=== PATIENT | male | born 1950 | race Caucasian/White ===

== ENCOUNTER 2018-04-08 09:45 | Emergency (ER) | payer OTHER ==
[2018-04-08] MEDS ORDERED: MORPHINE 4 MG/ML SYR ONE (11:25)
[2018-04-08] MEDS ORDERED: DEXAMETHASONE 10 MG/ML VIAL ONE (11:25)
[2018-04-08] MEDS ORDERED: KETOROLAC 30 MG/ML INJ ONE (11:26)
[2018-04-08] MEDS ORDERED: NA CHLORIDE 0.9% 500 ML ONE (11:26)
[2018-04-08] MEDS ORDERED: ONDANSETRON 4 MG/2 ML VIAL ONE (11:26)
[2018-04-08] MEDS ORDERED: DIAZEPAM 5 MG TABLET ONE (11:26)
--- NOTE | 2018-04-08 11:40 | RAD REPORT ---
EXAM DESCRIPTION: CT - Spine Lumbar Wo Con - 04/08/2018 11:20 am CLINICAL HISTORY: Radiculopathy. LOWER BACK PAIN COMPARISON: No comparisons TECHNIQUE: Axial noncontrast CT imaging of the lumbar spine was performed with coronal and sagittal re-formatted images. All CT scans are performed using dose optimization technique as appropriate and may include automated exposure control or mA/KV adjustment according to patient size. FINDINGS: No acute lumbar spine fracture seen. Degenerative scoliotic curvature is present of the up per thoracolumbar spine is seen. Multilevel degenerative changes are present of the lower thoracic sp ine. Paraspinal tissues are normal in thickness. No paraspinal abscess or hematoma seen. Cholecystectomy c lips. Aortic atherosclerosis. IMPRESSION: No acute lumbar spine abnormality is detected. Consider MRI follow-up for assessment of disc disease if clinically desired.
[2018-04-08 11:46] LABS: Urine Blood NEGATIVE (NEG); Urine Glucose NEGATIVE (NEG); Urine Protein NEGATIVE (NEG); Urine Specific Gravity 1.015 (1.005-1.030); Urine pH 6.5 (5.0-7.0)
[2018-04-08 11:47] LABS: Absolute Lymphocytes (CBC) 2.1 K/uL (0.7-4.9); Absolute Monocytes 0.4 K/uL (0.1-1.3); Absolute Neutrophil 3.6 K/uL (1.8-8.0); Basophils % 1.2 % (0-1.3); Eosinophils % 3.2 % (0-4.4); Hematocrit 44.5 % (39.6-49.0); Lymphocytes % 33.2 % (15.3-44.8); MPV 9.2 fL (7.6-11.3); Monocytes % 6.1 % (3.3-12.3); RBC Red Blood Cell Count 4.85 M/uL (4.33-5.43)
[2018-04-08 12:00] LABS: Albumin 3.7 g/dL (3.4-5.0); Bilirubin Total 0.6 mg/dL (0.2-1.0); Potassium 4.3 mmol/L (3.5-5.1); Protein, Total 7.8 g/dL (6.4-8.2)
--- NOTE | 2018-04-08 12:12 | EDPHYS ---
Physician Documentation [facility] Name: Lev Miller Jr Age: 67 yrs Sex: Male : 1950 Arrival Date: 04/08/2018 Time: 09:50 Bed 14 Private MD: Omar Pope E ED Physician Samy Mehta HPI: 04/08 11:07 This 67 yrs old Male presents to ER via Ambulatory with complaints of Back estefany Pain. 11:07 The patient presents with pain that is acute, and decreased range of motion, and an estefany injury. The symptoms are located in the low back. Onset: The symptoms/episode began/occurred 2 day(s) ago. The pain radiates to the lumbar area, left low back and right low back. Associated signs and symptoms: The patient has no apparent associated signs or symptoms. Modifying factors: The patient symptoms are alleviated by remaining still, the patient symptoms are aggravated by any movement. Severity of symptoms: At their worst the symptoms were moderate, in the emergency department the symptoms are unchanged. The patient has not experienced similar symptoms in the past. Historical: - Allergies: 09:53 Codeine; sv 09:53 PENICILLINS; sv - PMHx: 09:53 Atrial Fib; CVA; Gout; Hypertension; sv - PSHx: 09:53 Appendectomy; sv - Immunization history:: Flu vaccine is up to date. - Social history:: Smoking status: Patient uses tobacco products, smokes one pack cigarettes per day. - Ebola Screening: : No symptoms or risks identified at this time. - Family history:: not pertinent. ROS: 11:07 Constitutional: Negative for fever, chills, and weight loss, Eyes: Negative for injury, estefany pain, redness, and discharge, ENT: Negative for injury, pain, and discharge, Neck: Negative for injury, pain, and swelling, Cardiovascular: Negative for chest pain, palpitations, and edema, Respiratory: Negative for shortness of breath, cough, wheezing, and pleuritic chest pain, Abdomen/GI: Negative for abdominal pain, nausea, vomiting, diarrhea, and constipation, : Negative for injury, bleeding, discharge, and swelling, MS/Extremity: Negative for injury and deformity, Skin: Negative for injury, rash, and discoloration, Neuro: Negative for headache, weakness, numbness, tingling, and seizure, Psych: Negative for depression, anxiety, suicide ideation, homicidal ideation, and hallucinations, Allergy/Immunology: Negative for hives, rash, and allergies, Endocrine: Negative for neck swelling, polydipsia, polyuria, polyphagia, and marked weight changes, Hematologic/Lymphatic: Negative for swollen nodes, abnormal bleeding, and unusual bruising. 11:07 Back: Positive for decreased range of motion, pain at rest, pain with movement, radiated pain, of the lumbar area, left low back and right low back. Exam: 11:07 Constitutional: This is a well developed, well nourished patient who is awake, alert, estefany and in no acute distress. Head/Face: Normocephalic, atraumatic. Eyes: Pupils equal round and reactive to light, extra-ocular motions intact. Lids and lashes normal. Conjunctiva and sclera are non-icteric and not injected. Cornea within normal limits. Periorbital areas with no swelling, redness, or edema. ENT: Nares patent. No nasal discharge, no septal abnormalities noted. Tympanic membranes are normal and external auditory canals are clear. Oropharynx with no redness, swelling, or masses, exudates, or evidence of obstruction, uvula midline. Mucous membranes moist. Neck: Trachea midline, no thyromegaly or masses palpated, and no cervical lymphadenopathy. Supple, full range of motion without nuchal rigidity, or vertebral point tenderness. No Meningismus. Chest/axilla: Normal chest wall appearance and motion. Nontender with no deformity. No lesions are appreciated. Cardiovascular: Regular rate and rhythm with a normal S1 and S2. No gallops, murmurs, or rubs. Normal PMI, no JVD. No pulse deficits. Respiratory: Lungs have equal breath sounds bilaterally, clear to auscultation and percussion. No rales, rhonchi or wheezes noted. No increased work of breathing, no retractions or nasal flaring. Abdomen/GI: Soft, non-tender, with normal bowel sounds. No distension or tympany. No guarding or rebound. No evidence of tenderness throughout. Male : Normal genitalia with no discharge or lesions. Skin: Warm, dry with normal turgor. Normal color with no rashes, no lesions, and no evidence of cellulitis. MS/ Extremity: Pulses equal, no cyanosis. Neurovascular intact. Full, normal range of motion. Neuro: Awake and alert, GCS 15, oriented to person, place, time, and situation. Cranial nerves II-XII grossly intact. Motor strength 5/5 in all extremities. Sensory grossly intact. Cerebellar exam normal. Normal gait. Psych: Awake, alert, with orientation to person, place and time. Behavior, mood, and affect are within normal limits. 11:07 Back: ROM is painful, normal spinal alignment noted, CVA tenderness, is absent, vertebral tenderness, is not appreciated, muscle spasm, is appreciated in the left low back, left mid back, right mid back and right low back. Vital Signs: 09:54 BP 130 / 89; Pulse 91; Resp 18; Temp 97.6; Pulse Ox 99% ; Weight 120.2 kg; Height 5 ft. sv 8 in. (172.72 cm); Pain 10/10; 11:30 BP 121 / 78; Pulse 84; Resp 18; Temp 97.4; Pulse Ox 99% on R/A; Pain 5/10; ph 09:54 Body Mass Index 40.29 (120.20 kg, 172.72 cm) sv MDM: 09:55 Patient medically screened. [facility] 11:09 Data reviewed: vital signs, nurses notes, lab test result(s), radiologic studies, CT [facility] scan. 04/08 11:07 Order name: CBC with Diff [facility] 04/08 11:07 Order name: Comprehensive Metabolic Panel [facility] 04/08 11:07 Order name: Urine Culture [facility] 04/08 11:43 Order name: Urine Dipstick--Ancillary (enter results) 04/08 11:47 Order name: Urine Dipstick-Ancillary; Complete Time: 12:10 [facility] 04/08 11:49 Order name: CBC with Automated Diff; Complete Time: 12:10 [facility] 04/08 11:07 Order name: CT Lumbar Spine Wo Con [facility] 04/08 11:42 Order name: CT; Complete Time: 12:10 [facility] 04/08 12:01 Order name: Comprehensive Metabolic Panel; Complete Time: 12:10 [facility] 04/08 11:07 Order name: Urine Dipstick-Ancillary (obtain specimen); Complete Time: 12:20 [facility] Administered Medications: 11:50 Drug: NS 0.9% 500 ml Route: IV; Rate: bolus; Site: right antecubital; ph 13:00 Follow up: Response: No adverse reaction; IV Status: Completed infusion ph 11:50 Drug: Valium 5 mg Route: PO; ph 13:00 Follow up: Response: No adverse reaction ph 11:50 Drug: Zofran 4 mg Route: IVP; Site: right antecubital; ph 13:00 Follow up: Response: No adverse reaction ph 11:52 Drug: morphine 4 mg Route: IVP; Site: right antecubital; ph 13:00 Follow up: Response: No adverse reaction; Pain is decreased ph 11:53 Drug: TORadol 30 mg Route: IVP; Site: right antecubital; ph 13:00 Follow up: Response: No adverse reaction ph 11:54 Drug: Decadron - Dexamethasone 10 mg Route: IVP; Site: right antecubital; ph 13:00 Follow up: Response: No adverse reaction ph Disposition: 04/08/18 12:11 Discharged to Home. Impression: Low back pain, Sciatica, Obesity, unspecified. - Condition is Stable. - Discharge Instructions: Back Pain, Adult, Musculoskeletal Pain, Obesity, Adult, Back Injury Prevention, Jgpo-hm-Vqor, Back Pain, Adult, Rghn-mr-Kkmh, Obesity, Adult, Wukf-gu-Xgjy. - Prescriptions for Skelaxin 800 mg Oral Tablet - take 1 tablet by ORAL route every 6 hours As needed; 40 tablet. Tramadol 50 mg Oral Tablet - take 1 tablet by ORAL route every 8 hours as needed; 24 tablet. Medrol (Landry) 4 mg Oral Tablets, Dose Pack - take 1 tablet by ORAL route as directed - follow package instructions; 1 packet. Motrin IB 200 mg Oral Tablet - take 1 tablet by ORAL route every 6 hours As needed as needed with food; 20 tablet. - Medication Reconciliation Form, Thank You Letter, Antibiotic Education, Prescription Opioid Use form. - Follow up: Omar Pope; When: 2 - 3 days; Reason: Recheck today's complaints, Continuance of care, Re-evaluation by your physician. - Problem is new. - Symptoms have improved. Signatures: Dispatcher [employer] Dorothea Moore, RN RN Samy Valadez MD MD cha Hall, Patricia, RN RN ph Corrections: (The following items were deleted from the chart) 13:02 12:11 04/08/2018 12:11 Discharged to Home. Impression: Low back pain; Sciatica; ph Obesity, unspecified. Condition is Stable. Discharge Instructions: Back Pain, Adult, Musculoskeletal Pain, Obesity, Adult, Back Injury Prevention, Qvhq-ib-Rwuf, Back Pain, Adult, Cjoe-hh-Cirt, Obesity, Adult, Wwhb-kg-Rskg. Prescriptions for Skelaxin 800 mg Oral Tablet - take 1 tablet by ORAL route every 6 hours As needed; 40 tablet, Tramadol 50 mg Oral Tablet - take 1 tablet by ORAL route every 8 hours as needed; 24 tablet, Medrol (Landry) 4 mg Oral Tablets, Dose Pack - take 1 tablet by ORAL route as directed - follow package instructions; 1 packet. and Forms are Medication Reconciliation Form, Thank You Letter, Antibiotic Education, Prescription Opioid Use. Follow up: Omar Pope; When: 2 - 3 days; Reason: Recheck today's complaints, Continuance of care, Re-evaluation by your physician. Problem is new. Symptoms have improved. estefany
--- NOTE | 2018-04-08 12:12 | ER ---
Nurse's Notes [facility] Name: Lev Miller Jr Age: 67 yrs Sex: Male : 1950 Arrival Date: 04/08/2018 Time: 09:50 Bed 14 Private MD: Omar Pope E Diagnosis: Low back pain;Sciatica;Obesity, unspecified Presentation: 04/08 09:52 Presenting complaint: Patient states: low back pain after bending down to pick sv something off of his bathtub yesterday. Transition of care: patient was not received from another setting of care. Onset of symptoms was April 07, 2018. Care prior to arrival: None. 09:52 Method Of Arrival: Ambulatory sv 09:52 Acuity: CRISTINA 4 sv 12:30 Risk Assessment: Do you want to hurt yourself or someone else? Patient reports no ph desire to harm self or others. Initial Sepsis Screen: Does the patient meet any 2 criteria? No. Patient's initial sepsis screen is negative. Does the patient have a suspected source of infection? No. Patient's initial sepsis screen is negative. Triage Assessment: 09:54 General: Appears in no apparent distress. uncomfortable, Behavior is calm, cooperative, sv appropriate for age. Pain: Complains of pain in low back area Pain currently is 10 out of 10 on a pain scale. Neuro: Level of Consciousness is awake, alert, obeys commands, Oriented to person, place, time, situation, Moves all extremities. Full function Gait is steady, Denies numbness. Respiratory: Respiratory effort is even, unlabored, Respiratory pattern is regular, symmetrical. Musculoskeletal: Range of motion: intact in all extremities. Historical: - Allergies: 09:53 Codeine; sv 09:53 PENICILLINS; sv - PMHx: 09:53 Atrial Fib; CVA; Gout; Hypertension; sv - PSHx: 09:53 Appendectomy; sv - Immunization history:: Flu vaccine is up to date. - Social history:: Smoking status: Patient uses tobacco products, smokes one pack cigarettes per day. - Ebola Screening: : No symptoms or risks identified at this time. - Family history:: not pertinent. Screenin:30 Abuse screen: Denies threats or abuse. Denies injuries from another. Nutritional ph screening: No deficits noted. Tuberculosis screening: No symptoms or risk factors identified. Fall Risk None identified. Assessment: 10:30 General: Appears in no apparent distress. uncomfortable, well groomed, Behavior is ph calm, cooperative, appropriate for age. Pain: Complains of pain in low back area. Neuro: Level of Consciousness is awake, alert, obeys commands, Oriented to person, place, time, situation. Cardiovascular: Capillary refill < 3 seconds in bilateral fingers Patient's skin is warm and dry. Respiratory: Airway is patent Respiratory effort is even, unlabored. : Reports pain in lower back Denies burning with urination, urinary frequency. Derm: Skin is intact, is healthy with good turgor, Skin is pink, warm \T\ dry. Musculoskeletal: Circulation, motion, and sensation intact. Range of motion: intact in all extremities. 11:30 Reassessment: Patient appears in no apparent distress at this time. Patient and/or ph family updated on plan of care and expected duration. Pain level reassessed. Patient is alert, oriented x 3, equal unlabored respirations, skin warm/dry/pink. 12:55 Reassessment: Patient appears in no apparent distress at this time. Patient and/or ph family updated on plan of care and expected duration. Pain level reassessed. Patient is alert, oriented x 3, equal unlabored respirations, skin warm/dry/pink. Pt reports that paiun has improved, d/c home w/ SO. Vital Signs: 09:54 BP 130 / 89; Pulse 91; Resp 18; Temp 97.6; Pulse Ox 99% ; Weight 120.2 kg; Height 5 ft. sv 8 in. (172.72 cm); Pain 10/10; 11:30 BP 121 / 78; Pulse 84; Resp 18; Temp 97.4; Pulse Ox 99% on R/A; Pain 5/10; ph 09:54 Body Mass Index 40.29 (120.20 kg, 172.72 cm) sv ED Course: 09:50 Patient arrived in ED. dl4 09:50 Omar Pope MD is Private Physician. dl4 09:53 Triage completed. sv 09:54 Arm band placed on Patient placed in an exam room, on a stretcher. sv 09:55 Samy Mehta MD is Attending Physician. estefany 10:07 Ceci Stephen RN is Primary Nurse. ph 11:25 CT completed. Patient tolerated procedure well. Patient moved to CT via wheelchair. vr Patient moved back from CT. 12:07 Patient has correct armband on for positive identification. Bed in low position. Call [facility] light in reach. Side rails up X 1. Adult w/ patient. Pillow given. Pulse ox on. NIBP on. 12:07 Initial lab(s) drawn, by tx, sent to lab. Inserted saline lock: 20 gauge in right [facility] antecubital area, using aseptic technique. Blood collected. 12:08 Urine Dipstick--Ancillary (enter results) Sent. [facility] 12:08 CT Lumbar Spine Wo Con Sent. [facility] 12:08 Comprehensive Metabolic Panel Sent. [facility] 12:08 CBC with Diff Sent. [facility] 12:11 Omar Pope MD is Referral Physician. [facility] 13:00 No provider procedures requiring assistance completed. IV discontinued, intact, ph bleeding controlled, No redness/swelling at site. Pressure dressing applied. Administered Medications: 11:50 Drug: NS 0.9% 500 ml Route: IV; Rate: bolus; Site: right antecubital; ph 13:00 Follow up: Response: No adverse reaction; IV Status: Completed infusion ph 11:50 Drug: Valium 5 mg Route: PO; ph 13:00 Follow up: Response: No adverse reaction ph 11:50 Drug: Zofran 4 mg Route: IVP; Site: right antecubital; ph 13:00 Follow up: Response: No adverse reaction ph 11:52 Drug: morphine 4 mg Route: IVP; Site: right antecubital; ph 13:00 Follow up: Response: No adverse reaction; Pain is decreased ph 11:53 Drug: TORadol 30 mg Route: IVP; Site: right antecubital; ph 13:00 Follow up: Response: No adverse reaction ph 11:54 Drug: Decadron - Dexamethasone 10 mg Route: IVP; Site: right antecubital; ph 13:00 Follow up: Response: No adverse reaction ph Outcome: 12:11 Discharge ordered by . estefany 13:02 Patient left the ED. ph 13:02 Discharged to home ambulatory, with significant other. ph 13:02 Condition: improved 13:02 Discharge instructions given to patient, Instructed on discharge instructions, follow up and referral plans. medication usage, Demonstrated understanding of instructions, follow-up care, medications, Prescriptions given X 4. Signatures: Dominik, Dorothea, Samy Gomez RN, MD MD cha Davis, Victoria vr Hall, Patricia, RN RN Josephine Bay [facility] Aniceto Chapman 4 Corrections: (The following items were deleted from the chart) 12:19 11:53 NS 0.9% 500 ml IV at bolus in right antecubital ph ph
[2018-04-08 13:13] VITALS: BP 130/89; TEMP 97.6; O2SAT 99
== END 2018-04-08 13:02 | disposition home or self-care (01) ==
LOC: ER 09:45
DX: M54.30 Sciatica, unspecified side (principal); E66.9 Obesity, unspecified; F17.210 Nicotine dependence, cigarettes, uncomplicated; Z88.0 Allergy status to penicillin; Z88.6 Allergy status to analgesic agent; Z72.0 Tobacco use
CPT/HCPCS: 36415; 72131; 80053; 81003; 85025; 87086; 87088; J1100; J2405

== ENCOUNTER 2019-10-21 06:20 | Day surgery (SDC) | payer OTHER ==
[2019-10-21] MEDS ORDERED: GENTAMICIN 80 MG/100 ML BAG 80 MG/100 ML BAG IV ONE (06:35)
[2019-10-21] MEDS ORDERED: Ringers Lactate 1,000 ML IV ONE (06:35)
[2019-10-21] MEDS ORDERED: propofoL 200 MG/20 ML VIAL IV ONE (07:14)
[2019-10-21] MEDS ORDERED: MIDAZOLAM HCL 2 MG/2 ML INJ ONE (07:14)
[2019-10-21] MEDS ORDERED: LIDOCAINE 2% MPF 5 ML VIAL ONE (07:14)
[2019-10-21] MEDS ORDERED: dexAMETHasone 10 MG/ML VIAL ONE (07:14)
[2019-10-21] MEDS ORDERED: FENTANYL CITR 100 MCG/2 ML ONE (07:14)
[2019-10-21] MEDS ORDERED: LIDOCAINE 1% MPF 5 ML VIAL ONE (07:21)
[2019-10-21] MEDS ORDERED: BUPIVACAINE 0.5% PF 10 ML VIAL ONE (07:22)
[2019-10-21] MEDS ORDERED: LIDOCAINE 1% MPF 30 ML VIAL ONE (07:26)
[2019-10-21] MEDS ORDERED: EPHEDRINE SULF 50 MG/ML VIAL ONE (08:22)
[2019-10-21] MEDS ORDERED: KETOROLAC 30 MG/ML INJ ONE (08:39)
[2019-10-21 09:46] VITALS: BP 126/78; O2SAT 98
[2019-10-21] MEDS ORDERED: TRAMADOL HCL 50 MG TAB ONE (10:10)
[2019-10-21 10:44] VITALS: TEMP 7.3
== END 2019-10-21 10:40 | disposition home or self-care (01) ==
LOC: OR 06:20
PROVIDERS: ATTEND Urology
PROC: 0VB Male Reproductive System, Excision (ICD-10-PCS; principal; 2019-10-21 07:30)
DX: L94.2 Calcinosis cutis (principal); Z11.59 Encounter for screening for other viral diseases; I10 Essential (primary) hypertension; I48.91 Unspecified atrial fibrillation; M10.9 Gout, unspecified; Z79.899 Other long term (current) drug therapy; Z87.891 Personal history of nicotine dependence
CPT/HCPCS: 11423; 12042; 88304; 88311; U0002 ×2; J2704; J2250; J3010; J1100; J7120; J1580

== ENCOUNTER 2019-11-14 07:30 | Observation (INO) | payer OTHER ==
[2019-11-14 08:10] LABS: Protime INR 1.2
[2019-11-14 08:11] LABS: Absolute Lymphocytes (CBC) 2.1 K/uL (0.7-4.9); Basophils % 0.9 % (0-1.3); Hematocrit 42.7 % (39.6-49.0); Lymphocytes % 32.7 % (15.3-44.8); MPV 9.1 fL (7.6-11.3); RBC Red Blood Cell Count 4.54 M/uL (4.33-5.43)
[2019-11-14 08:31] LABS: ALT/SGPT 14 U/L (12-78); AST/SGOT 17 U/L (15-37); Albumin 3.4 g/dL (3.4-5.0); Alkaline Phosphatase 66 U/L (45-117); BUN Blood Urea Nitrogen 10 mg/dL (7-18); Bicarbonate 25 mmol/L (21-32); Bilirubin Direct 0.2 mg/dL (0-0.2); Bilirubin Total 0.6 mg/dL (0.2-1.0); Glucose Level 98 mg/dL (74-106); Magnesium 2.4 mg/dL (1.8-2.4); NT PRO-BNP 718 pg/mL (<125); Potassium 4.2 mmol/L (3.5-5.1); Protein, Total 7.1 g/dL (6.4-8.2); Sodium Level 137 mmol/L (136-145); Troponin (Emerg Dept Use Only) < 0.02 ng/mL (0.0-0.045)
--- NOTE | 2019-11-14 08:36 | RAD REPORT ---
EXAM DESCRIPTION: RAD - Chest Single View - 11/14/2019 8:13 am CLINICAL HISTORY: CHEST PAIN COMPARISON: September 24, 2019 chest exam TECHNIQUE: AP portable chest image was obtained 11/14/2019 8:13 am . FINDINGS: Lungs are clear. Interstitial pattern matches comparison. No failure or volume overload. H eart and vasculature are normal. No measurable pleural effusion and no pneumothorax. No acute bony ab normality seen. No acute aortic findings suspected. IMPRESSION: No acute cardiopulmonary process. No significant change from the September 23 study.
--- NOTE | 2019-11-14 08:40 | ER ---
Nurse's Notes [facility] Name: Lev Miller Jr Age: 69 yrs Sex: Male : 1950 Arrival Date: 11/14/2019 Time: 07:33 Bed 25 Private MD: Diagnosis: Chest pain, unspecified Presentation: 11/13 07:35 Chief complaint: Patient states: Intermittent, non-radiating, mid-sternal chest pain jl7 since 0430. Coronavirus screen: Client denies travel out of the [place] in the last 14 days. At this time, the client does not indicate any symptoms associated with coronavirus-19. Ebola Screen: No symptoms or risks identified at this time. Initial Sepsis Screen: Does the patient meet any 2 criteria? No. Patient's initial sepsis screen is negative. Does the patient have a suspected source of infection? No. Patient's initial sepsis screen is negative. Risk Assessment: Do you want to hurt yourself or someone else? Patient reports no desire to harm self or others. Onset of symptoms was November 14, 2019 at 04:30. Care prior to arrival: None. Transition of care: patient was not received from another setting of care. 07:35 Method Of Arrival: Ambulatory jl7 07:35 Acuity: CRISTINA 2 jl7 Triage Assessment: 07:49 General: Appears in no apparent distress. uncomfortable, Behavior is calm, cooperative, jl7 appropriate for age. Pain: Complains of pain in mid-sternal area Pain does not radiate. Pain currently is 2 out of 10 on a pain scale. at worst was 8 out of 10 on a pain scale. Quality of pain is described as pressure, Pain began 3 hours ago. Is intermittent. Neuro: Level of Consciousness is awake, alert, obeys commands, Oriented to person, place, time, situation, Gait is steady, Speech is normal. Cardiovascular: Patient's skin is warm and dry. Rhythm is atrial fibrillation. Respiratory: Airway is patent Respiratory effort is even, unlabored, Respiratory pattern is regular, symmetrical. Derm: Skin is pink, warm \T\ dry. Historical: - Allergies: 07:49 Codeine; jl7 07:49 PENICILLINS; jl7 - Home Meds: 07:49 amlodipine 10 mg tab 1 tab once daily for Hypertension [Active]; Eliquis 5 mg Oral tab jl7 1 tab 2 times per day [Active]; lisinopril 20 mg Oral tab 1 tab once daily [Active]; sotalol 80 mg Oral tab 1 tab 2 times per day [Active]; - PMHx: 07:49 Atrial Fib; CVA; Gout; Hypertension; jl7 - Immunization history:: Adult Immunizations unknown. - Social history:: Smoking status: Patient reports the use of cigarette tobacco products, smokes one-half pack cigarettes per day. Screenin:59 Abuse screen: Denies threats or abuse. Denies injuries from another. Nutritional jl7 screening: No deficits noted. Tuberculosis screening: No symptoms or risk factors identified. Fall Risk IV access (20 points). Total Han Fall Scale indicates No Risk (0-24 pts). Assessment: 07:59 General: See triage assessment. jl7 09:00 Reassessment: Patient appears in no apparent distress at this time. No changes from jl7 previously documented assessment. Patient and/or family updated on plan of care and expected duration. Pain level reassessed. Patient is alert, oriented x 3, equal unlabored respirations, skin warm/dry/pink. 10:00 Reassessment: Patient appears in no apparent distress at this time. No changes from jl7 previously documented assessment. Patient and/or family updated on plan of care and expected duration. Pain level reassessed. Patient is alert, oriented x 3, equal unlabored respirations, skin warm/dry/pink. 11:29 Reassessment: Dhara (daughter) [phone]. 12:00 Reassessment: Patient appears in no apparent distress at this time. No changes from jl7 previously documented assessment. Patient and/or family updated on plan of care and expected duration. Pain level reassessed. Patient is alert, oriented x 3, equal unlabored respirations, skin warm/dry/pink. 13:00 Reassessment: Patient appears in no apparent distress at this time. No changes from jl7 previously documented assessment. Patient and/or family updated on plan of care and expected duration. Pain level reassessed. Patient is alert, oriented x 3, equal unlabored respirations, skin warm/dry/pink. 14:00 Reassessment: Patient appears in no apparent distress at this time. No changes from jl7 previously documented assessment. Patient and/or family updated on plan of care and expected duration. Pain level reassessed. Patient is alert, oriented x 3, equal unlabored respirations, skin warm/dry/pink. Vital Signs: 07:35 BP 127 / 74; Pulse 88; Resp 15 S; Temp 98.3(O); Pulse Ox 99% on R/A; Weight 90.72 kg jl7 (R); Pain 2/10; 08:00 BP 124 / 80; Pulse 79; Resp 15; Pulse Ox 97% ; jl7 09:00 BP 104 / 61; Pulse 76; Resp 15; Pulse Ox 96% ; jl7 10:00 BP 116 / 81; Pulse 87; Resp 16; Pulse Ox 96% ; jl7 11:00 BP 110 / 81; Pulse 75; Resp 14; Pulse Ox 97% ; jl7 12:19 BP 118 / 80; Pulse 69; Resp 17; Pulse Ox 98% on R/A; ll2 15:40 BP 123 / 78; Pulse 73; Resp 17; Temp 97.7; Pulse Ox 98% on R/A; Pain 0/10; ls4 ED Course: 07:33 Patient arrived in ED. ds1 07:35 Enzo Hancock, SALIMA is Primary Nurse. jl7 07:35 Arm band placed on right wrist. EKG completed in triage. Results shown to MD. jl7 07:37 Rivera Madrid PA is PHCP. jmm 07:37 Hussein Gomez MD is Attending Physician. jmm 07:47 Triage completed. jl7 07:59 Patient has correct armband on for positive identification. Placed in gown. Bed in low jl7 position. Call light in reach. Side rails up X2. filament shaper on. Pulse ox on. NIBP on. 07:59 Initial lab(s) drawn, by nm, sent to lab. Inserted saline lock: 20 gauge in right jl7 forearm, using aseptic technique. Blood collected. Patient maintains SpO2 saturation greater than 95% on room air. 08:13 XRAY Chest (1 view) In Process Unspecified. EDMS 08:40 Ankit Strong MD is Hospitalizing Provider. jmm 12:11 No provider procedures requiring assistance completed. Patient admitted, IV remains in jl7 place. intact, No redness/swelling at site. Administered Medications: 08:45 Drug: Aspirin Chewable Tablet 324 mg Route: PO; jl7 09:41 Follow up: Response: No adverse reaction jl7 Outcome: 08:40 Decision to Hospitalize by Provider. [place]ton 15:15 Admitted to ER Hold. Please see [facility] for further documentation. [facility] 15:15 Condition: stable 15:15 Discharge instructions given to patient, Instructed on the need for admit, Demonstrated understanding of instructions. 21:05 Patient left the ED. bb Signatures: Dispatcher [employer] Dorothea Moore, RN RN Rivera Payne PA PA jmm Sanford, Demi ds1 Tracie Chaney RN RN bb Enzo Hancock RN RN jl7 Alice Hui RN RN ls4 Elle Vincent RN RN ll2
--- NOTE | 2019-11-14 08:40 | EDPHYS ---
Physician Documentation [facility] Name: Lev Miller Jr Age: 69 yrs Sex: Male : 1950 Arrival Date: 11/14/2019 Time: 07:33 Bed 25 Private MD: ED Physician Hussein Gomez HPI: 11/13 07:53 This 69 yrs old Male presents to ER via Ambulatory with complaints of Chest jm Pain. 07:53 The patient or guardian reports chest pain that is located primarily in the substernal [facility] area. The pain does not radiate. Associated signs and symptoms: Pertinent negatives: None. The chest pain is described as a pressure. Duration: The patient or guardian reports a single episode, that is still ongoing. Modifying factors: The symptoms are alleviated by nothing. the symptoms are aggravated by nothing. Historical: - Allergies: 07:49 Codeine; jl7 07:49 PENICILLINS; jl7 - Home Meds: 07:49 amlodipine 10 mg tab 1 tab once daily for Hypertension [Active]; Eliquis 5 mg Oral tab jl7 1 tab 2 times per day [Active]; lisinopril 20 mg Oral tab 1 tab once daily [Active]; sotalol 80 mg Oral tab 1 tab 2 times per day [Active]; - PMHx: 07:49 Atrial Fib; CVA; Gout; Hypertension; jl7 - Immunization history:: Adult Immunizations unknown. - Social history:: Smoking status: Patient reports the use of cigarette tobacco products, smokes one-half pack cigarettes per day. ROS: 07:53 Constitutional: Negative for fever, chills, and weight loss. jmm 07:53 Respiratory: Negative for shortness of breath, cough, wheezing, and pleuritic chest pain, Neuro: Negative for headache, weakness, numbness, tingling, and seizure. 07:53 Cardiovascular: Positive for chest pain. 07:53 All other systems are negative. Exam: 07:53 Constitutional: This is a well developed, well nourished patient who is awake, alert, jmm and in no acute distress. Head/Face: atraumatic. Eyes: EOMI, no conjunctival erythema appreciated ENT: Moist Mucus Membranes Neck: Trachea midline, Supple Chest/axilla: Normal chest wall appearance and motion. Cardiovascular: irregularly irregular Respiratory: Normal respirations, no respiratory distress appreciated Abdomen/GI: Non distended, soft Back: Normal ROM Skin: General appearance color normal MS/ Extremity: Moves all extremities, no obvious deformities appreciated, no edema noted to the lower extremities Neuro: Awake and alert, normal gait Psych: Behavior is normal, Mood is normal, Patient is cooperative and pleasant 07:53 ECG was reviewed by the Attending Physician. Vital Signs: 07:35 BP 127 / 74; Pulse 88; Resp 15 S; Temp 98.3(O); Pulse Ox 99% on R/A; Weight 90.72 kg jl7 (R); Pain 2/10; 08:00 BP 124 / 80; Pulse 79; Resp 15; Pulse Ox 97% ; jl7 09:00 BP 104 / 61; Pulse 76; Resp 15; Pulse Ox 96% ; jl7 10:00 BP 116 / 81; Pulse 87; Resp 16; Pulse Ox 96% ; jl7 11:00 BP 110 / 81; Pulse 75; Resp 14; Pulse Ox 97% ; jl7 12:19 BP 118 / 80; Pulse 69; Resp 17; Pulse Ox 98% on R/A; ll2 15:40 BP 123 / 78; Pulse 73; Resp 17; Temp 97.7; Pulse Ox 98% on R/A; Pain 0/10; ls4 MDM: 07:38 Patient medically screened. [facility] 08:39 Data reviewed: vital signs, nurses notes, lab test result(s), EKG, radiologic studies. [facility] ED course: I discussed the patient with Dr. Strong whom accepted admission. . 11/13 07:43 Order name: Basic Metabolic Panel; Complete Time: 08:32 [facility] 11/13 07:43 Order name: CBC with Diff; Complete Time: 08:23 [facility] 11/13 07:43 Order name: LFT's; Complete Time: 08:32 [facility] 11/13 07:43 Order name: Magnesium; Complete Time: 08:32 [facility] 11/13 07:43 Order name: NT PRO-BNP; Complete Time: 08:32 [facility] 11/13 07:43 Order name: PT-INR; Complete Time: 08:23 [facility] 11/13 07:43 Order name: Troponin (emerg Dept Use Only); Complete Time: 08:32 [facility] 11/13 10:16 Order name: Basic Metabolic Panel [facility] 11/13 10:16 Order name: Basic Metabolic Panel [facility] 11/13 10:16 Order name: PTT, Activated Partial Thromb [facility] 11/13 10:16 Order name: PTT, Activated Partial Thromb [facility] 11/13 10:16 Order name: Troponin I [facility] 11/13 10:16 Order name: Troponin I [facility] 11/13 10:16 Order name: Troponin I [facility] 11/13 07:43 Order name: XRAY Chest (1 view); Complete Time: 08:52 [facility] 11/13 07:43 Order name: EKG; Complete Time: 07:44 [facility] 11/13 07:43 Order name: Cardiac monitoring; Complete Time: 08:02 [facility] 11/13 07:43 Order name: EKG - Nurse/Tech; Complete Time: 08:02 [facility] 11/13 07:43 Order name: IV Saline Lock; Complete Time: 08:02 [facility] 11/13 07:43 Order name: Labs collected and sent; Complete Time: 08:02 [facility] 11/13 07:43 Order name: O2 Per Protocol; Complete Time: 08:02 [facility] 11/13 07:43 Order name: O2 Sat Monitoring; Complete Time: 08:02 [facility] 11/13 10:16 Order name: CONS Physician Consult [facility] 11/13 10:17 Order name: Heart Healthy [facility] 11/13 10:17 Order name: Echo with Doppler [facility] 11/13 10:17 Order name: EKG Electrocardiogram [facility] 11/13 10:17 Order name: EKG Electrocardiogram [facility] 11/13 10:17 Order name: CBC with Automated Diff [facility] 11/13 10:17 Order name: CBC with Automated Diff [facility] EC:53 Rate is 91 beats/min. Rhythm is irregularly irregular, A fib. QRS [place] is Normal. [place] jmm interval is normal. QRS interval is normal. QT interval is normal. No Q waves. T waves are Normal. No ST changes noted. Reviewed by me. Administered Medications: 08:45 Drug: Aspirin Chewable Tablet 324 mg Route: PO; jl7 09:41 Follow up: Response: No adverse reaction jl7 Disposition: 11/14/19 08:40 Hospitalization ordered by Ankit Strong for Observation. Preliminary diagnosis is Chest pain, unspecified. - Bed requested for Telemetry/MedSurg (observation). - Status is Observation. bb - Condition is Stable. - Problem is new. - Symptoms are unchanged. Addendum: 11/16/2019 08:50 Co-signature as Attending Physician, Hussein Gomez MD I agree with the assessment and k dr plan of care. Signatures: Dispatcher [employer] EDMS Amanda Boswell RN RN dw Rittger, Kevin, MD MD [facility] Rivera [place] PA PA [facility] Tracie Chaney RN RN bb Smirch, Shelby, RN RN Enzo Hancock RN RN jl7 Corrections: (The following items were deleted from the chart) 11/13 07:55 07:53 Constitutional: This is a well developed, well nourished patient who is awake, jmm alert, and in no acute distress. Head/Face: atraumatic. Eyes: EOMI, no conjunctival erythema appreciated ENT: Moist Mucus Membranes Neck: Trachea midline, Supple Chest/axilla: Normal chest wall appearance and motion. Cardiovascular: Regular rate and rhythm. No edema appreciated Respiratory: Normal respirations, no respiratory distress appreciated Abdomen/GI: Non distended, soft Back: Normal ROM Skin: General appearance color normal MS/ Extremity: Moves all extremities, no obvious deformities appreciated, no edema noted to the lower extremities Neuro: Awake and alert, normal gait Psych: Behavior is normal, Mood is normal, Patient is cooperative and pleasant [facility] 12:45 08:40 Hospitalization Ordered by Ankit Strong MD for Observation. Preliminary ss diagnosis is Chest pain, unspecified. Bed requested for Telemetry/MedSurg (observation). Status is Observation. Condition is Stable. Problem is new. Symptoms are unchanged. [facility] 18:37 12:45 11/14/2019 08:40 Hospitalization Ordered by Ankit Strong MD for Observation. dw Preliminary diagnosis is Chest pain, unspecified. Bed requested for [facility] ER HOLD. Status is Observation. Condition is Stable. Problem is new. Symptoms are unchanged. ss 21:05 18:37 11/14/2019 08:40 Hospitalization Ordered by Ankit Strong MD for Observation. bb Preliminary diagnosis is Chest pain, unspecified. Bed requested for Telemetry/MedSurg (observation). Status is Observation. Condition is Stable. Problem is new. Symptoms are unchanged. dw
[2019-11-14] MEDS ORDERED: ASPIRIN 81 MG CHEWABLE TABLET ONE (09:03)
[2019-11-14] MEDS ORDERED: MORPHINE 4 MG/ML SYR IV PRN (10:14)
[2019-11-14] MEDS ORDERED: ACETAMINOPHEN 500 MG TAB PO PRN (10:14)
[2019-11-14] MEDS ORDERED: METOPROLOL TAR 25 MG TAB PO SCH (21:00)
[2019-11-14] MEDS ORDERED: ENOXAPARIN 100 MG/ML SYR SQ SCH (21:00)
[2019-11-14 23:43] VITALS: BMI 33.8
--- NOTE | 2019-11-15 00:35 | P.HP ---
Certification for Inpatient Patient admitted to: Observation With expected LOS: <2 Midnights Patient will require the following post-hospital care: None Practitioner: I am a practitioner with admitting privileges, knowledge of patient current condition, hospital course, and medical plan of care. Services: Services provided to patient in accordance with Admission requirements found in Title 42 Section 412.3 of the Code of Federal Regulations Patient History Date of Service: 11/14/19 Reason for admission: chest pain rule out acute coronary syndrome History of Present Illness: Patient is a 69-year-old gentleman who comes into the hospital with chest discomfort. Pain was mainly in the sternal region after patient had drank some coffee. He went to take a shower and after he came back he noticed the chest pain. He came into the ER as his pain was not improving. In the emergency room he was worked up with EKG and troponin with no acute abnormality. Patient has a history of CVA with multiple TIAs along with atrial fibrillation with rapid ventricular response. Patient will be admitted to the hospital for further evaluation. Allergies Penicillins Allergy (Severe, Verified 10/10/19 08:19) Rash codeine [Codeine] Adverse Reaction (Severe, Verified 10/10/19 08:19) NAUSEA VOMITTING Home Medications: Sotalol HCl [Betapace*] 80 mg PO BID #60 tab 08/12/15 Amlodipine [Norvasc*] 10 mg PO BEDTIME 03/08/16 lisinopriL [Prinivil*] 20 mg PO DAILY 03/08/16 Allopurinol 100 mg PO DAILY 10/10/19 Apixaban [Eliquis] 5 mg PO BID 11/14/19 - Past Medical/Surgical History Has patient received pneumonia vaccine in the past: Yes Diabetic: No -: CVA -: HTN -: TIA -: Afib -: gout -: appendectomy -: bx of arm -: scrotal cyst removal - Family History Father Medical History: Heart disease Mother Medical History: Heart disease, Hypertension, Other (see notes) Notes: alzheimers Brother Medical History: Cancer - Social History Smoking Status: Current every day smoker Alcohol use: Yes CD- Drugs: No Caffeine use: Yes Place of Residence: Home Review of Systems 10-point ROS is otherwise unremarkable Physical Examination - Vital Signs Temperature: 97.0 F Blood Pressure: 139/85 Pulse: 84 Respirations: 18 Pulse Ox (%): 98 - Physical Exam General: Alert, In no apparent distress, Oriented x3 HEENT: Atraumatic, PERRLA, Mucous membr. moist/pink, EOMI, Sclerae nonicteric Neck: Supple, 2+ carotid pulse no bruit, No LAD, Without JVD or thyroid abnormality Respiratory: Clear to auscultation bilaterally, Normal air movement Cardiovascular: Regular rate/rhythm, Normal S1 S2, No murmurs Gastrointestinal: Normal bowel sounds, Soft and benign, Non-distended, No tenderness Musculoskeletal: No clubbing, No swelling, No tenderness Integumentary: No rashes Neurological: Normal gait, Normal speech, Normal strength at 5/5 x4 extr, Normal tone, Sensation intact, Cranial nerves 3-12 intact, Normal affect Lymphatics: No axilla or inguinal lymphadenopathy - Studies Laboratory Data (last 24 hrs) 11/14/19 07:55: PT 14.1 H, INR 1.20 11/14/19 07:55: WBC 6.4, Hgb 14.6, Hct 42.7, Plt Count 201 11/14/19 07:55: Sodium 137, Potassium 4.2, BUN 10, Creatinine 0.75, Glucose 98, Magnesium 2.4, Total Bilirubin 0.6, AST 17, ALT 14, Alkaline Phosphatase 66 Assessment & Plan - Problems (Diagnosis) (1) Chest pain, rule out acute myocardial infarction Current Visit: Yes Status: Acute (2) History of CVA (cerebrovascular accident) Current Visit: Yes Status: Acute (3) Atrial fibrillation Onset Date: 04/17/16 Current Visit: No Status: Acute (4) Weakness Onset Date: 04/17/16 Current Visit: No Status: Acute - Plan 1. Serial troponins and EKG 2. Cardiology consultation 3. Inpatient cardiac workup but will probably need further testing as an outpatient as we are approaching the weekend. 4. Anti-platelet therapy, continue with anti coagulation, beta-javad, statin, and O2 as needed 5. IV morphine for pain 6. Nitro p.r.n. 7. GI and DVT prophylaxis Discharge Plan: Home Plan to discharge in: Greater than 2 days - Advance Directives Does patient have a Living Will: No Does patient have a Durable POA for Healthcare: No - Code Status/Comfort Care Code Status Assessed: Yes Code Status: Full Code Critical Care: No Time Spent Managing PTS Care (In Minutes): 42
[2019-11-15 04:48] LABS: Absolute Lymphocytes (CBC) 2.1 K/uL (0.7-4.9); Basophils % 0.8 % (0-1.3); Hematocrit 41.8 % (39.6-49.0); Lymphocytes % 33.2 % (15.3-44.8); MPV 9.1 fL (7.6-11.3); RBC Red Blood Cell Count 4.37 M/uL (4.33-5.43)
[2019-11-15 04:59] LABS: BUN Blood Urea Nitrogen 9 mg/dL (7-18); Bicarbonate 29 mmol/L (21-32); Glucose Level 95 mg/dL (74-106); Potassium 4.5 mmol/L (3.5-5.1); Sodium Level 141 mmol/L (136-145)
--- NOTE | 2019-11-15 05:32 | CON ---
Date of Consultation: 11/14/2019 Reason For Consultation: Chest pain. History Of Present Illness: Mr. Miller is a 69-year-old male with history of atrial fibrillation, hype rtension, gout, CVA, had a recent surgery on a sebaceous cyst. He came in with atypical chest pain, sharp, left-sided. No nausea, vomiting, diaphoresis. No PND, orthopnea, or pedal edema, palpitation , or syncope. The pain was not exertional. The pain did not radiate. Negative workup so far includ ing CPKs, MBs, and troponin. His BNP is slightly elevated at 718. Past Medical History: As stated above. Allergies: HE IS ALLERGIC TO PENICILLIN AND CODEINE. Review of Systems: Negative. Social History: Negative. Family History: Negative. Medications: At home include Eliquis, Norvasc, allopurinol, lisinopril, and sotalol. Physical Examination: Vital Signs: Stable. Afebrile. Sinus rhythm. HEENT: Negative. Neck: Supple. No bruit. Chest: Clear. Cardiac: Regular rhythm and rate. No murmurs, gallops, or rubs. Abdomen: Benign. Extremities: No clubbing, cyanosis, or edema. Diagnostic Data: As stated earlier. Impression And Plan: Atypical chest pain in a patient with history of hypertension, cerebrovascular accident, and atrial fibrillation. He has had a history of gout as well. Recent surgery was tolerat ed well for sebaceous cyst. He is already ruled out for a myocardial infarction. X-ray, enzymes, an d EKGs are unremarkable. His elevated BNP is nonspecific with atrial fibrillation. I do not think jeanie stephens has congestive heart failure. I am comfortable with him going home and have an outpatient workup. I will see him in the office in the near future. DEISI/ALESIA Voice ID: [id number] Report ID: [id number]
--- NOTE | 2019-11-15 05:49 | EKG ---
Test Date: 2019-11-14 Test Time: 07:43:36 Urgent Care Physician: RADHA MEASUREMENT RESULTS: Intervals: Rate: 91 MS: QRSD: 82 QT: 354 QTc: 435 [place]: P: MS: QRS: 18 T: 7 INTERPRETIVE STATEMENTS: Atrial fibrillation Abnormal ECG Compared to ECG 09/24/2019 11:39:20 No significant changes Electronically Signed On 11-15-19 05:45:29 CDT by Alvin Hickman
[2019-11-15 08:47] VITALS: BP 140/76; TEMP 98.8
[2019-11-15] MEDS ORDERED: allopurinoL 100 MG TAB PO SCH (09:00)
[2019-11-15] MEDS ORDERED: SOTALOL HCL 80 MG TAB PO SCH (09:00)
[2019-11-15] MEDS ORDERED: ENOXAPARIN 40 MG/0.4 ML SQ SCH (09:00)
[2019-11-15] MEDS ORDERED: APIXABAN 5 MG TABLET PO SCH (09:00)
[2019-11-15] MEDS ORDERED: lisinopriL 10 MG TAB PO SCH (09:00)
[2019-11-15] MEDS ORDERED: ASPIRIN EC 81 MG TAB PO SCH (09:00)
--- NOTE | 2019-11-15 09:16 | P.DS ---
Admission Date: 11/14/19 Discharge Date: 11/15/19 Primary Care Provider: Dr. Pope; Cardiology-Dr. Hickman Disposition: ROUTINE DISCHARGE Discharge Condition: GOOD Reason for Admission: chest pain rule out acute coronary syndrome Consultations: Cardiology-Dr. Hickman Procedures: Medical problem list: Brief History of Present Illness: 69-year-old male presented to the emergency room with chest pain. Patient with history of atrial fibrillation on chronic anti coagulation therapy, hypertension, gout and prior CVA. Patient was admitted for further evaluation of his chest pain. Hospital Course: Patient with Atrial fibrillation on chronic anticoagulation and HTN. Patient presented with Chest pain. Cardiac enzymes were negative. No significant EGG changes noted. Patient was seen by Cardiology. No cardiac intevention recommended at this time. Patient may continue with Eliquis 5 mg twice daily, Sotalol 80 mg twice daily, Lisinopril 20 mg daily and Norvasc 10 mg daily. Hold BP medications(Norvasc or Lisinopril) if BP sys less than 120. Cardiology recommends follow up in 1-2 weeks to follow up this hospitalization. Patient may require outpatient cardiac workup if chest pain persists. Vital Signs/Physical Exam: Temp Pulse Resp BP Pulse Ox 98.8 F 87 17 140/76 98 11/15/19 08:00 11/15/19 08:00 11/15/19 08:00 11/15/19 08:00 11/15/19 08:00 General: Alert, In no apparent distress, Oriented x3, Cooperative HEENT: Atraumatic Neck: Supple Respiratory: Clear to auscultation bilaterally, Normal air movement Cardiovascular: Irregular heart rate/rhythm (AFib rate controlled) Gastrointestinal: Normal bowel sounds, No tenderness, No masses, No rebound, No guarding Musculoskeletal: No erythema, No tenderness, No warmth Integumentary: No tenderness/swelling, No erythema, No warmth, No cyanosis Neurological: Normal speech, Normal strength at 5/5 x4 extr, Normal tone, Normal affect Laboratory Data at Discharge: WBC 6.3 K/uL (4.3-10.9) 11/15/19 04:14 Hgb 14.1 g/dL (13.6-17.9) 11/15/19 04:14 Hct 41.8 % (39.6-49.0) 11/15/19 04:14 Plt Count 193 K/uL (152-406) 11/15/19 04:14 PT 14.1 SECONDS (9.5-12.5) H 11/14/19 07:55 INR 1.20 11/14/19 07:55 APTT 36.4 SECONDS (24.3-36.9) 11/15/19 04:14 Sodium 141 mmol/L (136-145) 11/15/19 04:14 Potassium 4.5 mmol/L (3.5-5.1) 11/15/19 04:14 BUN 9 mg/dL (7-18) 11/15/19 04:14 Creatinine 0.77 mg/dL (0.55-1.3) 11/15/19 04:14 Glucose 95 mg/dL (74-106) 11/15/19 04:14 Magnesium 2.4 mg/dL (1.8-2.4) 11/14/19 07:55 Total Bilirubin 0.6 mg/dL (0.2-1.0) 11/14/19 07:55 AST 17 U/L (15-37) 11/14/19 07:55 ALT 14 U/L (12-78) 11/14/19 07:55 Alkaline Phosphatase 66 U/L (45-117) 11/14/19 07:55 Troponin I < 0.02 ng/mL (0.0-0.045) 11/14/19 22:03 Home Medications: Sotalol HCl [Betapace*] 80 mg PO BID #60 tab 08/12/15 Amlodipine [Norvasc*] 10 mg PO BEDTIME 03/08/16 lisinopriL [Prinivil*] 20 mg PO DAILY 03/08/16 Allopurinol 100 mg PO DAILY 10/10/19 Apixaban [Eliquis] 5 mg PO BID 11/14/19 Patient Discharge Instructions: 1. Follow up with PCP in 1 week to follow up hospitalization. 2. Patient with Atrial fibrillation on chronic anticoagulation, HTN. Presented with Chest pain. Cardiac enzymes negative. No significant EGG changes. Patient seen by Cardiology. No cardiac intevention recommended at this time. Patient may continue with Eliquis 5 mg twice daily, Sotalol 80 mg twice daily, Lisinopril 20 mg daily and Norvasc 10 mg daily. Hold BP medications(Norvasc or Lisinopril) if BP sys less than 120. Follow up with Cardiology in 1-2 weeks to follow up hospitalization. Education on Chest pain, HTN, Atrial fibrillation will be provided. 3. Patient may also continue with Allopurinol. Diet: AHA Activity: Ad bob Followup: Alvin Hickman MD [ACTIVE - CAN ADMIT] - Time spent managing pt's care (in minutes): 55
[2019-11-15 10:58] VITALS: O2SAT 98
[2019-11-15] MEDS ORDERED: AMLODIPINE 5 MG TAB PO SCH (21:00)
--- NOTE | 2019-11-17 08:27 | ECHO ---
HEIGHT: 5 ft 8 in WEIGHT: 222 lb 8 oz DATE OF STUDY: 11/14/[address]: Ankit Strong MD 2-DIMENSIONAL: YES M.MODE: YES DOPPLER: YES COLOR FLOW: YES TDS: YES PORTABLE: NO DEFINITY: NO BUBBLE STUDY: NO DIAGNOSIS: CHEST PAIN, RULE OUT ACS CARDIAC HISTORY: CATHERIZATION: NO SURGERY: NO PROSTHETIC VALVE: NO PACEMAKER: NO MEASUREMENTS (cm) DIASTOLIC (NORMALS) SYSTOLIC (NORMALS) IVSd 1.2 (0.6-1.2) LA Diam 4.2 (1.9-4.0) LVEF 51% LVIDd 3.9 (3.5-5.7) LVIDs 2.9 (2.0-3.5) %FS 25% LVPWd 1.3 (0.6-1.2) Ao Diam 3.2 (2.0-3.7) 2 DIMENSIONAL ASSESSMENT: RIGHT ATRIUM: NORMAL LEFT ATRIUM: DILATED RIGHT VENTRICLE: NORMAL LEFT VENTRICLE: NORMAL TRICUSPID VALVE: NORMAL MITRAL VALVE: NORMAL PULMONIC VALVE: NORMAL AORTIC VALVE: NORMAL PERICARDIAL EFFUSION: NONE AORTIC ROOT: NORMAL LEFT VENTRICULAR WALL MOTION: NORMAL DOPPLER/COLOR FLOW: MILD TRICUSPID REGURGITATION. COMMENTS: TECHNICALLY DIFFICULT STUDY. MILD TRICUSPID REGURGITATION. NORMAL RIGHT VENTRICULAR SYSTOLIC PRESSURE. NORMAL LEFT VENTRICULAR SIZE AND FUNCTION. TECHNOLOGIST: Adrianna OKEEFE
== END 2019-11-15 09:29 | disposition home or self-care (01) ==
LOC: ER 07:30 → ERHOLD 10:34 → 2ND 20:49
PROVIDERS: ADMIT Hospitalist; ATTEND Family Medicine
DX: R07.89 Other chest pain (principal); I48.20 Chronic atrial fibrillation, unspecified; I10 Essential (primary) hypertension; Z86.73 Personal history of transient ischemic attack (TIA), and cerebral infarction without residual deficits; M10.9 Gout, unspecified; I07.1 Rheumatic tricuspid insufficiency; F17.210 Nicotine dependence, cigarettes, uncomplicated; Z79.01 Long term (current) use of anticoagulants; Z79.899 Other long term (current) drug therapy
CPT/HCPCS: 93005; 93306; 85025 ×2; 80048 ×2; 36415; 83735; 85610; 80076; 85730; 84484 ×3; 83880; 71045; 99285; G0378 ×3; U0002

== ENCOUNTER 2022-08-29 10:17 | Day surgery (SDC) | payer OTHER ==
--- NOTE | 2022-08-16 11:34 | RAD REPORT ---
EXAM DESCRIPTION: Anup Gomez And Gina (2 Views)08/16/2022 11:27 am CLINICAL HISTORY: Preop prostate surgery. Hypertension COMPARISON: 2021 FINDINGS: The lungs appear clear of acute infiltrate. The heart is normal size IMPRESSION: No acute abnormalities displayed
[2022-08-16 11:39] LABS: Absolute Lymphocytes (CBC) 1.6 K/uL (0.7-4.9); Lymphocytes % 24.4 % (15.3-44.8); MCV 94.6 fL (80-100); MPV 8.3 fL (7.6-11.3); Protime INR 1.52; RBC Red Blood Cell Count 3.81 M/uL (4.33-5.43)
[2022-08-16 11:57] LABS: Potassium 4.1 mEq/L (3.5-5.1)
--- NOTE | 2022-08-16 14:36 | EKG ---
Test Date: 2022-08-16 Test Time: 11:02:17 Labor Conciliator: FRANKLYN MEASUREMENT RESULTS: Intervals: Rate: 88 MD: QRSD: 86 QT: 350 QTc: 423 [place]: P: MD: QRS: 19 T: 37 INTERPRETIVE STATEMENTS: Atrial fibrillation Septal infarct, age undetermined Abnormal ECG Compared to ECG 12/18/2021 21:29:38 Myocardial infarct finding now present Ventricular premature complex(es) no longer present Electronically Signed On 08-16-22 14:35:41 CDT by Sonido Ibrahim
[2022-08-29] MEDS ORDERED: Ringers Lactate 1,000 ML IV ONE ×2 (10:44→15:15)
[2022-08-29] MEDS: Gentamicin Inj 200 MG in NA CHLORIDE 0.9% 100 ML IV SCH ×2 (13:18→13:56)
[2022-08-29] MEDS: CLINDAMYCIN 600MG/D5W 50 ML IV ONE ×2 (13:19→14:10)
[2022-08-29] MEDS ORDERED: propofoL 200 MG/20 ML VIAL IV ONE ×2 (13:27→15:25)
[2022-08-29] MEDS ORDERED: ROCURONIUM 50 MG/5 ML VIAL IV ONE ×2 (13:27→15:28)
[2022-08-29] MEDS ORDERED: FENTANYL CITR 100 MCG/2 ML ONE (13:27)
[2022-08-29] MEDS ORDERED: LIDOCAINE 1% MPF 5 ML VIAL ONE (13:28)
[2022-08-29] MEDS ORDERED: Phenylephrine HCl 10 MG/ML 1 ML VIAL ONE (14:22)
[2022-08-29] MEDS ORDERED: dexAMETHasone 10 MG/ML VIAL ONE (14:36)
[2022-08-29] MEDS ORDERED: ONDANSETRON 4 MG/2 ML VIAL ONE (14:36)
[2022-08-29] MEDS ORDERED: NS 0.9% VIAL 10 ML ONE (15:12)
[2022-08-29] MEDS ORDERED: GLYCOPYRROLATE 0.2 MG/ML SYR ONE (16:02)
[2022-08-29] MEDS ORDERED: NEOSTIGMINE 1 MG/ML -10 ML VIAL ONE (16:11)
[2022-08-29] MEDS ORDERED: PHENAZOPYRIDINE 100MG TAB PO ONE ×2 (16:22→17:14)
[2022-08-29] MEDS ORDERED: TRAMADOL 37.5mg/APAP 325mg PER TAB PO ONE (16:23)
[2022-08-29 16:56] VITALS: O2SAT 100
[2022-08-29 17:01] VITALS: BP 133/73; TEMP 97.3
[2022-08-29] MEDS ORDERED: oxyBUTYnin chloride 5 MG TAB ONE (17:14)
[2022-08-29] MEDS ORDERED: TRAMADOL 37.5mg/APAP 325mg PER TAB ONE (17:14)
--- NOTE | 2022-08-29 21:37 | OP ---
Surgeon: NORMA TREVIZO Preoperative Diagnoses: 1.Benign prostatic hypertrophy with lower urinary tract obstruction. 2.Acute on chronic urinary retention. 3.Atrial fibrillation, on Eliquis. 4.Coronary artery disease, on Plavix. Postoperative Diagnoses: 1.Benign prostatic hypertrophy with lower urinary tract obstruction. 2.Acute on chronic urinary retention. 3.Atrial fibrillation, on Eliquis. 4.Coronary artery disease, on Plavix. Principal Procedure: Bipolar transurethral resection of the prostate. Indication For Procedure: Mr. Miller presented to the [facility] with obstructive urinary symptoms that progressed and were eventually found to be secondary to large volume urinary retention. He had a urethral Odonnell catheter placed and failed attempts at voiding despite medical therapy. As a resul t, he was counseled on options for surgical management and elected to proceed with bipolar TURP given the enlarged nature of his prostate and the intravesical projection abutting the ureteral orifices, which may not have been as a minimal or adequately treated with a less invasive procedure like the Ur oLift. Because of his underlying cardiac disease and need for anticoagulants and anti-platelet agent s, he underwent cardiology evaluation and clearance, and while he held the Eliquis at least 3 days in advance, the Plavix was only held also 3 days in advance on recommendation of his sash sticker, makayla ware I counseled him was slightly insufficient. I explained we typically recommend at least 5 to 7 days off the Plavix to minimize the risk of bleeding. I did explain the potential increased risk of blee ding that could require transfusions or be more complicating. Procedure In Detail: The patient was consented in the preoperative holding area before being transfe rred to the operative suite where general anesthesia was induced. The patient was not given Augmenti n, but instead was given Levaquin for antimicrobial therapy for the organisms found in his urine da use of a penicillin allergy. After he was subsequently taken to the operative suite, general anesthe tova was induced and he was given clindamycin as well as gentamicin for IV antimicrobial prophylaxis. Pneumo boots were provided for DVT prophylaxis. He was placed in the lithotomy position, padded and secured to the table appropriately, and his genitalia were prepped with Hibiclens and draped in a st andard fashion after the urethral Odonnell catheter had been removed. The case was begun using a 26-[employer] resectoscope sheath and visual obturator to traverse the urethra and into the bladder with ease. The previously observed significant interdigitating lateral lobar hypertrophy with intravesical proj ection was again observed. Additionally, there were 2 small diverticula noted within the right poste rior wall of the bladder. The remainder of the bladder, while somewhat erythematous in appearance as sociated with catheter trauma, was free of mucosal lesion, foreign body, or stone. As a result, I sw itched the visual obturator for the resectoscope loop and began the resection. With the right ureter al orifice in direct vision, I began resecting the intravesical component of the median lobe directly in front of the orifice, reducing it down to the level of the bladder neck. A similar approach was taken with visualization of the left ureteral orifice in direct vision. The intervening median lobar tissue was then resected until it was smooth with the bladder neck, and then I continued resecting t he elevated median bar all the way down to the level of the verumontanum to create a smooth trough. Because there was significant interdigitating lateral lobar hypertrophy, which did get in the way of creation of that trough at the level of the verumontanum, I then extended the resection into the left lateral lobe initially at the bladder neck. This was taken all the way to the anterior zone of the prostate on the left side. I then continued the resection into the mid zone of the prostate from pos terior to anterior, and then resected a bit of the apical overhanging tissue at the level of the veru montanum without going beyond the verumontanum from posterior to anterior. A similar approach was th en taken on his right side starting at the bladder neck and extending apically within the prostatic u rethra and resecting all of the intervening tissue from posterior to anterior. Once the majority of the lateral lobar tissue had been resected, I then assessed the degree of prostatic tissue intrusion, specifically at the level of the apex and the verumontanum, and I resected any tissue that was inter digitating and overlapping at that location until the channel was widely patent from the verumontanum all the way through the bladder neck. At multiple steps along the process, fulguration of any bleed ing vessels was performed, and Ellik evacuation of prostate chips was performed at multiple steps delaney ng the process. With the bladder decompressed, additional resection was performed to ensure removal of adequate adenoma such that there was not any residual lateral lobar obstruction with the bladder d ecompressed and the prostate capsule also relaxed. As a result, once I was happy with the resection and all prostate chips and blood products had been removed from the bladder, I ensured absolute hemos tasis with the bladder decompressed and with minimal fluid inflow and in fact only fluid allowed to e xit. Once completely hemostatic without even a trickle of blood noted, I then backed the scope into the bulbar urethra where many prostate chips had settled and ensured to evacuate them from that locat ion and subsequently within the bladder. I then left the bladder full while removing the scope under direct vision ensuring no chips were remnant along the urethra before removing the scope in its enti rety. I then placed a 22-[place] 3-way urethral Odonnell catheter via his urethra into his bladder with ease, and I placed 30 cc of sterile water in the balloon. The returning efflux of fluid and urine wa s clear. I then placed the catheter to slow drip CBI and moderate traction taped to his left thigh, and the efflux of fluid and urine at 1 drip per second CBI was minimally pink. He was then transferr ed to a stretcher after being taken out of the lithotomy position, and then transferred to [place] [facility] [place] after he was awakened from general anesthesia. Complications: None. Discharge Disposition: He may plan on catheter removal likely on Sunday morning and voiding trial. As long as he is continuing with the Levaquin prescribed preoperatively and has at least 1 dose for t hat day, that should be sufficient. If he is out of the Levaquin, a dose may be provided at the time of the voiding trial. Subsequent followup should be established in about 3 months unless the patien t has difficulty voiding and the catheter needs to be reinserted. The patient was also instructed to resume his Eliquis on Sunday afternoon as long as the urine is minimally pink or clear once the cath eter has been removed. He was then instructed to resume his clopidogrel/Plavix on Sunday assuming th e urine does not become significantly bloody once he resumes the Eliquis on Sunday. If he is unable to resume the Eliquis or the Plavix because the urine is still significantly bloody by Sunday, I would like to see him in the office for evaluation. WR/MODL Voice ID: [id number] Report ID: [id number]
[2022-08-30] MEDS ORDERED: OXYBUTYNIN ER 5 MG TAB PO ONE (16:22)
== END 2022-08-29 17:47 | disposition home or self-care (01) ==
LOC: OR 10:17
PROVIDERS: ATTEND Urology
PROC: 0VT08ZZ Resection of Prostate, Via Natural or Artificial Opening Endoscopic (ICD-10-PCS; principal; 2022-08-29 12:30)
DX: N40.1 Benign prostatic hyperplasia with lower urinary tract symptoms (principal); N13.8 Other obstructive and reflux uropathy; R33.9 Retention of urine, unspecified; I25.10 Atherosclerotic heart disease of native coronary artery without angina pectoris; I48.11 Longstanding persistent atrial fibrillation; Z79.01 Long term (current) use of anticoagulants
CPT/HCPCS: 93005; 87088; 85025; 87086; 80048; 36415; 85610; 88305; 87077 ×3; 87186 ×3; 71046; 52601; A4216; J2704 ×2; J2710; J2001; J2370; J1580; J3010; J1100; J2405; J7120 ×2

== ENCOUNTER 2022-09-05 22:52 | Inpatient (IN) | payer OTHER ==
--- OUTSIDE RECORDS SUMMARY | 2022-09-05 22:57 | XMS REPORT | Continuity of Care Document ---
:1950 Author Organization [facility] t Address [address] [place] [address] [place] [id number] Care Team Providers Name Role Phone Niko Martinez MD, William Primary Care Physician [phone] Omar Pope Attending Clinician Unavailable Chan Dailey Attending Clinician Unavailable Kira Lopes Attending Clinician Chan Dailey MD Attending Clinician Alice Dias Attending Clinician Sera STONECDella Attending Clinician Doctor Unassigned, [place] Attending Clinician Unavailable Deshazo_T Attending Clinician Unavailable Ferdinand Vaughn MD.H. Attending Clinician Nelly Layne Attending Clinician OWENS_T Attending Clinician Unavailable Baum_L Attending Clinician Unavailable DEMETRIA GORDON Attending Clinician Unavailable DEMETRIA GORDON Attending Clinician Unavailable KENDALL ALEXANDRE Attending Clinician Unavailable Kendall Medina Attending Clinician FERDINAND VAUGHN K.H. Attending Clinician Unavailable Demetria Gordon DO Attending Clinician Cassie-Mbayo_A_AH Attending Clinician Unavailable Chan Dailey Admitting Clinician Unavailable Physician, No Primary or Family Admitting Clinician Unavaila ble Deshazo_T Admitting Clinician Unavailable OWENS_T Admitting Clinician Unavailable Baum_L Admitting Clinician Unavailable KENDALL ALEXANDRE Admitting Clinician Unavailable FERDINAND VAUGHN K.HDavonte Admitting Clinician Unavailable Cassie-Mbayo_A_AH Admitting Clinician Unavailable Payers Payer Name Policy Type Policy Number Effective Date Expiration Date [facility] HEALTH [id number] 2021 (MEDICARE 00:00:00 REPLACEMENT HMO) [place]ICA[place] [id number] (MEDICAID) [facility] - [id number] [facility] (MEDICARE REPLACEMENT/ADVANTA GE - HMO) Problems Condition Condition Condition Status Onset Resolution Last Treating Co mments Source Name Details Category Date Date Treatment Clinician Date Persistent Persistent Disease Active U nivers atrial atrial 6-20 ity [place] [facility] [place] Obesity Obesity Disease Active Univers 6-20 ity of 00:: [address] Essential Essential Disease Active Uni vers hypertensi hypertensi 6-20 it y of on on 00:: [address] Stroke Stroke Disease Active Univers 6-20 ity of 00:: [address] Allergies, Adverse Reactions, Alerts Allergy Allergy Status Severity Reaction(s) Onset Inactive Treating Comm ents Source Name Type Date Date Clinician Penicill DA Active [facility] ins 07-04 Arp 00:00: [facility] 4-18 Arp 00:00: [facility] are [facility] Penicill DA Active [facility] ins 4-12 Arp 00:[facility]: [facility] codeine DA Active [facility] 4-12 Arp 00:00: [facility] Codeine Propensi Active GI 2021-03 Methodi ty to Intolerance 1-15 st adverse 00:00: Hospita reaction 00 l s to drug Penicill Propensi Active Rash 2021-03 Method i ins ty to 1-15 st adverse 00:00: Hospita reaction 00 l s to drug PENICILL Drug Active Med Rash Univers INS Class 6-20 ity of 00:00: [place] 00 Medical Branch CODEINE DRUG Active Low N/V Univers INGREDI 6-20 ity of 00:00: [place] 00 Medical Branch Penicill Propensi Active Rash Univer s ins ty to 6-20 ity of adverse 00:00: [place] reaction 00 Medical s Branch Penicill Propensi Active Rash Univer s ins ty to 6-20 ity of adverse 00:00: [place] reaction 00 Medical s Branch Codeine Propensi Active Nausea Univers ty to and/or 6-20 ity of adverse Vomiting 00:00: [place] reaction 00 Medical s Branch Penicill Propensi Active Rash Univer s ins ty to 6-20 ity of adverse 00:00: [place] reaction 00 Medical s Branch Social History Social Habit Start Date Stop Date Quantity Comments Source History of tobacco Chews Tobacco Uni versity of use [facility] Exposure to Not sure [facility] SARS-CoV-2 (event) [facility] Gender identity [facility] Sexual orientation [facility] Alcohol intake 2021-06-01 2021-06-01 .43 /d University of 00:00:00 00:00:00 [facility] Cigarettes smoked 2015-09-06 2015-09-06 Univers ity of current (pack per 00:00:00 00:00:00 [facility] ) - Reported Branch Cigarette 2015-09-06 2015-09-06 University of pack-years 00:00:00 00:00:00 [facility] Tobacco use and 2015-09-06 2015-09-06 Former smokeless Uni versity of exposure 00:00:00 00:00:00 tobacco user [facility] Sex Assigned At [birth year] [facility] 00:[facility] Smoking Status Start Date Stop Date Source Tobacco smoking consumption [facility] odist [facility] unknown Occasional tobacco smoker 2015-09[facility]06 [facility] Ordered Filled Start Stop Current Ordering Indication Dosage Frequency Signature Comments Components Source Medication Medication Date Date Medication? Clinician (SIG) Name Name traZODone 2023-0 Yes 50mg QD Take 1 Method i (DESYREL) 3-15 tablet (50 st 50 MG 00:00: mg total) Hospita tablet 00 by mouth l nightly. traZODone 2023-0 Yes 50mg QD Take 1 Method i (DESYREL) 3-15 tablet (50 st 50 MG 00:00: mg total) Hospita tablet 00 by mouth l nightly. traZODone 2023-0 Yes 50mg QD Take 1 Method i (DESYREL) 3-15 tablet (50 st 50 MG 00:00: mg total) Hospita tablet 00 by mouth l nightly. metoprolol 2023-0 Yes 100mg QD Take 1 Meth gagandeep succinate 3-[address] XL 00:00: (100 mg Hospita (TOPROL-XL) 00 total) by l 100 mg 24 mouth hr tablet daily. metoprolol 2023-0 Yes 100mg QD Take 1 Meth gagandeep succinate 3-[address] XL 00:00: (100 mg Hospita (TOPROL-XL) 00 total) by l 100 mg 24 mouth hr tablet daily. metoprolol 2023-0 Yes 100mg QD Take 1 Meth gagandeep succinate 3-[address] XL 00:00: (100 mg Hospita (TOPROL-XL) 00 total) by l 100 mg 24 mouth hr tablet daily. clopidogreL 2023-0 Yes 75mg QD Take 1 Meth gagandeep (PLAVIX) 75 1-30 tablet (75 st mg tablet 00:00: mg total) Hos antonio 00 by mouth l daily. allopurinoL 2023-0 Yes 100mg QD Take 1 Met hodi (ZYLOPRIM) 1-[address] 100 MG 00:00: (100 mg Hospita tablet 00 total) by l mouth daily. clopidogreL 2023-0 Yes 75mg QD Take 1 Meth gagandeep (PLAVIX) 75 1-30 tablet (75 st mg tablet 00:00: mg total) Hos antonio 00 by mouth l daily. allopurinoL 2023-0 Yes 100mg QD Take 1 Met hodi (ZYLOPRIM) 1-[address] 100 MG 00:00: (100 mg Hospita tablet 00 total) by l mouth daily. clopidogreL 2023-0 Yes 75mg QD Take 1 Meth gagandeep (PLAVIX) 75 1-30 tablet (75 st mg tablet 00:00: mg total) Hos antonio 00 by mouth l daily. allopurinoL 2023-0 Yes 100mg QD Take 1 Met hodi (ZYLOPRIM) 1-[address] 100 MG 00:00: (100 mg Hospita tablet 00 total) by l mouth daily. Eliquis 5 2023-0 Yes 5mg Q.5D Take 1 Method i mg tablet 1-23 tablet (5 st 00:00: mg total) Hospita 00 by mouth 2 l (two) times a day. atorvastati 2023-0 Yes 40mg QD Take 1 Meth gagandeep n (LIPITOR) 1-23 tablet (40 st 40 mg 00:00: mg total) Hospita tablet 00 by mouth l daily. Eliquis 5 2023-0 Yes 5mg Q.5D Take 1 Method i mg tablet 1-23 tablet (5 st 00:00: mg total) Hospita 00 by mouth 2 l (two) times a day. atorvastati 2023-0 Yes 40mg QD Take 1 Meth gagandeep n (LIPITOR) 1-23 tablet (40 st 40 mg 00:00: mg total) Hospita tablet 00 by mouth l daily. Eliquis 5 2023-0 Yes 5mg Q.5D Take 1 Method i mg tablet 1-23 tablet (5 st 00:00: mg total) Hospita 00 by mouth 2 l (two) times a day. atorvastati 2023-0 Yes 40mg QD Take 1 Meth gagandeep n (LIPITOR) 1-23 tablet (40 st 40 mg 00:00: mg total) Hospita tablet 00 by mouth l daily. amLODIPine 2021- Yes DAILY Method i (NORVASC) 0-07 st 10 mg 00:00: Hospita tablet 00 l amLODIPine 2021- Yes DAILY Method i (NORVASC) 0-07 st 10 mg 00:00: Hospita tablet 00 l amLODIPine 2021-03 Yes DAILY Method i (NORVASC) 0-07 st 10 mg 00:00: Hospita tablet 00 l tamsulosin 2021-03 Yes 1{tbl} 1 tablet. Methodi (FLOMAX) 0-03 st 0.4 mg 00:00: Hospita capsule 00 l tamsulosin 2021-03 Yes 1{tbl} 1 tablet. Methodi (FLOMAX) 0-03 st 0.4 mg 00:00: Hospita capsule 00 l tamsulosin 2021-03 Yes 1{tbl} 1 tablet. Methodi (FLOMAX) 0-03 st 0.4 mg 00:00: Hospita capsule 00 l methylpredn 2021- No 125mg 125 mg, U nivers isolone sod 06-01 Intravenou i ty of succ 18:30: 17:33 s, ONCE, 1 [place] (SOLU-MEDRO 00 :00 dose, On Medi waqar L) Wed Branch injection 06/01/21 at 125 mg 1330, STAT ipratropium No 3mL 3 mL, Univ ers -albuteroL 06-01 Inhalation it y of (DUONEB) 16:45: 15:41 , ONCE, 1 Akbar as 0.5 mg-3 00 :00 dose, On Medical mg(2.5 mg Wed Branch base)/3 mL 06/01/21 at nebulizer 1145, solution 3 Routine mL predniSONE 2021- No [id number] 60mg Take 3 Univers 20 mg 06-01 tablets by ity of tablet 00:00: 04:59 mouth [place] 00 :00 every Medical morning Branch for 5 days. tc 2021- No [id number] 41.5mCi 41.5 Unive rs 99m-tetrofo 05-19 millicurie i ty of smin 16:30: 16:27 , [place] (MYOVIEW) 00 :00 Intravenou Medi waqar injection s, ONCE, 1 Bran ch 41.5 dose, On millicurie [place] 05/19/21 at 1030, Routine regadenoson 2021- No [id number] .4mg 0.4 mg, IV Univers (LEXISCAN) 05-19 Push, ity of injection 16:00: 16:27 ONCE, 1 [place] 0.4 mg 00 :00 dose, On Medical [facility] 05/19/21 Branch at 1000, Routine
hotel staff member approving Restricted medication : FERDINAND VAUGHN tc 2021- No [id number] 15.1mCi 15.1 Unive rs 99m-tetrofo 05-19 millicurie i ty of smin 15:00: 14:51 , [place] (MYOVIEW) 00 :00 Intravenou Medi waqar injection s, ONCE, 1 Bran ch 15.1 dose, On millicurie [facility] 05/19/21 at 0900, Routine allopurinoL Yes 100mg Take 100 U nivers 100 mg 2-10 mg by ity of tablet 10:10: mouth [place] 39 daily. Medical Branch albuterol Yes 2{puff} Inhale 2 U nivers 90 2-10 Puffs ity of mcg/actuati 10:10: every 6 Akbar as on inhaler 39 (six) Medical hours as Branch needed for Wheezing or Shortness of Breath. allopurinoL Yes 100mg Take 100 U nivers 100 mg 2-10 mg by ity of tablet 10:10: mouth [place] 39 daily. Medical Branch albuterol Yes 2{puff} Inhale 2 U nivers 90 2-10 Puffs ity of mcg/actuati 10:10: every 6 Akbar as on inhaler 39 (six) Medical hours as Branch needed for Wheezing or Shortness of Breath. allopurinoL Yes 100mg Take 100 U nivers 100 mg 2-10 mg by ity of tablet 10:10: mouth [place] 39 daily. Medical Branch albuterol Yes 2{puff} Inhale 2 U nivers 90 2-10 Puffs ity of mcg/actuati 10:10: every 6 Akbar as on inhaler 39 (six) Medical hours as Branch needed for Wheezing or Shortness of Breath. allopurinoL Yes 100mg Take 100 U nivers 100 mg 2-10 mg by ity of tablet 10:10: mouth [place] 39 daily. Medical Branch albuterol 2022-0 Yes 2{puff} Inhale 2 U nivers 90 2-10 Puffs ity of mcg/actuati 10:10: every 6 Akbar as on inhaler 39 (six) Medical hours as Branch needed for Wheezing or Shortness of Breath. allopurinoL 0 Yes 100mg Take 100 U nivers 100 mg 2-10 mg by ity of tablet 10:10: mouth [place] 39 daily. Medical Branch albuterol 0 Yes 2{puff} Inhale 2 U nivers 90 2-10 Puffs ity of mcg/actuati 10:10: every 6 Akbar as on inhaler 39 (six) Medical hours as Branch needed for Wheezing or Shortness of Breath. allopurinoL 0 Yes 100mg Take 100 U nivers 100 mg 2-10 mg by ity of tablet 10:10: mouth [place] 39 daily. Medical Branch albuterol 0 Yes 2{puff} Inhale 2 U nivers 90 2-10 Puffs ity of mcg/actuati 10:10: every 6 Akbar as on inhaler 39 (six) Medical hours as Branch needed for Wheezing or Shortness of Breath. allopurinoL 0 Yes 100mg Take 100 U nivers 100 mg 2-10 mg by ity of tablet 10:10: mouth [place] 39 daily. Medical Branch albuterol 0 Yes 2{puff} Inhale 2 U nivers 90 2-10 Puffs ity of mcg/actuati 10:10: every 6 Akbar as on inhaler 39 (six) Medical hours as Branch needed for Wheezing or Shortness of Breath. allopurinoL 2021-0 Yes 100mg Take 100 U nivers 100 mg 2-10 mg by ity of tablet 10:10: mouth [place] 39 daily. Medical Branch albuterol 0 Yes 2{puff} Inhale 2 U nivers 90 2-10 Puffs ity of mcg/actuati 10:10: every 6 Akbar as on inhaler 39 (six) Medical hours as Branch needed for Wheezing or Shortness of Breath. allopurinoL 0 Yes 100mg Take 100 U nivers 100 mg 2-10 mg by ity of tablet 10:10: mouth [place] 39 daily. Medical Branch albuterol 0 Yes 2{puff} Inhale 2 U nivers 90 2-10 Puffs ity of mcg/actuati 10:10: every 6 Akbar as on inhaler 39 (six) Medical hours as Branch needed for Wheezing or Shortness of Breath. allopurinoL 0 Yes 100mg Take 100 U nivers 100 mg 2-10 mg by ity of tablet 10:10: mouth [place] 39 daily. Medical Branch albuterol Yes 2{puff} Inhale 2 U nivers 90 2-10 Puffs ity of mcg/actuati 10:10: every 6 Akbar as on inhaler 39 (six) Medical hours as Branch needed for Wheezing or Shortness of Breath. allopurinoL 0 Yes 100mg Take 100 U nivers 100 mg 2-10 mg by ity of tablet 10:10: mouth [place] 39 daily. Medical Branch albuterol Yes 2{puff} Inhale 2 U nivers 90 2-10 Puffs ity of mcg/actuati 10:10: every 6 Akbar as on inhaler 39 (six) Medical hours as Branch needed for Wheezing or Shortness of Breath. allopurinoL 0 Yes 100mg Take 100 U nivers 100 mg 2-10 mg by ity of tablet 10:10: mouth [place] 39 daily. Medical Branch albuterol 0 Yes 2{puff} Inhale 2 U nivers 90 2-10 Puffs ity of mcg/actuati 10:10: every 6 Akbar as on inhaler 39 (six) Medical hours as Branch needed for Wheezing or Shortness of Breath. lisinopriL 2020-03 Yes 20mg Take 20 mg U nivers 20 mg 2-13 by mouth ity of tablet 11:48: daily. [place] [address] Medical Branch sotalol 2020-03 Yes 80mg Take 80 mg Univ ers (BETAPACE) 2-13 by mouth 2 ity of 80 mg 11:48: (two) [place] tablet 25 times Medical daily. Branch lisinopriL 2020-03 Yes 20mg Take 20 mg U nivers 20 mg 2-13 by mouth ity of tablet 11:48: daily. [place] [address] Medical Branch sotalol 2020-03 Yes 80mg Take 80 mg Univ ers (BETAPACE) 2-13 by mouth 2 ity of 80 mg 11:48: (two) [place] tablet 25 times Medical daily. Branch lisinopriL 2020-03 Yes 20mg Take 20 mg U nivers 20 mg 2-13 by mouth ity of tablet 11:48: daily. [address] sotalol 2020-03 Yes 80mg Take 80 mg Univ ers (BETAPACE) 2-13 by mouth 2 ity of 80 mg 11:48: (two) [place] tablet 25 times Medical daily. Branch lisinopriL 2020-03 Yes 20mg Take 20 mg U nivers 20 mg 2-13 by mouth ity of tablet 11:48: daily. [address] sotalol 2020-03 Yes 80mg Take 80 mg Univ ers (BETAPACE) 2-13 by mouth 2 ity of 80 mg 11:48: (two) [place] tablet 25 times Medical daily. Branch lisinopriL 2020-03 Yes 20mg Take 20 mg U nivers 20 mg 2-13 by mouth ity of tablet 11:48: daily. [address] sotalol 2020-03 Yes 80mg Take 80 mg Univ ers (BETAPACE) 2-13 by mouth 2 ity of 80 mg 11:48: (two) [place] tablet 25 times Medical daily. Branch lisinopriL 2020-03 Yes 20mg Take 20 mg U nivers 20 mg 2-13 by mouth ity of tablet 11:48: daily. [address] sotalol 2020-03 Yes 80mg Take 80 mg Univ ers (BETAPACE) 2-13 by mouth 2 ity of 80 mg 11:48: (two) [place] tablet 25 times Medical daily. Branch lisinopriL 2020-03 Yes 20mg Take 20 mg U nivers 20 mg 2-13 by mouth ity of tablet 11:48: daily. [address] sotalol 2020-03 Yes 80mg Take 80 mg Univ ers (BETAPACE) 2-13 by mouth 2 ity of 80 mg 11:48: (two) [place] tablet 25 times Medical daily. Branch lisinopriL 2020-03 Yes 20mg Take 20 mg U nivers 20 mg 2-13 by mouth ity of tablet 11:48: daily. [address] sotalol 2020-03 Yes 80mg Take 80 mg Univ ers (BETAPACE) 2-13 by mouth 2 ity of 80 mg 11:48: (two) [place] tablet 25 times Medical daily. Branch lisinopriL 2020-03 Yes 20mg Take 20 mg U nivers 20 mg 2-13 by mouth ity of tablet 11:48: daily. [address] Branch sotalol 2020-03 Yes 80mg Take 80 mg Univ ers (BETAPACE) 2-13 by mouth 2 ity of 80 mg 11:48: (two) [place] tablet 25 times Medical daily. Branch lisinopriL 2020-03 Yes 20mg Take 20 mg U nivers 20 mg 2-13 by mouth ity of tablet 11:48: daily. [address] Branch sotalol 2020-03 Yes 80mg Take 80 mg Univ ers (BETAPACE) 2-13 by mouth 2 ity of 80 mg 11:48: (two) [place] tablet 25 times Medical daily. Branch lisinopriL 2020-03 Yes 20mg Take 20 mg U nivers 20 mg 2-13 by mouth ity of tablet 11:48: daily. [address] sotalol 2020-03 Yes 80mg Take 80 mg Univ ers (BETAPACE) 2-13 by mouth 2 ity of 80 mg 11:48: (two) [place] tablet 25 times Medical daily. Branch lisinopriL 2020-03 Yes 20mg Take 20 mg U nivers 20 mg 2-13 by mouth ity of tablet 11:48: daily. [address] sotalol 2020-03 Yes 80mg Take 80 mg Univ ers (BETAPACE) 2-13 by mouth 2 ity of 80 mg 11:48: (two) [place] tablet 25 times Medical daily. Branch apixaban 2020-03 Yes 5mg Take 5 mg Univ ers (ELIQUIS) 5 2-13 by mouth 2 it y of mg tablet 11:47: (two) [place] 35 times Medical daily. Branch apixaban 2020-03 Yes 5mg Take 5 mg Univ ers (ELIQUIS) 5 2-13 by mouth 2 it y of mg tablet 11:47: (two) [place] 35 times Medical daily. Branch apixaban 2020-03 Yes 5mg Take 5 mg Univ ers (ELIQUIS) 5 2-13 by mouth 2 it y of mg tablet 11:47: (two) [place] 35 times Medical daily. Branch apixaban 2020-03 Yes 5mg Take 5 mg Univ ers (ELIQUIS) 5 2-13 by mouth 2 it y of mg tablet 11:47: (two) [place] 35 times Medical daily. Branch apixaban 2020-03 Yes 5mg Take 5 mg Univ ers (ELIQUIS) 5 2-13 by mouth 2 it y of mg tablet 11:47: (two) [place] 35 times Medical daily. Branch apixaban 2020-03 Yes 5mg Take 5 mg Univ ers (ELIQUIS) 5 2-13 by mouth 2 it y of mg tablet 11:47: (two) [place] 35 times Medical daily. Branch apixaban 2020-03 Yes 5mg Take 5 mg Univ ers (ELIQUIS) 5 2-13 by mouth 2 it y of mg tablet 11:47: (two) [place] 35 times Medical daily. Branch apixaban 2020-03 Yes 5mg Take 5 mg Univ ers (ELIQUIS) 5 2-13 by mouth 2 it y of mg tablet 11:47: (two) [place] 35 times Medical daily. Branch apixaban 2020-03 Yes 5mg Take 5 mg Univ ers (ELIQUIS) 5 2-13 by mouth 2 it y of mg tablet 11:47: (two) [place] 35 times Medical daily. Branch apixaban 2020-03 Yes 5mg Take 5 mg Univ ers (ELIQUIS) 5 2-13 by mouth 2 it y of mg tablet 11:47: (two) [place] 35 times Medical daily. Branch apixaban 2020-03 Yes 5mg Take 5 mg Univ ers (ELIQUIS) 5 2-13 by mouth 2 it y of mg tablet 11:47: (two) [place] 35 times Medical daily. Branch apixaban 2020-03 Yes 5mg Take 5 mg Univ ers (ELIQUIS) 5 2-13 by mouth 2 it y of mg tablet 11:47: (two) [place] 35 times Medical daily. Branch lisinopriL 2015-03 Yes DAILY Method i (PRINIVIL) 2- st 10 mg 00:00: Hospita tablet 00 l lisinopriL 2015-03 Yes DAILY Method i (PRINIVIL) 2- st 10 mg 00:00: Hospita tablet 00 l lisinopriL 2015-03 Yes DAILY Method i (PRINIVIL) 2- st 10 mg 00:00: Hospita tablet 00 l Vital Signs Vital Name Observation Time Observation Value Comments Source Systolic blood 2021-06-01 17:00:00 142 mm[Hg] Univer sity of pressure [place] [facility] Diastolic blood 2021-06-01 17:00:00 92 mm[Hg] Unive rsity of pressure [facility] Heart rate 2021-06-01 17:00:00 88 /min Universi ty of [place] [facility] Respiratory rate 2021-06-01 17:00:00 17 /min Univ ersity of [facility] Oxygen saturation in 2021-06-01 17:00:00 97 /min University of Arterial blood by [place] [facility] waqar Pulse oximetry Branch Body temperature 2021-06-01 15:16:00 36.28 Millie Univ ersity of [place] [facility] Body weight 2021-06-01 15:16:00 99.882 kg Universi ty of [place] [facility] BMI 2021-06-01 15:16:00 33.48 kg/m2 Universi ty of [facility] Systolic blood 2021-04-28 16:14:00 152 mm[Hg] Univer sity of [facility] Diastolic blood 2021-04-28 16:14:00 83 mm[Hg] Unive rsity of pressure [facility] Heart rate 2021-04-28 16:09:00 92 /min [facility]i ty [facility] [place] [facility] Body height 2021-04-28 16:09:00 172.7 cm Universi ty of [place] [facility] Body weight 2021-04-28 16:09:00 103.108 kg [facility]i ty [facility] [place] [facility] BMI 2021-04-28 16:09:00 34.56 kg/m2 [facility]i ty [facility] [place] [facility] Oxygen saturation in 2021-04-28 16:09:00 97 /min University of Arterial blood by [facility] Pulse oximetry Branch Systolic blood 2022-06-26 13:57:00 139 mm[Hg] Method [facility] pressure Diastolic blood 2022-06-26 13:57:00 78 mm[Hg] [facility] pressure Heart rate 2022-06-26 13:57:00 75 /min [facility] Respiratory rate 2022-06-26 13:57:00 16 /min [facility] Oxygen saturation in 2022-06-26 13:57:00 100 /min [facility] Arterial blood by Pulse oximetry Body height 2022-06-26 12:57:00 172.7 cm [facility] Body weight 2022-06-26 12:57:00 97.07 kg [facility] BMI 2022-06-26 12:57:00 32.54 kg/m2 [facility] Procedures Procedure Date / Time Performing Clinician Source Performed [id number] 2022-07-04 00:00:00 [facility] [id number] 2022-07-04 00:00:00 [facility] [id number] 2022-07-04 00:00:00 [facility] [id number] 2022-07-04 00:00:00 [facility] [id number] 2022-07-04 00:00:00 [facility] MRI PELVIS W WO CONTRAST 2022-06-26 14:50:00 [facility] CT CHEST W CONTRAST 2022-06-26 13:46:26 [facility] [place] [facility] ABDOMEN W CONTRAST [facility] PELVIS W CONTRAST POC CREATININE 2022-06-26 [facility]:07[facility] ESTIMATED GFR 2022-06-26 13:07:00 [facility] Chan [facility] AUTHORIZATION FOR 2022-02-03 06:01:00 Doctor [facility]igned[facility] No [facility] RELEASE OF PHI Name Medical Branch MRI PELVIS W WO CONTRAST 2022-01-31 22:00:00 [facility] CT CHEST W CONTRAST 2022-01-31 20:26:00 [facility] [place] [facility] POC CREATININE 2022-01-31 20:08:00 [facility] ESTIMATED GFR 2022-01-31 20:08:00 DaileyChan quigley [facility] 2021-11-07 05:01:00 Doctor Unassigned, No [facility] RELEASE/CLEARANCE FORMS Name Medical Branch XR CHEST 1 VW 2021-06-01 15:57:37 Kendall Alexandre [facility] TROPONIN I 2021-06-01 15:34:00 Kendall Alexandre [facility] COMP. METABOLIC PANEL 2021-06-01 15:34:00 Kendall Alexandre [facility] ([id number]) Medical Branch CBC WITH DIFF 2021-06-01 15:34:00 Kendall Alexandre [place] [facility] N-TERMINAL PRO-BNP 2021-06-01 15:34:00 Kendall Alexandre [facility] Medical Branch COVID-19 (ID NOW RAPID 2021-06-01 15:34:00 Kendall Alexandre [facility] TESTING) Medical Branch CONSENT/REFUSAL FOR 2021-06-01 15:12:41 Doctor Unassigned, No [facility] DIAGNOSIS AND TREATMENT Name Medical Branch NOTICE OF PRIVACY 2021-06-01 15:10:06 Doctor Unassigned[facility] No [facility] PRACTICES Name Medical Branch NUCLEAR STRESS TEST 2021-05-19 17:33:00 Vaughn, Sendil [facility] CARDIOLOGY (DO NOT Medical Branc h SCHED) NM MYOCARDIUM PERFUSION 2021-05-19 17:33:00 Vaughn, Sendil [facility] STRESS AND REST Medical Branch NM MYOCARDIUM PERFUSION 2021-05-19 17:33:00 Vaughn, Sendil [facility] STRESS AND REST Medical Branch NUCLEAR STRESS TEST 2021-05-19 17:33:00 Vaughn, [facility] CARDIOLOGY (DO NOT Medical Branc h SCHED) NM MYOCARDIUM PERFUSION 2021-05-19 17:33:00 Vaughn, Sendil [facility] STRESS AND REST Medical Branch NUCLEAR STRESS TEST 2021-05-19 17:33:00 Vaughn, Sendil [facility] CARDIOLOGY (DO NOT Medical Branc h SCHED) NM MYOCARDIUM PERFUSION 2021-05-19 17:33:00 Vaughn, Sendil [facility] STRESS AND REST Medical Branch NUCLEAR STRESS TEST 2021-05-19 17:33:00 Vaughn, [facility]il [facility] CARDIOLOGY (DO NOT Medical Branc h SCHED) EXTERNAL PROVIDER - ADC 2021-04-29 06:01:00 Doctor Unassigned, N o [facility] REFERRAL Name Medical Branch Plan of Care Planned Activity Planned Date Details Comments Source Future Scheduled 2022-09-05 Hepatitis C screening Me [facility] Test 22:55:06 (procedure) [code = 427212546] Future Scheduled 2022-09-05 SHINGLES VACCINES (1 Met [facility] Test 22:55:06 of 2) [code = SHINGLES VACCINES (1 of 2)] Future Scheduled 2022-09-05 65+ PNEUMOCOCCAL [facility] Test 22:55:06 VACCINE (1 - PCV) [code = 65+ PNEUMOCOCCAL VACCINE (1 - PCV)] Future Scheduled 2022-09-05 COVID-19 VACCINE (3 - Me [facility] Test 22:55:06 Pfizer series) [code = COVID-19 VACCINE (3 - Pfizer series)] Future Scheduled 2022-09-05 INFLUENZA VACCINE [facility] Test 22:55:06 [code = INFLUENZA VACCINE] Future Scheduled 2022-07-04 Hepatitis C screening [facility] Test 00:13:01 (procedure) [code = 779902187] Future Scheduled 2022-07-04 COLONOSCOPY SCREENING [facility] Test 00:13:01 [code = COLONOSCOPY SCREENING] Future Scheduled 2022-07-04 SHINGLES VACCINES (1 Met [facility] Test 00:13:01 of 2) [code = SHINGLES VACCINES (1 of 2)] Future Scheduled 2022-07-04 65+ P[facility]UMOCOCCAL [facility] Test 00:13:01 VACCINE (1 - PCV) [code = 65+ PNEUMOCOCCAL VACCINE (1 - PCV)] Future Scheduled 2022-07-04 COVID-19 VACCINE (3 - Me [facility] Test 00:13:01 Booster for Pfizer series) [code = COVID-19 VACCINE (3 - Booster for Pfizer series)] Future Scheduled 2022-07-04 INFLUENZA VACCINE [facility] Test 00:13:01 [code = INFLUENZA VACCINE] Future Scheduled 2022-07-04 Hepatitis C screening [facility] Test 00:13:01 (procedure) [code = 657208430] Future Scheduled 2022-07-04 COLONOSCOPY SCREENING [facility] Test 00:13:01 [code = COLONOSCOPY SCREENING] Future Scheduled 2022-07-04 SHINGLES VACCINES (1 Met [facility] Test 00:13:01 of 2) [code = SHINGLES VACCINES (1 of 2)] Future Scheduled 2022-07-04 65[facility] Test 00:13:01 VACCINE (1 - PCV) [code = 65+ PNEUMOCOCCAL VACCINE (1 - PCV)] Future Scheduled 2022-07-04 COVID-19 VACCINE (3 - [facility] Test 00:13:01 Booster for Pfizer series) [code = COVID-19 VACCINE (3 - Booster for Pfizer series)] Future Scheduled 2022-07-04 INFLUENZA VACCINE [facility] Test 00:13:01 [code = INFLUENZA VACCINE] Encounters Start End Encounter Admission Attending Care Care Encounter Source Date/Time Date/Time Type Type Clinicians Facility Department ID 2022-08-09 Outpatient Pope, [facility] [id number] Common 09:46:[address] [place] [id number] [facility] 2022-07-19 Outpatient Pope, [facility] [id number] Common 15:09:[address] [place] [address] 2022-03-07 Inpatient Chan Meyer [facility] DAYS [id number] [facility] 07:30:00 62 [facility] 2022-07-19 2022-07-19 ANDRÉS Visit Kira Moses 2.16.840. 2.16.840.1 . [id number] Devoted 18:00:00 19:00:00 1.124642. 747351.4.6. 364 [facility] 4.6.77419 [id number] 2022-07-04 2022-07-09 Inpatient Chan Meyer [facility] MEDI.01 HZ002 [id number] [facility] 00:12:00 13:30:00 19 [facility] 2022-07-04 2022-07-04 Outpatient [facility] BN02 [id number] [facility] 15:04:00 15:04:00 82 [facility] 2022-06-28 2022-06-28 Outpatient Chan Meyer [facility] 3DAY BP00 [id number] [facility] 08:00:00 09:00:00 91 [facility] 2022-06-26 2022-06-26 Hospital Chan Dailey 1.2.840.1 [id number] 21 [id number] Methodi 08:35:27 23:59:00 Encounter Russell 61832.1.1 200 s t 3.430.2.7 Hospit a .3.053038 l .8 2022-06-26 2022-06-26 [facility] 1.2.840.1 [id number] 21 [id number] Methodi 08:35:27 23:59:00 Encounter Russell 33064.1.1 200 s t 3.430.2.7 Hospit a .3.618324 l .8 2022-06-26 2022-06-26 [facility] 1.2.840.1 [id number] 21 [id number] Methodi 07:35:42 08:34:00 Encounter Russell 11435.1.1 201 s t 3.430.2.7 Hospit a .3.613085 l .8 2022-06-26 2022-06-26 [facility] 1.2.840.1 [id number] 21 [id number] Methodi 07:35:42 08:34:00 Encounter Russell 46231.1.1 201 s t 3.430.2.7 Hospit a .3.259477 l .8 2022-06-26 2022-06-26 Travel 1.2.840.1 1.2.691.048 5788 [id number] Methodi 00:00:00 00:00:[address] 3.430.2.7 0.2.7.3.698 Ho spita .3.753589 084.8 l .8 2022-06-26 2022-06-26 Travel 1.2.840.1 1.2.333.345 6176 533204 Methodi 00:00:00 00:00:[address] 3.430.2.7 0.2.7.3.698 Ho spita .3.302809 084.8 l .8 2022-05-25 2022-05-25 CAV Alice 2.16.840. 2.16.840.1. CLAC [id number] [facility]oted 14:30:00 15:30:00 [place] 1.283453. 854793.4.6. R8S [place] [address].2.71232 [id number] 2022-05-19 2022-05-19 Orders [place] 1.2.840.1 [id number] Methodi 00:00:00 00:00:00 Only my, [address]777.1.[address] [place] 3.430.2.7 Hospi ta Chaves .3.139523 l .8 2022-05-19 2022-05-19 Orders [place] 1.2.840.1 [id number] Methodi 00:00:00 00:00:00 Only my, 37615.1.[address] [place] 3.430.2.7 Hospi ta Chaves .3.878469 l .8 2022-02-21 2022-02-21 Orders [place] 1.2.840.1 [id number] 21 [id number] Methodi 00:00:00 00:00:00 Only my, 82410.1.1 357 [facility] 3.430.2.7 Hospi ta Chaves .3.420487 l .8 2022-02-21 2022-02-21 Orders [place] 1.2.840.1 [id number] Methodi 00:00:00 00:00:00 Only my, 64773.1.1 357 [facility] 3.430.2.7 Hospi ta Chaves .3.963487 l .8 2022-02-03 2022-02-03 Orders Doctor CISNEROS 1.2.840.114 [id number] Univers 00:00:00 00:00:00 Only Unassigned, JOAN 350.1.13.10 ity of [place] [facility] 4.2.7.2.686 Akbar as [phone] [place] [address] Branch 2022-01-31 2022-01-31 [facility] Chan Dailey 1.2.840.1 [id number] 21 [id number] Methodi 14:24:40 23:59:00 Encounter Russell 26785.1.1 128 s t 3.430.2.7 Hospit a .3.396719 l .8 2022-01-31 2022-01-31 [facility] 1.2.840.1 [id number] Methodi 14:24:40 23:59:00 Encounter Russell 78025.1.1 128 s t 3.430.2.7 Hospit a .3.727323 l .8 2022-01-31 2022-01-31 [facility] 1.2.840.1 [id number] Methodi 13:53:59 14:23:00 Encounter Russell 26198.1.1 129 s t 3.430.2.7 Hospit a .3.012107 l .8 2022-01-31 2022-01-31 [facility] 1.2.840.1 [id number] Methodi 13:53:59 14:23:00 Encounter [place] 11692.1.1 129 s t 3.430.2.7 Hospit a .3.058396 l .8 2022-01-31 2022-01-31 Outpatient Deshazo_T [facility] 06857 0-202 Devoted 00:00:00 00:00:00 86779 Medica l Group 2022-01-31 2022-01-31 Outpatient Deshazo_T [facility] 22471 0-202 Devoted 00:00:00 00:00:00 36712 Medica l Group 2022-01-31 2022-01-31 Outpatient Deshazo_T [facility] 62567 0-202 Devoted 00:00:00 00:00:00 68564 Medica l Group 2022-01-31 2022-01-31 Travel 1.2.840.1 1.2.669.608 3220 [id number] Methodi 00:00:00 00:00:[address] 3.430.2.7 0.2.7.3.698 Ho spita .3.934520 084.8 l .8 2022-01-31 2022-01-31 Travel 1.2.840.1 1.2.648.821 0020 907148 Methodi 00:00:00 00:00:[address] 3.430.2.7 0.2.7.3.698 Ho spita .3.609775 084.8 l .8 2022-01-13 2022-01-13 Orders [place] 1.2.840.1 [id number] 21 [id number] Methodi 00:00:00 00:00:00 Only my, 28467.1.[address] [place] 3.430.2.7 Hospi ta Chaves .3.146212 l .8 2022-01-13 2022-01-13 Orders [place] 1.2.840.1 [id number] 21 [id number] Methodi 00:00:00 00:00:00 Only my, [address]34.1.[address] [place] 3.430.2.7 Hospi ta Chaves .3.237503 l .8 2021-11-07 2021-11-07 Telephone Johana [facility] 1.2.628.963 7652 0578 [facility] 00:00:00 00:00:00 Ferdinand GOOD 350.1.13.10 ity of [place] [phone] [facility] 059 [facility] 2021-11-07 2021-11-07 Orders Doctor BLAYNE 1.2.840.114 [id number] Univers 00:00:00 00:00:00 Only Unassigned, JOAN 350.1.13.10 [facility] 4.2.7.2.686 Akbar as [phone] [place] [address] Branch 2021-09-30 2021-09-30 Outpatient Deshazo_T [facility] 96798 0 Devoted 07:30:00 07:30:00 41243 Medica l Group 2021-09-27 2021-09-27 CAV Nelly 2.16.840. 2.16.840.1. CLAC UV382A [facility] 19:00:00 20:00:00 Xi 1.227308. 612376.4.6. 29G Medical 4.6.18378 [id number] 44161 2021-09-23 2021-09-23 Outpatient Deshazo_T DMG [facility] [id number] Devoted 11:39:00 11:39:00 Medica l Group 2021-09-15 2021-09-15 Outpatient OWENS_T [facility] [id number]- 202 Devoted 04:05:00 04:05:00 06988 Medica l Group 2021-09-07 2021-09-07 Outpatient OWENS_T DMG DMG [id number]- 202 Devoted 03:53:00 03:53:00 05182 Medica l Group 2021-09-06 2021-09-06 Outpatient Baum_L [facility] 049522- [place]p 10:19:00 10:19:00 60079 [facility] 2021-09-02 2021-09-02 Outpatient DMG [facility] [id number]- Devoted 10:00:00 10:00:00 06653 Medica l Group 2021-09-01 2021-09-01 Outpatient R GORDON TIMMAGillian [facility] 10 [id number] Univers 10:00:00 10:00:00 GORDON DEMETRIA i ty [facility] 2021-09-01 2021-09-01 Outpatient R EVAN [facility] 10 [id number] Univers 10:00:00 10:00:00 GORDON DEMETRIA i ty [facility] 2021-06-15 2021-06-15 Outpatient DMG [facility] [id number]- Devoted 04:01:00 04:01:00 26394 Medica l Group 2021-06-08 2021-06-08 [facility] 1.2.875.839 [id number] Univers 00:00:00 00:00:00 Ferdinand GOOD 350.1.13.10 [facility] 4.2.7.2.686 Parish GRANADOS [phone] [place] 606359 [facility] 2021-06-01 2021-06-01 Emergency [facility] [id number] Univers 10:17:00 12:42:00 KENDALL ity [facility] 2021-06-012021-06-[address] [facility] 1.2.748.904 [id number] 9813 Univers 10:17:00 12:42:00 Kendall S LATISHA 350.1.13.10 i ty of [place] 4.2.7.2.686 [facility] [phone] [facility] 084 Branch 2021-06-01 2021-06-01 Orders Doctor BLAYNE 1.2.840.114 [id number] Univers 00:00:00 00:00:00 Only Unassigned, JOAN 350.1.13.10 ity of [place] [facility] 4.2.7.2.686 Akbar [phone] [facility] 009 Branch 2021-05-19 2021-05-19 [facility] 1.2.840.114 [id number] Univers 08:13:08 23:59:00 Encounter Sendil Rosalind GOOD 350.1.13.10 ity of [place] 4.2.7.2.686 [facility] [phone] [facility] 805 Branch 2021-05-19 2021-05-19 [facility] 1.2.840.114 [id number] Univers 08:12:41 08:12:41 Encounter Sendkeri GOOD 350.1.13.10 ity of [place] 4.2.7.2.686 [facility] s CHESHIRE [phone] [facility] [address] [place] 2021-05-19 2021-05-19 [facility] 1.2.840.114 [id number] 896 Univers 08:12:12 08:12:12 Encounter Sendkeri GOOD 350.1.13.10 ity of [place] 4.2.7.2.686 [facility] [phone] [facility] [address] [place] 2021-05-19 2021-05-19 [facility] [id number] Univers 08:11:48 08:11:48 SENDIL ity of [facility] 2021-05-19 2021-05-19 [facility] 1.2.840.114 [id number] 893 Univers 08:11:48 08:11:48 Encounter Sendil [facility] 350.1.13.10 ity [facility] [place] [phone] [facility] 805 Branch 2021-05-19 2021-05-19 Outpatient R JOHANA [facility] [id number] Univers 00:00:00 00:00:00 SENDIL ity of [facility] 2021-04-29 2021-04-29 Orders Doctor BLAYNE 1.2.840.114 [id number] Univers 00:00:00 00:00:00 Only Unassigned, JOAN 350.1.13.10 ity of [place] [facility] 4.2.7.2.686 Akbar as [phone] [facility] 009 Branch 2021-04-28 2021-04-28 Outpatient R DEMETRIA GORDON [facility] 10 [id number] Univers 10:00:00 10:44:28 DEMETRIA GORDON i ty of [facility] 2021-04-28 2021-04-28 Office Evan [facility] 1.2.840.114 [id number] Univers 10:00:00 10:44:28 Visit Demetria GOOD 350.1.13.10 i ty [facility] 4.2.7.2.686 [phone] Pa dical [facility] 085 [facility] 2021-04-28 2021-04-28 Outpatient R DEMETRIA GORDON [facility] 10 [id number] Univers 10:00:00 10:44:28 DEMETRIA GORDON i ty of [facility] 2021-04-11 2021-04-11 [facility] [id number] Univers 13:30:00 13:30:00 SENDIL ity [facility] 2021-04-11 2021-04-11 Outpatient [facility] [id number] Univers 13:30:00 13:30:00 SENDIL ity [facility] 2021-03-23 2021-03-23 Telephone [facility] 1.2.827.995 [id number] Univers 00:00:00 00:00:00 Sendkeri GOOD 350.1.13.10 ity of [place] [phone] Pa dical NAL 059 [facility] 2021-03-07 2021-03-07 Outpatient [facility] [id number] Univers 08:30:00 23:59:00 SENDIL ity [facility] 2021-03-07 2021-03-07 Outpatient [facility] [id number] Univers 08:30:00 23:59:00 SENDIL ity [facility] 2021-03-07 2021-03-07 [facility] 1.2.840.114 [id number] Univers 08:30:00 23:59:00 Encounter Sendil Rosalind GOOD 350.1.13.10 ity [facility] [place].2.[place] [phone] [facility] 846 [facility] 2021-03-07 2021-03-07 Outpatient [facility] [id number] Univers 08:30:00 08:30:00 SENDIL ity [facility] 2021-02-28 2021-02-28 Outpatient [facility] [id number] Univers 11:00:00 12:17:50 SENDIL ity [facility] 2021-02-28 2021-02-28 Outpatient [facility] [id number] Univers 11:00:00 12:17:50 SENDIL ity [facility] 2021-02-28 2021-02-28 Office [facility] 1.2.840.114 [id number] Univers 11:00:00 12:17:50 Visit Sendil Rosalind GOOD 350.1.13.10 ity of [place] [phone] Pa dical NAL 059 [facility] 2021-02-28 2021-02-28 Outpatient [facility] [id number] 706 Univers 11:00:00 12:17:50 SENDIL ity of [facility] 2021-02-28 2021-02-28 Outpatient R VAUGHN, [facility] [id number] Univers 11:00:00 12:17:50 SENDIL ity of [facility] 2021-02-28 2021-02-28 Orders Doctor BLAYNE 1.2.840.114 [id number] Univers 00:00:00 00:00:00 Only Unassigned, JOAN 350.1.13.10 ity of [place] [facility] 4.2.7.2.686 Akbar as [phone] [address] 2019-05-07 2019-05-07 Outpatient Cassie-Kamini [facility] 796 969-202 [facility] 07:23:00 07:23:00 _A_ 83537 Family Practic e Results Test Description Test Time Test Comments Results Result Comments Source CBC W/AUTO DIFF 2022-07-09 12:22:00 Test Item Value Reference Range Interpretation Comme nts WHITE BLOOD CELL (test code = WBC) 5.2 x10 3/uL 4.8-10.8 N RED BLOOD CELL (test code = RBC) 3.30 x10 6/uL 4.70-6.10 L HEMOGLOBIN (test code = HGB) 10.7 g/dL 14.0-18.0 L HEMATOCRIT (test code = HCT) 32.3 % 42.0-52.0 L MEAN CELL VOLUME (test code = MCV) 97.9 fL 80.0-94.0 H MEAN CELL HGB (test code = MCH) 32.4 pg 27-31 H MEAN CELL HGB CONCENTRATION (test code = MCHC) 33.1 G/DL 33-36.5 N RED CELL DISTRIBUTION WIDTH (test code = RDW) 12.9 % 12.9-16. 9 N PLATELET COUNT (test code = PLT) 178 x10 3/uL 150-440 N MEAN PLATELET VOLUME (test code = MPV) 10.2 fL 8.9-12.4 N NEUTROPHIL % (test code = NT%) 61.0 % 42.2-75.2 N LYMPHOCYTE % (test code = LY%) 19.3 % 20.5-51.1 L MONOCYTE % (test code = MO%) 10.5 % 1.7-9.3 H EOSINOPHIL % (test code = EO%) 8.2 % 0.0-7.0 H BASOPHIL % (test code = BA%) 0.8 % 0-2.5 N NEUTROPHIL # (test code = NT#) 3.19 x10 3/uL 1.80-7.70 N LYMPHOCYTE # (test code = LY#) 1.01 x10 3/uL 1.00-4.80 N MONOCYTE # (test code = MO#) 0.55 x10 3/uL 0.00-0.80 N EOSINOPHIL # (test code = EO#) 0.43 x10 3/uL 0.00-0.45 N BASOPHIL # (test code = BA#) 0.04 x10 3/uL 0.0-0.20 N - US RETRO [id number] 10:20:00 [facility] : 1950 Sex: MPatient Name: MIKEY MORILLO Unit No: [id number] EXAMS: CPT CODE: [id number] RETRO [id number] RENAL ULTRASOUND LOCATION: H 30 History: Urinary retention. Technique: Transabdominal sonography of the kidneys and bladder were performed. Unless otherwise specified, incidental findings do not require dedicated imaging follow-up. No prior exams are available for comparison. Findings: Both kidneys are normal in size, shape and echotexture. Renal cortical thickness is normal on each side a 2 cm. The right kidney measures 11.0 x 5.4 x 5.2 cm, and the left kidney measures 11.2 x 6.1 x 6.8 cm. Nofocal mass, calculus, hydronephrosis or perirenal inflammatory process is seen on either side. No obvious bladder abnormality is seen. The urinary bladder is decompressed with a Alexandre catheter. The prostate is enlarged with a volume of 70 mL. IMPRESSION: 1. No obvious abnormality with either kidney or with the urinary bladder. 2. Enlarged prostate with a volume of 70 mL. at 1020 Reported and signed by: Earl Veronica Jr, MD CC: Chan Dailey MD; Ethan Lang MD Technologist: QUAN BOOKER RDMS (AB) Probe: Trscr Dt/Tm: 07/09/2022 (1020) by:Jose Printed Date/Time: 07/09/2022 (1024) Name: MIKEY MORILLO MARIEL HARDY [facility] Phys: Ethan Garcia MD [address] : 1950 Age: 72 Sex: M [place], [place] [address]Pwsq No: [id number] Loc: P.0906 1 Exam Date: 07/09/2022 Status: ADM IN PH: FAX: PAGE 1 Signed Report PROSTATE SPECIFIC [id number] 04:04:00 Test Item Value Reference Range Interpretation Comments PROSTATE SPECIFIC ANTIGEN (test 4.15 ng/mL 0.0-4.0 H code = PSA SCREEN) HGB [id number] 05:12:00 Test Item Value Reference Range Interpretation Comments HEMOGLOBIN (test code = HGB) 11.0 g/dL 14.0-18.0 L HEMATOCRIT (test code = HCT) 32.9 % 42.0-52.0 L CBC W/MANUAL [id number] 08:09:00 Test Item Value Reference Range Interpretation Comments WHITE BLOOD CELL (test 5.6 x10 3/uL 4.8-10.8 N code = WBC) RED BLOOD CELL (test code 3.11 x10 6/uL 4.70-6.10 L = RBC) HEMOGLOBIN (test code = 10.2 g/dL 14.0-18.0 L HGB) HEMATOCRIT (test code = 29.7 % 42.0-52.0 L HCT) MEAN CELL VOLUME (test 95.5 fL 80.0-94.0 H code = MCV) MEAN CELL HGB (test code = 32.8 pg 27-31 H MCH) MEAN CELL HGB 34.3 G/DL 33-36.5 N CONCENTRATION (test code = MCHC) RED CELL DISTRIBUTION 13.1 % 12.9-16.9 N WIDTH (test code = RDW) PLATELET COUNT (test code 119 x10 3/uL 150-440 L = PLT) MEAN PLATELET VOLUME (test 11.1 fL 8.9-12.4 N code = MPV) NEUTROPHIL % (test code = 67.7 % 42.2-75.2 N NT%) LYMPHOCYTE % (test code = 19.3 % 20.5-51.1 L LY%) MONOCYTE % (test code = 7.4 % 1.7-9.3 N MO%) EOSINOPHIL % (test code = 5.0 % 0.0-7.0 N EO%) BASOPHIL % (test code = 0.4 % 0-2.5 N BA%) NEUTROPHIL # (test code = 3.82 x10 3/uL 1.80-7.70 N NT#) LYMPHOCYTE # (test code = 1.09 x10 3/uL 1.00-4.80 N LY#) MONOCYTE # (test code = 0.42 x10 3/uL 0.00-0.80 N MO#) EOSINOPHIL # (test code = 0.28 x10 3/uL 0.00-0.45 N EO#) BASOPHIL # (test code = 0.02 x10 3/uL 0.0-0.20 N BA#) TOTAL CELLS COUNTED (test 100 #CELLS code = TCC) SEGMENTED NEUTROPHILS 58 % 49-71 N (test code = SEG) LYMPHOCYTE (test code = 23 % 20-40 N LYMPH) BAND NEUTROPHIL (test code 6 % 0-5 H = BAND) MONOCYTE (test code = MON) 8 % 3-8 N EOSINOPHIL (test code = 4 % 1-5 N EOS) BASOPHIL (test code = 1 % 0.2-1.0 N BASO) PLATELET ESTIMATE (test SLIGHTLY DECREASED ADEQUATE A code = PLTEST) PLATELET MORPHOLOGY (test NORMAL NORMAL code = PLTMORPH) [id number] 06:11:00 Test Item Value Reference Range Interpretation Comments MAGNESIUM (test code = MAG) 1.9 mg/dL 1.6-2.6 N BASIC METABOLIC [id number] 06:07:00 Test Item Value Reference Range Interpretation Comments SODIUM (test code 137 mmol/L 136-145 N = NA) POTASSIUM (test 3.9 mmol/L 3.5-5.1 N code = K) CHLORIDE (test 103 mmol/l 98-107 N code = CL) CARBON DIOXIDE 24 mmol/L 20-31 N (test code = CO2) GLUCOSE (test code 97 ng/dL 74-106 N = GLU) BLOOD UREA 6 mg/dL 9-23 L NITROGEN (test code = BUN) GLOMERULAR >=60 max >60 The Glomerular FILTRATION RATE estimate mL/min Filtratio n Rate is a (test code = GFR) calculated parameterbased on serum Creatinin e, patient age and sex. GFR valuesless than 60 mL/min/1.73 square meters are marianela cative ofChronic Kidne y Disease. Values less than 15 mL/min/1.73squa re meters indicate Kidney failure. The calculation for GFR is based on the CK D-EPI (2020) calculat ion. This formulais race indifferent and is the recommended formula for GFR by the National Kidney Foundation for Adults.The GFR will not calculate i f the sex is unknown or if thepatient's ag e is <18 years. CREATININE (test 0.70 mg/dL 0.70-1.30 N code = CREAT) CALCIUM (test code 8.0 mg/dL 8.7-10.4 L = CA) [id number] 17:13:00 Test Item Value Reference Range Interpretation Comments SURGICAL (test code = SR) RUN DATE: 07/11/22 [facility] - LAB PAGE 1 RUN TIME: 855 Specimen Inquiry RUN USER: INTERFACE ELIZA ENT: MIKEY MORILLO JR LOC: [id number] POD Rika U #: [id number] AGE/SX: 72/M ROOM: Formerly Named [facility] RE07/04/22REG DR: Chan Dailey MD : 54 BED: 1 DIS: 07/09/22 STATUS: DIS IN TLOC: SPEC #: [id number] RECD: 07/04/22-1429 STATUS: NARDA REQ #: [id number] CHAPARRO: 07/04/22-[address] [facility] [address]: Chan Dailey MD ENTERED: 07/04/22 SP TYPE: SURGICAL OTHR DR: No Primary or Family PhysicianORDERED: 65633, 30180/3, [id number], ANATOMIC SPEC, [id number] HISTOLOGY: TISSUE ID BLK PCS SHIV LEV / PROCEDURE DISPOSITION ____ ___ ___ ___ ___ RECSIG A 17 1 TISSUES: A. RECTUM AND SIGMOID COLON - Rectum, Sigmoid With Mesentery ADDENDUM FINDINGS Addendum #1 Entered: 07/11/22 This addendum is issued to add the result of mismatch repair (MMR) protein expressionanalysis by immunohistochemistry. The diagnosis is unchanged. MLH1: Intact nuclear expressionMSH2: Intact nuclear expressionMSH6: Intact nuclear expressionPMS2: Intact nuclear expression IHC Interpretation: No loss of nuclear expression of MMR proteins: low probability of MSI-H Addendum Signed SIGNATURE ON FILE Rivas Garrido 07/11/22 0856 [facility] CANCER SUMMARY CASE SUMMARY: (COLON AND RECTUM: Resection, Including Transanal Disk Excision of RectalNeoplasms) PATHOLOGIC STAGE CLASSIFICATION (pTNM, AJCC 8th Edition) Pathologic Stage: [id number] Lymph Nodes: [id number] Metastasis: Not applicable SPECIMEN Procedure: Low anterior resection CONTINUED ON NEXT PAGE RUN DATE: 07/11/22 [facility] - LAB PAGE 2 RUN TIME: 0856 Specimen Inquiry RUN USER: INTERFACE SPEC #: [id number] PATIENT: MIKEY MORILLO MARIEL HARDY #[id number] (Continued) ------- CAP CANCER SUMMARY (Continued) Macroscopic Evaluation of Mesorectum: Near complete TUMOR Tumor Site: Rectum Rectal Tumor Location: Entirely above anterior peritoneal reflection Histologic Type: Adenocarcinoma Histologic Grade: G1 (well differentiated) Tumor Size: Greatest Dimension: 1.2 cm Additional Dimensions: 1.2 x 0.3 cmMultiple Primary Sites: Not applicable Tumor Extent: Invades submucosa Macroscopic Tumor Perforation: Not identified Lymphovascular Invasion: Large vessel (venous), intramuralPerineural Invasion: Not identified Treatment Effect: No known presurgical therapy MARGINS Margin Status for Invasive Carcinoma: All margins negative for invasive carcinoma Closest Margin to Invasive Carcinoma: Distal Distance from Invasive Carcinoma to Closest Margin: 0.4 cm (post-fixation) Distance from Invasive Carcinoma to Radial Margin: 0.5 cm Margin Status for Non-Invasive Tumor: All margins negative for high-grade dysplasia/intramucosal carcinoma and low-grade dysplasia REGIONAL LYMPH NODES Regional Lymph Node Status: All regional lymph nodes negative for tumor Number of Lymph Nodes Examined: 24 Tumor Deposits: Not identified DISTANT METASTASIS Not applicable FINAL DIAGNOSIS LARGE INTESTINE, RECTOSIGMOID, LOW ANTERIOR RESECTION: - Invasive well differentiated adenocarcinoma. - Involves proximal rectum, above anterior peritoneal reflection. - 1.2 cm in greatest dimension. - Lymphovascular invasion: Present (venous, intramural). - Perineural invasion: Not identified. - Margins: Negative. CONTINUED ON NEXT PAGE RUN DATE: 07/11/22 [place] [facility] - LAB PAGE 3 RUN TIME: 855 Specimen Inquiry RUN USER: INTERFACE SPEC #: [id number] PATIENT: MIKEY MORILLO #[id number] (Continued) ------- FINAL DIAGNOSIS (Continued) - Twenty-four lymph nodes, negative for metastasis (0/24). - See Pathologic Tumor Staging Synopsis and comment below. COMMENT: Mismatch repair (MMR) protein expression analyssis by immunohistochemistry, andthe results will be reported as an addendum. GROSS DESCRIPTION The specimen is received in formalin labeled with the patient's name, medical recordnumber, and "rectum sigmoid". The specimen consists of a bowel fragment that measures 8.9cm in length and 3.5-1.5 cm in diameter with both patent ends. Mesentery is attached. No orientation is provided. The specimen is opened longitudinally to reveal a reyes-pinkmucosal surface with an ill-defined, reyes-pink lesion that measures 1.2 x 1.2 x 0.3 cm,located 0.4 cm away from the distal margin and 8.7 cm away from the proximal margin; onsectioning, the lesion appears confined to the mucosal surface. Identified in the fattytissue are 12 lymph nodes ranging in size from 0.4 x 0.4 x 0.3 cm up to 0.6 x 0.5 x 0.3 cmin greatest dimension.[employer] sections are submitted in cassettes labeled as follows: A1 - proximalmargin; A2 - distal margin; A3-A6 - lesion, serially sectioned perpendicular to the margin(margin inked green); A7 - uninvolved mucosa; A8-A9 - 12 lymph nodes (2 bisected and inkeddifferently); A10-A17 - lymph nodes candidates. XZ/ph Technical component performed at [facility] [facility], [place], [address] Immunohistochemistry: This test was developed and its performancecharacteristics determined by this laboratory. It has not been approved nordoes it need approval by the [place] FDA. Appropriate positive and negative controlsare reviewed and judged to be acceptable. This laboratory is certified underthe Clinical Laboratory Improvement Amendments (CLIA-88) as qualified toperform high complexity clinical laboratory testing. MICROSCOPIC DESCRIPTION Unless gross only, the diagnosis is based upon microscopic examination. CLINICAL INFORMATION Rectal mass. - Signed SIGNATURE ON FILE Rivas Garrido Henry 07/06/22 1713 END OF REPORT [id number] 05:20:00 Test Item Value Reference Range Interpretation Comments MAGNESIUM (test code = MAG) 2.0 mg/dL 1.6-2.6 N BASIC METABOLIC [id number] 05:20:00 Test Item Value Reference Range Interpretation Comments SODIUM (test code 136 mmol/L 136-145 N = NA) POTASSIUM (test 3.8 mmol/L 3.5-5.1 N code = K) CHLORIDE (test 105 mmol/l 98-107 N code = CL) CARBON DIOXIDE 25 mmol/L 20-31 N (test code = CO2) GLUCOSE (test code 96 ng/dL 74-106 N = GLU) BLOOD UREA 5 mg/dL 9-23 L NITROGEN (test code = BUN) GLOMERULAR >=60 max >60 The Glomerular FILTRATION RATE estimate mL/min Filtratio n Rate is a (test code = GFR) calculated parameterbased on serum Creatinin e, patient age and sex. GFR valuesless than 60 mL/min/1.73 square meters are marianela cative ofChronic Kidne y Disease. Values less than 15 mL/min/1.73squa re meters indicate Kidney failure. The calculation for GFR is based on the CK D-EPI (2020) calculat ion. This formulais race indifferent and is the recommended formula for GFR by the National Kidney Foundation for Adults.The GFR will not calculate i f the sex is unknown or if thepatient's ag e is <18 years. CREATININE (test 0.70 mg/dL 0.70-1.30 N code = CREAT) CALCIUM (test code 8.0 mg/dL 8.7-10.4 L = CA) CBC W/AUTO [id number] 05:01:00 Test Item Value Reference Range Interpretation Comments WHITE BLOOD CELL (test code = 5.4 x10 3/uL 4.8-10.8 N WBC) RED BLOOD CELL (test code = 3.24 x10 6/uL 4.70-6.10 L RBC) HEMOGLOBIN (test code = HGB) 10.6 g/dL 14.0-18.0 L HEMATOCRIT (test code = HCT) 31.0 % 42.0-52.0 L MEAN CELL VOLUME (test code = 95.7 fL 80.0-94.0 H MCV) MEAN CELL HGB (test code = MCH) 32.7 pg 27-31 H MEAN CELL HGB CONCENTRATION 34.2 G/DL 33-36.5 N (test code = MCHC) RED CELL DISTRIBUTION WIDTH 13.1 % 12.9-16.9 N (test code = RDW) PLATELET COUNT (test code = 133 x10 3/uL 150-440 L PLT) MEAN PLATELET VOLUME (test code 10.1 fL 8.9-12.4 N = MPV) NEUTROPHIL % (test code = NT%) 71.6 % 42.2-75.2 N LYMPHOCYTE % (test code = LY%) 16.6 % 20.5-51.1 L MONOCYTE % (test code = MO%) 6.0 % 1.7-9.3 N EOSINOPHIL % (test code = EO%) 5.0 % 0.0-7.0 N BASOPHIL % (test code = BA%) 0.4 % 0-2.5 N NEUTROPHIL # (test code = NT#) 3.85 x10 3/uL 1.80-7.70 N LYMPHOCYTE # (test code = LY#) 0.89 x10 3/uL 1.00-4.80 L MONOCYTE # (test code = MO#) 0.32 x10 3/uL 0.00-0.80 N EOSINOPHIL # (test code = EO#) 0.27 x10 3/uL 0.00-0.45 N BASOPHIL # (test code = BA#) 0.02 x10 3/uL 0.0-0.20 N BASIC METABOLIC [id number] 05:19:00 Test Item Value Reference Range Interpretation Comments SODIUM (test code 136 mmol/L 136-145 N = NA) POTASSIUM (test 3.8 mmol/L 3.5-5.1 N code = K) CHLORIDE (test 105 mmol/l 98-107 N code = CL) CARBON DIOXIDE 23 mmol/L 20-31 N (test code = CO2) GLUCOSE (test code 94 ng/dL 74-106 N = GLU) BLOOD UREA 8 mg/dL 9-23 L NITROGEN (test code = BUN) GLOMERULAR >=60 max >60 The Glomerular FILTRATION RATE estimate mL/min Filtratio n Rate is a (test code = GFR) calculated parameterbased on serum Creatinin e, patient age and sex. GFR valuesless than 60 mL/min/1.73 square meters are marianela cative ofChronic Kidne y Disease. Values less than 15 mL/min/1.73squa re meters indicate Kidney failure. The calculation for GFR is based on the CK D-EPI (2020) calculat ion. This formulais race indifferent and is the recommended formula for GFR by the National Kidney Foundation for Adults.The GFR will not calculate i f the sex is unknown or if thepatient's ag e is <18 years. CREATININE (test 0.70 mg/dL 0.70-1.30 N code = CREAT) CALCIUM (test code 8.1 mg/dL 8.7-10.4 L = CA) [id number] 05:13:00 Test Item Value Reference Range Interpretation Comments MAGNESIUM (test code = MAG) 1.8 mg/dL 1.6-2.6 N CBC W/AUTO [id number] 04:53:00 Test Item Value Reference Range Interpretation Comments WHITE BLOOD CELL (test code = 6.9 x10 3/uL 4.8-10.8 N WBC) RED BLOOD CELL (test code = 3.55 x10 6/uL 4.70-6.10 L RBC) HEMOGLOBIN (test code = HGB) 11.6 g/dL 14.0-18.0 L HEMATOCRIT (test code = HCT) 35.3 % 42.0-52.0 L MEAN CELL VOLUME (test code = 99.4 fL 80.0-94.0 H MCV) MEAN CELL HGB (test code = MCH) 32.7 pg 27-31 H MEAN CELL HGB CONCENTRATION 32.9 G/DL 33-36.5 L (test code = MCHC) RED CELL DISTRIBUTION WIDTH 13.4 % 12.9-16.9 N (test code = RDW) PLATELET COUNT (test code = 171 x10 3/uL 150-440 N PLT) MEAN PLATELET VOLUME (test code 9.9 fL 8.9-12.4 N = MPV) NEUTROPHIL % (test code = NT%) 74.6 % 42.2-75.2 N LYMPHOCYTE % (test code = LY%) 16.5 % 20.5-51.1 L MONOCYTE % (test code = MO%) 7.9 % 1.7-9.3 N EOSINOPHIL % (test code = EO%) 0.3 % 0.0-7.0 N BASOPHIL % (test code = BA%) 0.4 % 0-2.5 N NEUTROPHIL # (test code = NT#) 5.17 x10 3/uL 1.80-7.70 N LYMPHOCYTE # (test code = LY#) 1.14 x10 3/uL 1.00-4.80 N MONOCYTE # (test code = MO#) 0.55 x10 3/uL 0.00-0.80 N EOSINOPHIL # (test code = EO#) 0.02 x10 3/uL 0.00-0.45 N BASOPHIL # (test code = BA#) 0.03 x10 3/uL 0.0-0.20 N COMPREHENSIVE METABOLIC [id number] 12:03:00 Test Item Value Reference Range Interpretation Comments SODIUM (test code 138 mmol/L 136-145 N = NA) POTASSIUM (test 4.2 mmol/L 3.5-5.1 N code = K) CHLORIDE (test 105 code = CL) CARBON DIOXIDE 25 mmol/L 20-31 N (test code = CO2) GLUCOSE (test code 88 ng/dL 74-106 N = GLU) BLOOD UREA 11 mg/dL 9-23 N NITROGEN (test code = BUN) GLOMERULAR >=60 max >60 The Glomerular FILTRATION RATE estimate mL/min Filtratio n Rate is a (test code = GFR) calculated parameterbased on serum Creatinin e, patient age and sex. GFR valuesless than 60 mL/min/1.73 square meters are marianela cative ofChronic Kidne y Disease. Values less than 15 mL/min/1.73squa re meters indicate Kidney failure. The calculation for GFR is based on the CK D-EPI (2020) calculat ion. This formulais race indifferent and is the recommended formula for GFR by the National Kidney Foundation for Adults.The GFR will not calculate i f the sex is unknown or if thepatient's ag e is <18 years. CREATININE (test 0.80 mg/dL 0.70-1.30 N code = CREAT) TOTAL PROTEIN 6.0 mg/dL 5.7-8.2 N (test code = PROT) ALBUMIN (test code 4.1 mg/dL 3.2-4.8 N = ALB) CALCIUM (test code 8.6 mg/dL 8.7-10.4 L = CA) BILIRUBIN TOTAL 1.2 mg/mL 0.3-1.2 N (test code = BILT) SGOT/AST (test 23 I/U <34 N code = AST) SGPT/ALT (test 17 U/L 10-49 N code = ALT) ALKALINE 53.0 U/L 46-116 N PHOSPHATASE (test code = ALKP) THROMBOPLASTIN TIME [id number] 12:00:00 Test Item Value Reference Range Interpretation Comments THROMBOPLASTIN TIME 40.7 SECONDS 23.8-34.8 H INTERPRE TATIVE PARTIAL (test code = DATA: erapeutic PTT) range: Unfractionated heparin:55 - 80 seconds Argatroban:1.5 to 3 times the basel ine PTT PROTHROMBIN [id number] 12:00:00 Test Item Value Reference Range Interpretation Comments PROTHROMBIN TIME 17.2 SECONDS 10.3-12.9 H PATIENT (test code = PTP) INTERNATIONAL 1.46 INR UNIT 0.9-1.11 H The INR is us eful only NORMAL RATIO (test for monit oring code = INR) anticoagulant therapy.It may be unreliable in t he initial phase o f antigoagulation and in unstable patien ts. Indication for Anticoagulation Recommended INR 1. Prevention of v enous thomboembolism 2.0-3.0in high- risk patients; treat ment of venousthrombosi s and pulmonary embol ism aftera course o f heparin; preven tion of systemicembolis m in a variety of cond itions, including atria l fibrillation an d prothetic tissu e heart valves, 2. Pros thetic mechanical hear t valves; 2.5-3.5recurren t systemic emboli sm. URINALYSIS [id number] 11:49:00 Test Item Value Reference Range Interpretation Comments UA COLOR (test code = COLU) YELLOW DISCRIPT YELLOW UA APPEARANCE (test code = CLEAR DISCRIPT CLEAR APPU) UA GLUCOSE DIPSTICK (test NEGATIVE mg/dL NEGATIVE code = DGLUU) UA BILIRUBIN DIPSTICK (test NEGATIVE NEGATIVE code = BILU) UA KETONE DIPSTICK (test code NEGATIVE mg/dL NEGATIVE = KETU) UA SPECIFIC GRAVITY (test <=1.005 1.005-1.030 A code = SGU) UA BLOOD DIPSTICK (test code NEGATIVE NEGATIVE = BORA) UA PH DIPSTICK (test code = 7.0 5.0-9.0 STAR) UA PROTEIN DIPSTICK (test NEGATIVE mg/dL NEGATIVE code = PROU) UA UROBILINOGEN DIPSTICK 0.2 mg/dL 0.2-1.0 (test code = URO) UA NITRITE DIPSTICK (test NEGATIVE NEGATIVE code = LONA) UA LEUKOCYTE ESTERASE NEGATIVE NEGATIVE DIPSTICK (test code = LEUU) CBC W/AUTO [id number] 11:47:00 Test Item Value Reference Range Interpretation Comments WHITE BLOOD CELL (test code = 5.1 x10 3/uL 4.8-10.8 N WBC) RED BLOOD CELL (test code = 3.99 x10 6/uL 4.70-6.10 L RBC) HEMOGLOBIN (test code = HGB) 13.1 g/dL 14.0-18.0 L HEMATOCRIT (test code = HCT) 38.6 % 42.0-52.0 L MEAN CELL VOLUME (test code = 96.7 fL 80.0-94.0 H MCV) MEAN CELL HGB (test code = MCH) 32.8 pg 27-31 H MEAN CELL HGB CONCENTRATION 33.9 G/DL 33-36.5 N (test code = MCHC) RED CELL DISTRIBUTION WIDTH 13.5 % 12.9-16.9 N (test code = RDW) PLATELET COUNT (test code = 175 x10 3/uL 150-440 N PLT) MEAN PLATELET VOLUME (test code 10.5 fL 8.9-12.4 N = MPV) NEUTROPHIL % (test code = NT%) 62.5 % 42.2-75.2 N LYMPHOCYTE % (test code = LY%) 26.8 % 20.5-51.1 N MONOCYTE % (test code = MO%) 6.7 % 1.7-9.3 N EOSINOPHIL % (test code = EO%) 3.0 % 0.0-7.0 N BASOPHIL % (test code = BA%) 0.6 % 0-2.5 N NEUTROPHIL # (test code = NT#) 3.18 x10 3/uL 1.80-7.70 N LYMPHOCYTE # (test code = LY#) 1.36 x10 3/uL 1.00-4.80 N MONOCYTE # (test code = MO#) 0.34 x10 3/uL 0.00-0.80 N EOSINOPHIL # (test code = EO#) 0.15 x10 3/uL 0.00-0.45 N BASOPHIL # (test code = BA#) 0.03 x10 3/uL 0.0-0.20 N POC [id number] 13:12:00 Test Item Value Reference Range Interpretation Comments POC creatinine (test 0.9 mg/dl 0.7-1.2 Operato r Name: code = 31574-5) Nicho Zacarias ID : [id number] [facility] [id number] 13:12:00 Test Item Value Reference Range Interpretation Comments Estimated GFR (test 86 mL/min/1.73 m2 Caterg ory Units code = 07702-2) Interpretati onG1 >=90 Normal or highG 2 60-89 Mildly decrease dG3a 45-59 Mildly to moder ately jahxczlcuH3r 30 -44 Moderately to s everely decreasedG4 15- 29 Severely decreasedG5 <15 Kidney failureThe eGFR was calculated usin g the Chronic Kidney Disease Epidemiology Co llaboration (CKD-EPI) equat ion. Interpretation is based on recommendations of the National Kidney Foundation-Kidn ey Disease Outcomes Qualit y Initiative (NKF-KDOQI) pub lished in 2013. [facility] [id number] 13:12:00 Test Item Value Reference Range Interpretation Comments POC creatinine (test 0.9 mg/dl 0.7-1.2 Operato r Name: code = 51788-0) Gatosophia LindacarlottaAngelomargrete ID : [id number] [facility] [id number] 13:12:00 Test Item Value Reference Range Interpretation Comments Estimated GFR (test 86 mL/min/1.73 m2 Caterg ory Units code = 06809-5) Interpretati onG1 >=90 Normal or highG 2 60-89 Mildly decrease dG3a 45-59 Mildly to moder ately gygxpaocyZ1i 30 -44 Moderately to s everely decreasedG4 15- 29 Severely decreasedG5 <15 Kidney failureThe eGFR was calculated usin g the Chronic Kidney Disease Epidemiology Co llaboration (CKD-EPI) equat ion. Interpretation is based on recommendations of the National Kidney Foundation-Kidn ey Disease Outcomes Qualit y Initiative (NKF-KDOQI) pub lished in 2014. [facility] [id number] 13:12:00 Test Item Value Reference Range Interpretation Comments POC creatinine (test 0.9 mg/dl 0.7-1.2 Operato r Name: code = 50425-2) Gatosophia LindacarlottaAngeloVenture Catalystse ID : [id number] [facility] [id number] 13:12:00 Test Item Value Reference Range Interpretation Comments Estimated GFR (test 86 mL/min/1.73 m2 Caterg ory Units code = 29468-6) Interpretati onG1 >=90 Normal or highG 2 60-89 Mildly decrease dG3a 45-59 Mildly to moder ately crxeezcwqK5n 30 -44 Moderately to s everely decreasedG4 15- 29 Severely decreasedG5 <15 Kidney failureThe eGFR was calculated usin g the Chronic Kidney Disease Epidemiology Co llaboration (CKD-EPI) equat ion. Interpretation is based on recommendations of the National Kidney Foundation-Kidn ey Disease Outcomes Qualit y Initiative (NKF-KDOQI) pub lished in 2013. Trisha Henson [id number] 16:03:24 Test Item Value Reference Interpretation Comments Range TROPONIN I (test 0.005 ng/mL See_Comment [Automated code = 6293598423) message] The system which generated this result transmitted reference range : <=0.034. The reference range was not used to interpret this result as normal/abnormal . TRISTA (test code = Reference (Normal) TRISTA) Range (defined by the 99th percentile reference limit): <= 0.034 ng/mL Note: Cardiac troponin begins to rise 3-4 hours after the onset of ischemia. Repeat in 4-6 hours if the sample was drawn within 3-4 hours of the onset of the symptom and found normal. Diagnosis of myocardial injury is made with acute changes in cTn concentrations with at least one serial sample above the 99th percentile upper reference limit (URL), taken together with the patient's clinical presentation. Biotin has been reported to cause a negative bias, interpret results relative to patient's use of biotin. Lab Interpretation Normal (test code = 84631-7) [id number] 16:00:22 Test Item Value Reference Range Interpretation Comments NT-proBNP (test code 411 pg/mL See_Comment H [Autom ated = 8747490348) message] The system which generated this result transmitted reference range : <=125. The reference range was not used to interpret this result as normal/abnormal . TRISTA (test code = TRISTA) Biotin has been reported to cause a negative bias, interpret results relative to patient's use of biotin. Lab Interpretation Abnormal (test code = 11727-0) [facility] ([id number] 15:51:22 Test Item Value Reference Range Interpretation Comments NA (test code = 132 mmol/L 135-145 L 8976171484) K (test code = 4.9 mmol/L 3.5-5.0 3139881500) CL (test code = 97 mmol/L 98-108 L 5937086299) CO2 TOTAL (test code = 26 mmol/L 23-31 3724920303) AGAP (test code = 2-16 2552564160) BUN (test code = 11 mg/dL 7-23 5430094718) GLUCOSE (test code = 91 mg/dL 70-110 8157539370) CREATININE (test code = 0.65 mg/dL 0.60-1.25 5915623438) TOTAL BILI (test code = 1.0 mg/dL 0.1-1.1 4257678697) CALCIUM (test code = 8.5 mg/dL 8.6-10.6 L 6444696635) T PROTEIN (test code = 7.0 g/dL 6.3-8.2 2650619515) ALBUMIN (test code = 4.4 g/dL 3.5-5.0 5769037419) ALK PHOS (test code = 46 U/L 34-122 6822482839) ALTv (test code = 21 U/L 5-50 2-6) AST(SGOT) (test code = 36 U/L 13-40 3557539779) eGFR (test code = mL/min/1.73m2 9900094521) TRISTA (test code = TRISTA) Association of Glomerular Filtration Rate (GFR) and Staging of Kidney Disease* + --+ --+ ------+| GFR (mL/min/1.73 m2) ?| With Kidney Damage ?| ?Without Kidney Damage+ --------+ --------+ +| ?>90 ?| ?Stage one ?| ? Normal ?+ ---+ ---+ -------+| ?60-89 ?| ?Stage two ?| ? Decreased GFR ? + --+ --+ ------+| ?30-59 ?| ?Stage three ?| ? Stage three ? + --+ --+ ------+| ?15-29 ?| ?Stage four ? | ? Stage four ?+ ---+ ---+ -------+| ?<15 (or dialysis) ? ?| ?Stage five ? | ? Stage five ?+ ---+ ---+ -------+ *Each stage assumes the associated GFR level has been in effect for at least three months. ?Stages 1 to 5, with or without kidney disease, indicate chronic kidney disease. Notes: Determination of stages one and two (with eGFR >59mL/min/1.73 m2) requires estimation of kidney damage for at least three months as defined by structural or functional abnormalities of the kidney, manifested by either:Pathological abnormalities or Markers of kidney damage (including abnormalities in the composition of the blood or urine or abnormalities in imaging tests). Lab Interpretation Abnormal (test code = 75312-0) [facility] WITH [id number] 15:41:19 Test Item Value Reference Range Interpretation Comments WBC (test code = See_Comment [Automated message] 7290-2) The system [employer] generated this result transmitted ref erence range: 4.20 - 1 0.70 10*3/?L. The re ference range was not u sed to interpret this result as normal/abnor mal. RBC (test code = See_Comment [Automated message] 649-8) The system [employer] generated this result transmitted ref erence range: 4.26 - 5 .52 10*6/?L. The re ference range was not u sed to interpret this result as normal/abnor mal. HGB (test code = 14.3 g/dL 12.2-16.4 718-7) HCT (test code = 41.9 % 38.4-49.3 4544-3) MCV (test code = 91.9 fL 81.7-95.6 787-2) MCH (test code = 31.4 pg 26.1-32.7 785-6) MCHC (test code = 34.1 g/dL 31.2-35.0 786-4) RDW-SD (test code 41.6 fL 38.5-51.6 = 02369-2) RDW-CV (test code 12.4 % 12.1-15.4 = 788-0) PLT (test code = See_Comment [Automated message] 097-3) The system [employer] generated this result transmitted ref erence range: 150 - 32 8 10*3/?L. The re ference range was not u sed to interpret this result as normal/abnor mal. MPV (test code = 10.4 fL 9.8-13.0 54497-5) NRBC/100 WBC (test See_Comment [Automat ed message] code = 2590411563) The [employer] which generated this result transmitted ref erence range: 0.0 - 10 .0 /100 WBCs. The refer ence range was not u sed to interpret this result as normal/abnor mal. NRBC x10^3 (test <0.01 See_Comment [Automated message] code = 5579110902) The syste m which generated this result transmitted ref erence range: 10*3/?L. The reference range was not used to interpr et this result as normal/abnormal . GRAN MAT (NEUT) % 44.8 % (test code = 770-8) IMM GRAN % (test 0.40 % code = 3732942032) LYMPH % (test code 42.3 % = 736-9) MONO % (test code 8.0 % = 5905-5) EOS % (test code = 3.9 % 713-8) BASO % (test code 0.6 % = 706-2) GRAN MAT 2.42 10*3/uL 1.99-6.95 x10^3(ANC) (test code = 0485509762) IMM GRAN x10^3 <0.03 0.00-0.06 (test code = 9246760263) LYMPH x10^3 (test 2.28 10*3/uL 1.09-3.23 code = 731-0) MONO x10^3 (test 0.43 10*3/uL 0.36-1.02 code = 742-7) EOS x10^3 (test 0.21 10*3/uL 0.06-0.53 code = 711-2) BASO x10^3 (test 0.03 10*3/uL 0.01-0.09 code = 704-7) [facility] Notes Date/Time Note Provider Source 2022-07-11 20:34:00-00:00 [id number] [facility] [address] [place] [address] PATIENT NAME: MIKEY MORILLO JR ADMIT DATE: 07/04/22 ACCOUNT NO: [id number] ROOM NO: P.[id number] AGE: 72 REPORT TYPE: OPERATIVE REPORT SEX: M ADMITTING PHYSICIAN:Chan Dailey MD ATTENDING PHYSICIAN:Chan Dailey MD OPERATION DATE: 07/04/2022 PREOPERATIVE DIAGNOSIS: Adenocarcinoma of the re ctum. POSTOPERATIVE DIAGNOSIS: Adenocarcinoma of the r ectum. PROCEDURES PERFORMED: 1. Laparoscopic-assisted robotic low anterior re section with rectal stump and end colostomy. 2. Extensive periaortic lymph node dissection. 3. Laparoscopic splenic flexure takedown. COLORECTAL SURGEON: Chan Dailey MD WRIST HEMMER: Dr. Simin Hilton. ADDITIONAL CHIEF CONCIERGE: Dr. Kirstin Owens. ANESTHESIA: General endotracheal anesthesia. SPECIMEN: Rectum and lymph nodes. COMPLICATIONS: None. CONDITION: Stable. INDICATIONS AND FINDINGS: The patient presents w ith locally advanced adenocarcinoma of the rectum. He underwe nt neoadjuvant chemoradiation therapy. He was a high morbidity risk and decision was ma de for resection without anastomosis to mitigate risk of leak and sepsis. Resection was difficult. The lesion was at 9 cm from the anal verge; however, he had an exceedingly narrow pelvis, making the procedure more difficult. We were able to perform a resection with a low Patel stump to p erform an end colostomy. Additionally, to allow to reach for colostomy, a splenic flexu re takedown was required. The patient underwent an extensi ve periaortic lymph node dissection for an oncologic fashion. The surgical phlebotomy lab assistant was present a nd required to complete the procedure in a safe and minimally invasi ve fashion as surgical garment fitter is not available in our service. DESCRIPTION OF PROCEDURE: Th e patient was taken to the operating room and after induction of anesthesia, melissa nik in modified lithotomy position, was prepped and draped in a sterile fashion. Laparoscopic access was gained with a 5 mm Optiview trocar in the right upper quadrant. Two 8 mm robotic ports were placed PATIENT NAME: MIKEY MORILLOLIS in the left, 12 mm port on the right, 8 mm port in the umbilicus. Exploration revealed no evidence of metastatic disease. Firs t in order to allow a tension-free anastomosis, we took down the splen ic flexure. We entered the white line of Toldt on the left of the pericolic gutter, took down the splenocolic ligament and gastrocolic ligament. W e turned our attention to the pelvis. We then performed an extensive periaorti c lymph node dissection, beginning at the level of the inferior mesenteri c artery up in the aorta, sweeping the lymph nodes up gently into the retr operitoneum, preserving the gonadal and ureter, we swept the lymph nodes and dissected them all the way down beyond the bifurcation of the aorta and sac ral promontory along the bilateral median raphe of the rectum all the way down to the anorectal junction along the pelvic sidewall. Once the lym ph node dissection was completed, we chose our area for transection dis tally. We assured it was negative by performing flexible sigmoidoscopy. W e then transected across the lower rectum with the robotic stapler with a gre en load. Next, we chose our proximal margin and transected between the left colon and sigmoid. We placed the specimen in an Endobag and then we were read y to extract the specimen. At this juncture, pneumoperitoneum was released. Ports removed at the predetermined area of the colostomy, it was deep ened to the fascia and peritoneum and Jordi wound retractor was introduced at that area. Specimen was extracted. Next, the colostomy was broug ht out in this region. Port sites were closed with 4-0 Monocryl and Dermabond. The colo stomy was matured with 3-0 Vicryl sutures. The patient tolerated the proced ure well and was taken to recovery room in good condition. Dictated By: Chan Dailey MD Date Dictated: 07/11/2022 20:34:05 Date Transcribed: 07/12/2022 02:26:36 [facility] Receipt ID: [id number] Authenticated and Edited by Chan Dailey MD On 9:12:33 AM Electronically Signed by Chan Dailey MD on 06/18 09/08 at 0915 PATIENT NAME: MIKEY MORILLO MARIEL HARDY 2022-07-09 09:59:00-00:00 [facility] ([facility]) Med Order Sheet REPORT #: [id number] REPORT STATUS: Signed DATE: 07/09/22 TIME: 958 PATIENT: MIKEY MORILLO MARIEL HARDY UNIT #: [id number] ROOM #: [id number] BED: 1 : 52 AGE: 72 SEX: M ATTEND: Chan Dailey MD ADM AUTHOR: Elvin Hairston APRN ATTENTION *EDITS and/or ADDENDA must be made in Patient Ke eper for this note. * * Edits and ammendments created in [facility] are not visible * * in Patient Keeper or the legal medical record ([facility]). * Discharge Medication Reconciliation DISCHARGE MEDICATION LIST Allopurinol Tab (Zyloprim Tab) Dose: 100 MG PO DAILY amLODIPine Tab (Norvasc Tab) Dose: 5 MG PO DAILY Apixaban Tab (Eliquis Tab) Dose: 5 MG PO BID Atorvastatin Tab (Lipitor Tab) Dose: 10 MG PO DAILY Clopidogrel Tab (Plavix Tab) Dose: 75 MG PO DAILY Lisinopril Tab (Prinivil Tab) Dose: 20 MG PO DAILY Tamsulosin Cap (Flomax Cap) Dose: 0.4MG PO BID, Disp: 60 capsule, Refills: 0 Toprol XL Tb24 (metoprolol succinate) Dose: 100 MG PO DAILY STOPPED HOSPITAL MEDICATIONS Dc'd: Celecoxib Cap (CeleBREX Cap) 200MG PO Q12H PRN pain scale 4-6Dc'd: Lactated Ringers 1000mL (LR 1000mL) 1000ML 50 MLS/HR IV Dc'd: Ondansetron Inj (Zofran Inj) 4MG IV Q8H PRN nausea and vomitingDc'd: Pantoprazole DR Tab (Protonix Tab) 40MG PO DAILYDc'd: traMADol Tab (Ultram Tab) 50MG PO Q6H PRN pain scale 4-6E lectronically Signed in PatientKeeper by Elvin Hairston on 07/09/22 09:58 Electronically Signed by Elvin Hairston on 0 07/09/22 at 0959 ATTENTION *EDITS and/or ADDENDA must be made in Patient [facility] for this note. * * Edits and ammendments created in [facility] are not visible * * in Patient Keeper or the legal medical record ([facility]). * RPT #: [id number] END OF REPORT 2022-07-09 09:32:00-00:00 [facility] ([facility]) Internal Med. D/C Summary REPORT #: [id number] REPORT STATUS: Signed DATE: 07/09/22 TIME: 931 PATIENT: MIKEY MORILLO UNIT #: [id number] ROOM #: [id number] BED: 1 : 52 AGE: 72 SEX: M ATTEND: Chan Dailey MD [facility] AUTHOR: Elvin Hairston APRN ATTENTION *EDITS and/or ADDENDA must be made in Patient [facility] for this note. * * Edits and ammendments created in [facility] are not visible * * in Patient Keeper or the legal medical record ([facility]). * -- CO-SIGNATURE -- COMMENTS: Patient seen and examined Plan of care discussed with Dr. Moulton Patient's questions answered to his satisfaction Agree with the findings as detailed by Elvin velez APRN Discharge plans are enumerated below Total time spent coordinating discharge care > 3 5 mins Signed in PatientKeeper by JUAN STOCK MD 07/09/22 at 12:19 -- PROBLEMS/PROCEDURES -- ADMISSION DATE: 07/04/22 ADMITTING DIAGNOSES: - Anemia - Atrial fibrillation - Benign prostate hyperplasia - Chronic obstructive pulmonary disease - Coronary artery disease - Deep breathing exercise to prevent atelectasi s. - Hypercholesteremia - Hypertension - Hypokalemia - Hypomagnesemia - Rectal cancer - Urinary retention DISCHARGE DATE: 07/08/22 DISCHARGE DIAGNOSES: - Anemia - Atrial fibrillation - Benign prostate hyperplasia - Chronic obstructive pulmonary disease - Coronary artery disease - Deep breathing exercise to prevent atelectasi s. - Hypercholesteremia - Hypertension - Hypokalemia - Hypomagnesemia - Rectal cancer - Urinary retention -- HOSPITAL COURSE -- HOSPITAL COURSE: Patient is a 72-year-old man with history of maria victoria ign prostatic hypertrophy, chronic obstructive pulmonary disease, coronary artery disease, hypertension, hyperlipidemia, and rectal cancer who underwent robotic-assisted laparoscopic low anterior resection and diverting colostomy c reation by Dr. Dailey. Postoperative coarse was complicated by urinary retention requiring alexandre placement. Patient otherwise had an uncomplicate d postoperative course. Doing well POD#4. Patient is ambulating independently, and pain is controlled with oral analgesics. Bowel function has retu rned, and patient is tolerating a soft diet. Patient had an unsuccessful voiding trial, and alexandre catheter was reinserted. Dr. Lang was consulted fo r evaluation, but the patient wants to go home with alexandre catheter and follow up with Urology as outpatient. Discussed with Dr. Owens. Ok for discharge. -- DISCHARGE MEDICATIONS -- ALLERGIES: codeine (Severe - Allergy) Penicillins (Severe - Allergy) DISCHARGE MEDICATIONS: Allopurinol Tab (Zyloprim Tab) 100 MG PO DAILY amLODIPine Tab (Norvasc Tab) 5 MG PO DAILY Apixaban Tab (Eliquis Tab) 5 MG PO BID Atorvastatin Tab (Lipitor Tab) 10 MG PO DAILY Clopidogrel Tab (Plavix Tab) 75 MG PO DAILY Lisinopril Tab (Prinivil Tab) 20 MG PO DAILY Tamsulosin Cap (Flomax Cap) 0.4MG PO BID, Disp: 60 capsule, Refills: 0 Toprol XL Tb24 (metoprolol succinate) 100 MG PO DAILY -- DISCHARGE INSTRUCTIONS -- ADMISSION ORDERS: Discharge Follow Up Details: Consulting provider 1:: CHAN DAILEY MD Consulting provider 1:: . Consult phone:: [phone] Consult follow up timeframe:: In 1-2 weeks Consult special instructions:: Patient to call f or follow up appointment PK DISCHARGE ORDERS: DC Order w/Instructions (No Mahamed) Details: Yes Discharge to:: Home/Self Care Diet:: Soft Activity:: No Lifting, No Strenuous Activity, Sh ower Only, Alexandre care Additional Discharge Routines:: PCP Follow-Up, C onsultant Follow-Up PCP follow up timeframe:: In 1-2 weeks PCP special instructions:: Patient to call for f ollow up appointment with PCP and Urology Notify PCP of Signs/Symptoms:: Increased tendern ess/pain, Pus-like discharge, Red line from wound, Temp. 101 or greater Wound/dressing care:: Keep wound clean and dry Additional instructions:: Discharge with alexandre c atheter in place. Details: DC Order - No eCQM ADDTIONAL DISCHARGE INSTRUCTIONS: Emergency Instructions: The patient was instruct ed to present to the nearest Emergency Department or call 911 should their sy mptoms return or worsen.; -- OBJECTIVE -- VITALS (07/07 10:16 - 07/08 10:16): Temperature C: 36.7 (36.6 - 37.3) Temperature source: Oral Pulse Rate 90 (81 - 113) Respiratory rate: 20 (16 - 20) BP: 117/75 (109/67 - 130/80) I/Os (07/07 07:00 - 07/08 07:00): Net -2,390.00 Intake 1,440.00 Output 3,830 -EXAM- GENERAL: alert and cooperative, appears comforta ble. In no distress. OOB to chair HEAD: Normocephalic, atraumatic. EYES: PERRL, EOM intact, conjunctiva and sclera clear, without nystagmus, lids normal. EARS: normal canals, grossly normal hearing. NOSE: No deformity, no discharge, no inflammatio n, no lesions. MOUTH: Oropharynx without deformities or lesions , normal mucosa. NECK: No masses, no thyromegaly, no abnormal cer vical nodes, trachea midline. CHEST: Grossly normal appearance. BREAST: deferred LUNGS: Clear bilaterally with normal respiratory effort. HEART: irregularly irregular, controlled rate, n ormal S1, S2, no murmurs, no rubs, no gallops, no clicks. ABDOMEN: Soft, minimally tender, incisions clean and dry. colostomy with stool appliance. MUSCULOSKELETAL: No deformity, no scoliosis note d of thoracic or lumbar spine, joint ROM grossly normal EXTREMITIES: No clubbing, no cyanosis, no edema. NEUROLOGICAL: No focal deficits, cranial nerves II-XII grossly intact, normal sensation, normal coordination, normal m uscle strength, normal tone. PULSES: Pulses normal in all extremities. RECTAL: deferred GENITOURINARY: Alexandre with clear yellow SKIN: Intact without significant lesions, or tino hes. LYMPH NODES: No significant node adenopathy. PSYCHIATRIC: Alert and oriented to time, person, place. Normal mood and affect, intact judgment and insight. -- DATA -- LABS HGB amp; HCT (07/08/22 04:04) HEMOGLOBIN 11.0 L HEMATOCRIT 32.9 L Signed in PatientKeeper by Elvin Hairston APRN 07/09/22 at 09:59 Cosigned by JUAN STOCK MD on 07/09/22 at 1 2:19 Electronically Signed by Elvin Hairston on 0 07/09/22 at 1219 at 1219 ATTENTION *EDITS and/or ADDENDA must be made in Patient Ke eper for this note. * * Edits and ammendments created in [facility] are not [facility] * * in Patient Keeper or the legal medical record ([facility]). * [facility] #: [id number] END OF REPORT 2022-07-09 09:18:00-00:00 [facility] ([facility]) General Surg. Clinical Note REPORT #: [id number] REPORT STATUS: Signed DATE: 07/09/22 TIME: 917 PATIENT: MIKEY MORILLO UNIT #: [id number] ROOM #: [facility]06 BED: 1 : 52 AGE: 72 SEX: M ATTEND: Chan Dailey MD ADM AUTHOR: Kirstin Owens MD ATTENTION *EDITS and/or ADDENDA must be made in Patient Ke eper for this note. * * Edits and ammendments created in [employer] are not visible * * in Patient Keeper or the legal medical record ([facility]). * -- NOTATION -- NOTATION: POD6 from robotic LAR and end colostomy for low rectal cancer. Pt has history of recent cardiac stent on Eliquis/plavix feeling well. pain controlled. ambulating. passi ng flatus. alexandre reinserted yesterday for retention abd soft, nondistended, appropriately tender, no rebound/guarding, drain with SS output, stoma pink with gas and stool in appliance, incisions clean and dry - continue soft diet - continue Alexandre, will go home with this due to multiple failed trials of void - OOB, ambulate - continue plavix/Eliquis - dc home today Signed in PatientKeeper by Kirstin Owens MD on 07/09/22 at 15:27 Electronically Signed by Kirstin Owens MD o n 07/09/22 at 1527 ATTENTION *EDITS and/or ADDENDA must be made in Patient Ke ep for this note. * * Edits and ammendments created in [employer] are not visible * * in Patient Keeper or the legal medical record ([facility]). * RPT #: [id number] END OF REPORT 2022-07-09 09:17:00-00:00 [facility] ([facility]) Internal Med. Progress Note REPORT #: [id number] REPORT STATUS: Signed DATE: 07/09/22 TIME: 916 PATIENT: MIKEY MORILLOLIS UNIT #: [id number] ROOM #: [id number] BED: 1 : 52 AGE: 72 SEX: M ATTEND: Chan Dailey MD ADM AUTHOR: Elvin Hairston APRN ATTENTION *EDITS and/or ADDENDA must be made in Patient ep for this note. * * Edits and ammendments created in [employer] are not visible * * in Patient Keeper or the legal medical record ([facility]). * -- CO-SIGNATURE -- COMMENTS: Patient seen and examined at bedside Plan of care discussed with patient, all questions answered to his satisfaction Agree with the findings as detailed by Elvin velez APRN Plans for the acute medical problems are enumera cecil below Total time spent coordinating care > 35 mins Signed in PatientKeeper by JUAN STOCK MD 07/09/22 at 12:27 -- ASSESSMENT AND PLAN -- PROBLEMS: 1: Rectal cancer A/P: s/p robotic-assisted laparoscopic low anter ior resection and colostomy creation. Continue postoperative care per Dr. Dailey Pain control per Colorectal Surgery. Soft diet 2: Atrial fibrillation A/P: Monitor telemetry Continue apixaban 3: Coronary artery disease A/P: Continue Plavix Continue metoprolol. 4: Hypertension A/P: Continue amlodipine, lisinopril 5: Hypercholesteremia A/P: Continue atorvastatin 6: Benign prostate hyperplasia A/P: Continue tamsulosin 7: Urinary retention A/P: Continue tamsulosin Unsuccessful voiding trial Alexandre reinserted. Dr. Lang consulted Await Pelvic ultrasound to assess prostate size May need to go home with alexandre and outpatient ur ology follow up 8: Anemia A/P: Monitor Hgb trend 9: Chronic obstructive pulmonary disease A/P: DuoNeb q6h prn 10: Deep breathing exercise to prevent atelectas is. -- SUBJECTIVE -- PATIENT NARRATIVE: Alexandre reinserted. Dr. Lang consulted No obvious bleeding Frustrated. Wants to go home -- OBJECTIVE -- VITALS (07/08 09:17 - 07/09 09:17): Temperature C: 37.1 (36.8 - 37.1) Pulse Rate 94 (91 - 94) Respiratory rate: 18 BP: 120/79 (120/68 - 131/79) I/Os (07/08 07:00 - 07/09 07:00): Net -4,940 Intake 360 Output 5,300 -EXAM- GENERAL: alert and cooperative, appears comforta ble. In no distress. HEAD: Normocephalic, atraumatic. EYES: PERRL, EOM intact, conjunctiva and sclera clear, without nystagmus, lids normal. EARS: normal canals, grossly normal hearing. NOSE: No deformity, no discharge, no inflammatio n, no lesions. MOUTH: Oropharynx without deformities or lesions , normal mucosa. NECK: No masses, no thyromegaly, no abnormal cer vical nodes, trachea midline. CHEST: Grossly normal appearance. BREAST: deferred LUNGS: Clear bilaterally with normal respiratory effort. HEART: irregularly irregular, controlled rate, n ormal S1, S2, no murmurs, no rubs, no gallops, no clicks. ABDOMEN: Soft, minimally tender, incisions clean and dry. colostomy with stool appliance. MUSCULOSKELETAL: No deformity, no scoliosis note d of thoracic or lumbar spine, joint ROM grossly normal EXTREMITIES: No clubbing, no cyanosis, no edema. NEUROLOGICAL: No focal deficits, cranial nerves II-XII grossly intact, normal sensation, normal coordination, normal m uscle strength, normal tone. PULSES: Pulses normal in all extremities. RECTAL: deferred GENITOURINARY: Alexandre with clear yellow urine SKIN: Intact without significant lesions, or tino hes. LYMPH NODES: No significant node adenopathy. PSYCHIATRIC: Alert and oriented to time, person, place. Normal mood and affect, intact judgment and insight. -- DATA -- MEDICATIONS METOPROLOL SUCCINATE 100 MG PO DAILY allopurinoL 100 MG PO DAILY traMADol HCL 50 MG PO Q6H PRN APIXABAN 5 MG PO BID clopidogreL 75 MG PO DAILY ATORVASTATIN CALCIUM 10 MG PO BEDTIME lisinopriL 20 MG PO DAILY PANTOPRAZOLE 40 MG PO DAILY amLODIPine BESYLATE 5 MG PO DAILY RINGERS, LACTATED 1000 ML IV .Q20H CELECOXIB 200 MG PO Q12H PRN ONDANSETRON HCL/PF 4 MG IV Q8H PRN TAMSULOSIN 0.4 MG PO BID LABS PSA (07/09/22 03:07) PROSTATE SPECIFIC ANTIGEN 4.15 H Signed in PatientKeeper by Elvin Hairston APRN 07/09/22 at 09:22 Cosigned by JUAN STOCK MD on 07/09/22 at 1 2:27 Electronically Signed by Elvin Hairston on 0 07/09/22 at 1227 at 1227 ATTENTION *EDITS and/or ADDENDA must be made in Patient [facility] for this note. * * Edits and ammendments created in [employer] are not visible * * in Patient Keeper or the legal medical record ([facility]). * [facility] #: [id number] END OF REPORT 2022-07-08 18:17:00-00:00 [facility] ([facility]) Urology Clinical Note REPORT #: [id number] REPORT STATUS: Signed DATE: 07/08/22 TIME: 1816 PATIENT: MIKEY MORILLO UNIT #: [id number] ROOM #: [id number] BED: 1 : 52 AGE: 72 SEX: M ATTEND: Chan Dailey MD ADM AUTHOR: Ethan Lang MD ATTENTION *EDITS and/or ADDENDA must be made in Patient [facility] for this note. * * Edits and ammendments created in [employer] are not visible * * in Patient Keeper or the legal medical record ([facility]). * -- NOTATION -- NOTATION: PATIENT IS A 72YO MALE WITH A HISTORY OF ATRIAL FIBRILLATION, CORONARY ARTERY DISEASE POST STENT WHO UNDERWENT COLECTOMY/ COLO STOMY ON 07/04/22 FOR ADENOCARCINOMA OF THE RECTUM. UROLOGIC C ONSULTATION HAS BEEN REQUESTED BECAUSE OF A SECOND UNSUCCESSFUL VOIDING TRIAL. THE ALEXANDRE CATHETER WAS REINSERTED THIS AFTERNOON WITH A RESDIUAL OF >1000 CC'S. PRIOR TO ADMISSION, MR MORILLO WAS HAVING NOCTURIA 3-4 TIMES ASD WAS VOIDING FAIRLY WELL O N TAMSULOSIN TWICE DAILY. HE HAD SEEN A UROLOGIST APPROXIMATELY ONE Y EAR AGO AND WAS TOLD THAT HIS PROSTATE WOULD REQUIRE TOO MANY SUTURE FOR A UROLIFT PROC EDURE. WILL OBTAIN PSA AND RENAL PELVIC US TO ASSESS MI OSTATE SIZE AND PLAN ANOTHER VOIDING TRIAL ON 07/10. -- DATA -- MEDICATIONS Tamsulosin Cap (Flomax Cap) 0.4MG PO BID LABS BLOOD UREA NITROGEN 07/08/22 04:04 07/07/22 03:53 6 07/06/22 03:46 5 07/05/22 03:43 8 06/28/22 10:48 11 CREATININE 07/08/22 04:04 07/07/22 03:53 0.70 07/06/22 03:46 0.70 07/05/22 03:43 0.70 06/28/22 10:48 0.80 WHITE BLOOD CELL 07/08/22 04:04 07/07/22 03:53 5.6 07/06/22 03:46 5.4 07/05/22 03:43 6.9 06/28/22 10:48 5.1 HEMOGLOBIN 07/08/22 04:04 11.0 07/07/22 03:53 10.2 07/06/22 03:46 10.6 07/05/22 03:43 11.6 06/28/22 10:48 13.1 HEMATOCRIT 07/08/22 04:04 32.9 07/07/22 03:53 29.7 07/06/22 03:46 31.0 07/05/22 03:43 35.3 06/28/22 10:48 38.6 URINALYSIS DIPSTICK (06/28/22 10:48) UA COLOR YELLOW UA APPEARANCE CLEAR UA GLUCOSE DIPSTICK NEGATIVE UA BILIRUBIN DIPSTICK NEGATIVE UA KETONE DIPSTICK NEGATIVE UA SPECIFIC GRAVITY <=1.005 L UA BLOOD DIPSTICK NEGATIVE UA PH DIPSTICK 7.0 UA PROTEIN DIPSTICK NEGATIVE UA UROBILINOGEN DIPSTICK 0.2 UA NITRITE DIPSTICK NEGATIVE UA LEUKOCYTE ESTERASE DIPSTICK NEGATIVE TEST RESULTS URINE CULTURE W/ CC (07/04/22 08:05) URINE CULTURE W/ CC PATIENT: MIKEY MORILLO JR CCT #: [id number] LOC: P9 POD A U #: [id number] :52 AGE/SX: 72/M ROOM: Formerly Named [facility] RE07/04/22MARGE DR: Chan Dailey STATUS: ADM IN DIS: SPEC #: [id number] CHAPARRO: 06/17 STATUS: COMP REQ #: [id number] RECD: 07/04/22-[address] [facility] [address]: Chan Dailey MD SOURCE: URINE ENTR: 07/04/22-[address] [facility] [address]: Myra Primary or Family PhysicianSPDESC: F OLEY CATH ORDERED: URINE CULTURE COMMENTS: Indication for Culture: Sx,w/abn UA [id number] WBC>5 Spec Comments: URINE F OR CULTURE Procedure Result Verified Site URINE CULTURE W/ CC Final 07/06/22-934 [facility] NO GROWTH (<1,000 cfu/ml) URINE CULTURE W/ CC Preliminary (changed ) 07/05/22 [facility] NO GROWTH (<1,000 cfu/ml) END OF REPORT SURGICAL (07/04/22 14:30) Specimen: [id number] Status: SOUT Collection: 07/04/22 [id number] Spec Type: SURGICAL Subm Dr: Chan Dailey MD Received: 07/04/22-1659 Req# [id number] DIAGNOSIS LARGE INTESTINE, RECTOSI GMOID, LOW ANTERIOR RESECTION: - Invasive well differentiat ed adenocarcinoma. - Involves proximal rectum, above anterior perit cortez reflection. - 1.2 cm in greatest dimension. - Lymphovascular i nvasion: Present (venous, intramural). - Perineural invasion: Not identified. - Margins: Negative. - Twenty-four lymph nodes, ne gative for metastasis (0/24). - See Pathologic Tumor Staging Synopsis and comment below.COMMENT: Mismatc Signed in PatientKeeper by Ethan Lang MD on 08/08/22 at 13:21 Electronically Signed by Ethan Lang MD on 0 08/08/22 at 1321 ATTENTION *EDITS and/or ADDENDA must be made in Patient Ke eper for this note. * * Edits and ammendments created in [employer] are not visible * * in Patient Keeper or the legal medical record ([facility]). * RPT #: [id number] END OF REPORT 2022-07-08 09:03:00-00:00 [facility] ([facility]) Internal Med. Progress Note REPORT #: [id number] REPORT STATUS: Signed DATE: 07/08/22 TIME: 902 PATIENT: MIKEY MORILLO UNIT #: [id number] ROOM #: P.[id number] BED: 1 : 52 AGE: 72 SEX: M ATTEND: Chan Dailey MD ADM AUTHOR: Elvin Hairston APRN ATTENTION *EDITS and/or ADDENDA must be made in Patient Ke eper for this note. * * Edits and ammendments created in [employer] are not visible * * in Patient Keeper or the legal medical record ([facility]). * -- CO-SIGNATURE -- COMMENTS: Patient seen and examined at bedside Plan of care discussed with patient, all questions answered to his satisfaction Agree with the findings as detailed by Elvin velez APRN Plans for the acute medical problems are enumera cecil below Total time spent coordinating care > 35 mins Signed in PatientKeeper by JUAN STOCK MD 07/09/22 at 12:23 -- ASSESSMENT AND PLAN -- PROBLEMS: 1: Rectal cancer A/P: s/p robotic-assisted laparoscopic low anter ior resection and colostomy creation. Continue postoperative care per Dr. Dailey Pain control per Colorectal Surgery. Soft diet 2: Atrial fibrillation A/P: Monitor telemetry Resume apixaban 3: Coronary artery disease A/P: Continue Plavix Continue metoprolol. 4: Hypertension A/P: Continue amlodipine, lisinopril 5: Hypercholesteremia A/P: Continue atorvastatin 6: Benign prostate hyperplasia A/P: Continue tamsulosin 7: Urinary retention A/P: Continue tamsulosin Voiding trial today If unsuccessful, home with alexandre and outpatient urology follow up 8: Anemia A/P: Monitor Hgb trend 9: Chronic obstructive pulmonary disease A/P: DuoNeb q6h prn 10: Deep breathing exercise to prevent atelectas is. -- SUBJECTIVE -- PATIENT NARRATIVE: Doing well. No new complaints. Voiding trial today Home if voiding, and no bleeding after apixaban resumed. -- OBJECTIVE -- VITALS (07/08 07:51 - 07/09 07:51): Temperature C: 37.1 (36.8 - 37.1) Pulse Rate 94 (91 - 94) Respiratory rate: 18 BP: 120/79 (120/68 - 131/79) I/Os (07/08 07:00 - 07/09 07:00): Net -4,940 Intake 360 Output 5,300 -EXAM- GENERAL: alert and cooperative, appears comforta ble. In no distress. HEAD: Normocephalic, atraumatic. EYES: PERRL, EOM intact, conjunctiva and sclera clear, without nystagmus, lids normal. EARS: normal canals, grossly normal hearing. NOSE: No deformity, no discharge, no inflammatio n, no lesions. MOUTH: Oropharynx without deformities or lesions , normal mucosa. NECK: No masses, no thyromegaly, no abnormal cer vical nodes, trachea midline. CHEST: Grossly normal appearance. BREAST: deferred LUNGS: Clear bilaterally with normal respiratory effort. HEART: irregularly irregular, controlled rate, n ormal S1, S2, no murmurs, no rubs, no gallops, no clicks. ABDOMEN: Soft, minimally tender, incisions clean and dry. colostomy with stool appliance. MUSCULOSKELETAL: No deformity, no scoliosis note d of thoracic or lumbar spine, joint ROM grossly normal EXTREMITIES: No clubbing, no cyanosis, no edema. NEUROLOGICAL: No focal deficits, cranial nerves II-XII grossly intact, normal sensation, normal coordination, normal m uscle strength, normal tone. PULSES: Pulses normal in all extremities. RECTAL: deferred GENITOURINARY: deferred SKIN: Intact without significant lesions, or tino hes. LYMPH NODES: No significant node adenopathy. PSYCHIATRIC: Alert and oriented to time, person, place. Normal mood and affect, intact judgment and insight. -- DATA -- MEDICATIONS METOPROLOL SUCCINATE 100 MG PO DAILY allopurinoL 100 MG PO DAILY traMADol HCL 50 MG PO Q6H PRN APIXABAN 5 MG PO BID clopidogreL 75 MG PO DAILY ATORVASTATIN CALCIUM 10 MG PO BEDTIME lisinopriL 20 MG PO DAILY PANTOPRAZOLE 40 MG PO DAILY amLODIPine BESYLATE 5 MG PO DAILY RINGERS, LACTATED 1000 ML IV .Q20H CELECOXIB 200 MG PO Q12H PRN ONDANSETRON HCL/PF 4 MG IV Q8H PRN TAMSULOSIN 0.4 MG PO BID LABS PSA (07/09/22 03:07) PROSTATE SPECIFIC ANTIGEN 4.15 H Signed in PatientKeeper by Elvin Hairston APRN 07/09/22 at 07:56 Cosigned by JUAN STOCK MD on 07/09/22 at 1 2:23 Electronically Signed by Elvin Hairston on 0 07/09/22 at 1223 at 1223 ATTENTION *EDITS and/or ADDENDA must be made in Patient Ke eper for this note. * * Edits and ammendments created in [facility] are not visible * * in Patient Keeper or the legal medical record ([facility]). * RPT #: [id number] END OF REPORT 2022-07-08 08:05:00-00:00 [facility] ([facility]) General Surg. Clinical Note REPORT #: [id number] REPORT STATUS: Signed DATE: 07/08/22 TIME: 804 PATIENT: MIKEY MORILLO UNIT #: [id number] ROOM #: P.[id number] BED: 1 : 52 AGE: 72 SEX: M ATTEND: Chan Dailey MD ADM AUTHOR: Kirstin Owens MD ATTENTION *EDITS and/or ADDENDA must be made in Patient Ke [facility] for this note. * * Edits and ammendments created in [employer] are not visible * * in Patient Keeper or the legal medical record ([facility]). * -- NOTATION -- NOTATION: POD5 from robotic LAR and end colostomy for low rectal cancer. Pt has history of recent cardiac stent on Eliquis/plavix feeling well. pain controlled. ambulating. passi ng flatus. alexandre reinserted yesterday for retention abd soft, nondistended, appropriately tender, no rebound/guarding, drain with SS output, stoma pink with gas and stool in appliance, incisions clean and dry - continue soft diet - dc Alexandre today, trial of void - OOB, ambulate - continue plavix, restart Eliquis - anticipate dc home later today if he voids and no bleeding after restarting eliquis. dc drain prior to discharge Signed in PatientKeeper by Kirstin Owens MD on 07/08/22 at 08:07 Electronically Signed by Kirstin Owens MD o n 07/08/22 at 0807 ATTENTION *EDITS and/or ADDENDA must be made in Patient [facility] for this note. * * Edits and ammendments created in [employer] are not visible * * in Patient Keeper or the legal medical record ([facility]). * RPT #: [id number] END OF REPORT 2022-07-07 18:04:00-00:00 [facility] ([facility]) Colorectal Surgery Prog Note REPORT#:[id number] REPORT STATUS: Signed DATE:07/07/22 TIME: 180 PATIENT: MIKEY MORILLO UNIT #: [id number] ROOM: Formerly Named [facility] BED: 1 : 52 AGE: 72 SEX: M ATTEND: Chan Dailey MD ADM AUTHOR: Phoebe Basilio MD * ALL edits or amendments must be made on the [email or web address] document * General Date of surgery: 07/04/22 Status post: robotic LAR, diverting colostomy Subjective Chief complaint: Samantha-incisional pain adequately controlled. Ruddy es any nausea or emesis. Has noticed flatus and output from his colostomy . Ambulating. Objective General VS/I O: Last Documented: Result Date Time Pulse Ox 99 07/07 1700 B/P 130/75 07/07 1700 B/P Mean 93.4 07/07 170 O2 Delivery Room air 07/07 1700 Temp 37.2 07/07 170 Pulse 89 07/07 1701 Resp 18 07/07 170 O2 Flow Rate 3 07/04 1424 24 hour I O ending at 0700: 07/06 1900 07/07 0700 Intake Total 1108.00 1140.00 Output Total 1500 2685 Balance -392.00 -1545.00 Intake, IV 250.00 900.00 Intake, Oral 858 240 Output, 65 Drainage Output, Stool 250 20 Output, Urine 1250 2600 PATIENT WEIGHT: Weight (lb): 214 Weight (oz): 7.565258 Weight (kg): 97.273 Physical Exam General appearance: alert, awake, oriented Wound/incision: Location: Incisions are clean dry and intact without surro unding erythema, fluctuance, or drainage. Colostomy is passing fl atus and having nonbloody output. PEDRO serosang. Abdomen: tenderness (samantha-incisional; appropriat e), soft, no distention, no guarding Genitourinary - Male: urinary catheter Neuro/RAILROAD AUDITOR: alert, oriented x 3, CNII-XII intact Current Medications Medications: Active Meds + DC'd Last 24 Hrs Tamsulosin HCl (FLOMAX) 0.4 MG BID PO Clopidogrel Bisulfate (PLAVIX) 75 MG DAILY PO Pantoprazole (PROTONIX) 40 MG DAILY PO Tamsulosin HCl (FLOMAX) 0.4 MG DAILY PO (DC) Enoxaparin Sodium (LOVENOX) 40 MG DAILY SUBQ Celecoxib (CeleBREX) 200 MG Q12H PRN PRN PO Acetaminophen (TYLENOL REGULAR) 650 MG Q6HR PO ( DC) Allopurinol (ZYLOPRIM) 100 MG DAILY PO Amlodipine Besylate (amLODIPine) 5 MG DAILY PO Lisinopril (LISINOPRIL (GENERIC PRINIVIL,ZESTRIL )) 20 MG DAILY PO Metoprolol Succinate (TOPROL XL) 100 MG DAILY PO Atorvastatin Calcium (LIPITOR) 10 MG BEDTIME PO Ondansetron HCl (ZOFRAN 4 MG/2 ML INJ) 4 MG Q8H PRN PRN IV Tramadol HCl (ULTRAM) 50 MG Q6H PRN PRN PO Lactated Ringer's (LACTATED RINGERS) 1,000 ML .Q 20H IV Results Findings/Data: Laboratory Tests 07/07/22352: [Embedded Image Not Available] Laboratory Tests 07/07 0353 Chemistry Sodium (136 - 145 mmol/L) 137 Potassium (3.5 - 5.1 mmol/L) 3.9 Chloride (98 - 107 mmol/l) 103 Carbon Dioxide (20 - 31 mmol/L) 24 BUN (9 - 23 mg/dL) 6 L Creatinine (0.70 - 1.30 mg/dL) 0.70 Glomerular Filtr Rate (>60 mL/min) >=60 max est imate Glucose (74 - 106 ng/dL) 97 Calcium (8.7 - 10.4 mg/dL) 8.0 L Magnesium (1.6 - 2.6 mg/dL) 1.9 Laboratory Tests 07/07 352 Hematology WBC (4.8 - 10.8 x10 3/uL) 5.6 RBC (4.70 - 6.10 x10 6/uL) 3.11 L Hgb (14.0 - 18.0 g/dL) 10.2 L Hct (42.0 - 52.0 %) 29.7 L MCV (80.0 - 94.0 fL) 95.5 H MCH (27 - 31 pg) 32.8 H MCHC (33 - 36.5 G/DL) 34.3 RDW (12.9 - 16.9 %) 13.1 Plt Count (150 - 440 x10 3/uL) 119 L MPV (8.9 - 12.4 fL) 11.1 Neut % (Auto) (42.2 - 75.2 %) 67.7 Lymph % (Auto) (20.5 - 51.1 %) 19.3 L [place] % (Auto) (1.7 - 9.3 %) 7.4 Eos % (Auto) (0.0 - 7.0 %) 5.0 Baso % (Auto) (0 - 2.5 %) 0.4 Neut # (Auto) (1.80 - 7.70 x10 3/uL) 3.82 Lymph # (Auto) (1.00 - 4.80 x10 3/uL) 1.09 [place] # (Auto) (0.00 - 0.80 x10 3/uL) 0.42 Eos # (Auto) (0.00 - 0.45 x10 3/uL) 0.28 Baso # (Auto) (0.0 - 0.20 x10 3/uL) 0.02 Total Counted (#CELLS) 100 Seg Neutrophils % (49 - 71 %) 58 Band Neutrophils % (0 - 5 %) 6 H Lymphocytes % (Manual) (20 - 40 %) 23 Monocytes % (Manual) (3 - 8 %) 8 Eosinophils % (Manual) (1 - 5 %) 4 Basophils % (Manual) (0.2 - 1.0 %) 1 Platelet Estimate (ADEQUATE) SLIGHTLY DECREASED L Plt Morphology Comment (NORMAL) NORMAL Diagnosis, Assessment Plan Free Text A P: 72 yo male POD3 s/p robotic LAR, diverting colos deng -ostomy nursing for teaching; case management co nsulted for ostomy supplies -PEDRO to bulb suction; will re move patient's PEDRO drain just prior to discharge home tomorrow -d/c alexandre catheter tomorrow -home Plavix restarted; will restart patient's E liquis tomorrow as long as no bleeding -ambulate -soft food Electronically Signed by Phoebe Basilio MD on at 1809 RPT #:[id number] END OF REPORT 2022-07-07 13:11:00-00:00 [facility] ([facility]) Internal Med. Progress Note REPORT #: [id number] REPORT STATUS: Signed DATE: 07/07/22 TIME: 1311 PATIENT: MIKEY MORILLO UNIT #: [id number] ROOM #: P.[id number] BED: 1 : 52 AGE: 72 SEX: M ATTEND: Chan Dailey MD ADM AUTHOR: Elvin Hairston APRN ATTENTION *EDITS and/or ADDENDA must be made in Patient Ke eper for this note. * * Edits and ammendments created in [employer] are not visible * * in Patient Keeper or the legal medical record ([facility]). * -- CO-SIGNATURE -- COMMENTS: Patient seen and examined at bedside Plan of care discussed with patient, all questions answered to his satisfaction Agree with the findings as detailed by Elvin velez APRN Plans for the acute medical problems are enumera cecil below Total time spent coordinating care > 35 mins Signed in PatientKeeper by JUAN STOCK MD 07/07/22 at 23:31 -- ASSESSMENT AND PLAN -- PROBLEMS: 1: Rectal cancer A/P: s/p robotic-assisted laparoscopic low anter ior resection and colostomy creation. Continue postoperative care per Dr. Dailey Pain control per Colorectal Surgery. Soft diet 2: Atrial fibrillation A/P: Monitor telemetry Hold apixaban for the time being 3: Coronary artery disease A/P: Resume Plavix Continue metoprolol. 4: Hypertension A/P: Continue amlodipine, lisinopril 5: Hypercholesteremia A/P: Continue atorvastatin 6: Benign prostate hyperplasia A/P: Continue tamsulosin 7: Urinary retention A/P: Continue tamsulosin Probably home with alexandre and outpatient urology follow up 8: Anemia A/P: Hgb slowly decreasing. PEDRO output -65cc Monitor Hgb trend in AM 9: Chronic obstructive pulmonary disease A/P: DuoNeb q6h prn 10: Deep breathing exercise to prevent atelectas is. 11: DVT prophylaxis A/P: Lovenox -- SUBJECTIVE -- PATIENT NARRATIVE: Feels tired, otherwise no complaints. Denies pain or dyspnea. Tolerating a soft diet. Hgb is slowly decreasing. -- OBJECTIVE -- VITALS (07/06 13:13 - 07/07 13:13): Temperature C: 37.3 (37.0 - 37.3) Temperature source: Oral Pulse Rate 81 (81 - 92) Respiratory rate: 18 (17 - 18) BP: 109/67 (109/67 - 132/76) I/Os (07/06 07:00 - 07/07 07:00): Net -1,937.00 Intake 2,248.00 Output 4,185 -EXAM- GENERAL: alert and cooperative, appears comforta ble. In no distress. HEAD: Normocephalic, atraumatic. EYES: PERRL, EOM intact, conjunctiva and sclera clear, without nystagmus, lids normal. EARS: normal canals, grossly normal hearing. NOSE: No deformity, no discharge, no inflammatio n, no lesions. MOUTH: Oropharynx without deformities or lesions , normal mucosa.. NECK: No masses, no thyromegaly, no abnormal cer vical nodes, trachea midline. CHEST: Grossly normal appearance. BREAST: deferred LUNGS: Clear bilaterally with normal respiratory effort. HEART: irregularly irregular, controlled rate, n ormal S1, S2, no murmurs, no rubs, no gallops, no clicks. ABDOMEN: Soft, minimally tender, incisions clean and dry. colostomy with stool appliance. PEDRO sanguinous MUSCULOSKELETAL: No deformity, no scoliosis note d of thoracic or lumbar spine, joint ROM grossly normal EXTREMITIES: No clubbing, no cyanosis, no edema. NEUROLOGICAL: No focal deficits, cranial nerves II-XII grossly intact, normal sensation, normal coordination, normal m uscle strength, normal tone. PULSES: Pulses normal in all extremities. RECTAL: deferred GENITOURINARY: Alexandre clear yellow urine. SKIN: Intact without significant lesions, or tino hes. LYMPH NODES: No significant node adenopathy. PSYCHIATRIC: Alert and oriented to time, person, place. Normal mood and affect, intact judgment and insight. -- DATA -- MEDICATIONS METOPROLOL SUCCINATE 100 MG PO DAILY allopurinoL 100 MG PO DAILY traMADol HCL 50 MG PO Q6H PRN clopidogreL 75 MG PO DAILY ATORVASTATIN CALCIUM 10 MG PO BEDTIME lisinopriL 20 MG PO DAILY PANTOPRAZOLE 40 MG PO DAILY amLODIPine BESYLATE 5 MG PO DAILY ENOXAPARIN SODIUM 40 MG SUBQ DAILY TAMSULOSIN 0.4 MG PO DAILY RINGERS, LACTATED 1000 ML IV .Q20H CELECOXIB 200 MG PO Q12H PRN ONDANSETRON HCL/PF 4 MG IV Q8H PRN LABS CBC W/MANUAL DIFF (07/07/22 03:53) WHITE BLOOD CELL 5.6 RED BLOOD CELL 3.11 L HEMOGLOBIN 10.2L L HEMATOCRIT 29.7L L MEAN CELL VOLUME 95.5 H MEAN CELL HGB 32.8 H MEAN CELL HGB CONCENTRATION 34.3 RED CELL DISTRIBUTION WIDTH 13.1 PLATELET COUNT 119L L MEAN PLATELET VOLUME 11.1 NEUTROPHIL % 67.7 LYMPHOCYTE % 19.3 L MONOCYTE % 7.4 EOSINOPHIL % 5.0 BASOPHIL % 0.4 NEUTROPHIL # 3.82 LYMPHOCYTE # 1.09 MONOCYTE # 0.42 EOSINOPHIL # 0.28 BASOPHIL # 0.02 TOTAL CELLS COUNTED 100 SEGMENTED NEUTROPHILS 58 BAND NEUTROPHIL 6 H LYMPHOCYTE 23 MONOCYTE 8 EOSINOPHIL 4 BASOPHIL 1 PLATELET ESTIMATE SLIGHTLY DECREASED L PLATELET MORPHOLOGY NORMAL MAG (07/07/22 03:53) MAGNESIUM 1.9 BASIC METABOLIC PANEL (07/07/22 03:53) SODIUM 137 POTASSIUM 3.9 CHLORIDE 103 CARBON DIOXIDE 24 GLUCOSE 97 BLOOD UREA NITROGEN 6L L GLOMERULAR FILTRATION RATE >=60 max estimate CREATININE 0.70 CALCIUM 8.0 L Signed in PatientKeeper by Elvin Hairston APRN 07/07/22 at 13:26 Cosigned by JUAN STOCK MD on 07/07/22 at 2 3:31 Electronically Signed by Elvin Hairston on 0 07/07/22 at 2331 at 2331 ATTENTION *EDITS and/or ADDENDA must be made in Patient Ke eper for this note. * * Edits and ammendments created in [employer] are not visible * * in Patient Keeper or the legal medical record ([facility]). * RPT #: [id number] END OF REPORT 2022-07-06 13:04:00-00:00 [facility] ([facility]) Colorectal Surgery Prog Note REPORT#:[id number] REPORT STATUS: Signed DATE:07/06/22 TIME: 1304 PATIENT: MIKEY MORILLO UNIT #: [id number] ROOM: Formerly Named [facility] BED: 1 : 52 AGE: 72 SEX: M ATTEND: Chan Dailey MD ADM AUTHOR: Phoebe Basilio MD * ALL edits or amendments must be made on the el ectronic/computer document * General Date of surgery: 07/04/22 Status post: robotic LAR, diverting colostomy Subjective Chief complaint: Samantha-incisional pain adequately controlled. Ruddy es any nausea or emesis. Has noticed flatus and output from his colostomy. Objective General VS/I O: Last Documented: Result Date Time Pulse Ox 93 07/06 1203 B/P 118/78 07/06 1203 B/P Mean 91.7 07/06 1203 O2 Delivery Room air 07/06 1203 Temp 37.5 07/06 1203 Pulse 91 07/06 1203 Resp 18 07/06 1203 O2 Flow Rate 3 07/04 1424 24 hour I O ending at 0700: 07/05 1900 07/06 0700 Intake Total 360 900.00 Output Total 500 2835 Balance -140 -1935.00 Intake, IV 900.00 Intake, Oral 360 Output, 50 10 Drainage Output, Stool 75 Output, Urine 450 2750 PATIENT WEIGHT: Weight (lb): 214 Weight (oz): 7.545419 Weight (kg): 97.273 Physical Exam General appearance: alert, awake, oriented Wound/incision: Location: Incisions are clean dry and intact without surro unding erythema, fluctuance, or drainage. Colostomy is passing fl atus and having nonbloody output. PEDRO darkly sanguineous. Abdomen: tenderness (samantha-incisional; appropriat e), soft, no distention, no guarding Genitourinary - Male: urinary catheter Neuro/RAILROAD AUDITOR: alert, oriented x 3, CNII-XII intact Current Medications Medications: Active Meds + DC'd Last 24 Hrs Celecoxib (CeleBREX) 200 MG Q12H PRN PRN PO Potassium Chloride (K-DUR) 20 MEQ ONCE ONE PO (D C) Pantoprazole (PROTONIX IV) 40 MG DAILY IV Sodium Chloride (NACL 0.9%) 10 ML Acetaminophen (TYLENOL REGULAR) 650 MG Q6HR PO Magnesium Sulfate (MAGNESIUM SULFATE 2GM/50 ML) 50 ML ONCE ONE IV (DC) Allopurinol (ZYLOPRIM) 100 MG DAILY PO Amlodipine Besylate (amLODIPine) 5 MG DAILY PO Lisinopril (LISINOPRIL (GENERIC PRINIVIL,ZESTRIL )) 20 MG DAILY PO Metoprolol Succinate (TOPROL XL) 100 MG DAILY PO Tamsulosin HCl (FLOMAX) 0.4 MG DAILY PO Atorvastatin Calcium (LIPITOR) 10 MG BEDTIME PO Ketorolac Tromethamine (Ketorolac Tromethamine) 15 MG Q6HR IV (DC) Ondansetron HCl (ZOFRAN 4 MG/2 ML INJ) 4 MG Q8H PRN PRN IV Tramadol HCl (ULTRAM) 50 MG Q6H PRN PRN PO Lactated Ringer's (LACTATED RINGERS) 1,000 ML .Q 13H20M IV Results Findings/Data: Laboratory Tests 07/06/22 0346: [Embedded Image Not Available] Laboratory Tests 07/06 034 Chemistry Sodium (136 - 145 mmol/L) 136 Potassium (3.5 - 5.1 mmol/L) 3.8 Chloride (98 - 107 mmol/l) 105 Carbon Dioxide (20 - 31 mmol/L) 25 BUN (9 - 23 mg/dL) 5 L Creatinine (0.70 - 1.30 mg/dL) 0.70 Glomerular Filtr Rate (>60 mL/min) >=60 max est imate Glucose (74 - 106 ng/dL) 96 Calcium (8.7 - 10.4 mg/dL) 8.0 L Magnesium (1.6 - 2.6 mg/dL) 2.0 Laboratory Tests 07/06 345 Hematology WBC (4.8 - 10.8 x10 3/uL) 5.4 RBC (4.70 - 6.10 x10 6/uL) 3.24 L Hgb (14.0 - 18.0 g/dL) 10.6 L Hct (42.0 - 52.0 %) 31.0 L MCV (80.0 - 94.0 fL) 95.7 H MCH (27 - 31 pg) 32.7 H MCHC (33 - 36.5 G/DL) 34.2 RDW (12.9 - 16.9 %) 13.1 Plt Count (150 - 440 x10 3/uL) 133 L MPV (8.9 - 12.4 fL) 10.1 Neut % (Auto) (42.2 - 75.2 %) 71.6 Lymph % (Auto) (20.5 - 51.1 %) 16.6 L [place] % (Auto) (1.7 - 9.3 %) 6.0 Eos % (Auto) (0.0 - 7.0 %) 5.0 Baso % (Auto) (0 - 2.5 %) 0.4 Neut # (Auto) (1.80 - 7.70 x10 3/uL) 3.85 Lymph # (Auto) (1.00 - 4.80 x10 3/uL) 0.89 L [place] # (Auto) (0.00 - 0.80 x10 3/uL) 0.32 Eos # (Auto) (0.00 - 0.45 x10 3/uL) 0.27 Baso # (Auto) (0.0 - 0.20 x10 3/uL) 0.02 Diagnosis, Assessment Plan Free Text A P: 72 yo male POD2 s/p robotic LAR, diverting colos deng -ostomy nursing for teaching; case management co nsulted for ostomy supplies -PEDRO to bulb suction -d/c alexandre catheter today -resume DVT ppx (Lovenox); will plan to restart patient's Plavix tomorrow -ambulate -soft food Electronically Signed by Phoebe Basilio MD on at 1306 RPT #:[id number] END OF REPORT 2022-07-06 11:25:00-00:00 [facility] ([facility]) Internal Med. Progress Note REPORT #: [id number] REPORT STATUS: Signed DATE: 07/06/22 TIME: 1125 PATIENT: MIKEY MORILLO UNIT #: [id number] ROOM #: [facility] BED: 1 : 52 AGE: 72 SEX: M ATTEND: Chan Dailey MD ADM AUTHOR: Elvin Hairston APRN ATTENTION *EDITS and/or ADDENDA must be made in Patient Ke eper for this note. * * Edits and ammendments created in [facility] are not visible * * in Patient Keeper or the legal medical record ([facility]). * -- CO-SIGNATURE -- COMMENTS: Patient seen and examined at bedside Urinary retention - will add flomax, prob home with alexandre and OP urology follow up Plan of care discussed with patient, all questions answered to his satisfaction Agree with the findings as detailed by Elvin velez APRN Plans for the acute medical problems are enumera cecil below Total time spent coordinating care > 35 mins Signed in PatientKeeper by JUAN STOCK MD n 07/06/22 at 22:46 -- ADDITIONAL COMMENTS -- COMMENTS: 12. Urinary retention A/P: alexandre replaced UOP - 1 liter Start tamsulosin 0.4 mg daily Signed in PatientKeeper by Elvin Hairston APRN o n 07/06/22 at 16:59 -- ASSESSMENT AND PLAN -- PROBLEMS: 1: Rectal cancer A/P: s/p robotic-assisted laparoscopic low anter ior resection and colostomy creation. Continue postoperative care per Dr. Dailey Pain control per Colorectal Surgery. Soft diet Continue IV hydration until tolerating oral inta ke well. 2: Atrial fibrillation A/P: Monitor telemetry Hold apixaban for the time being 3: Coronary artery disease A/P: Hold Plavix for the time being postoperativ funmilayo. Continue metoprolol. 4: Hypertension A/P: Continue amlodipine, lisinopril 5: Hypercholesteremia A/P: Continue atorvastatin 6: Benign prostate hyperplasia A/P: Continue tamsulosin 7: Chronic obstructive pulmonary disease A/P: DuoNeb q6h prn 8: Deep breathing exercise to prevent atelectasi s. 9: DVT prophylaxis A/P: SCDs 10: Hypokalemia A/P: Replete KCl 20 meq po x 1 11: Anemia A/P: Hgb decreased. PEDRO output -60cc Monitor Hgb trend in AM -- SUBJECTIVE -- PATIENT NARRATIVE: No new complaints Colostomy functioning Advanced to soft diet Hgb decreased. PEDRO output -60cc -- OBJECTIVE -- VITALS (07/05 11:25 - 07/06 11:25): Temperature C: 37.0 (36.7 - 37.0) Temperature source: Oral Pulse Rate 78 (77 - 84) Respiratory rate: 18 (17 - 18) BP: 116/66 (111/66 - 130/83) I/Os (07/05 07:00 - 07/06 07:00): Net -2,075.00 Intake 1,260.00 Output 3,335 -EXAM- GENERAL: alert and cooperative, appears comforta ble. In no distress. HEAD: Normocephalic, atraumatic. EYES: PERRL, EOM intact, conjunctiva and sclera clear, without nystagmus, lids normal. EARS: normal canals, grossly normal hearing. NOSE: No deformity, no discharge, no inflammatio n, no lesions. MOUTH: Oropharynx without deformities or lesions , normal mucosa.. NECK: No masses, no thyromegaly, no abnormal cer vical nodes, trachea midline. CHEST: Grossly normal appearance. BREAST: deferred LUNGS: Clear bilaterally with normal respiratory effort. HEART: irregularly irregular, controlled rate, normal S1, S2, no murmurs, no rubs, no gallops, no clicks. ABDOMEN: Soft, minimally tender, incisions clean and dry. colostomy with stool appliance. PEDRO sanguinous MUSCULOSKELETAL: No deformity, no scoliosis note d of thoracic or lumbar spine, joint ROM grossly normal EXTREMITIES: No clubbing, no cyanosis, no edema. NEUROLOGICAL: No focal deficits, cranial nerves II-XII grossly intact, normal sensation, normal coordination, normal m uscle strength, normal tone. PULSES: Pulses normal in all extremities. RECTAL: deferred GENITOURINARY: deferred SKIN: Intact without significant lesions, or tino hes. LYMPH NODES: No significant node adenopathy. PSYCHIATRIC: Alert and oriented to time, person, place. Normal mood and affect, intact judgment and insight. -- DATA -- MEDICATIONS METOPROLOL SUCCINATE 100 MG PO DAILY allopurinoL 100 MG PO DAILY traMADol HCL 50 MG PO Q6H PRN ATORVASTATIN CALCIUM 10 MG PO BEDTIME lisinopriL 20 MG PO DAILY TAMSULOSIN 0.4 MG PO DAILY amLODIPine BESYLATE 5 MG PO DAILY RINGERS, LACTATED 1000 ML IV .[id number] KETOROLAC TROMETHAMINE 15 MG IV Q6HR PANTOPRAZOLE with/in SODIUM CHLORIDE 0.9% 40 MG IV DAILY CELECOXIB 200 MG PO Q12H PRN ONDANSETRON HCL/PF 4 MG IV Q8H PRN ACETAMINOPHEN 650 MG PO Q6HR LABS CBC W/AUTO DIFF (07/06/22 03:46) WHITE BLOOD CELL 5.4 RED BLOOD CELL 3.24 L HEMOGLOBIN 10.6L L HEMATOCRIT 31.0L L MEAN CELL VOLUME 95.7 H MEAN CELL HGB 32.7 H MEAN CELL HGB CONCENTRATION 34.2 RED CELL DISTRIBUTION WIDTH 13.1 PLATELET COUNT 133L L MEAN PLATELET VOLUME 10.1 NEUTROPHIL % 71.6 LYMPHOCYTE % 16.6 L MONOCYTE % 6.0 EOSINOPHIL % 5.0 BASOPHIL % 0.4 NEUTROPHIL # 3.85 LYMPHOCYTE # 0.89 L MONOCYTE # 0.32 EOSINOPHIL # 0.27 BASOPHIL # 0.02 BASIC METABOLIC PANEL (07/06/22 03:46) SODIUM 136 POTASSIUM 3.8 CHLORIDE 105 CARBON DIOXIDE 25 GLUCOSE 96 BLOOD UREA NITROGEN 5L L GLOMERULAR FILTRATION RATE >=60 max estimate CREATININE 0.70 CALCIUM 8.0 L MAG (07/06/22 03:46) MAGNESIUM 2.0 Signed in PatientKeeper by Elvin Hairston APRN 07/06/22 at 11:29 Cosigned by JUAN STOCK MD on 07/06/22 at 2 2:46 Electronically Signed by Elvin Hairston on 0 07/06/22 at 2246 at 2246 ATTENTION *EDITS and/or ADDENDA must be made in Patient Ke eper for this note. * * Edits and ammendments created in [facility] are not visible * * in Patient Keeper or the legal medical record ([facility]). * RPT #: [id number] END OF REPORT 2022-07-05 10:34:00-00:00 [facility] ([facility]) Internal Med. Progress Note REPORT #: [id number] REPORT STATUS: Signed DATE: 07/05/22 TIME: 1034 PATIENT: MIKEY MORILLO UNIT #: [id number] ROOM #: [facility]06 BED: 1 : 52 AGE: 72 SEX: M ATTEND: Chan Dailey MD ADM AUTHOR: Elvin Hairston APRN ATTENTION *EDITS and/or ADDENDA must be made in Patient Ke eper for this note. * * Edits and ammendments created in [employer] are not visible * * in Patient Keeper or the legal medical record ([facility]). * -- CO-SIGNATURE -- COMMENTS: Patient seen and examined at bedside Plan of care discussed with patient, all questions answered to his satisfaction Agree with the findings as detailed by Elvin velez APRN Plans for the acute medical problems are enumera cecil below Total time spent coordinating care > 35 mins Signed in PatientKeeper by JUAN STOCK MD n 07/05/22 at 21:55 -- ASSESSMENT AND PLAN -- PROBLEMS: 1: Rectal cancer A/P: s/p robotic-assisted laparoscopic low anter ior resection and colostomy creation. Continue postoperative care per Dr. Dailey Pain control per Colorectal Surgery. Clear liquid diet Continue IV hydration until tolerating oral inta ke well. 2: Atrial fibrillation A/P: Monitor telemetry Hold apixaban for the time being 3: Coronary artery disease A/P: Hold Plavix for the time being postoperativ funmilayo. Continue metoprolol. 4: Hypertension A/P: Continue amlodipine, lisinopril 5: Hypercholesteremia A/P: Continue atorvastatin 6: Benign prostate hyperplasia A/P: Continue tamsulosin 7: Chronic obstructive pulmonary disease A/P: DuoNeb q6h prn 8: Deep breathing exercise to prevent atelectasi s. 9: DVT prophylaxis A/P: SCDs 10: Hypokalemia A/P: Replete KCl 20 meq po x 1 11: Hypomagnesemia A/P: Replete Mag Sulfate 2 gm IV x 1 12: Anemia A/P: Dilution likely contributing No obvious bleeding Monitor Hgb trend -- SUBJECTIVE -- PATIENT NARRATIVE: Doing well POD#1 Pain is controlled Tolerating clear liquids No gas from colostomy yet -- OBJECTIVE -- VITALS (07/04 10:34 - 07/05 10:34): Temperature C: 36.5 (36.4 - 36.8) Temperature source: Oral Pulse Rate 79 (57 - 84) Respiratory rate: 20 (16 - 20) BP: 107/67 (97/63 - 126/85) I/Os (07/04 07:00 - 07/05 07:00): Net 1,265.00 Intake 2,200.00 Output 935 -EXAM- GENERAL: alert and cooperative, appears comforta ble. In no distress. HEAD: Normocephalic, atraumatic. EYES: PERRL, EOM intact, conjunctiva and sclera clear, without nystagmus, lids normal. EARS: normal canals, grossly normal hearing. NOSE: No deformity, no discharge, no inflammatio n, no lesions. MOUTH: Oropharynx without deformities or lesions , normal mucosa.. NECK: No masses, no thyromegaly, no abnormal cer vical nodes, trachea midline. CHEST: Grossly normal appearance. BREAST: deferred LUNGS: Clear bilaterally with normal respiratory effort. HEART: irregularly irregular, controlled rate, n ormal S1, S2, no murmurs, no rubs, no gallops, no clicks. ABDOMEN: Soft, minimally tender, incisions clean and dry. colostomy with appliance - no gas MUSCULOSKELETAL: No deformity, no scoliosis note d of thoracic or lumbar spine, joint ROM grossly normal EXTREMITIES: No clubbing, no cyanosis, no edema. NEUROLOGICAL: No focal deficits, cranial nerves II-XII grossly intact, normal sensation, normal coordination, normal m uscle strength, normal tone. PULSES: Pulses normal in all extremities. RECTAL: deferred GENITOURINARY: deferred SKIN: Intact without significant lesions, or ra shes. LYMPH NODES: No significant node adenopathy. PSYCHIATRIC: Alert and oriented to time, person, place. Normal mood and affect, intact judgment and insight. -- DATA -- MEDICATIONS TAMSULOSIN 0.4 MG PO DAILY RINGERS, LACTATED 1000 ML IV .[id number] CELECOXIB 200 MG PO Q12H PRN METOPROLOL SUCCINATE 100 MG PO DAILY allopurinoL 100 MG PO DAILY traMADol HCL 50 MG PO Q6H PRN ATORVASTATIN CALCIUM 10 MG PO BEDTIME lisinopriL 20 MG PO DAILY amLODIPine BESYLATE 5 MG PO DAILY KETOROLAC TROMETHAMINE 15 MG IV Q6HR ONDANSETRON HCL/PF 4 MG IV Q8H PRN ACETAMINOPHEN 650 MG PO Q6HR LABS MAG (07/05/22 03:43) MAGNESIUM 1.8 BASIC METABOLIC PANEL (07/05/22 03:43) SODIUM 136 POTASSIUM 3.8 CHLORIDE 105 CARBON DIOXIDE 23 GLUCOSE 94 BLOOD UREA NITROGEN 8L L GLOMERULAR FILTRATION RATE >=60 max estimate CREATININE 0.70 CALCIUM 8.1 L CBC W/AUTO DIFF (07/05/22 03:43) WHITE BLOOD CELL 6.9 RED BLOOD CELL 3.55 L HEMOGLOBIN 11.6L L HEMATOCRIT 35.3L L MEAN CELL VOLUME 99.4 H MEAN CELL HGB 32.7 H MEAN CELL HGB CONCENTRATION 32.9 L RED CELL DISTRIBUTION WIDTH 13.4 PLATELET COUNT 171 MEAN PLATELET VOLUME 9.9 NEUTROPHIL % 74.6 LYMPHOCYTE % 16.5 L MONOCYTE % 7.9 EOSINOPHIL % 0.3 BASOPHIL % 0.4 NEUTROPHIL # 5.17 LYMPHOCYTE # 1.14 MONOCYTE # 0.55 EOSINOPHIL # 0.02 BASOPHIL # 0.03 Signed in PatientKeeper by Elvin Hairston APRN o n 07/05/22 at 10:48 Cosigned by JUAN STOCK MD on 07/05/22 at 2 1:55 Electronically Signed by Elvin Hairston on 0 07/05/22 at 2155 at 2155 ATTENTION *EDITS and/or ADDENDA must be made in Patient Ke eper for this note. * * Edits and ammendments created in [employer] are not visible * * in Patient Keeper or the legal medical record (HPF). * RPT #: [id number] END OF REPORT 2022-07-05 10:31:00-00:00 [facility] ([facility]) Colorectal Surgery Prog Note REPORT#:[id number] REPORT STATUS: Signed DATE:07/05/22 TIME: 1031 PATIENT: MIKEY MORILLO UNIT #: [id number] ROOM: Formerly Named [facility] BED: 1 : 52 AGE: 72 SEX: M ATTEND: Chan Dailey MD ADM AUTHOR: Phoebe Basilio MD * ALL edits or amendments must be made on the Idea.me/computer document * General Date of surgery: 07/04/22 Status post: robotic LAR, diverting colostomy Subjective Chief complaint: Samantha-incisional pain adequately controlled. Ruddy es any nausea or emesis. Objective General VS/I O: Last Documented: Result Date Time Pulse Ox 97 07/05 817 B/P 107/67 07/05 817 B/P Mean 80.6 07/05 817 O2 Delivery Room air 07/05 817 Temp 36.5 07/05 817 Pulse 79 07/05 817 Resp 20 07/05 817 O2 Flow Rate 3 07/04 1424 24 hour I O ending at 0700: 07/04 1900 07/05 0700 Intake Total 900.00 1300.00 Output Total 435 500 Balance 465.00 800.00 Intake, IV 900.00 950.00 Intake, Oral 350 Output, 125 50 Drainage Output, Urine 310 450 PATIENT WEIGHT: Weight (lb): 214 Weight (oz): 7.661039 Weight (kg): 97.273 Physical Exam General appearance: alert, awake, oriented Wound/incision: Location: Incisions are clean dry and intact without surrounding erythema, fluctuance, or drainage. Colostomy is passing flatus but has no t had any real output; only sanguineous output noted in appliance. PEDRO darkly sanguineous. Abdomen: tenderness (samantha-incisional; appropriat e), soft, no distention, no guarding Genitourinary - Male: urinary catheter Neuro/RAILROAD AUDITOR: alert, oriented x 3, CNII-XII intact Current Medications Medications: Active Meds + DC'd Last 24 Hrs Celecoxib (CeleBREX) 200 MG Q12H PRN PRN PO Acetaminophen (TYLENOL REGULAR) 650 MG Q6HR PO Allopurinol (ZYLOPRIM) 100 MG DAILY PO Amlodipine Besylate (amLODIPine) 5 MG DAILY PO Atorvastatin Calcium (LIPITOR) 10 MG DAILY PO (D C) Lisinopril (LISINOPRIL (GENERIC PRINIVIL,ZESTRIL )) 20 MG DAILY PO Metoprolol Succinate (TOPROL XL) 100 MG DAILY PO Tamsulosin HCl (FLOMAX) 0.4 MG DAILY PO Enoxaparin Sodium (LOVENOX) 40 MG DAILY@0600 SUB Q (DC) Atorvastatin Calcium (LIPITOR) 10 MG BEDTIME PO Acetaminophen (Ofirmev) 100 ML Q6HR IV (DC) Ketorolac Tromethamine (Ketorolac Tromethamine) 15 MG Q6HR IV Ondansetron HCl (ZOFRAN 4 MG/2 ML INJ) 4 MG Q8H PRN PRN IV Tramadol HCl (ULTRAM) 50 MG Q6H PRN PRN PO Lactated Ringer's (LACTATED RINGERS) 1,000 ML .Q 13H20M IV Glycopyrrolate (ROBINUL) 0 .STK-MED ONE .ROUTE ( DC) Neostigmine Methylsulfate (NEOSTIGMINE METHYLSUL FATE) 0 .STK-MED ONE .ROUTE (DC) Rocuronium [place] (ROCURONIUM BROMIDE) 0 .STK-M ED ONE .ROUTE (DC) Phenylephrine HCl (NEOSYNEPHRINE 1%) 0 .STK-MED ONE .ROUTE (DC) Acetaminophen (Ofirmev) 100 ML PACU IV (DC) Atropine Sulfate (ATROPINE 1MG/10ML) 0.5 MG PACU Q5MIN PRN PRN IV (DC) Celecoxib (CeleBREX) 200 MG PACU PO (DC) Celecoxib (CeleBREX) 200 MG PREOP PO (DC) Diphenhydramine HCl (BENADRYL INJ) 12.5 MG PACU ONCE PRN PRN IV (DC) Epinephrine (RACEPINEPHrine U/D) 0.5 ML PACU ASD IR PRN PRN NEB (DC) Flumazenil (ROMAZICON,MAZICON) 0.2 MG PACU ASDIR PRN PRN IV (DC) Hydralazine HCl (APRESOLINE) 10 MG PACU Q10MIN P RN PRN IV (DC) Hydromorphone HCl (Dilaudid) 0.5 MG PACU Q10MIN PRN PRN IV (DC) Labetalol HCl (TRANDATE, NORMODYNE) 10 MG PACU Q 5MIN PRN PRN IV (DC) Meperidine HCl (DEMEROL) 12.5 MG PACU ONCE PRN P RN IV (DC) Naloxone HCl (NARCAN) 0.04 MG PACU Q2MIN PRN PRN IV (DC) Pregabalin (LYRICA) 75 MG PREOP PO (DC) Pregabalin (LYRICA) 75 MG PACU PO (DC) Promethazine HCl (PHENERGAN) 6.25 MG PACU ONCE P RN PRN IV (DC) Sodium Chloride (SODIUM CHLORIDE 0.9%) 50 ML Sodium Chloride (SODIUM CHLORIDE 0.9%) 1,000 ML PACU IV FLUID IV (DC) Ertapenem (INVanz) 1 GM PREOP IV (DC) Sodium Chloride (SODIUM CHLORIDE 0.9%) 50 ML Results Findings/Data: Laboratory Tests 07/05/22 0343: [Embedded Image Not Available] Laboratory Tests 07/05 0343 Chemistry Sodium (136 - 145 mmol/L) 136 Potassium (3.5 - 5.1 mmol/L) 3.8 Chloride (98 - 107 mmol/l) 105 Carbon Dioxide (20 - 31 mmol/L) 23 BUN (9 - 23 mg/dL) 8 L Creatinine (0.70 - 1.30 mg/dL) 0.70 Glomerular Filtr Rate (>60 mL/min) >=60 max est imate Glucose (74 - 106 ng/dL) 94 Calcium (8.7 - 10.4 mg/dL) 8.1 L Magnesium (1.6 - 2.6 mg/dL) 1.8 Laboratory Tests 07/05 0343 Hematology WBC (4.8 - 10.8 x10 3/uL) 6.9 RBC (4.70 - 6.10 x10 6/uL) 3.55 L Hgb (14.0 - 18.0 g/dL) 11.6 L Hct (42.0 - 52.0 %) 35.3 L MCV (80.0 - 94.0 fL) 99.4 H MCH (27 - 31 pg) 32.7 H MCHC (33 - 36.5 G/DL) 32.9 L RDW (12.9 - 16.9 %) 13.4 Plt Count (150 - 440 x10 3/uL) 171 MPV (8.9 - 12.4 fL) 9.9 Neut % (Auto) (42.2 - 75.2 %) 74.6 Lymph % (Auto) (20.5 - 51.1 %) 16.5 L [place] % (Auto) (1.7 - 9.3 %) 7.9 Eos % (Auto) (0.0 - 7.0 %) 0.3 Baso % (Auto) (0 - 2.5 %) 0.4 Neut # (Auto) (1.80 - 7.70 x10 3/uL) 5.17 Lymph # (Auto) (1.00 - 4.80 x10 3/uL) 1.14 [place] # (Auto) (0.00 - 0.80 x10 3/uL) 0.55 Eos # (Auto) (0.00 - 0.45 x10 3/uL) 0.02 Baso # (Auto) (0.0 - 0.20 x10 3/uL) 0.03 Diagnosis, Assessment Plan Free Text A P: 72 yo male POD1 s/p robotic LAR, diverting colos deng -ostomy nursing for teaching; case management co nsulted for ostomy supplies -PEDRO to bulb suction -maintain Alexandre catheter for now given l ow dissection; will d/c Alexandre catheter tomorrow -d/c Lovenox for now given s anguineous output; will resume likely tomorrow; need to restart patient's anticoagulant medication in the future -ambulate -clear liquids for now Electronically Signed by Phoebe Basilio MD on at 1037 RPT #:[id number] END OF REPORT 2022-07-04 18:20:00-00:00 [facility] ([facility]) Med Order Sheet REPORT #: [id number] REPORT STATUS: Signed DATE: 07/04/22 TIME: 1819 PATIENT: MIKEY MORILLO UNIT #: [id number] ROOM #: Formerly Named [facility] BED: 1 : 52 AGE: 72 SEX: M ATTEND: Chan Dailey MD ADM AUTHOR: Juan Stock MD ATTENTION *EDITS and/or ADDENDA must be made in Patient Ke eper for this note. * * Edits and ammendments created in [facility] are not visible * * in Patient Keeper or the legal medical record (HPF). * Admission Medication Reconciliation -- CONTINUED / CHANGED HOME MEDICATIONS -- Home: Allopurinol Tab (Zyloprim Tab) 100 MG PO D AILY Hosp: Allopurinol Tab (Zyloprim Tab) 100 MG PO D AILY Home: amLODIPine Tab (Norvasc Tab) 5 MG PO DAILY Hosp: amLODIPine Tab (Norvasc Tab) 5 MG PO DAILY Home: Atorvastatin Tab (Lipitor Tab) 10 MG PO DA JOHN Hosp: Atorvastatin Tab (Lipitor Tab) 10 MG PO DA JOHN Home: Lisinopril Tab (Prinivil Tab) 20 MG PO STEFAN LY Hosp: Lisinopril Tab (Prinivil Tab) 20 MG PO STEFAN LY Home: Tamsulosin Cap (Flomax Cap) 0.4 MG PO SAWYER Y Hosp: Tamsulosin Cap (Flomax Cap) 0.4 MG PO SAWYER Y Home: Toprol XL Tb24 (metoprolol succinate) 100 MG PO DAILY Hosp: Metoprolol Succinate XL Tab (Toprol XL Tab ) 100 MG PO DAILY -- STOPPED HOME MEDICATIONS -- Home: Apixaban Tab (Eliquis Tab) 5 MG PO BID Home: Clopidogrel Tab (Plavix Tab) 75 MG PO SAWYER Y at 1820 ATTENTION *EDITS and/or ADDENDA must be made in Patient Ke eper for this note. * * Edits and ammendments created in [facility] are not visible * * in Patient Keeper or the legal medical record (HPF). * [facility] #: [id number] END OF REPORT 2022-07-04 14:31:00-00:00 [id number] [facility] [address] [place] [address] PATIENT NAME: MIKEY MORILLO JR ADMIT DATE: 07/04/22 ACCOUNT NO: [id number] ROOM NO: [id number] AGE: 72 REPORT TYPE: CONSULTATION SEX: M ADMITTING PHYSICIAN:Chan Dailey MD ATTENDING PHYSICIAN:Chan Dailey MD CONSULTATION DATE: CONSULTATION REPORT REASON FOR CONSULTATION: Postoperative medical m anagement. Thank you for this consult. The patient was seen, examined and chart reviewed. HISTORY OF PRESENT ILLNESS: Briefly, the patient is a pleasant 72-year-old gentleman seen postoperatively. The patient unde rwent robotic-assisted laparoscopic low anterior resection, creation of ostomy under Dr. Dailey for rectal cancer. The patient tolerated the procedu re well. I was asked postoperatively to help participate in h is medical care, hence my involvement. PAST MEDICAL HISTORY: 1. Atrial fibrillation. 2. Coronary artery disease, status post stenting . 3. Hypertension. 4. Hyperlipidemia. 5. COPD. 6. GERD. 7. BPH. PAST SURGICAL HISTORY: Status post colonoscopy, status post stenting. ALLERGIES: PENICILLIN. MEDICATIONS: See MAR. FAMILY HISTORY: Positive for hypertension, hyper lipidemia. REVIEW OF SYSTEMS: Denies fever, cough, colds, c hest pain, palpitations, PND, orthopnea, polyuria, polydip tova, polyphagia, heat or cold intolerance, bleeding tendencies, hearing impairment, vision i mpairment, loss of consciousness, skin rash, depression, prior to admission. PHYSICAL EXAMINATION: GENERAL: The patient is awake, alert, oriented x 3, not in acute distress. VITAL SIGNS: Blood pressure 164/70, pulse 83, RR 16, O2 sat 97%. HEENT: Normocephalic. Hoven conjunctivae. Anicter ic sclerae. Septum midline. Moist buccal mucosa. NECK: Supple. No thyromegaly. CHEST: Symmetric expansion. Clear breath sounds. PATIENT NAME: MIKEY MORILLO CARDIOVASCULAR: S1, S2, no gallop noted. ABDOMEN: Obese, soft. Positive ostomy site, inci sions are intact. No signs of any bleeding. PEDRO drain is noted in place. EXTREMITIES: No clubbing or cyanosis. IMPRESSION: 1. Rectal cancer, status post robotic-assisted l aparoscopic low anterior resection, colostomy creation. Continue postoper ative care as per Dr. Dailey. Pain control as per Colorectal Surgery. 2. Atrial fibrillation. Monitor under telemetry. Hold Eliquis for the time being. 3. Coronary artery disease. Hold Plavix for the time being postoperatively. Continue metoprolol. 4. Hypertension. Continue with Norvasc. 5. Hypercholesterolemia. Lipitor. 6. Benign prostatic hyperplasia. Flomax. 7. Deep breathing exercise to prevent atelectasi s. 8. Sequential compression device boots for deep venous thrombosis. 9. Chronic obstructive pulmonary disease. DuoNeb nebulizations every 6 hours as needed for shortness of breath. Plan of care discussed with the patient and nurs ing at bedside. Dictated By: Juan Stock MD Date Dictated: 07/04/2022 14:31:04 Date Transcribed: 07/04/2022 15:19:58 MITZY/SARAH Receipt ID: [id number] Authenticated by Juan Stock MD On 07/04/2022 06:09:23 PM at 0609 PATIENT NAME: MORILLOMIKEY Elliott JR
--- NOTE | 2022-09-06 00:14 | ER ---
Nurse's Notes [facility] Name: Lev Miller Jr Age: 72 yrs Sex: Male : 1950 Arrival Date: 09/05/2022 Time: 22:52 Bed 6 Private MD: Diagnosis: Gross hematuria, postoperative Presentation: 09/05 22:54 Chief complaint: EMS states: post prostate surgery, had blood in urine today, went to doctor and IFC was placed, persistent blood in the urine, unable to urinate since the visit to the clinic. Coronavirus screen: Vaccine status: Patient reports receiving the 2nd dose of the covid vaccine. Ebola Screen: Patient negative for fever greater than or equal to 101.5 degrees Fahrenheit, and additional compatible Ebola Virus Disease symptoms Patient denies exposure to infectious person. Patient denies travel to an Ebola-affected area in the 21 days before illness onset. Initial Sepsis Screen: Does the patient meet any 2 criteria? No. Patient's initial sepsis screen is negative. Does the patient have a suspected source of infection? No. Patient's initial sepsis screen is negative. Risk Assessment: Do you want to hurt yourself or someone else? Patient reports no desire to harm self or others. Onset of symptoms was September 05, 2022. 22:54 Method Of Arrival: EMS: [facility] rv 22:54 Acuity: CRISTINA 3 rv Triage Assessment: 22:57 General: Appears uncomfortable, Behavior is calm, cooperative. Pain: Complains of pain rv in bladder, urine. Neuro: Level of Consciousness is awake, alert, obeys commands, Oriented to person, place, time, situation. Respiratory: Airway is patent Respiratory effort is even, unlabored. GI: Abdomen is flat. : Odonnell in place bloody urine Reports inability to void. Historical: - Allergies: 22:57 Codeine; rv 22:57 PENICILLINS; rv - PMHx: 22:57 Atrial Fib; CVA; Gout; Hypertension; rv - PSHx: 22:57 Appendectomy; Cholecystectomy; heart cath; rv - Immunization history:: Adult Immunizations up to date. - Social history:: Smoking status: Patient denies any tobacco usage or history of. Screenin:58 [facility] ED Fall Risk Assessment (Adult) History of falling in the last 3 months, rv including since admission No falls in past 3 months (0 pts). Abuse screen: Denies threats or abuse. Denies injuries from another. Nutritional screening: No deficits noted. Tuberculosis screening: No symptoms or risk factors identified. Assessment: 23:10 General: Appears in no apparent distress. comfortable, Behavior is calm, cooperative. lg3 Pain: Denies pain. Neuro: No deficits noted. Theodore Agitation-Sedation Scale (RASS): 0 - Alert and Calm Level of Consciousness is awake, alert, obeys commands, Oriented to person, place, time, situation. Cardiovascular: No deficits noted. Denies chest pain, shortness of breath, Capillary refill < 3 seconds Clubbing of nail beds is absent JVD is absent Patient's skin is warm and dry. Respiratory: No deficits noted. Airway is patent Respiratory effort is even, unlabored, Respiratory pattern is regular, symmetrical. GI: No deficits noted. No signs and/or symptoms were reported involving the gastrointestinal system. Abdomen is round non-distended. : Odonnell in place to gravity drainage Urine is gisele blood, Reports inability to void. EENT: No deficits noted. No signs and/or symptoms were reported regarding the EENT system. Derm: No deficits noted. No signs and/or symptoms reported regarding the dermatologic system. Skin is intact, is healthy with good turgor, Skin is dry, Skin is normal, Skin temperature is warm. Musculoskeletal: No deficits noted. No signs and/or symptoms reported regarding the musculoskeletal system. Circulation, motion, and sensation intact. Range of motion: intact in all extremities. 09/06 08:15 General: Appears in no apparent distress. comfortable, Behavior is calm, cooperative, ld1 appropriate for age. Pain: Denies pain. Neuro: Level of Consciousness is awake, alert, obeys commands, Oriented to person, place, time, situation. Cardiovascular: Denies chest pain. Respiratory: Airway is patent Respiratory effort is even, unlabored. : Odonnell in place to gravity drainage Blood in catheter tube. Dr. Disla at bedside assessing patient and assisting with continuous irrigation. Pt report called to Med surg. Pt denies pain/concerns at this time. Transportation to upstairs completed at this time. Vital Signs: 09/05 22:54 BP 130 / 78; Pulse 96; Resp 17; Temp 98.3; Pulse Ox 100% ; Weight 90.72 kg (R); Height rv 5 ft. 8 in. (R); 09/06 00:09 BP 108 / 70; Pulse 92; Resp 19; Pulse Ox 100% on R/A; rv 01:37 BP 102 / 79; Pulse 79; Resp 16 S; Pulse Ox 100% on R/A; as7 09/05 22:54 Body Mass Index 30.41 (90.72 kg, 172.72 cm) rv ED Course: 09/05 22:54 Patient arrived in ED. rv 22:56 Beulah Bucio MD is Attending Physician. sp3 22:57 Triage completed. rv 22:58 Arm band placed on right wrist. rv 23:10 Door closed. Noise minimized. Warm blanket given. lg3 09/06 00:07 Prasanth Fisher RN is Primary Nurse. rv 00:08 Bladder irrigated via Odonnell with 8 liters normal saline returned gisele blood and blood rv clots Patient tolerated well. 00:09 Patient has correct armband on for positive identification. Bed in low position. Call rv light in reach. Side rails up X 1. Client placed on continuous cardiac and pulse oximetry monitoring. NIBP monitoring applied. 00:13 Donn Disla MD is Hospitalizing Provider. sp3 00:36 CMP Sent. rv 00:36 CBC with Diff Sent. rv 00:36 Ptt, Activated Sent. rv 00:36 PT-INR Sent. rv 00:36 Inserted saline lock: 20 gauge in left forearm, using aseptic technique. Blood rv collected. 01:08 3-way catheter inserted, using sterile technique, 24 Fr. rv 01:13 No provider procedures requiring assistance completed. Patient admitted, IV remains in rv place. Administered Medications: No medications were administered Medication: 00:08 VIS not applicable for this client. rv Outcome: 00:14 Decision to Hospitalize by Provider. sp3 01:13 Admitted to ER Hold. Please see [facility] for further documentation. rv 01:13 Condition: stable 01:13 Instructed on the need for admit. 08:27 Patient left the ED. ld1 Signatures: Prasanth Fisher, RN RN rv Elle Harris RN RN lg3 Fara Joy RN RN ld1 Beulah Bucio MD MD sp3 Faby Pak as7
--- NOTE | 2022-09-06 00:14 | EDPHYS ---
Physician Documentation [facility] Name: Lev Miller Jr Age: 72 yrs Sex: Male : 1950 Arrival Date: 09/05/2022 Time: 22:52 Bed 6 Private MD: ED Physician Beulah Bucio HPI: 09/05 23:05 This 72 yrs old Male presents to ER via EMS with complaints of Urinary retention and sp3 gross hematuria. 23:05 72-year-old male with recent urethral surgery with Dr. Disla presents with chief sp3 complaint urinary retention and gross hematuria. He had his Pina removed by urology and he subsequently had hematuria and was seen in the office today after which it was replaced. He continued to have gross hematuria and now has clotted up and his Pina is no longer functioning and he has urinary retention. Patient is on Eliquis for atrial fibrillation and he was recently dropped to 2.5 mg twice daily from 5 mg twice daily and he is still having the symptoms. He denies any fever, abdominal pain other than a distended bladder, flank pain, chest pain, shortness of breath, rash, bleeding anywhere else or any other signs or symptoms on ROS at this time.. Historical: - Allergies: 22:57 Codeine; rv 22:57 PENICILLINS; rv - PMHx: 22:57 Atrial Fib; CVA; Gout; Hypertension; rv - PSHx: 22:57 Appendectomy; Cholecystectomy; heart cath; rv - Immunization history:: Adult Immunizations up to date. - Social history:: Smoking status: Patient denies any tobacco usage or history of. ROS: 23:07 Constitutional: Negative for fever, chills, and weight loss, Eyes: Negative for injury, sp3 pain, redness, and discharge, Neck: Negative for injury, pain, and swelling, Cardiovascular: Negative for chest pain, palpitations, and edema, Respiratory: Negative for shortness of breath, cough, wheezing, and pleuritic chest pain, Abdomen/GI: Negative for abdominal pain, nausea, vomiting, diarrhea, and constipation, Back: Negative for injury and pain, MS/Extremity: Negative for injury and deformity, Skin: Negative for injury, rash, and discoloration, Neuro: Negative for headache, weakness, numbness, tingling, and seizure, Psych: Negative for depression, anxiety, suicide ideation, homicidal ideation, and hallucinations, Allergy/Immunology: Negative for hives, rash, and allergies, Endocrine: Negative for neck swelling, polydipsia, polyuria, polyphagia, and marked weight changes. 23:07 All other systems are negative. Exam: 23:07 Constitutional: This is a well developed, well nourished patient who is awake, alert, sp3 and in no acute distress. Head/Face: Normocephalic, atraumatic. Chest/axilla: Normal chest wall appearance and motion. Nontender with no deformity. No lesions are appreciated. Cardiovascular: Regular rate and rhythm with a normal S1 and S2. No gallops, murmurs, or rubs. Normal PMI, no JVD. No pulse deficits. Respiratory: Lungs have equal breath sounds bilaterally, clear to auscultation and percussion. No rales, rhonchi or wheezes noted. No increased work of breathing, no retractions or nasal flaring. Abdomen/GI: Soft, non-tender, with normal bowel sounds. No distension or tympany. No guarding or rebound. No evidence of tenderness throughout. Back: No spinal tenderness. No costovertebral tenderness. Full range of motion. 23:07 : Genitalia exam is normal. Penis is normal. Pina is in place and nursing staff was able to flush out Pina catheter and extract bloody urine. . Vital Signs: 22:54 BP 130 / 78; Pulse 96; Resp 17; Temp 98.3; Pulse Ox 100% ; Weight 90.72 kg (R); Height rv 5 ft. 8 in. (R); 09/06 00:09 BP 108 / 70; Pulse 92; Resp 19; Pulse Ox 100% on R/A; rv 01:37 BP 102 / 79; Pulse 79; Resp 16 S; Pulse Ox 100% on R/A; as7 09/05 22:54 Body Mass Index 30.41 (90.72 kg, 172.72 cm) rv MDM: 09/05 22:56 Patient medically screened. sp3 23:08 Data reviewed: vital signs, nurses notes, EMS record. ED course: We will continue sp3 irrigation until urine is clear. I will not tell patient to hold Eliquis dose as I am not managing that aspect however patient will need to follow-up with Dr. Disla in the morning. No other intervention indicated in the ER. We will safely discharge patient home once urine is clear.. 09/06 00:13 ED course: After copious irrigation, patient is still bleeding. I discussed this with sp3 Dr. Disla and he will be admitting patient under 23 observation we will change out Pina to 24 English triple-lumen and continue irrigation. Further per Dr. Disla in the morning. We will hold all Eliquis and any antiplatelet agents.. 09/06 00:12 Order name: CBC with Diff; Complete Time: sp3 09/06 00:12 Order name: CMP; Complete Time: sp3 09/06 00:13 Order name: PT-INR; Complete Time: sp3 09/06 00:13 Order name: Ptt, Activated; Complete Time: sp3 09/06 07:06 Order name: Diet Heart Healthy; Complete Time: 07:06 ld1 09/05 22:57 Order name: Misc. Order: Please flush existing Pina until clots are clear and patient sp3 can urinate; Complete Time: 00:07 09/06 00:12 Order name: IV Saline Lock; Complete Time: 00:14 sp3 09/06 00:12 Order name: Labs collected and sent; Complete Time: 00: sp3 09/06 00:13 Order name: Misc. Order: Change to 24F pina three way and continue irrigation.; sp3 Complete Time: 01:08 Administered Medications: No medications were administered Disposition Summary: 09/06/22 00:14 Hospitalization Ordered Hospitalization Status: Observation sp3 Provider: Donn Disla sp3 Condition: Stable sp3 Problem: an acute exacerbation sp3 Symptoms: have worsened sp3 Bed/Room Type: Standard sp3 Location: Telemetry/MedSurg (observation)(09/06/22 06:05) mw Room Assignment: 407(09/06/22 06:05) mw Diagnosis - Gross hematuria, postoperative sp3 Forms: - Medication Reconciliation Form sp3 - SBAR form sp3 Signatures: Dispatcher [employer] EDMS Martha Victor RN RN mw Attema, Lee, POULTRY CLEANER-C POULTRY CLEANER-Cla1 Prasanth Fisher RN RN rv Patel, Setul, MD MD sp3 Corrections: (The following items were deleted from the chart) 00:43 00:14 Telemetry/MedSurg (observation) sp3 la1 00:43 00:14 sp3 la1 06:05 00:43 [facility] ER HOLD la1 mw 06:05 00:43 ERHOLD- la1 mw
[2022-09-06] MEDS ORDERED: NACL 0.9% IRR SOLN 2,000 ML IRR ONE ×2 (00:30→04:27)
[2022-09-06 00:47] LABS: Absolute Lymphocytes (CBC) 1.8 K/uL (0.7-4.9); Hematocrit 32.1 % (39.6-49.0); Lymphocytes % 24.2 % (15.3-44.8); MCV 92.7 fL (80-100); RBC Red Blood Cell Count 3.47 M/uL (4.33-5.43)
[2022-09-06 01:06] LABS: Albumin 3.2 g/dL (3.4-5.0); Bilirubin Total 0.9 mg/dL (0.2-1.0); Potassium 3.7 mEq/L (3.5-5.1); Protein, Total 6.4 g/dL (6.4-8.2)
[2022-09-06 01:24] LABS: Protime INR 1.19
[2022-09-06] MEDS ORDERED: ACETAMINOPHEN 500 MG TAB PO PRN (01:26)
[2022-09-06] MEDS ORDERED: ONDANSETRON 4 MG/2 ML VIAL IV PRN (01:26)
[2022-09-06 01:48] VITALS: BMI 30.4
--- NOTE | 2022-09-06 07:27 | P.HP ---
Date of Service: 09/06/22 72-year-old gentleman with hypertension, atrial fibrillation on Eliquis, family history of prostate cancer with right mid gland small prostate nodule but normal PSA in the setting of possible hypogonadism, BPH with severe obstructive and irritative urinary symptoms refractory to Flomax with moderate volume incomplete emptying p cystoscopy 10/13/2021 revealing significant interdigitating lateral lobar hypertrophy, elevated bladder neck with mild intravesical projection, and 3 moderately sized right posterior lateral wall bladder diverticula, transrectal ultrasound volume 91.84 g s/p bipolar TURP 08/29/2022 complicated by significant gross hematuria starting yesterday/Sunday after he resumed his Plavix on Sunday. He underwent a voiding trial 09/04/2022 successfully, and he was urinating throughout the course of the day that day without issue, until he took his second dose of Plavix on Sunday morning, at which point he started with the gross hematuria. He had resumed his Eliquis as directed on Sunday, while the catheter was still in place, with no gross hematuria. He was seen in the office yesterday evening with retention of urine and gross hematuria with clots. A 20 Maltese coud catheter was placed into his bladder, and his bladder was drained of about 600 cc of bloody urine. It was irrigated with 500 cc normal saline, and the urine was translucent but pink to red. His blood pressures were stable, though he suggested he might have been a little bit dizzy, and he was counseled to go to the emergency department if he continues to feel lightheaded or dizzy. After discharge from the clinic home, with a plan to continue to hold the Plavix and decrease the Eliquis from 5 mg twice daily to 2.5 mg twice daily, he developed worsening of the gross hematuria with potential poor drainage of the catheter and urine squirting around the catheter from the urethra. He eventually became concerned about this and took EMS transport to the emergency department at around 11 PM. He was seen subsequently, and they placed a 24 Maltese three-way Odonnell catheter and relieved the obstruction, recommending admission for observation. Past medical history: Hypertension, atrial fibrillation, gout Past surgical history appendectomy, cholecystectomy Family history: Father with prostate cancer Social history: [id number] smoking history, quit 2 years ago Allergies: Penicillin, codeine Medications: Sotalol 80 mg every 12 hours, Eliquis 5 mg twice daily, lisinopril 20 mg daily, allopurinol 300 mg daily, Flomax 0.8 mg daily Examination: Patient reasonably well-appearing and in no acute distress at this time He is alert, awake, oriented x3 No dyspnea or sign of respiratory distress 24 Maltese ureth[address] catheter in place with bloody urine draining. Bladder irrigation and CBI re-set up procedure note: I irrigated his bladder with 1000 cc normal saline removing a small volume of clot after deflating the balloon and advancing the catheter until it was hubbed. I continued irrigating until the return was light pink, and then I reinitiated CBI. I was eventually able to titrate the CBI down to slow drip, and the urine remained light pink to clear. Assessment and recommendation: 72-year-old gentleman with hypertension, atrial fibrillation on Eliquis, family history of prostate cancer with right mid gland small prostate nodule but normal PSA in the setting of possible hypogonadism, BPH with severe obstructive and irritative urinary symptoms refractory to Flomax with moderate volume incomplete emptying p cystoscopy 10/13/2021 revealing significant interdigitating lateral lobar hypertrophy, elevated bladder neck with mild intravesical projection, and 3 moderately sized right posterior lateral wall bladder diverticula, transrectal ultrasound volume 91.84 g s/p bipolar TURP 08/29/2022 complicated by significant gross hematuria with clot urinary retention associated with resumption of antiplatelet therapy in combination with the Eliquis. -Hold Eliquis and Plavix for now -Continue to hold Plavix for at least the next 7 to 10 days -After 24 to 48 hours, if his urine remains clear, recommend Lovenox for the next 2 weeks -CBI with normal saline, and titrate to keep urine light pink to clear. -Bactrim DS twice daily -May have breakfast but n.p.o. after 11 AM until reevaluation this evening. If urine remains appropriately light pink to clear on slow drip CBI, may have dinner.
[2022-09-06] MEDS ORDERED: TRAMADOL 37.5mg/APAP 325mg PER TAB PO PRN (07:32)
[2022-09-06] MEDS ORDERED: PNEUMOCOCCAL VACCINE 0.5 ML IMVAC ONE (08:00)
[2022-09-06] MEDS: Ringers Lactate 1,000 ML IV SCH ×2 (08:00→21:20)
[2022-09-06] MEDS: lisinopriL 20 MG TAB PO SCH (09:00)
[2022-09-06] MEDS: SMZ./TMP. 800/160 MG TABLET PO SCH ×2 (09:57→21:20)
[2022-09-06] MEDS: SODIUM CHL 0.9% IRR SOLN 2000 ML IRR SCH ×13 (12:05→23:00)
[2022-09-06] MEDS: SOTALOL HCL 80 MG TAB PO SCH (17:06)
[2022-09-07] MEDS: SODIUM CHL 0.9% IRR SOLN 2000 ML IRR SCH ×2 (00:30→02:30)
[2022-09-07] MEDS: Ringers Lactate 1,000 ML IV SCH ×3 (04:00→18:15)
[2022-09-07] MEDS ORDERED: NA CHLORIDE 0.9% 1,000 ML ONE ×2 (04:12→08:29)
[2022-09-07] MEDS ORDERED: LIDOCAINE JELLY 2% 5 ML SYRINGE TOP ONE (04:45)
[2022-09-07 05:38] LABS: Hematocrit 25.3 % (39.6-49.0); Lymphocytes % 12.9 % (15.3-44.8); MPV 8.6 fL (7.6-11.3); RBC Red Blood Cell Count 2.69 M/uL (4.33-5.43)
[2022-09-07] MEDS: SOTALOL HCL 80 MG TAB PO SCH (06:00)
[2022-09-07 06:03] LABS: Potassium 3.8 mEq/L (3.5-5.1)
[2022-09-07] MEDS ORDERED: NA CHLORIDE 0.9% 0 ML ONE (07:10)
[2022-09-07] MEDS ORDERED: FENTANYL CITR 100 MCG/2 ML ONE (07:13)
[2022-09-07] MEDS ORDERED: dexAMETHasone 10 MG/ML VIAL ONE (07:13)
[2022-09-07] MEDS ORDERED: MIDAZOLAM HCL 2 MG/2 ML INJ ONE (07:13)
[2022-09-07] MEDS ORDERED: KETOROLAC 30 MG/ML INJ ONE (07:13)
[2022-09-07] MEDS ORDERED: ONDANSETRON 4 MG/2 ML VIAL ONE (07:14)
[2022-09-07] MEDS ORDERED: ETOMIDATE 20 MG/10 ML VIAL IV ONE (07:14)
[2022-09-07] MEDS ORDERED: Phenylephrine HCl 10 MG/ML 1 ML VIAL ONE (07:29)
[2022-09-07] MEDS ORDERED: CEFTRIAXONE 1,000 MG in NA CHLORIDE 0.9% 50 ML IVPB ONE (07:34)
[2022-09-07] MEDS ORDERED: ALBUMIN HUM 5% 250 ML IV ONE (07:38)
--- NOTE | 2022-09-07 07:44 | P.PN ---
Date of Service: 09/07/22 72-year-old gentleman with hypertension, atrial fibrillation on Eliquis, family history of prostate cancer with right mid gland small prostate nodule but normal PSA in the setting of possible hypogonadism, BPH with severe obstructive and irritative urinary symptoms refractory to Flomax with moderate volume incomplete emptying p cystoscopy 10/13/2021 revealing significant interdigitating lateral lobar hypertrophy, elevated bladder neck with mild intravesical projection, and 3 moderately sized right posterior lateral wall bladder diverticula, transrectal ultrasound volume 91.84 g s/p bipolar TURP 08/29/2022 complicated by significant gross hematuria with clot urinary retention associated with resumption of antiplatelet therapy in combination with the Eliquis. On CBI yesterday and overnight at slow to moderate drip. Throughout the course of the day yesterday, patient seen again at noon, urine was fluctuating from pink to clear/light pink associated with a Valsalva. CBI was at a slow to moderate rate requiring the exchange of only 1 bag every 1-1/2 hours per nursing. During the night, the patient was irrigated on 2 occasions because of sensation of pressure with only small clots obtained. Somewhere early in the morning between midnight and 3 AM, the catheter stopped draining and the patient's bladder became distended with spasmodic contractions dispelling urine around the catheter. Nursing attempted to flush the catheter without success; so after they contacted me, I recommended they exchange the catheter. At the time of their attempted exchange, when they deflated the balloon, they found the catheter did rapidly drain, and they were able to advance the catheter further into his bladder without discomfort and to decompress his bladder with only light pink urine. As a result, the catheter balloon had been displaced into the prostatic fossa causing the obstruction. During that time however, he had a vagal reaction with blood pressure that dropped into the 60s systolic associated with diaphoresis. He was placed in the Trendelenburg position, and once I was contacted, I recommended EKG, give a bolus of 1 L normal saline, and expedite labs being drawn that morning. Labs subsequently revealed a decline in his hemoglobin from 11 down to 8, and despite the 1 L bolus, his systolic blood pressure remained in the 80s. As a result, I recommended operative evaluation and management this morning. Examination: Patient somewhat shaken but well-appearing and in no acute distress He was alert, awake and oriented x3 His abdomen was soft, nontender and nondistended His pulse was irregular and in the 90s Urethral Odonnell catheter was in place draining pink urine on slow drip CBI. He was lying on the stretcher comfortable appearing. Assessment and recommendation: 72-year-old gentleman with hypertension, atrial fibrillation on Eliquis, family history of prostate cancer with right mid gland small prostate nodule but normal PSA in the setting of possible hypogonadism, BPH with severe obstructive and irritative urinary symptoms refractory to Flomax with moderate volume incomplete emptying p cystoscopy 10/13/2021 revealing significant interdigitating lateral lobar hypertrophy, elevated bladder neck with mild intravesical projection, and 3 moderately sized right posterior lateral wall bladder diverticula, transrectal ultrasound volume 91.84 g s/p bipolar TURP 08/29/2022 complicated by significant gross hematuria with clot urinary retention associated with resumption of antiplatelet therapy in combination with the Eliquis admitted 09/06/2022 and on CBI with persistent bleeding resulting in drop in hemoglobin, hypotension, now requiring surgical intervention. -Continue to hold Eliquis and Plavix for now. Last dose of Eliquis and Plavix 09/05/2022. -Continue to hold Plavix for at least the next 7 to 10 days -Operative evaluation and management via cystoscopy with clot evacuation and fu lguration. I counseled the patient on the detailed nature of the procedure and explained the associated risks. -Transfuse 1 unit packed red blood cells and I counseled the patient on the risks of transfusion associated reaction, infectious complication etc. Consent signed. -CBI with normal saline, and titrate to keep urine light pink to clear. -Ceftriaxone 1 g given leukocytosis
[2022-09-07] MEDS ORDERED: Ringers Lactate 1,000 ML IV ONE (08:59)
[2022-09-07] MEDS: lisinopriL 20 MG TAB PO SCH (09:00)
[2022-09-07] MEDS: METOPROLOL TARTRATE 5 MG/5 ML INJ IV SCH ×3 (09:00→20:21)
[2022-09-07] MEDS: SMZ./TMP. 800/160 MG TABLET PO SCH (09:00)
--- NOTE | 2022-09-07 09:03 | P.OP ---
Preoperative diagnosis: Refractory gross hematuria and anemia Postoperative diagnosis: Chronic anticoagulation requirement Primary procedure: Cystoscopy with clot evacuation Secondary procedure: Bipolar fulguration of bleeding Anesthesia: LMA general Estimated blood loss: 600 cc clot removed Findings: Significant clot intravesical Operative Technique: The patient was placed in the lithotomy position, padded and secured to the table appropriately, after being placed under general anesthesia with an LMA. Ceftriaxone 1 g IV antimicrobial prophylaxis was provided, and he was given 1 unit packed red blood cells. His genitalia was prepped with Hibiclens and draped in standard fashion. The case was begun using the 26 Mauritian resectoscope and visual obturator to traverse the urethra into the bladder. Significant clot was observed, and immediate Ellick evacuation of the clot was required. Multiple rounds of Ellick evacuation was required in order to remove the bulk of the clot, and the remaining smaller clots were removed under direct vision. I was then able to survey the bladder in its entirety, and there was no bladder injury or rupture noted. There was no bleeding from within the mucosal surfaces of the bladder. The clot was removed from the diverticuli present within the right posterior lateral wall. I then turned my attention to the prostate fossa, and used the loop to remove any clot situated within the prostate fossa before using the loop to extensively fulgurate the entirety of the prostatic fossa and any pink sites of potential bleeding. The bladder was decompressed after all clot had been removed, and to with the bladder completely decompressed, I again fulgurated the prostatic fossa to ensure absolute hemostasis. In the end, no bleeding was observed, not even a trickle of blood. As a result, I ensured the ureteral orifice ease were intact and uninjured, and once I confirm that, I then refilled his bladder with saline before removing the resectoscope surveying for any oozing on the way out and fulgurating any oozing on the way out. The resectoscope was then removed, and I placed a 22 Mauritian three-way Odonnell catheter via his urethra into his bladder with ease and placed 50 cc of sterile water in the balloon. The patient was taken out of the lithotomy position, and the catheter was placed to moderate traction. CBI was held at this point, and the urine E flux was completely clear yellow. As a result, we will resume the CBI at ultra slow drip, and he was transferred to the hospital bed before being transferred to the recovery room in good condition. Complications: None Drain(s): Urinary catheter Fluids & blood products: 1 unit packed red blood cells Transferred to: Recovery Room Condition: Good
[2022-09-07 10:20] VITALS: O2SAT 99
[2022-09-07 11:04] LABS: Hematocrit 24.8 % (39.6-49.0)
--- NOTE | 2022-09-07 17:40 | EKG ---
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
--- NOTE | 2022-09-07 20:02 | P.PN ---
Subjective Date of Service: 09/07/22 Chief Complaint: gross hematuria Subjective: Tolerating diet, Improving, Doing well POD 9/NOS p takeback for cysto, clot evac and fulguration for this 72yo gentleman with chronic Afib on Eliquis and Plavix with refractory gross hematuria starting POD 7 s/p biopolar TURP after resuming Eliquis 4 days earlier and Plavix 1 day earlier. He had symptomatic anemia and required 1U PRBC given at time of operative takeback today, 09/07/22. He is now doing much better and no longer light headed or dizzy. He is eating and drinking normally and tolerating his diet. He expressed interest in getting out of bed and ambulating. Physical Examination - Vital Signs Temperature: 99.4 F Blood Pressure: 101/62 Pulse: 102 Respirations: 16 Pulse Ox (%): 100 - Physical Exam General: Alert, In no apparent distress, Oriented x3, Cooperative HEENT: Atraumatic, Normocephalic, PERRLA, Mucous membr. moist/pink Neck: 2+ carotid pulse no bruit (irregular) Respiratory: Normal air movement Neurological: Normal speech Urinary: Odonnell catheter (urine crystal clear. CBI clamped around noon and discontinued since by nursing.) External genitalia: Normal Assessment And Plan - Current Problems (Diagnosis) (1) Symptomatic anemia Current Visit: Yes Status: Acute (2) Gross hematuria Current Visit: Yes Status: Acute (3) Anticoagulant long-term use Current Visit: No Status: Chronic (4) Atrial fibrillation Current Visit: No Status: Chronic Qualifiers: Atrial fibrillation type: paroxysmal Qualified Code(s): I48.0 - Paroxysmal atrial fibrillation - Plan -ambulate with assist -KVO IVFs -continue Ceftriaxone 1g q24h for now -AMLs -Metoprolol 5mg IV q6h with hold parameters of SBP<100 or HR<60 to begin to try to control Afib -observe UOP overnight, and if urine remains clear in the AM, initiate Lovenox 40mg q12h -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 Borges, starting ASA 81mg instead of the Plavix, which I recommend holding for 7-10 more days, and can adjust the Lovenox dosing at his discretion if no recurrent gross hematuria -if urine remains clear on Lovenox, discharge tomorrow evening with 2 weeks course -f/u in urology clinic for voiding trial next Sun/ and will provide a dose of antimicrobial at the time of the trial (Bactrim ok) -continue Flomax if he feels it helps with irritative symptoms p TURP once voiding, otherwise may discontinue -continue Proscar x 6 more months Discharge Plan: Home Plan to discharge in: 24 Hours Critical Care: No Time Spent Managing PTS Care (In Minutes): 30
[2022-09-07] MEDS ORDERED: Ringers Lactate 1,000 ML IV SCH (21:00)
[2022-09-07] MEDS: ASPIRIN EC 81 MG TAB PO SCH (22:01)
[2022-09-08] MEDS: METOPROLOL TARTRATE 5 MG/5 ML INJ IV SCH ×5 (03:06→19:49)
[2022-09-08 04:21] LABS: Absolute Lymphocytes (CBC) 1.2 K/uL (0.7-4.9); Lymphocytes % 14.5 % (15.3-44.8); MCV 92.9 fL (80-100); MPV 8.2 fL (7.6-11.3); RBC Red Blood Cell Count 2.47 M/uL (4.33-5.43)
[2022-09-08 04:34] LABS: Potassium 4.2 mEq/L (3.5-5.1)
[2022-09-08] MEDS: ENOXAPARIN 60 MG/0.6 ML SQ SCH ×2 (06:05→17:28)
[2022-09-08] MEDS: ASPIRIN EC 81 MG TAB PO SCH (08:47)
[2022-09-08] MEDS: CEFTRIAXONE 1,000 MG in NA CHLORIDE 0.9% 50 ML IVPB SCH (08:47)
[2022-09-08] MEDS: lisinopriL 20 MG TAB PO SCH (08:47)
[2022-09-08] MEDS: Ringers Lactate 1,000 ML IV SCH (10:00)
--- NOTE | 2022-09-08 14:08 | P.DS ---
Admission Date: 09/06/22 Discharge Date: 09/08/22 Disposition: ROUTINE DISCHARGE Discharge Condition: GOOD Reason for Admission: gross hematuria Procedures: Operative cystoscopy with clot evacuation and bipolar fulguration 09/07/2022 - Problems (1) Symptomatic anemia Onset Date: ~09/07/22 Current Visit: Yes Status: Acute (2) Gross hematuria Onset Date: ~09/05/22 Current Visit: Yes Status: Acute (3) Anticoagulant long-term use Current Visit: No Status: Chronic (4) Atrial fibrillation Current Visit: No Status: Chronic Qualifiers: Atrial fibrillation type: paroxysmal Qualified Code(s): I48.0 - Paroxysmal atrial fibrillation Brief History of Present Illness: 72-year-old gentleman with hypertension, atrial fibrillation on Eliquis, family history of prostate cancer with right mid gland small prostate nodule but normal PSA in the setting of possible hypogonadism, BPH with severe obstructive and irritative urinary symptoms refractory to Flomax with moderate volume incomplete emptying p cystoscopy 10/13/2021 revealing significant interdigitating lateral lobar hypertrophy, elevated bladder neck with mild intravesical projection, and 3 moderately sized right posterior lateral wall bladder diverticula, transrectal ultrasound volume 91.84 g s/p bipolar TURP 08/29/2022 complicated by significant gross hematuria with clot urinary retention associated with resumption of antiplatelet therapy in combination with the Eliquis. Hospital Course: He was admitted the morning of 09/06/2022 having been seen in the emergency department at around midnight with significant gross hematuria and clot urinary retention of the 20 Hungarian Odonnell catheter placed earlier that evening in my office. The emergency department switch the catheter to a 24 Hungarian three-way Odonnell, and they attempted to irrigate the catheter and initiate CBI. The nurses had significant difficulty managing the drainage of the catheter and CBI, and I evaluated the patient at around 5:30 AM. I was able to irrigate the catheter with ease, and I did not obtain any significant clots. CBI was initiated, and at a slow to moderate drip, the urine was light pink. As a result, he was admitted for observation, continued CBI with normal saline to titrate to keep the urine light pink to clear, given Bactrim double strength tablets as antimicrobial therapy/prophylaxis, and is Plavix and Eliquis was held. During the night/early a.m. 09/07/2022, I received a call from nursing indicating he had had a vagal response with diaphoresis, and his hemoglobin had dropped from 11 down to 8.5. He was placed in the Trendelenburg position, and I recommended they give him a bolus of 1 L normal saline. He had been given 100 cc an hour of maintenance LR. Despite this, he continued to be hypotensive with a systolic blood pressure in the 80s; so I recommended operative evaluation and management, which was completed 09/05/2022 -cystoscopy with clot evacuation and bipolar fulguration. He was given ceftriaxone intraoperatively and continued on that in the postoperative admission. Since that time, he was admitted back to the floor, and his urine was crystal clear off CBI, which had been clamped and then discontinued over the course of the day. Subsequent evaluation later in the evening revealed persistent clear urine, so the patient was encouraged to get out of bed and ambulate. His urine remained clear; so after speaking with his afternoon nanny, Dr. Alegria, we agreed to the following plan: -Because he has an ostial LAD stent, we will try to get him back on aspirin 81 mg as soon as possible. So I agreed to start it 09/07/2022 at 10 PM. -If his urine remains clear overnight, we would provide 60 mg Lovenox subcutaneously at 6 AM the following morning, which was given today, 09/07/2022. -I would observe him over the course of the day, and if his urine remained clear following his second dose of Lovenox today at 6 PM, he would be discharged home with a 2-week prescription of Lovenox 60 mg subcutaneously twice daily/every 12 hours, and he should continue taking the aspirin 81 mg. As of my examination of him today, he was alert, awake, oriented x3 and in no acute distress. He was comfortable and well-appearing. He had been given his lisinopril by nursing for systolic blood pressure around 110, but the metoprolol had been held. He was ambulatory with ease and desired a leg bag His urine remained crystal clear and free of blood. A.m. labs today, 09/08/2022, suggested a decline in his hemoglobin/hematocrit. Since I suspected this was delusional due to absorption of fluid since he received over 4 L of fluid between midnight and 9 AM yesterday, and since his blood pressure has continued to improve, I made the following recommendation: -Hep-Lock IV fluid -Repeat hemoglobin/hematocrit. If persistently less than 8, must consider transfusion. If hemoglobin > 8, will instead discharge him with a prescription for iron, multivitamin, and folic acid in addition to the Lovenox 60 mg every 12. -Follow-up in urology Sunday morning around 10 AM for voiding trial, and a dose of Bactrim may be given for antimicrobial prophylaxis. -Continue finasteride for the next 6 months -May discontinue tamsulosin if voiding with a strong flow and stream -Follow-up in 2 weeks to consider resuming Eliquis followed 1 week later by resuming Plavix if no bleeding. Vital Signs/Physical Exam: Temp Pulse Resp BP Pulse Ox 98.2 F 100 H 18 106/55 L 96 09/08/22 08:00 09/08/22 08:49 09/08/22 08:00 09/08/22 08:49 09/08/22 08:00 General: Alert, In no apparent distress, Oriented x3, Cooperative HEENT: Atraumatic, Normocephalic, PERRLA, Mucous membr. moist/pink Respiratory: Normal air movement Neurological: Normal speech Urinary: Odonnell catheter Laboratory Data at Discharge: WBC 8.50 thou/uL (4.3-10.9) 09/08/22 04:07 Hgb 7.8 g/dL (13.6-17.9) L D 09/08/22 04:07 Hct 23.0 % (39.6-49.0) L 09/08/22 04:07 Plt Count 178 thou/uL (152-406) 09/08/22 04:07 PT 13.1 SECONDS (9.5-12.5) H 09/06/22 00:30 INR 1.19 09/06/22 00:30 APTT 37.6 SECONDS (24.3-36.9) H 09/06/22 00:30 Sodium 134 mEq/L (136-145) L 09/08/22 04:07 Potassium 4.2 mEq/L (3.5-5.1) 09/08/22 04:07 BUN 14 mg/dL (7-18) 09/08/22 04:07 Creatinine 0.88 mg/dL (0.70-1.30) 09/08/22 04:07 Glucose 131 mg/dL (74-106) H 09/08/22 04:07 Total Bilirubin 0.9 mg/dL (0.2-1.0) 09/06/22 00:30 AST 19 U/L (15-37) 09/06/22 00:30 ALT 26 U/L (16-61) 09/06/22 00:30 Alkaline Phosphatase 65 U/L (45-117) 09/06/22 00:30 Home Medications: lisinopriL [Prinivil*] 20 mg PO DAILY 03/08/16 Allopurinol 100 mg PO DAILY 10/10/19 Tamsulosin HCl [Flomax] 1 tab PO BID 12/19/21 Atorvastatin Calcium [Lipitor] 40 mg PO BEDTIME #30 tab 12/23/21 Metoprolol Succinate [Toprol Xl*] 100 mg PO DAILY 08/16/22 Physician Discharge Instructions: I have sent a prescription for Lovenox 60 mg subcutaneous injection to be performed every 12 hours over the course of the next 2 weeks. Purchase and take aspirin 81 mg tablets daily until further instructed. Notify me if the development of any gross hematuria beyond the most minimal of pink urine. Contact my office for voiding trial Sunday morning around 10 AM. Follow-up with me in about 2 weeks to discuss management of your anticoagulation and the pathology of the prostate tissue removed. Do not resume your Eliquis until otherwise instructed in 2 weeks. Do not resume the Plavix until further instructed. Continue finasteride. May discontinue tamsulosin/Flomax if voiding without issue. Catheter to floor bag for nighttime use, or if sitting/resting for an extended period of time. Catheter to leg bag for daytime use. Cleanse around the catheter insertion into the penis using hydrogen peroxide twice daily, and apply Neosporin/triple antibiotic ointment around the pee hole/meatus to keep the catheter lubricated with movement. Notify me if you develop any fever, temperature greater than 100.4 Fahrenheit, intractable nausea or vomiting, increasing pain not controlled by pain medications, or other unusual signs or symptoms. All the best! WBR Diet: AHA Activity: Ad bob Followup: Unknown,U [Primary Care Provider] - Time spent managing pt's care (in minutes): 60
[2022-09-08 14:37] LABS: Hematocrit 22.1 % (39.6-49.0)
[2022-09-08] MEDS ORDERED: FUROSEMIDE 20 MG/ 2ML VIAL IV SCH (16:00)
[2022-09-08] MEDS ORDERED: NA CHLORIDE 0.9% 250 ML ONE (17:00)
[2022-09-08] MEDS ORDERED: FUROSEMIDE 20 MG/ 2ML VIAL IV ONE (20:00)
[2022-09-08 20:50] LABS: Hematocrit 23.7 % (39.6-49.0)
[2022-09-09] MEDS: METOPROLOL TARTRATE 5 MG/5 ML INJ IV SCH ×2 (03:25→08:40)
[2022-09-09] MEDS: ENOXAPARIN 60 MG/0.6 ML SQ SCH (05:39)
[2022-09-09 08:28] VITALS: BP 117/73; TEMP 97.7
[2022-09-09] MEDS: ASPIRIN EC 81 MG TAB PO SCH (08:40)
[2022-09-09] MEDS: CEFTRIAXONE 1,000 MG in NA CHLORIDE 0.9% 50 ML IVPB SCH (08:40)
[2022-09-09] MEDS: lisinopriL 20 MG TAB PO SCH (08:49)
--- NOTE | 2022-09-09 18:29 | P.PN ---
Date of Service: 09/09/22 72-year-old gentleman with hypertension, atrial fibrillation on Eliquis, family history of prostate cancer with right mid gland small prostate nodule but normal PSA in the setting of possible hypogonadism, BPH with severe obstructive and irritative urinary symptoms refractory to Flomax with moderate volume incomplete emptying p cystoscopy 10/13/2021 revealing significant interdigitating lateral lobar hypertrophy, elevated bladder neck with mild intravesical projection, and 3 moderately sized right posterior lateral wall bladder diverticula, transrectal ultrasound volume 91.84 g s/p bipolar TURP 08/29/2022 complicated by significant gross hematuria with clot urinary retention associated with resumption of antiplatelet therapy in combination with the Eliquis admitted 09/06/2022 and on CBI with persistent bleeding resulting in drop in hemoglobin, hypotension, s/p cystoscopy with clot evacuation and fulguration of the prostatic fossa 09/07/22 with resolution of his hematuria and continued stability despite ASA 81mg and Lovenox 60mg q12h. Examination: Well appearing and in no acute distress Alert, awake and oriented x3 Abdomen was soft, nontender and nondistended Urethral Odonnell catheter was in place draining clear urine. Ambulatory with ease without assistance required. As patient continued to improve and mobilize fluids intravascularly given to him while hypotensive, while his BP improved, his Hgb remained <8. Given his cardiac risk, I recommended an additional 1U PRBC be given, followed by 10mg lasix. Because of the lateness of the transfusion, in order to observe him for post- transfusion reaction, he was kept overnight and discharged this morning following his AM dose of Lovenox. Plan as described in discharge summary.
== END 2022-09-09 10:40 | disposition home or self-care (01) | DRG 909 ==
LOC: ER 22:52 → ERHOLD 09-06 00:52 → 4TH 09-06 06:10 → OBSVTOIN 09-06 17:09
PROVIDERS: ADMIT Urology; ATTEND Urology
PROC: 0TCD8ZZ Extirpation of Matter from Urethra, Via Natural or Artificial Opening Endoscopic (ICD-10-PCS; 2022-09-07)
PROC: 30233N1 Transfusion of Nonautologous Red Blood Cells into Peripheral Vein, Percutaneous Approach (ICD-10-PCS; 2022-09-07)
PROC: 0W3R8ZZ Control Bleeding in Genitourinary Tract, Via Natural or Artificial Opening Endoscopic (ICD-10-PCS; principal; 2022-09-07 07:30)
DX: N99.820 Postprocedural hemorrhage of a genitourinary system organ or structure following a genitourinary system procedure (principal); R31.0 Gross hematuria; M10.9 Gout, unspecified; I48.0 Paroxysmal atrial fibrillation; I10 Essential (primary) hypertension; R33.9 Retention of urine, unspecified; Z88.5 Allergy status to narcotic agent; Z88.0 Allergy status to penicillin; Z79.01 Long term (current) use of anticoagulants; Z90.49 Acquired absence of other specified parts of digestive tract; Z86.73 Personal history of transient ischemic attack (TIA), and cerebral infarction without residual deficits; Z79.899 Other long term (current) drug therapy
CPT/HCPCS: 36415; 51700; 80048; 80053; 85014; 85018; 85025; 85610; 85730; 86850; 86900; 86901; 86920; 93005; 99285; G0378; J0696; J1100; J1650; J1940; J2250; J2370; J2405; J3010; J7030; J7050; J7120; P9016; P9045

== ENCOUNTER 2022-09-17 21:19 | Emergency (ER) | payer OTHER ==
[2022-09-17 22:28] LABS: Absolute Lymphocytes (CBC) 1.8 K/uL (0.7-4.9); Hematocrit 27.5 % (39.6-49.0); Lymphocytes % 35.1 % (15.3-44.8); MCV 96.3 fL (80-100); MPV 7.6 fL (7.6-11.3); RBC Red Blood Cell Count 2.86 M/uL (4.33-5.43)
--- NOTE | 2022-09-17 22:37 | RAD REPORT ---
EXAM DESCRIPTION: Anup Single View09/17/2022 10:18 pm CLINICAL HISTORY: Cough COMPARISON: July 2022 FINDINGS: Lungs are mildly hyperaerated. The lungs appear clear of acute infiltrate. The heart is no rmal size IMPRESSION: No acute abnormalities displayed
[2022-09-17 22:40] LABS: Protime INR 0.86
[2022-09-17] MEDS ORDERED: NA CHLORIDE 0.9% 500 ML ONE (22:45)
[2022-09-17] MEDS ORDERED: NA CHLORIDE 0.9% 1,000 ML ONE (22:45)
[2022-09-17] MEDS ORDERED: ACETAMINOPHEN 500 MG TAB ONE (22:46)
[2022-09-17 22:51] LABS: Albumin 3.3 g/dL (3.4-5.0); Bilirubin Direct 0.3 mg/dL (0-0.2); Bilirubin Indirect, Calculated 0.5 mg/dL (0.2-0.8); Bilirubin Total 0.8 mg/dL (0.2-1.0); Magnesium 2.2 mg/dL (1.6-2.4); Potassium 3.7 mEq/L (3.5-5.1); Protein, Total 6.3 g/dL (6.4-8.2); Troponin High Sensitivity 7.1 pg/mL (<58.9)
[2022-09-17 22:57] LABS: Specific Gravity < 1.005 (1.005-1.030); Urine Bacteria <20 /HPF (<20); Urine Bilirubin NEGATIVE (Negative); Urine Blood 3+ (OVER) (Negative); Urine Clarity Turbid (Clear); Urine Color Colorless (Yellow); Urine Glucose NEGATIVE (Negative); Urine Protein 1+ (Negative); Urine RBC <5 /HPF (None Seen); Urine Urobilinogen Normal (Normal); Urine pH 6.5 (5.0-7.0)
--- NOTE | 2022-09-18 01:01 | ER ---
Nurse's Notes [facility] Name: Lev Miller Jr Age: 72 yrs Sex: Male : 1950 Arrival Date: 09/17/2022 Time: 21:19 Bed 8 Private MD: Diagnosis: Hematuria, unspecified;Anemia, unspecified;Weakness Presentation: 09/17 21:29 Chief complaint: Patient states: I had surgery on my prostate and the doctor let me go kd3 home and started my blood thinners but then i started to bleed a lot. They did an emergency surgery to stop the bleeding and they did. They started me on blood thinner shots and now i have started to bleed again. My urine is pink and i feel dizzy and light headed. Coronavirus screen: Vaccine status: Patient reports receiving the 2nd dose of the covid vaccine. Ebola Screen: No symptoms or risks identified at this time. Initial Sepsis Screen: Does the patient meet any 2 criteria? No. Patient's initial sepsis screen is negative. Does the patient have a suspected source of infection? No. Patient's initial sepsis screen is negative. Risk Assessment: Do you want to hurt yourself or someone else? Patient reports no desire to harm self or others. Onset of symptoms was September 17, 2022. 21:29 Method Of Arrival: Wheelchair kd3 21:29 Acuity: CRISTINA 3 kd3 Triage Assessment: 21:32 General: Appears in no apparent distress. Behavior is calm, cooperative. General: kd3 Behavior is pale. Pain: Denies pain. Neuro: Reports headache. Historical: - Allergies: 21:32 Codeine; kd3 21:32 PENICILLINS; kd3 - PMHx: 21:32 Atrial Fib; CVA; Gout; Hypertension; kd3 - PSHx: 21:32 Cholecystectomy; heart cath; Appendectomy; kd3 - Immunization history:: Adult Immunizations up to date. - Social history:: Smoking status: Patient/guardian denies using tobacco, the patient reports quitting approximately 3 years ago. - Family history:: not pertinent. Screenin/03 01:56 [facility] ED Fall Risk Assessment (Adult) History of falling in the last 3 months, rv including since admission No falls in past 3 months (0 pts) Confusion or Disorientation No (0 pts) Intoxicated or Sedated No (0 pts) Impaired Gait No (0 pts) Mobility Assist Device Used No (0 pt) Altered Elimination No (0 pt) Score/Fall Risk Level 0 - 2 = Low Risk Oriented to surroundings, Maintained a safe environment, Educated pt \T\ family on fall prevention, incl call for assistance when getting out of bed, Assessed \T\ reinforced patient's understanding of fall precautions, Provided non-skid footwear, Hourly rounding (assess needs \T\ fall precautionary measures) done, Used ambulatory aids as needed (educated on \T\ assisted with), Used gait belt as appropriate. Abuse screen: Denies threats or abuse. Denies injuries from another. Nutritional screening: No deficits noted. Tuberculosis screening: No symptoms or risk factors identified. Assessment: 09/17 22:00 General: Appears uncomfortable, Behavior is calm, cooperative. Pain: Complains of pain ll3 in H/A. Neuro: Reports headache. Neuro: Reports dizziness. Respiratory: Respiratory effort is even, unlabored, Respiratory pattern is regular, symmetrical. : Urine is blood tinged, Reports Blood in urine since sunday Denies burning with urination, inability to void, incontinence. Derm: Skin is pink, warm \T\ dry. Vital Signs: 21:29 BP 119 / 77; Pulse 92; Resp 18; Temp 98.2; Pulse Ox 94% on R/A; Weight 89.36 kg; Height kd3 5 ft. 8 in. ; 22:59 BP 136 / 95; Pulse 88; Resp 18; Pulse Ox 100% on R/A; ll3 09/18 00:11 BP 103 / 64; Pulse 76; Resp 18; Pulse Ox 100% on R/A; ll3 01:56 BP 120 / 73; Pulse 85; Resp 16; Pulse Ox 100% on R/A; rv 03:15 BP 122 / 73; Pulse 75; Resp 18; Pulse Ox 99% on R/A; ll3 09/17 21:29 Body Mass Index 29.95 (89.36 kg, 172.72 cm) kd3 Christina Coma Score: 01:57 Eye Response: spontaneous(4). Motor Response: obeys commands(6). Verbal Response: rv oriented(5). Total: 15. ED Course: 09/17 21:24 Patient arrived in ED. kj1 21:32 Triage completed. kd3 21:32 Arm band placed on left wrist. kd3 21:44 Prasanth Fisher, SALIMA is Primary Nurse. rv 21:50 Samy Mehta MD is Attending Physician. [facility] 21:59 Initial lab(s) drawn, by me, sent to lab. Inserted saline lock: 20 gauge in right ll3 antecubital area, using aseptic technique. Blood collected. 22:00 Patient has correct armband on for positive identification. Bed in low position. Call rv light in reach. Side rails up X 1. 22:00 Client placed on continuous cardiac and pulse oximetry monitoring. NIBP monitoring rv applied. school bus monitor on. 22:20 XRAY Chest (1 view) In Process Unspecified. EDMS 22:55 Odonnell cath inserted, using sterile technique, 18 Fr., by ms, balloon inflated, to rv gravity drainage, returned bloody urine. Patient tolerated well. 09/18 01:09 Initial contact for transfer to [facility]. spoke with SALIMA Sarah. [facility] 01:57 Anuja Called back for doc to doc with Tyson. [facility] 02:46 Physician and hospital approval at [facility] ED by Harriet Bal and SALIMA Joiner. 02:58 Contacted [facility]. [facility] 03:00 Faced over face sheet to [phone]. [facility] 03:14 No provider procedures requiring assistance completed. Patient transferred, IV remains ll3 in place. Administered Medications: 09/17 23:02 Drug: NS 0.9% IV 1000 ml Route: IV; Rate: 125 ml/hr; Site: right antecubital; rv 09/18 03:14 Follow up: Response: No adverse reaction; IV Status: Infusion continued upon transfer; ll3 IV Intake: 500ml 09/17 23:02 Drug: NS 0.9% IV 500 ml Route: IV; Rate: bolus; Site: right antecubital; rv 09/18 00:15 Follow up: Response: No adverse reaction; IV Status: Completed infusion; IV Intake: ll3 500ml 09/17 23:02 Drug: Acetaminophen PO 1000 mg Route: PO; rv 09/18 00:15 Follow up: Response: No adverse reaction; Pain is decreased 3 01:24 Drug: Rocephin IV 1 grams Route: IV; Rate: per protocol; Site: right antecubital; rv 01:57 Follow up: Response: No adverse reaction; IV Status: Completed infusion rv Medication: 01:56 VIS not applicable for this client. rv Intake: 00:15 IV: 500ml; Total: 500ml. ll3 03:14 IV: 500ml; Total: 1000ml. ll3 Outcome: 01:00 ER care complete, transfer ordered by . estefany 03:14 Transferred by ground EMS to [facility], Transfer form completed. ll3 X-rays sent w/ patient. 03:14 Condition: stable 03:14 Discharge instructions given to patient, EMS, Instructed on the need for transfer, Demonstrated understanding of instructions. 03:16 Patient left the ED. ll3 Signatures: Dispatcher [employer] EDMS Samy Mehta MD MD cha Vicente, Ronaldo, RN RN Shira Escobar kj1 Chris Hussein RN RN ll3 Marissa Marcano RN RN 3 Zelalem Doan [facility]
--- NOTE | 2022-09-18 01:01 | EDPHYS ---
Physician Documentation [facility] Name: Lev Miller Jr Age: 72 yrs Sex: Male : 1950 Arrival Date: 09/17/2022 Time: 21:19 Bed 8 Private MD: STEPHON Physician Samy Mehta HPI: 09/18 00:37 This 72 yrs old Male presents to ER via Wheelchair with complaints of estefany DIZZINESS /BLEEDING FROM SURGERY WOUND. 00:37 The patient presents with urinary symptoms, hematuria. Onset: The symptoms/episode estefany began/occurred 1 week(s) ago. Modifying factors: The symptoms are alleviated by nothing, the symptoms are aggravated by nothing. Associated signs and symptoms: The patient has no apparent associated signs or symptoms. Severity of symptoms: At their worst the symptoms were mild, in the emergency department the symptoms are unchanged. The patient has experienced similar episodes in the past, multiple times. Historical: - Allergies: 09/17 21:32 Codeine; kd3 21:32 PENICILLINS; kd3 - PMHx: 21:32 Atrial Fib; CVA; Gout; Hypertension; kd3 - PSHx: 21:32 Cholecystectomy; heart cath; Appendectomy; kd3 - Immunization history:: Adult Immunizations up to date. - Social history:: Smoking status: Patient/guardian denies using tobacco, the patient reports quitting approximately 3 years ago. - Family history:: not pertinent. ROS: 09/18 00:37 Constitutional: Negative for fever, chills, and weight loss, Eyes: Negative for injury, estefany pain, redness, and discharge, ENT: Negative for injury, pain, and discharge, Neck: Negative for injury, pain, and swelling, Cardiovascular: Negative for chest pain, palpitations, and edema, Respiratory: Negative for shortness of breath, cough, wheezing, and pleuritic chest pain, Abdomen/GI: Negative for abdominal pain, nausea, vomiting, diarrhea, and constipation, Back: Negative for injury and pain, MS/Extremity: Negative for injury and deformity, Skin: Negative for injury, rash, and discoloration, Neuro: Negative for headache, weakness, numbness, tingling, and seizure, Psych: Negative for depression, anxiety, suicide ideation, homicidal ideation, and hallucinations, Allergy/Immunology: Negative for hives, rash, and allergies, Endocrine: Negative for neck swelling, polydipsia, polyuria, polyphagia, and marked weight changes, Hematologic/Lymphatic: Negative for swollen nodes, abnormal bleeding, and unusual bruising. : Positive for hematuria. Exam: 00:37 Constitutional: This is a well developed, well nourished patient who is awake, alert, estefany and in no acute distress. Head/Face: Normocephalic, atraumatic. Eyes: Pupils equal round and reactive to light, extra-ocular motions intact. Lids and lashes normal. Conjunctiva and sclera are non-icteric and not injected. Cornea within normal limits. Periorbital areas with no swelling, redness, or edema. ENT: Nares patent. No nasal discharge, no septal abnormalities noted. Tympanic membranes are normal and external auditory canals are clear. Oropharynx with no redness, swelling, or masses, exudates, or evidence of obstruction, uvula midline. Mucous membranes moist. Neck: Trachea midline, no thyromegaly or masses palpated, and no cervical lymphadenopathy. Supple, full range of motion without nuchal rigidity, or vertebral point tenderness. No Meningismus. Chest/axilla: Normal chest wall appearance and motion. Nontender with no deformity. No lesions are appreciated. Cardiovascular: Regular rate and rhythm with a normal S1 and S2. No gallops, murmurs, or rubs. Normal PMI, no JVD. No pulse deficits. Respiratory: Lungs have equal breath sounds bilaterally, clear to auscultation and percussion. No rales, rhonchi or wheezes noted. No increased work of breathing, no retractions or nasal flaring. Abdomen/GI: Soft, non-tender, with normal bowel sounds. No distension or tympany. No guarding or rebound. No evidence of tenderness throughout. Back: No spinal tenderness. No costovertebral tenderness. Full range of motion. Skin: Warm, dry with normal turgor. Normal color with no rashes, no lesions, and no evidence of cellulitis. MS/ Extremity: Pulses equal, no cyanosis. Neurovascular intact. Full, normal range of motion. Neuro: Awake and alert, GCS 15, oriented to person, place, time, and situation. Cranial nerves II-XII grossly intact. Motor strength 5/5 in all extremities. Sensory grossly intact. Cerebellar exam normal. Normal gait. Psych: Awake, alert, with orientation to person, place and time. Behavior, mood, and affect are within normal limits. 00:37 : CVA tenderness, is absent, Male external genitalia: normal, Bladder: is normal, Sexual behavior: the patient is not sexually active. Vital Signs: 09/17 21:29 BP 119 / 77; Pulse 92; Resp 18; Temp 98.2; Pulse Ox 94% on R/A; Weight 89.36 kg; Height kd3 5 ft. 8 in. ; 22:59 BP 136 / 95; Pulse 88; Resp 18; Pulse Ox 100% on R/A; ll3 09/18 00:11 BP 103 / 64; Pulse 76; Resp 18; Pulse Ox 100% on R/A; ll3 01:56 BP 120 / 73; Pulse 85; Resp 16; Pulse Ox 100% on R/A; rv 03:15 BP 122 / 73; Pulse 75; Resp 18; Pulse Ox 99% on R/A; ll3 09/17 21:29 Body Mass Index 29.95 (89.36 kg, 172.72 cm) kd3 Christina Coma Score: 01:57 Eye Response: spontaneous(4). Motor Response: obeys commands(6). Verbal Response: rv oriented(5). Total: 15. MDM: 09/17 21:50 Patient medically screened. [facility] 09/18 00:40 Differential diagnosis: UTI, urinary retention, Odonnell catheter problem, prostatitis, estefany urethritis. Data reviewed: vital signs, nurses notes, lab test result(s), EKG, radiologic studies, plain films. Consideration of Admission/Observation Escalation of care including admission/observation considered. I considered the following discharge prescriptions or medication management in the emergency department Medications were administered in the Emergency Department. See MAR. Test considered but Not performed: CT: no ct abd pelvis. Care significantly affected by the following chronic conditions: Hypertension, Obesity, cva, a fib, cad, stents. 09/17 21:58 Order name: Basic Metabolic Panel; Complete Time: 00:36 [facility] 09/17 21:58 Order name: CBC with Diff; Complete Time: 22:38 [facility] 09/17 21:58 Order name: LFT's; Complete Time: 00:36 [facility] 09/17 21:58 Order name: Magnesium; Complete Time: 00:36 [facility] 09/17 21:58 Order name: NT PRO-BNP; Complete Time: 00:36 [facility] 09/17 21:58 Order name: PT-INR; Complete Time: 00:36 [facility] 09/17 21:58 Order name: Troponin HS; Complete Time: 00:36 [facility] 09/17 21:58 Order name: Urinalysis w/ reflexes; Complete Time: 00:36 [facility] 09/17 21:58 Order name: Type And Screen; Complete Time: 00:36 [facility] 09/17 21:58 Order name: XRAY Chest (1 view); Complete Time: 22:38 [facility] 09/17 21:58 Order name: EKG; Complete Time: 21:59 [facility] 09/17 21:58 Order name: Cardiac monitoring; Complete Time: 22:00 [facility] 09/17 21:58 Order name: EKG - Nurse/Tech; Complete Time: 22:00 [facility] 09/17 21:58 Order name: IV Saline Lock; Complete Time: 21:59 [facility] 09/17 21:58 Order name: Labs collected and sent; Complete Time: 21:59 [facility] 09/17 21:58 Order name: O2 Per Protocol; Complete Time: 21:59 [facility] 09/17 21:58 Order name: O2 Sat Monitoring; Complete Time: 21:59 [facility] 09/17 22:23 Order name: Odonnell; Complete Time: 23:02 ll3 Administered Medications: 09/17 23:02 Drug: NS 0.9% IV 1000 ml Route: IV; Rate: 125 ml/hr; Site: right antecubital; rv 09/18 03:14 Follow up: Response: No adverse reaction; IV Status: Infusion continued upon transfer; ll3 IV Intake: 500ml 09/17 23:02 Drug: NS 0.9% IV 500 ml Route: IV; Rate: bolus; Site: right antecubital; rv 09/18 00:15 Follow up: Response: No adverse reaction; IV Status: Completed infusion; IV Intake: ll3 500ml 09/17 23:02 Drug: Acetaminophen PO 1000 mg Route: PO; rv 09/18 00:15 Follow up: Response: No adverse reaction; Pain is decreased ll3 01:24 Drug: Rocephin IV 1 grams Route: IV; Rate: per protocol; Site: right antecubital; rv 01:57 Follow up: Response: No adverse reaction; IV Status: Completed infusion rv Disposition Summary: 09/18/22 01:00 Transfer Ordered Transfer Location: [facility] estefany Reason: Higher level of care estefany Condition: Stable estefany Problem: new estefany Symptoms: have improved estefany Accepting Physician: to [facility](09/18/22 03:16) ll3 Diagnosis - Hematuria, unspecified estefany - Anemia, unspecified estefany - Weakness estefany Forms: - Medication Reconciliation Form estefany - SBAR form estefany Signatures: Dispatcher [employer] EDSamy Espino MD MD cha Vicente, Ronaldo, RN RN rv Loubet, Lynsea, RN RN ll3 Marissa Marcano RN RN kd3 Corrections: (The following items were deleted from the chart) 03:16 01:00 to [facility] estefany ll3
[2022-09-18] MEDS ORDERED: CEFTRIAXONE 1000 MG/VIAL ONE (01:13)
[2022-09-18] MEDS ORDERED: WATER FOR INJ,STERILE 10 ML ONE (01:13)
[2022-09-18 03:57] VITALS: TEMP 98.2
[2022-09-18 04:01] VITALS: BP 122/73; O2SAT 99
--- NOTE | 2022-09-18 19:30 | EKG ---
Test Date: 2022-09-17 Test Time: 21:49:49 Towel Sorter: RV MEASUREMENT RESULTS: Intervals: Rate: 84 NE: QRSD: 90 QT: 370 QTc: 437 Starks: P: NE: QRS: 16 T: 33 INTERPRETIVE STATEMENTS: Atrial fibrillation Abnormal ECG Compared to ECG 09/17/2022 21:49:02 Ventricular premature complex(es) no longer present Electronically Signed On 09-18-22 19:28:40 CDT by Alvin Hickman
--- NOTE | 2022-09-18 19:30 | EKG ---
Test Date: 2022-09-17 Test Time: 21:49:02 Defensive Driving Instructor: RV MEASUREMENT RESULTS: Intervals: Rate: 88 GA: QRSD: 90 QT: 358 QTc: 433 Pet[place]key: P: GA: QRS: 12 T: 30 INTERPRETIVE STATEMENTS: Atrial fibrillation with premature ventricular or aberrantly conducted complexes Abnormal ECG Compared to ECG 09/07/2022 05:24:37 Myocardial infarct finding no longer present Electronically Signed On 09-18-22 19:28:42 CDT by Alvin Hickman
== END 2022-09-18 03:16 | disposition short-term general hospital (02) ==
LOC: ER 21:19
DX: R31.9 Hematuria, unspecified (principal); D64.9 Anemia, unspecified; R53.1 Weakness; I10 Essential (primary) hypertension; I48.91 Unspecified atrial fibrillation; Z86.73 Personal history of transient ischemic attack (TIA), and cerebral infarction without residual deficits; Z88.0 Allergy status to penicillin; Z88.5 Allergy status to narcotic agent
CPT/HCPCS: 96365; 96361; 93005 ×2; 85025; 81001; 80048; 36415; 86900; 83735; 86850; 85610; 86901; 80076; 84484; 83880; 71045; 51702; 99285; J7040; J7030; J0696

== ENCOUNTER 2023-01-23 09:33 | Emergency (ER) | payer OTHER ==
--- OUTSIDE RECORDS SUMMARY | 2023-01-23 09:40 | XMS REPORT | Continuity of Care Document ---
:1950 Author Organization [facility] t Address [address] [place] [address] [place] [address] Care Team Providers Name Role Phone OMAR POPE Primary Care Physician Unavailable Omar Pope Attending Clinician Unavailable Cuauhtemoc Dailey Attending Clinician Unavailable Eric Attending Clinician Unavailable BLAINE ROSALES Attending Clinician Unavailable JOHN FRIAS Attending Clinician Unavailable HOLA MORA Attending Clinician Unavailable Kira Lopes Attending Clinician Cuauhtemoc Dailey MD Attending Clinician Alice Dias Attending Clinician Della Carrillo Attending Clinician [phone] Doctor Unassigned, [place] Attending Clinician Unavailable Ferdinand Vaughn MD Attending Clinician Nelly Layne Attending Clinician OWENS_T Attending Clinician Unavailable Baum_L Attending Clinician Unavailable DEMETRIA GORDON Attending Clinician Unavailable DEMETRIA GORDON Attending Clinician Unavailable KENDALL ALEXANDRE Attending Clinician Unavailable Alexandre Kendall LAI Attending Clinician FERDINAND VAUGHN.HDavonte Attending Clinician Unavailable Demetria Gordon DO Attending Clinician Cassie-Mbayo_A_AH Attending Clinician Unavailable Cuauhtemoc Dailey Admitting Clinician Unavailable Deshazo_Nikos Admitting Clinician Unavailable BLAINE ROSALES Admitting Clinician Unavailable GUSTAVO AREVALO Admitting Clinician Unavailable Physician, No Primary or Family Admitting Clinician Unavaila ble OWENS_T Admitting Clinician Unavailable Baum_L Admitting Clinician Unavailable KENDALL ALEXANDRE Admitting Clinician Unavailable FERDINAND VAUGHN.HDavonte Admitting Clinician Unavailable Cassie-Mbayo_A_AH Admitting Clinician Unavailable Payers Payer Name Policy Type Policy Number Effective Date Expiration Date S [facility] [id number] 2021 (MEDICARE 00:00:00 REPLACEMENT HMO) [facility] MEDICARE [id number] 2022 00:00:00 [place]ID [place] [id number] 2022 00:00:00 [place] [id number] [place] [facility] [id number] [facility] (MEDICARE REPLACEMENT/ADVANTA GE - HMO) Problems Condition Condition Condition Status Onset Resolution Last Treating Co mments Source Name Details Category Date Date Treatment Clinician Date Persistent Persistent Disease Active U nivers atrial atrial 6-20 ity [place] Obesity Obesity Disease Active Univers 6-20 ity of 00:: [address] Essential Essential Disease Active Uni vers hypertensi hypertensi 6-20 it y of on on 00:00: [address] Stroke Stroke Disease Active Univers 6-20 ity of 00:00: [place] 00 Medical Branch Allergies, Adverse Reactions, Alerts Allergy Allergy Status Severity Reaction(s) Onset Inactive Treating Comm ents Source Name Type Date Date Clinician Penicill DA Active SV RASH [facility] ins 07-04 [place] 00:00: Health 00 are [facility] codeine DA Active SV RASH [facility] 18 [place] 00:00: Health 00 are [facility] Penicill DA Active [facility] ins 06-28 [place] 00:00: Health are [facility] codeine DA Active SV [facility]ASH [facility] 06-28 [place] 00:00: Health 00 are [facility] Codeine Propensi Active GI 2021-03 Methodi ty to Intolerance -15 st adverse 00:00: Hospita reaction 00 l s to drug Penicill Propensi Active Rash 2021-03 Method i ins ty to 1-15 st adverse 00:00: Hospita reaction 00 l s to drug PENICILL Drug Active Med Rash Univers INS Class 6-20 ity of 00:00: [place] 00 [facility] [place] CODEINE DRUG Active Low N/V 2015-0 Univers INGREDI 6-20 ity of 00:00: [place] 00 Medical Branch Penicill Propensi Active Rash 2015-0 Univer s ins ty to 6-20 ity of adverse 00:00: [place] reaction 00 Medical s Branch Penicill Propensi Active Rash 2015-0 Univer s ins ty to 6-20 ity of adverse 00:00: [place] reaction 00 Medical s Branch Codeine Propensi Active Nausea 2015-0 Univers ty to and/or 6-20 ity of adverse Vomiting 00:00: [place] reaction 00 Medical s Branch Penicill Propensi Active Rash 2015-0 Univer s ins ty to 6-20 ity of adverse 00:00: [place] reaction 00 Medical s Branch CODEINE Allergy Active High N\\T\\V 2015-[address] [facility] 00 [place] PENICILL Allergy Active High Rash 2015-[address] [facility] INS [facility] 00:[facility]: Medical 00 [place] Social History Social Habit Start Date Stop Date Quantity Comments Source Gender identity [facility] History of tobacco Chews Tobacco Uni versity of use [facility] Exposure to Not sure University of SARS-CoV-2 (event) [facility] Sexual orientation [facility] Alcohol intake 2021-06-01 2021-06-01 .43 /d University of 00:00:00 00:00:00 [facility] Cigarettes smoked 2015-09-06 2015-09-06 Univers ity of current (pack per 00:00:00 00:00:00 ) - Reported Branch Cigarette 2015-09-06 2015-09-06 University of pack-years 00:00:00 00:00:00 [facility] Tobacco use and 2015-09-06 2015-09-06 Former smokeless Uni versity of exposure 00:00:00 00:00:00 tobacco user [facility] Sex Assigned At [birth year] [facility] 00:00[facility]00 Hospital Smoking Status Start Date Stop Date Source Tobacco smoking consumption [facility] unknown Occasional tobacco smoker 2015-09-06 00:00:00 Un iversity of [facility] Medications Ordered Filled Start Stop [...] tablet 00 by mouth l daily. amLODIPine 2021-03 Yes DAILY Method i (NORVASC) [...] of succ 18:30: 17:33 s, ONCE, 1 [place] (SOLU-MEDRO 00 :00 dose, On Medi waqar L) Wed Branch injection 06/01/21 at 125 mg 1330, STAT ipratropium 2021- No 3mL 3 mL, Univ ers -albuteroL 06-01 Inhalation it y of (DUONEB) 16:45: 15:41 , ONCE, 1 Akbar as 0.5 mg-3 00 :00 dose, On Medical mg(2.5 mg Wed Branch base)/3 mL 06/01/21 at nebulizer 1145, solution 3 Routine mL predniSONE 2021- No [id number] 60mg Take 3 Univers 20 mg 06-01 tablets by ity of tablet 00:00: 04:59 mouth [place] 00 :00 every Medical morning Branch for 5 days. tc 2021- No [id number] 41.5mCi 41.5 Unive rs 99m-tetrofo 05-19 millicurie i ty of smin 16:30: 16:27 , [place] (MYOVIEW) 00 :00 Intravenou Medi waqar injection s, ONCE, 1 Bran ch 41.5 dose, On millicurie [place] 05/19/21 at 1030, Routine regadenoson 2021- No [id number] .4mg 0.4 mg, IV Univers (LEXISCAN) 05-19 Push, ity of injection 16:00: 16:27 ONCE, 1 [place] 0.4 mg 00 :00 dose, On Medical [place] 05/19/21 Branch at 1000, Routine
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 [place] [address] Medical [place] sotalol 2020-03 Yes 80mg Take 80 mg Univ ers (BETAPACE) 2-13 by mouth 2 ity of 80 mg 11:48: (two) [place] tablet 25 times Medical daily. Branch lisinopriL 2020-03 Yes 20mg Take 20 mg U nivers 20 mg 2-13 by mouth ity of tablet 11:48: daily. [address] sotalol 2020-03 Yes 80mg Take 80 mg Univ ers (BETAPACE) 2-13 by mouth 2 ity of 80 mg 11:48: (two) [place] tablet 25 times Medical daily. Branch lisinopriL 2020-03 Yes 20mg Take 20 mg U nivers 20 mg 2-13 by mouth ity of tablet 11:48: daily. [place] [address] [place] [address] Branch sotalol 2020-03 Yes 80mg Take 80 mg Univ ers (BETAPACE) 2-13 by mouth 2 ity of 80 mg 11:48: (two) [place] tablet 25 times Medical daily. Branch lisinopriL 2020-03 Yes 20mg Take 20 mg U nivers 20 mg 2-13 by mouth ity of tablet 11:48: daily. [address] sotalol 2020-03 Yes 80mg Take 80 mg Univ ers (BETAPACE) 2-13 by mouth 2 ity of 80 mg 11:48: (two) [place] tablet 25 times Medical daily. Branch lisinopriL 2020-03 Yes 20mg Take 20 mg U nivers 20 mg 2-13 by mouth ity of tablet 11:48: daily. [address] sotalol 2020-03 Yes 80mg Take 80 mg Univ ers (BETAPACE) 2-13 by mouth 2 ity of 80 mg 11:48: (two) [place] tablet 25 times Medical daily. Branch lisinopriL 2020-03 Yes 20mg Take 20 mg U nivers 20 mg 2-13 by mouth ity of tablet 11:48: daily. [address] sotalol 2020-03 Yes 80mg Take 80 mg Univ ers (BETAPACE) 2-13 by mouth 2 ity of 80 mg 11:48: (two) [place] tablet 25 times Medical daily. Branch lisinopriL 2020-03 Yes 20mg Take 20 mg U nivers 20 mg 2-13 by mouth ity of tablet 11:48: daily. [address] sotalol 2020-03 Yes 80mg Take 80 mg Univ ers (BETAPACE) 2-13 by mouth 2 ity of 80 mg 11:48: (two) [place] tablet 25 times Medical daily. Branch lisinopriL 2020-03 Yes 20mg Take 20 mg U nivers 20 mg 2-13 by mouth ity of tablet 11:48: daily. [address] sotalol 2020-03 Yes 80mg Take 80 mg Univ ers (BETAPACE) 2-13 by mouth 2 ity of 80 mg 11:48: (two) [place] tablet 25 times Medical daily. Branch lisinopriL 2020-03 Yes 20mg Take 20 mg U nivers 20 mg 2-13 by mouth ity of tablet 11:48: daily. [address] sotalol 2020-03 Yes 80mg Take 80 mg Univ ers (BETAPACE) 2-13 by mouth 2 ity of 80 mg 11:48: (two) [place] tablet 25 times Medical daily. Branch lisinopriL 2020-03 Yes 20mg Take 20 mg U nivers 20 mg 2-13 by mouth ity of tablet 11:48: daily. [address] sotalol 2020-03 Yes 80mg Take 80 mg Univ ers (BETAPACE) 2-13 by mouth 2 ity of 80 mg 11:48: (two) [place] tablet 25 times Medical daily. Branch lisinopriL 2020-03 Yes 20mg Take 20 mg U nivers 20 mg 2-13 by mouth ity of tablet 11:48: daily. [address] sotalol 2020-03 Yes 80mg Take 80 mg Univ ers (BETAPACE) 2-13 by mouth 2 ity of 80 mg 11:48: (two) [place] tablet 25 times Medical daily. Branch lisinopriL 2020-03 Yes 20mg Take 20 mg U nivers 20 mg 2-13 by mouth ity of tablet 11:48: daily. [address] sotalol 2020-03 Yes 80mg Take 80 [...] it y of mg tablet 11:47: (two) [place] 35 times Medical daily. Branch lisinopriL 2015-03 [...] Name Observation Time Observation Value Comments Source HEIGHT 2022-09-18 04:00:00 172.7 cm WEIGHT 2022-09-18 04:00:00 89.359 kg HEIGHT 2022-09-18 04:00:00 172.7 cm WEIGHT 2022-09-18 04:00:00 89.359 kg Systolic blood 2021-06-01 17:00:00 142 mm[Hg] Univer sity of pressure [place] [facility] Diastolic blood 2021-06-01 17:00:00 92 mm[Hg] Unive rsity of pressure [place] [facility] [place] Heart rate 2021-06-01 17:00:00 88 /min Universi ty of [place] [facility] Respiratory rate 2021-06-01 17:00:00 17 /min Univ ersity of [facility] Branch Oxygen saturation in 2021-06-01 17:00:00 97 /min University of Arterial blood by [employer] Pulse oximetry Branch Body temperature 2021-06-01 15:16:00 36.28 Millie Univ ersity of [place] [facility] Body weight 2021-06-01 15:16:00 99.882 kg Universi ty of [place] [facility] BMI 2021-06-01 15:16:00 33.48 kg/m2 Universi ty of [place] [facility] Systolic blood 2021-04-28 16:14:00 152 mm[Hg] Univer sity of pressure [place] [facility] Diastolic blood 2021-04-28 16:14:00 83 mm[Hg] Unive rsity of pressure [place] [facility] Heart rate 2021-04-28 16:09:00 92 /min Universi ty of [place] [facility] Body height 2021-04-28 16:09:00 172.7 cm Universi ty of [place] [facility] Body weight 2021-04-28 16:09:00 103.108 kg Universi ty of [place] [facility] BMI 2021-04-28 16:09:00 34.56 kg/m2 Universi ty of [place] [facility] Oxygen saturation in 2021-04-28 16:09:00 97 /min University of Arterial blood by [place] [employer] Pulse oximetry Branch Systolic blood 2022-06-26 13:57:00 139 mm[Hg] Method ist [facility] pressure Diastolic blood 2022-06-26 13:57:00 78 mm[Hg] Metho dist [facility] pressure Heart rate 2022-06-26 13:57:00 75 /min Methodis t [facility] Respiratory rate 2022-06-26 13:57:00 16 /min Meth [facility] Oxygen saturation in 2022-06-26 13:57:00 100 /min [facility] Arterial blood by Pulse oximetry Body height 2022-06-26 12:57:00 172.7 cm [facility] Body weight 2022-06-26 12:57:00 97.07 kg [facility] BMI 2022-06-26 12:57:00 32.54 kg/m2 [facility] Procedures Procedure Date / Time Performing Clinician Source Performed [id number] 2022-07-04 00:00:[address] [facility] [id number] 2022-07-04 00:00:[address] [facility] [id number] 2022-07-04 00:00:[address] [facility] [id number] 2022-07-04 00:00:[address] [facility] [id number] 2022-07-04 00:00:[address] [facility] MRI PELVIS W WO CONTRAST 2022-06-26 14:50:00 Sera [facility] [place] [facility] CT CHEST W CONTRAST 2022-06-26 13:46:26 [facility]BDOM[facility] W CONTRAST [facility] PELVIS W CONTRAST POC CREATININE 2022-06-26 13:07:00 Cuauhtemoc Dailey [facility] ESTIMATED GFR 2022-06-26 13:07:00 Cuauhtemoc Dailey [facility] AUTHORIZATION FOR 2022-02-03 06:01:00 Doctor Unassigned, No [facility] RELEASE OF [facility] Name Medical Branch MRI PELVIS W WO CONTRAST 2022-01-31 22:00:00 Sera [facility] [place] [facility] CT CHEST W CONTRAST 2022-01-31 20:26:00 [facility] [place] POC CREATININE 2022-01-31 20:08:00 Cuauhtemoc Dailey [facility] ESTIMATED GFR 2022-01-31 20:08:00 Cuauhtemoc Dailey [facility] MEDICAL 2021-11-07 05:01:00 Doctor Unassigned, No [facility] RELEASE/CLEARANCE FORMS Name Medical Branch XR CHEST 1 VW 2021-06-01 15:57:37 Kendall Alexandre [facility] TROPONIN I 2021-06-01 15:34:00 Kendall Alexandre [facility] COMP. METABOLIC PANEL 2021-06-01 15:34:00 Kendall Alexandre [facility] ([id number]) Medical Branch CBC WITH DIFF 2021-06-01 15:34:00 Kendall Alexandre [facility] N-TERMINAL PRO-BNP 2021-06-01 15:34:00 Kendall Alexandre [facility] Branch COVID-19 (ID NOW RAPID 2021-06-01 15:34:00 Kendall Alexandre [facility] TESTING) Medical Branch CONSENT/REFUSAL FOR 2021-06-01 15:12:41 Doctor Unassigned, No [facility] DIAGNOSIS AND TREATMENT Name Medical Branch NOTICE OF PRIVACY 2021-06-01 15:10:06 Doctor Unassigned, No [facility] PRACTICES Name Medical Branch NUCLEAR STRESS TEST 2021-05-19 17:33:00 Vaughn, Sendil [facility] CARDIOLOGY (DO NOT Medical Branc h SCHED) NM MYOCARDIUM PERFUSION 2021-05-19 17:33:00 Vaughn, Sendil [facility] STRESS AND REST Medical Branch NM MYOCARDIUM PERFUSION 2021-05-19 17:33:00 Vaughn, Sendil [facility] STRESS AND REST Medical Branch NUCLEAR STRESS TEST 2021-05-19 17:33:00 Vaughn, Sendil [facility] CARDIOLOGY (DO NOT Medical Branc h SCHED) NM MYOCARDIUM PERFUSION 2021-05-19 17:33:00 Vaughn, Sendil [facility] STRESS AND REST Medical Branch NUCLEAR STRESS TEST 2021-05-19 17:33:00 Vaughn, Sendil [facility] CARDIOLOGY (DO NOT Medical Branc h SCHED) NM MYOCARDIUM PERFUSION 2021-05-19 17:33:00 Vaughn, Sendil [facility] STRESS AND REST Medical Branch NUCLEAR STRESS TEST 2021-05-19 17:33:00 Ferdinand Vaughn [facility] CARDIOLOGY (DO NOT Medical [facility] h SCHED) EXTERNAL PROVIDER - ADC 2021-04-29 06:01:00 Doctor Unassigned, N o [facility] REFERRAL Name Medical Branch Plan of Care Planned Activity Planned Date Details Comments Source Future Scheduled 2023-01-10 [facility] Test 20:53:54 (procedure) [code = 726746012] Future Scheduled 2023-01-10 SHINGLES VACCINES (1 [facility] Test 20:53:54 of 2) [code = SHINGLES VACCINES (1 of 2)] Future Scheduled 2023-01-10 65+ [facility]OCOCC[address] [facility] Test 20:53:54 VACCINE (1 - PCV) [code = 65+ PNEUMOCOCCAL VACCINE (1 - PCV)] Future Scheduled 2023-01-10 COVID-19 VACCINE (3 - [facility] Test 20:53:54 season) [code = COVID-19 VACCINE (3 - season)] Future Scheduled 2023-01-10 INFLUENZA VACCINE (#1) [facility] Test 20:53:54 [code = INFLUENZA VACCINE (#1)] Future Scheduled 2022-09-05 [facility] C [facility] Test 22:55:06 (procedure) [code = 928099339] Future Scheduled 2022-09-05 SHINGLES VACCINES (1 [facility] Test 22:55:06 of 2) [code = SHINGLES VACCINES (1 of 2)] Future Scheduled 2022-09-05 65+ [facility]OCOCCAL [facility] Test 22:55:06 VACCINE (1 - PCV) [code = 65+ PNEUMOCOCCAL VACCINE (1 - PCV)] Future Scheduled 2022-09-05 COVID-19 VACCINE (3 - [facility] Test 22:55:06 Pfizer series) [code = COVID-19 VACCINE (3 - Pfizer series)] Future Scheduled 2022-09-05 INFLUENZA VACCINE [facility] Test 22:55:06 [code = INFLUENZA VACCINE] Future Scheduled 2022-07-04 [facility] C [facility] Test 00:13:01 (procedure) [code = 242359097] Future Scheduled 2022-07-04 COLONOSCOPY SCREENING [facility] Test 00:13:01 [code = COLONOSCOPY SCREENING] Future Scheduled 2022-07-04 SHINGLES VACCINES (1 Met [facility] Test 00:13:01 of 2) [code = SHINGLES VACCINES (1 of 2)] Future Scheduled 2022-07-04 65+ PNEUMOCOCCAL [facility] Hospital Test 00:13:01 VACCINE (1 - PCV) [code = 65+ PNEUMOCOCCAL VACCINE (1 - PCV)] Future Scheduled 2022-07-04 COVID-19 VACCINE (3 - [facility] Test 00:13:01 Booster for Pfizer series) [code = COVID-19 VACCINE (3 - Booster for Pfizer series)] Future Scheduled 2022-07-04 INFLUENZA VACCINE Method [facility] Test 00:13:01 [code = INFLUENZA VACCINE] Future Scheduled 2022-07-04 Hepatitis C screening [facility] Test 00:13:01 (procedure) [code = 841132643] Future Scheduled 2022-07-04 COLONOSCOPY SCREENING [facility] Test 00:13:01 [code = COLONOSCOPY SCREENING] Future Scheduled 2022-07-04 SHINGLES VACCINES (1 Met [facility] Test 00:13:01 of 2) [code = SHINGLES VACCINES (1 of 2)] Future Scheduled 2022-07-04 65+ PNEUMOCOCCAL Methodi [facility] Test 00:13:01 VACCINE (1 - PCV) [code = 65+ PNEUMOCOCCAL VACCINE (1 - PCV)] Future Scheduled 2022-07-04 COVID-19 VACCINE (3 - [facility] Test 00:13:01 Booster for Pfizer series) [code = COVID-19 VACCINE (3 - Booster for Pfizer series)] Future Scheduled 2022-07-04 INFLUENZA VACCINE Method [facility] Test 00:13:01 [code = INFLUENZA VACCINE] Encounters Start End Encounter Admission Attending Care Care Encounter Source Date/Time Date/Time Type Type Clinicians Facility Department ID 2022-11-06 Outpatient Pope, [facility] [id number] Common 16:26:00 Omar [id number] [facility] 2022-10-18 [facility] [id number] Common 14:19:00 Omar 24[address] [facility] 2022-09-27 Out[facility] [id number] Common 09:46:00 Omar Mathew12 [facility] 2022-09-21 Outpatient Pope, [facility] [id number] Common 11:04:00 Omar [id number] [facility] 2022-08-09 Outpatient Pope, [facility] [id number] Common 09:46:01 Omar [id number] [facility] 2022-07-19 Outpatient Pope, [facility] [id number] Common 15:09:01 Omar Nicholson [facility] 2022-03-07 Inpatient Cuauhtemoc Meyer [facility] DAYS [id number] [facility] 07:30:00 62 [facility] 2023-01-05 2023-01-05 Outpatient Deshazo_T DMG DMG [id number] 00:00:00 00:00:00 [id number] [facility]ica l Group 2022-09-18 2022-09-20 Inpatient ER [facility] Emergency [id number] [facility] 04:28:00 15:55:00 BLAINE 2022-09-18 2022-09-18 Outpatient ER HOLA MORA [facility] [id number] [facility] 07:56:40 07:56:40 2022-09-18 2022-09-18 Outpatient ER RODRIGUEZ SLERufino [facility] [id number] [facility] 07:15:12 07:15:12 [place] 2022-09-18 2022-09-18 Outpatient RODRIGUEZ, SLEH [facility] [id number] [facility] 00:00:00 00:00:00 [place] 2022-07-19 2022-07-19 ANDRÉS Visit Kira Lopes 2.16.840. 2.16.840.1 . [id number] [facility]oted 18:00:00 19:00:00 [id number]. 173724.4.6. [address] [place] [id number] 2022-07-04 2022-07-09 Inpatient Cuauhtemoc Meyer [facility] MEDI.01 [id number] [facility] 00:12:00 13:30:00 19 [facility] 2022-07-04 2022-07-04 Outpatient Cuauhtemoc Dailey HCANW REF [id number] [facility] 15:04:00 15:04:00 82 [facility] are [facility] 2022-06-28 2022-06-28 Outpatient Cuauhtemoc Dailey [facility] 3DAY [id number] [facility] 08:00:00 09:00:00 91 [facility] are Medical Center 2022-06-26 2022-06-26 [facility] 1.2.840.1 [id number] Methodi 08:35:27 23:59:00 Encounter Russell [id number] 200 s t 3.430.2.7 Hospit a .3.151850 l .8 2022-06-26 2022-06-26 [facility] 1.2.840.1 [id number] Methodi 08:35:27 23:59:00 Encounter Russell [id number] 200 s t 3.430.2.7 Hospit a .3.096974 l .8 2022-06-26 2022-06-26 [facility] 1.2.840.1 [id number] Methodi 07:35:42 08:34:00 Encounter Russell [id number] 201 s t 3.430.2.7 Hospit a .3.543282 l .8 2022-06-26 2022-06-26 [facility] 1.2.840.1 [id number] Methodi 07:35:42 08:34:00 Encounter Russell [id number] 201 s t 3.430.2.7 Hospit a .3.555261 l .8 2022-06-26 2022-06-26 Travel 1.2.840.1 1.2.479.330 [id number] Methodi 00:00:00 00:00:[address] 3.430.2.7 0.2.7.3.698 Ho spita .3.765601 084.8 l .8 2022-06-26 2022-06-26 Travel 1.2.840.1 1.2.199.819 [id number] Methodi 00:00:00 00:00:[address] 3.430.2.7 0.2.7.3.698 Ho spita .3.320091 084.8 l .8 2022-05-25 2022-05-25 CAV Alice 2.16.840. 2.16.840.1. [facility] [id number] Devoted 14:30:00 15:30:00 Landeros 1.631556. 034901.4.6. S [facility] [id number] 2022-05-19 2022-05-19 Orders [place] 1.2.840.1 [id number] Methodi 00:00:00 00:00:00 Only my, [address]88.1.[address] [place] 3.430.2.7 Hospi ta [place] .3.066544 l .8 2022-05-19 2022-05-19 Orders [place] 1.2.840.1 [id number] Methodi 00:00:00 00:00:00 Only my, [address]751.1.[address] [place] 3.430.2.7 Hospi ta [place]aves .3.552788 l .8 2022-02-21 2022-02-21 Orders [place] 1.2.840.1 [id number] 21 [id number] Methodi 00:00:00 00:00:00 Only my, 85867.1.[address] [place] 3.430.2.7 Hospi ta [place]aves .3.938178 l .8 2022-02-21 2022-02-21 Orders [place] 1.2.840.1 [id number] 21 [id number] Methodi 00:00:00 00:00:00 Only my, [address]94.1.[address] [place] 3.430.2.7 Hospi ta [place]aves .3.000977 l .8 2022-02-03 2022-02-03 Orders Doctor CISNEROS 1.2.840.[id number] [place] [address] 00:00:00 00:00:00 Only Unassigned, JOAN 350.1.13.10 ity of [place] [facility] 4.2.7.2.686 Akbar as [id number] [address] 2022-01-31 2022-01-31 [facility] 1.2.840.1 [id number] Methodi 14:24:40 23:59:00 Encounter Russell [id number] 128 s t 3.430.2.7 Hospit a .3.132526 l .8 2022-01-31 2022-01-31 [facility] [place] 1.2.840.1 [id number] 21 [id number] Methodi 14:24:40 23:59:00 Encounter Russell [id number] 128 s t 3.430.2.7 Hospit a .3.945093 l .8 2022-01-31 2022-01-31 [facility] [place] 1.2.840.1 [id number] 21 [id number] Methodi 13:53:59 14:23:00 Encounter Russell 50035.1.1 129 s t 3.430.2.7 Hospit a .3.445564 l .8 2022-01-31 2022-01-31 [facility] [place] 1.2.840.1 [id number] Methodi 13:53:59 14:23:00 Encounter Russell [id number] 129 s t 3.430.2.7 Hospit a .3.600631 l .8 2022-01-31 2022-01-31 Outpatient Deshazo_T [facility] [id number] Devoted 00:00:00 00:00:00 [id number] Medica l Group 2022-01-31 2022-01-31 Outpatient Deshazo_T [facility] [id number] Devoted 00:00:00 00:00:00 [id number] Medica l Group 2022-01-31 2022-01-31 [facility] [id number] 0-202 Devoted 00:00:00 00:00:00 [id number] Medica l Group 2022-01-31 2022-01-31 Travel 1.2.840.1 1.2.993.250 [id number] Methodi 00:00:00 00:00:[address] 3.430.2.7 0.2.7.3.698 Ho spita .3.852132 084.8 l .8 2022-01-31 2022-01-31 Travel 1.2.840.1 1.2.653.933 1202 [id number] Methodi 00:00:00 00:00:[address] 3.430.2.7 0.2.7.3.698 Ho spita .3.409762 084.8 l .8 2022-01-13 2022-01-13 Orders Alaanagurusa 1.2.840.1 [id number] Methodi 00:00:00 00:00:00 Only my, [address]25.1.[address] [place] 3.430.2.7 Hospi ta Chaves .3.362676 l .8 2021-11-07 2021-11-07 Telephone Vaughn, [facility] 1.2.857.195 [id number] Univers 00:00:00 00:00:00 Ferdinand GOOD 350.1.13.10 it[place] [phone] [place] dical [facility] 059 [facility] 2021-11-07 2021-11-07 Orders Doctor CISNEROS 1.2.840.114 [id number] Univers 00:00:00 00:00:00 Only Unassigned, JOAN 350.1.13.10 ity of [place] [facility] 4.2.7.2.686 Akbar as [id number] [facility] [address] 2021-09-30 2021-09-30 Outpatient Deshazo_T DMG DMG 02826 07:30:00 07:30:00 [id number] Medica l Group 2021-09-27 2021-09-27 CAV Nelly 2.16.840. 2.16.840.1. CLAC AD114R Devoted 19:00:00 20:00:00 Xi 1.446511. 521314.4.6. 29G [facility] 4.6.35700 [id number] 2021-09-23 2021-09-23 [facility] [id number] Devoted 11:39:00 11:39:00 [id number] Medica l Group 2021-09-15 2021-09-15 Outpatient OWENS_T DMG [facility] [id number]- 202 Devoted 04:05:00 04:05:00 [id number] Medica l Group 2021-09-07 2021-09-07 Outpatient OWENS_T DMG [facility] [id number]- Devoted 03:53:00 03:53:00 [id number] Medica l Group 2021-09-06 2021-09-06 Outpatient Baum_L [facility] [id number]- [place] 10:19:00 10:19:00 [id number] [facility] 2021-09-02 2021-09-[address] [facility] [id number]- Devoted 10:00:00 10:00:00 51621 Medica l Group 2021-09-01 2021-09-01 [facility] 10 [id number] Univers 10:00:00 10:00:00 DEMETRIA GORDON i [facility] 2021-09-01 2021-09-01 Outpatient R GORDON TIMPRGillian [facility] 10 [id number] Univers 10:00:00 10:00:00 DEMETRIA GORDON i [facility] 2021-06-15 2021-06-15 Outpatient [facility] [id number]- Devoted 04:01:00 04:01:00 [id number] Medica l Group 2021-06-08 2021-06-08 [facility]phone [facility] 1.2.249.135 [id number] [facility] 00:00:00 00:00:00 Ferdinand GOOD 350.1.13.10 [facility] 4.2.7.2.686 Parish umana PROFCOLETTEIO [id number] [address] 2021-06-01 2021-06-01 Emergency X BETTIE [facility] ERT [id number] Univers 10:17:00 12:42:00 KENDALL ity of [facility] 2021-06-01 2021-06-01 Emergency [facility] 1.2.735.145 [id number] Univers 10:17:00 12:42:00 Kendall S LATISHA 350.1.13.10 i ty [place] [id number] [facility] [address] 2021-06-01 2021-06-01 Orders Doctor BLAYNE 1.2.840.114 [id number] Univers 00:00:00 00:00:00 Only Unassigned, JOAN 350.1.13.10 ity of [place] [facility] 4.2.7.2.686 Akbar as [phone] [facility] [address] 2021-05-19 2021-05-19 [facility] 1.2.840.114 [id number] Univers 08:13:08 23:59:00 Encounter Sendkeri GOOD 350.1.13.10 [place] [id number] [facility] [address] [place] 2021-05-19 2021-05-19 [facility] 1.2.840.114 [id number] Univers 08:12:41 08:12:41 Encounter Sendkeri GOOD 350.1.13.10 it[place] [id number] [facility] [address] [place] 2021-05-19 2021-05-19 [facility] 1.2.840.114 [id number] Univers 08:12:12 08:12:12 Encounter Sendkeri GOOD 350.1.13.10 it[place] [id number] [facility] [address] [place] 2021-05-19 2021-05-19 [facility] [id number] Univers 08:11:48 08:11:48 SENDIL ity of [facility] 2021-05-19 2021-05-19 [facility] 1.2.840.114 [id number] Univers 08:11:48 08:11:48 Encounter Ferdinand GOOD 350.1.13.10 ity [facility] [place] [id number] [facility] [address] 2021-05-19 2021-05-19 [facility] [id number] Univers 00:00:00 00:00:00 SENDIL ity [facility] 2021-04-29 2021-04-29 Orders Doctor BLAYNE 1.2.840.114 [id number] Univers 00:00:00 00:00:00 Only Unassigned, JOAN 350.1.13.10 ity of [facility] 4.2.7.2.686 Akbar [id number] [facility] [address] 2021-04-28 2021-04-28 Outpatient R DEMETRIA GORDON [facility] 10 [id number] Univers 10:00:00 10:44:28 DEMETRIA GORDON i ty of [facility] 2021-04-28 2021-04-28 Office [facility] 1.2.840.114 [id number] Univers 10:00:00 10:44:28 Visit Demetria GOOD 350.1.13.10 i ty [facility] 4.2.7.2.686 [facility] PROFESSIO [phone] N[place] dical [facility] 085 [facility] 2021-04-28 2021-04-28 Outpatient R DEMETRIA GORDON [facility] 10 [id number] Univers 10:00:00 10:44:28 DEMETRIA GORDON i ty of [facility] 2021-04-11 2021-04-11 [facility] [id number] Univers 13:30:00 13:30:00 SENDIL ity [facility] 2021-04-11 2021-04-11 Out[facility] [id number] Univers 13:30:00 13:30:00 SENDIL ity [facility] 2021-03-23 2021-03-23 Telephone [facility] 1.2.233.671 [id number] Univers 00:00:00 00:00:00 Sendil Rosalind GOOD 350.1.13.10 [place] [phone] [facility] 2021-03-07 2021-03-07 [facility] [id number] Univers 08:30:00 23:59:00 SENDIL ity [facility] 2021-03-07 2021-03-07 Outpatient [facility] [id number] Univers 08:30:00 23:59:00 SENDIL ity [facility] 2021-03-07 2021-03-07 [facility] 1.2.840.114 [id number] Univers 08:30:00 23:59:00 Encounter Sendkeri GOOD 350.1.13.10 ity [facility] [place] [id number] [facility] [address] [place] [address] 2021-03-07 2021-03-07 Outpatient R [facility] [id number] Univers 08:30:00 08:30:00 SENDIL ity [facility] 2021-02-28 2021-02-28 Outpatient [facility] [id number] Univers 11:00:00 12:17:50 SENDIL ity [facility] 2021-02-28 2021-02-28 [facility] [id number] Univers 11:00:00 12:17:50 SENDIL ity [facility] 2021-02-28 2021-02-28 Office [facility] 1.2.840.114 [id number] Univers 11:00:00 12:17:50 Visit Sendkeri GOOD 350.1.13.10 it[place] [phone] [place] dical NAL 059 [facility] 2021-02-28 2021-02-28 Outpatient [facility] [id number] Univers 11:00:00 12:17:50 SENDIL ity [facility] 2021-02-28 2021-02-28 Outpatient Dania VAUGHN, [facility] [id number] [facility] 11:00:00 12:17:50 SENDIL ity [facility] 2021-02-28 2021-02-28 Orders Doctor BLAYNE 1.2.840.114 [id number] Univers 00:00:00 00:00:00 Only Unassigned, JOAN 350.1.13.10 ity of [place] [facility] 4.2.7.2.686 Akbar as [id number] [address] 2019-05-07 2019-05-07 Outpatient Cassie-Mbminao [facility] [id number] [facility] 07:23:00 07:23:00 _A_ 92316 Family Practic e Results Test Description Test Time Test Comments Results Result Comments Source URINALYSIS W/ REFLEX URINE CULTURE 2022-09-20 09:39:17 Test Item Value Reference Range Interpretation Comme nts COLOR (BEAKER) (test code = 470) Light Yellow CLARITY (BEAKER) (test code = 469) Hazy SPECIFIC GRAVITY UA (BEAKER) (test code = 468) 1.011 1.001-1 .035 PH UA (BEAKER) (test code = 467) 7.0 5.0-8.0 PROTEIN UA (BEAKER) (test code = 464) 30 mg/dL Negative A GLUCOSE UA (BEAKER) (test code = 365) Negative Negative KETONES UA (BEAKER) (test code = 371) Negative Negative BILIRUBIN UA (BEAKER) (test code = 462) Negative Negative BLOOD UA (BEAKER) (test code = 461) Large Negative A NITRITE UA (BEAKER) (test code = 465) Negative Negative LEUKOCYTE ESTERASE UA (BEAKER) (test code = 466) Large Negat nahun A UROBILINOGEN UA (BEAKER) (test code = 463) 0.2 0.2-1.0 RBC UA (BEAKER) (test code = 519) 75 /HPF WBC UA (BEAKER) (test code = 520) 26 /HPF BACTERIA (BEAKER) (test code = 517) Many MUCUS (BEAKER) (test code = 1574) Rare SOURCE(BEAKER) (test code = 2795) Architect In Training ID - [auto]Architect In Training ID - [id number] 06:18:49 Test Item Value Reference Range Interpretation Comments PROSTATE SPECIFIC ANTIGEN (BEAKER) 1.2 ng/mL 0.0-4.0 (test code = 844) Architect In Training ID - ADMINBASIC METABOLIC [id number] 05:47:17 Test Item Value Reference Range Interpretation Comments SODIUM (BEAKER) 136 meq/L 136-145 (test code = 381) POTASSIUM 4.3 meq/L 3.5-5.1 (BEAKER) (test code = 379) CHLORIDE (BEAKER) 107 meq/L 98-107 (test code = 382) CO2 (BEAKER) 21 meq/L 22-29 L (test code = 355) BLOOD UREA 7 mg/dL 7-21 NITROGEN (BEAKER) (test code = 354) CREATININE 0.75 mg/dL 0.57-1.25 (BEAKER) (test code = 358) GLUCOSE RANDOM 91 mg/dL 70-105 (BEAKER) (test code = 652) CALCIUM (BEAKER) 8.5 mg/dL 8.4-10.2 (test code = 697) EGFR (BEAKER) 97 Interpretati on of eGFR (test code = mL/min/1.73 values Stage De scription 1092) sq m Result G1 Carol l or high >=90 G2 Mildly decreased 60-89 G3a Mildl y to moderately 45-5 9 G3b Moderately to s everely 30-44 G4 Severl y decreased 15-29 G5 Kidney failure <15Reported eGF R is based on the CKD-EPI 2020 equation that d oes not use a race coefficientEsti mated GFR is not as accur ate as Creatinine Beba maradiaga in predicting glom erular filtration rate . Estimated GFR is not appl icable for dialysis patien ts Architect In Training ID - [id number] 05:47:17 Test Item Value Reference Range Interpretation Comments MAGNESIUM (BEAKER) (test code = 2.2 mg/dL 1.6-2.6 627) Architect In Training ID - ADMINCBC W/PLT COUNT & AUTO [id number] 05:38:21 Test Item Value Reference Range Interpretation Comments WHITE BLOOD CELL COUNT (BEAKER) 4.8 K/ L 3.5-10.5 (test code = 775) RED BLOOD CELL COUNT (BEAKER) 2.83 M/ L 4.63-6.08 L (test code = 761) HEMOGLOBIN (BEAKER) (test code = 9.1 GM/DL 13.7-17.5 L 410) HEMATOCRIT (BEAKER) (test code = 28.0 % 40.1-51.0 L 411) MEAN CORPUSCULAR VOLUME (BEAKER) 99 fL 79-92 H (test code = 753) MEAN CORPUSCULAR HEMOGLOBIN 32.2 pg 25.7-32.2 (BEAKER) (test code = 751) MEAN CORPUSCULAR HEMOGLOBIN CONC 32.5 GM/DL 32.3-36.5 (BEAKER) (test code = 752) RED CELL DISTRIBUTION WIDTH 16.1 % 11.6-14.4 H (BEAKER) (test code = 412) PLATELET COUNT (BEAKER) (test 228 K/CU MM 150-450 code = 756) MEAN PLATELET VOLUME (BEAKER) 9.4 fL 9.4-12.4 (test code = 754) NUCLEATED RED BLOOD CELLS 0 /100 WBC 0-0 (BEAKER) (test code = 413) NEUTROPHILS RELATIVE PERCENT 61 % (BEAKER) (test code = 429) LYMPHOCYTES RELATIVE PERCENT 28 % (BEAKER) (test code = 430) MONOCYTES RELATIVE PERCENT 7 % (BEAKER) (test code = 431) EOSINOPHILS RELATIVE PERCENT 4 % (BEAKER) (test code = 432) BASOPHILS RELATIVE PERCENT 0 % (BEAKER) (test code = 437) NEUTROPHILS ABSOLUTE COUNT 2.92 K/ L 1.78-5.38 (BEAKER) (test code = 670) LYMPHOCYTES ABSOLUTE COUNT 1.33 K/ L 1.32-3.57 (BEAKER) (test code = 414) MONOCYTES ABSOLUTE COUNT (BEAKER) 0.35 K/ L 0.30-0.82 (test code = 415) EOSINOPHILS ABSOLUTE COUNT 0.17 K/ L 0.04-0.54 (BEAKER) (test code = 416) BASOPHILS ABSOLUTE COUNT (BEAKER) 0.02 K/ L 0.01-0.08 (test code = 417) IMMATURE GRANULOCYTES-RELATIVE 0.40 % 0.00-1.00 PERCENT (BEAKER) (test code = 2801) HEMOGLOBIN AND [id number] 16:14:00 Test Item Value Reference Range Interpretation Comments HEMOGLOBIN (MARY KATE) (test code = 8.7 GM/DL 13.7-17.5 L 410) HEMATOCRIT (MARY KATE) (test code = 27.3 % 40.1-51.0 L 411) Architect In Training ID - [id number] ABDOMEN/PELVIS WITH & WITHOUT IV [id number] 09:56:41[facility] : 1950 Sex: MCT ABDOMEN/PELVIS WITH & WITHOUT IV CONTRASTCLINICAL HISTORY: Unlisted Reason for ExamhematuriaCOMPARISON: NoneTECHNIQUE: CT abdomen and pelvis, urogram protocol, without and with IVcontrast. The examination was performed according to departmentaldose-optimization program which includes automated exposure control,adjustment of the mA and/or kV according to patient size and/or use ofiterative reconstruction technique. FINDINGS:Genitourinary Findings:Right kidney and ureterCalculi and collecting system: None. No hydronephrosis.Renal lesion: None.Urothelial lesion: None.Left kidney and ureterCalculi and collecting system: None. No hydronephrosis.Renal lesion: None.Urothelial lesion: None.Urinary bladder: Bladder wall trabeculations and circumferential wallthickening of the urinary bladder. Alexandre catheter in place with mostlydecompressed urinary bladder. Multiple small diverticula along the rightposterior urinary bladder.Additional Findings:Lung bases: Calcified right lower lobe pulmonary nodule suggestive ofold granulomatous disease. Coronary artery calcifications.Liver: Unremarkable.Gallbladder and bile ducts: Surgically absent gallbladder. No biliarydilatation.Spleen: Unremarkable.Pancreas: Unr emarkable.Adrenals: UnremarkableBowel: Predominantly left sided colonic diverticulosis withoutassociated colonic wall thickening or surrounding stranding. 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 No evidence for bowel obstruction, no bowel wall thickening. Most of the rectum is absent. Reproductive organs: Hypoenhancing soft tissue measuring 4 x 3.7 cmalong the midline posterior superior aspect of the prostate gland, abutsthe posterior aspect of the urinary bladder and rectal stump. Lymph nodes: Several mildly suspicious pelvic lymph nodes, for example a7 mm short axis right internal iliac chain lymph node, two rightexternal iliac chain nodes both a 10 mm short axis, 8 mm short axis leftcommon iliac chain lymph node, and an 8 mm short axis presacralnode onseries 3 image 105 and a 6 mm short axis RENEE node on series 3 image 71.Peritoneum: Unremarkable.Vessels: Extensive atherosclerotic calcifications.Abdominal wall: Parastomal hernia in the left lower quadrant andsequelae of subcutaneous medication administration in the right lowerquadrant.Bones: Exaggerated lumbar lordosis and multilevel degenerative changesthroughout the visible spine. No aggressive osseous lesions.IMPRESSION:1. No nephroureterolithiasis or suspicious renal or urothelial lesions.2. Hypoenhancing 4 cm focus of soft tissue along the midline posteriorsuperior aspect of the prostate gland, abuts the posterior aspect of theurinary bladder and rectal stump. Could be recurrent or residual rectalcancer. Correlate with pelvic MRI.3. Circumferential bladder wall thickening and bladder walltrabeculations with bladder diverticuli.4. Predominantly left sided colonic diverticulosis without associatedcolonic wall thickening or surrounding stranding. Diverting left lowerquadrant colostomy with a sigmoid colon containing parastomal hernia. Noevidence for bowel obstruction or strangulation.5. Mildly suspicious pelvic lymph nodes as described above up to 1 cmshort axis.Electronically Signed By: Cuauhtemoc Frost09/18/2022 09:58 CDTWorkstation Name: [id number] 06:14:38 Test Item Value Reference Range Interpretation Comments MAGNESIUM (BEAKER) (test code = 2.1 mg/dL 1.6-2.6 627) Architect In Training ID - BVBASIC METABOLIC [id number] 06:14:37 Test Item Value Reference Range Interpretation Comments SODIUM (BEAKER) 134 meq/L 136-145 L (test code = 381) POTASSIUM 4.1 meq/L 3.5-5.1 (BEAKER) (test code = 379) CHLORIDE (BEAKER) 105 meq/L 98-107 (test code = 382) CO2 (BEAKER) 21 meq/L 22-29 L (test code = 355) BLOOD UREA 5 mg/dL 7-21 L NITROGEN (BEAKER) (test code = 354) CREATININE 0.72 mg/dL 0.57-1.25 (BEAKER) (test code = 358) GLUCOSE RANDOM 91 mg/dL 70-105 (BEAKER) (test code = 652) CALCIUM (BEAKER) 8.2 mg/dL 8.4-10.2 L (test code = 697) EGFR (BEAKER) 98 Interpretatio n of eGFR (test code = mL/min/1.73 values Stage De scription 1092) sq m Result G1 Craol l or high >=90 G2 Mildly decreased 60-89 G3a Mildl y to moderately 45-5 9 G3b Moderately to s everely 30-44 G4 Severl y decreased 15-29 G5 Kidney failure <15Reported eGF R is based on the CKD-EPI 2020 equation that d oes not use a race coefficientEsti mated GFR is not as accur ate as Creatinine Beba hiren in predicting glom erular filtration rate . Estimated GFR is not appl icable for dialysis patien ts Architect In Training ID - [id number] 05:57:20 Test Item Value Reference Range Interpretation Comments PROTIME (BEAKER) (test code = 13.8 seconds 11.9-14.2 759) INR (BEAKER) (test code = 370) 1.08 <=5.90 PARTIAL THROMBOPLASTIN TIME 33.3 seconds 22.5-36.0 (BEAKER) (test code = 760) RECOMMENDED COUMADIN/WARFARIN INR THERAPY RANGESSTANDARD DOSE: 2.0 - 3.0 Includes: PROPHYLAXIS for venous thrombosis, systemic embolization; TREATMENT for venous thrombosis and/or pulmonary embolus.HIGH RISK: Target INR is 2.5-3.5 for patients with mechanical heart valves.CBC W/PLT COUNT & AUTO [id number] 05:57:19 Test Item Value Reference Range Interpretation Comments WHITE BLOOD CELL COUNT (BEAKER) 3.9 K/ L 3.5-10.5 (test code = 775) RED BLOOD CELL COUNT (BEAKER) 2.53 M/ L 4.63-6.08 L (test code = 761) HEMOGLOBIN (BEAKER) (test code = 8.2 GM/DL 13.7-17.5 L 410) HEMATOCRIT (BEAKER) (test code = 25.1 % 40.1-51.0 L 411) MEAN CORPUSCULAR VOLUME (BEAKER) 99 fL 79-92 H (test code = 753) MEAN CORPUSCULAR HEMOGLOBIN 32.4 pg 25.7-32.2 H (BEAKER) (test code = 751) MEAN CORPUSCULAR HEMOGLOBIN CONC 32.7 GM/DL 32.3-36.5 (BEAKER) (test code = 752) RED CELL DISTRIBUTION WIDTH 15.7 % 11.6-14.4 H (BEAKER) (test code = 412) PLATELET COUNT (BEAKER) (test 207 K/CU MM 150-450 code = 756) MEAN PLATELET VOLUME (BEAKER) 9.1 fL 9.4-12.4 L (test code = 754) NUCLEATED RED BLOOD CELLS 0 /100 WBC 0-0 (BEAKER) (test code = 413) NEUTROPHILS RELATIVE PERCENT 51 % (BEAKER) (test code = 429) LYMPHOCYTES RELATIVE PERCENT 35 % (BEAKER) (test code = 430) MONOCYTES RELATIVE PERCENT 8 % (BEAKER) (test code = 431) EOSINOPHILS RELATIVE PERCENT 5 % (BEAKER) (test code = 432) BASOPHILS RELATIVE PERCENT 1 % (BEAKER) (test code = 437) NEUTROPHILS ABSOLUTE COUNT 1.99 K/ L 1.78-5.38 (BEAKER) (test code = 670) LYMPHOCYTES ABSOLUTE COUNT 1.35 K/ L 1.32-3.57 (BEAKER) (test code = 414) MONOCYTES ABSOLUTE COUNT (BEAKER) 0.29 K/ L 0.30-0.82 L (test code = 415) EOSINOPHILS ABSOLUTE COUNT 0.19 K/ L 0.04-0.54 (BEAKER) (test code = 416) BASOPHILS ABSOLUTE COUNT (BEAKER) 0.02 K/ L 0.01-0.08 (test code = 417) IMMATURE GRANULOCYTES-RELATIVE 0.80 % 0.00-1.00 PERCENT (BEAKER) (test code = 2801) CBC W/AUTO [id number] 12:22:00 Test Item Value Reference Range Interpretation Comments WHITE BLOOD CELL (test code = 5.2 x10 3/uL 4.8-10.8 N WBC) RED BLOOD CELL (test code = 3.30 x10 6/uL 4.70-6.10 L RBC) HEMOGLOBIN (test code = HGB) 10.7 g/dL 14.0-18.0 L HEMATOCRIT (test code = HCT) 32.3 % 42.0-52.0 L MEAN CELL VOLUME (test code = 97.9 fL 80.0-94.0 H MCV) MEAN CELL HGB (test code = MCH) 32.4 pg 27-31 H MEAN CELL HGB CONCENTRATION 33.1 G/DL 33-36.5 N (test code = MCHC) RED CELL DISTRIBUTION WIDTH 12.9 % 12.9-16.9 N (test code = RDW) PLATELET COUNT (test code = 178 x10 3/uL 150-440 N PLT) MEAN PLATELET VOLUME (test code 10.2 fL 8.9-12.4 N = MPV) NEUTROPHIL % (test code = NT%) 61.0 [...] x10 3/uL 0.0-0.20 N - US RETRO [id number] 10:20:00 [facility] 1950 Sex: MPatient Name: MIKEY MORILLO JR Unit No: [id number] EXAMS: CPT CODE: [id number] RETRO [id number] RENAL ULTRASOUND LOCATION: H 30 History: Urinary retention. Technique: Transabdominal sonography of the kidneys and bladder were performed. Unless otherwise specified, incidental findings do notrequire dedicated imaging follow- up. No prior exams are available for comparison. Findings: Both kidneys are normal in size, shape and echotexture. Renal cortical thickness is normal on each side a 2 cm. The right kidney measures 11.0 x 5.4 x 5.2 cm, and the left kidney measures 11.2 x 6.1 x 6.8 cm. No focal mass, calculus, hydronephrosis or perirenal inflammatory process [...] signed by: Earl Veronica Jr, MD CC: Cuauhtemoc Dailey MD; Ethan Lang MD Technologist: QUAN BOOKER RDMS () Probe: Trscr Dt/Tm: 07/09/2022 (1020) by:Jose Printed Date/Time: 07/09/2022 (1024) Name: [facility] Phys: Ethan Garcia MD [address] : 1950 Age: 72 Sex: M Aguila Hodge [address]Vaol No: [id number] Loc: P.0906 1 Exam Date: 07/09/2022 Status: ADM IN PH: FAX: PAGE 1 Signed ReportPROSTATE SPECIFIC [id number] 04:04:00 Test Item Value Reference Range Interpretation Comments PROSTATE SPECIFIC ANTIGEN (test 4.15 ng/mL 0.0-4.0 H code = PSA SCREEN) HGB [id number] 05:12:00 Test Item Value Reference Range Interpretation Comments HEMOGLOBIN (test code = HGB) 11.0 g/dL 14.0-18.0 L HEMATOCRIT (test code = HCT) 32.9 % 42.0-52.0 L CBC W/MANUAL [id number] 08:09:00 Test Item Value Reference Range Interpretation [...] MORPHOLOGY (test NORMAL NORMAL code = PLTMORPH) [id number] 06:11:00 Test Item Value Reference Range Interpretation Comments MAGNESIUM (test code = MAG) 1.9 mg/dL 1.6-2.6 N BASIC METABOLIC [id number] 06:07:00 Test Item Value Reference Range Interpretation [...] code 8.0 mg/dL 8.7-10.4 L = CA) [id number] 17:13:00 Test Item Value Reference Range Interpretation Comments SURGICAL (test code = SR) RUN DATE: 07/11/22 [facility] - LAB PAGE 1 RUN TIME: 0856 Specimen Inquiry RUN USER: INTERFACE ELIZA ENT: MIKEY MORILLO JR LOC: P.9S POD A U #: [id number] AGE/SX: 72/M ROOM: P.[facility] [place] RE07/04/22REG DR: Cuauhtemoc Dailey MD : 54 BED: 1 DIS: 07/09/22 STATUS: DIS IN TLOC: SPEC #: [id number] RECD: 07/04/22 STATUS: NARDA JUDGE #: [id number] CHAPARRO: 07/04/22-[address]: Cuauhtemoc Dailey MD ENTERED: 07/04/22 SP TYPE: SURGICAL OTHR DR: No Primary or Family PhysicianORDERED: 86969, 21256/3, 00091, ANATOMIC SPEC, [id number] HISTOLOGY: TISSUE ID [id number] [...] Addendum Signed SIGNATURE ON FILE [place] Garrido Henry 07/11/22 0856 CAP CANCER SUMMARY CASE SUMMARY: (COLON AND RECTUM: Resection, Including Transanal Disk Excision of RectalNeoplasms) PATHOLOGIC STAGE CLASSIFICATION (pTNM, AJCC 8th Edition) Pathologic Stage: mZ0Nhnpnvis Lymph Nodes: gN4Inasidz Metastasis: Not applicable SPECIMEN Procedure: Low anterior resection CONTINUED ON NEXT PAGE RUN DATE: 07/11/22 [facility] - LAB PAGE 2 RUN TIME: 855 Specimen Inquiry RUN USER: INTERFACE SPEC #: [id number] PATIENT: MORILLOMIKEY #[id number] (Continued) ------- CAP CANCER SUMMARY (Continued) Macroscopic [...] CONTINUED ON NEXT PAGE RUN DATE: 07/11/22 [facility] - LAB PAGE 3 RUN TIME: 855 Specimen Inquiry RUN USER: INTERFACE SPEC #: [id number] PATIENT: MIKEY MORILLO JR #[id number] (Continued) ------- FINAL DIAGNOSIS (Continued) - Twenty-four [...] 0.6 x 0.5 x 0.3 cmin greatest dimension.Bug Trimmer sections are submitted in cassettes labeled as follows: A1 - proximalmargin; A2 - distal margin; A3-A6 - lesion, serially sectioned perpendicular to the margin(margin inked green); A7 - uninvolved mucosa; A8-A9 - 12 lymph nodes (2 bisected and inkeddifferently); A10-A17 - lymph nodes candidates. XZ/ph Technical component performed at [facility] [facility], [address] Immunohistochemistry: This test was developed and its [...] - Signed SIGNATURE ON FILE Rivas Garrido 07/06/22 1713 END OF REPORT [id number] 05:20:00 Test Item Value Reference Range Interpretation Comments MAGNESIUM (test code = MAG) 2.0 mg/dL 1.6-2.6 N BASIC METABOLIC [id number] 05:20:00 Test Item Value Reference Range Interpretation [...] mg/dL 8.7-10.4 L = CA) CBC W/AUTO [id number] 05:01:00 Test Item Value Reference Range Interpretation [...] 0.02 x10 3/uL 0.0-0.20 N BASIC METABOLIC [id number] 05:19:00 Test Item Value Reference Range Interpretation [...] code 8.1 mg/dL 8.7-10.4 L = CA) [id number] 05:13:00 Test Item Value Reference Range Interpretation Comments MAGNESIUM (test code = MAG) 1.8 mg/dL 1.6-2.6 N CBC W/AUTO [id number] 04:53:00 Test Item Value Reference Range Interpretation [...] 0.03 x10 3/uL 0.0-0.20 N COMPREHENSIVE METABOLIC [id number] 12:03:00 Test Item Value Reference Range Interpretation [...] PHOSPHATASE (test code = ALKP) THROMBOPLASTIN TIME [id number] 12:00:00 Test Item Value Reference Range Interpretation Comments THROMBOPLASTIN TIME 40.7 SECONDS 23.8-34.8 H INTERPRE TATIVE PARTIAL (test code = DATA: erapeutic PTT) range: Unfractionated heparin:55 - 80 seconds Argatroban:1.5 to 3 times the basel ine PTT PROTHROMBIN [id number] 12:00:00 Test Item Value Reference Range Interpretation [...] valves; 2.5-3.5recurren t systemic emboli sm. URINALYSIS [id number] 11:49:00 Test Item Value Reference Range Interpretation [...] DIPSTICK (test code = LEUU) CBC W/AUTO [id number] 11:47:00 Test Item Value Reference Range Interpretation [...] BA#) 0.03 x10 3/uL 0.0-0.20 N POC [id number] 13:12:00 Test Item Value Reference Range Interpretation Comments POC creatinine (test 0.9 mg/dl 0.7-1.2 Operato r Name: code = 00345-3) Nicho Zacarias ID : [id number] [facility] [id number] 13:12:00 Test Item Value Reference Range Interpretation Comments Estimated GFR (test 86 mL/min/1.73 m2 [facility] code = 34910-9) Interpretati onG1 >=90 Normal or highG 2 60-89 Mildly decrease dG3a 45-59 Mildly to moder ately zpfhyizmhQ3f 30 -44 Moderately to s everely decreasedG4 15- 29 Severely decreasedG5 <15 Kidney failureThe eGFR was calculated rocky g the Chronic Kidney Disease Epidemiology Co llaboration (CKD-EPI) equat ion. Interpretation is based on recommendations of the National Kidney Foundation-Kidn ey Disease Outcomes Qualit y Initiative (NKF-KDOQI) pub lished in 2014. [facility] [id number] 13:12:00 Test Item Value Reference Range Interpretation Comments POC creatinine (test 0.9 mg/dl 0.7-1.2 Operato r Name: code = 87580-4) Nicho Zacarias ID : [id number] [facility] [id number] 13:12:00 Test Item Value Reference Range Interpretation Comments Estimated GFR (test 86 mL/min/1.73 m2 Caterg ory Units code = 22009-5) Interpretati onG1 >=90 Normal or highG 2 60-89 Mildly decrease dG3a 45-59 Mildly to moder ately fubreeuxwW7u 30 -44 Moderately to s everely decreasedG4 15- 29 Severely decreasedG5 <15 Kidney failureThe eGFR was calculated usin g the Chronic Kidney Disease Epidemiology Co llaboration (CKD-EPI) equat ion. Interpretation is based on recommendations of the National Kidney Foundation-Kidn ey Disease Outcomes Qualit y Initiative (NKF-KDOQI) pub lished in 2013. [facility] [id number] 13:12:00 Test Item Value Reference Range Interpretation Comments POC creatinine (test 0.9 mg/dl 0.7-1.2 Operato r Name: code = 43367-3) Nicho [employer] ID : [id number] [facility] [id number] 13:12:00 Test Item Value Reference Range Interpretation Comments Estimated GFR (test 86 mL/min/1.73 m2 Caterg ory Units code = 69836-1) Interpretati onG1 >=90 Normal or highG 2 60-89 Mildly decrease dG3a 45-59 Mildly to moder ately gktvedmywZ2d 30 -44 Moderately to s everely decreasedG4 15- 29 Severely decreasedG5 <15 Kidney failureThe eGFR was calculated usin g the Chronic Kidney Disease Epidemiology Co llaboration (CKD-EPI) equat ion. Interpretation is based on recommendations of the National Kidney Foundation-Kidn ey Disease Outcomes Qualit y Initiative (NKF-KDOQI) pub lished in 2013. [facility] [id number] 13:12:00 Test Item Value Reference Range Interpretation Comments POC creatinine (test 0.9 mg/dl 0.7-1.2 Operato r Name: code = 86132-0) Nicho [employer] ID : [id number] [facility] [id number] 13:12:00 Test Item Value Reference Range Interpretation Comments Estimated GFR (test 86 mL/min/1.73 m2 Caterg ory Units code = 27877-9) Interpretati onG1 >=90 Normal or highG 2 60-89 Mildly decrease dG3a 45-59 Mildly to moder ately sgnlfpawjI2w 30 -44 Moderately to s everely decreasedG4 15- 29 Severely decreasedG5 <15 Kidney failureThe eGFR was calculated rocky liang the Chronic Kidney Disease Epidemiology Co llaboration (CKD-EPI) equat ion. Interpretation is based on recommendations of the National Kidney Foundation-Kidn ey Disease Outcomes Qualit y Initiative (NKF-KDOQI) pub lished in 2014. Trisha Henson [id number] 16:03:24 Test Item Value Reference Interpretation Comments Range TROPONIN I (test 0.005 ng/mL See_Comment [Automated code = 3195055509) message] The system which generated this result [...] biotin. Lab Interpretation Normal (test code = 44275-8) [id number] 16:00:22 Test Item Value Reference Range Interpretation Comments NT-proBNP (test code 411 pg/mL See_Comment H [Autom ated = 0142010036) message] The system which generated this result transmitted reference range : <=125. The reference range was not used to interpret this result as normal/abnormal . TRISTA (test code = TRISTA) Biotin has been reported to cause a negative bias, interpret results relative to patient's use of biotin. Lab Interpretation Abnormal (test code = 28873-3) [id number] 15:51:22 Test Item Value Reference Range Interpretation Comments NA (test code = 132 mmol/L 135-145 L 2249397546) K (test code = 4.9 mmol/L 3.5-5.0 5379656827) CL (test code = 97 mmol/L 98-108 L 2353195334) CO2 TOTAL (test code = 26 mmol/L 23-31 8737706007) AGAP (test code = 2-16 1894908274) BUN (test code = 11 mg/dL 7-23 5250699058) GLUCOSE (test code = 91 mg/dL 70-110 6455502732) CREATININE (test code = 0.65 mg/dL 0.60-1.25 7662735181) TOTAL BILI (test code = 1.0 mg/dL 0.1-1.8 9308959527) CALCIUM (test code = 8.5 mg/dL 8.6-10.6 L 6196892282) T PROTEIN (test code = 7.0 g/dL 6.3-8.2 1791629120) ALBUMIN (test code = 4.4 g/dL 3.5-5.0 6369470908) ALK PHOS (test code = 46 U/L 34-122 2351410361) ALTv (test code = 21 U/L 5-50 1742-6) AST(SGOT) (test code = 36 U/L 13-40 4949041796) eGFR (test code = mL/min/1.73m2 8164124532) TRISTA (test code = TRISTA) Association of [...] tests). Lab Interpretation Abnormal (test code = 98973-8) [facility] WITH [id number] 15:41:19 Test Item Value Reference Range Interpretation Comments WBC (test code = See_Comment [Automated message] 9290-2) The system [employer] generated this result transmitted ref erence range: 4.20 - 1 0.70 10*3/?L. The re ference range was not u sed to interpret this result as normal/abnor mal. RBC (test code = See_Comment [Automated message] 699-8) The system [employer] generated this result transmitted ref erence range: [...] RDW-SD (test code 41.6 fL 38.5-51.6 = 48206-5) RDW-CV (test code 12.4 % 12.1-15.4 = 788-0) PLT (test code = See_Comment [Automated message] 447-3) The system [employer] generated this result transmitted ref erence range: 150 - 32 8 10*3/?L. The re ference range was not u sed to interpret this result as normal/abnor mal. MPV (test code = 10.4 fL 9.8-13.0 58109-2) NRBC/100 WBC (test See_Comment [Automat ed message] code = 5707037163) The syste m which generated this result transmitted ref erence range: 0.0 - 10 .0 /100 WBCs. The refer ence range was not u sed to interpret this result as normal/abnor mal. NRBC x10^3 (test <0.01 See_Comment [Automated message] code = 3960656288) The syste m which generated this result transmitted ref erence range: 10*3/?L. The reference range was not used to interpr et this result as normal/abnormal . GRAN MAT (NEUT) % 44.8 % (test code = 770-8) IMM GRAN % (test 0.40 % code = 4210345707) LYMPH % (test code 42.3 % = 736-9) MONO % (test code 8.0 % = 5905-5) EOS % (test code = 3.9 % 713-8) BASO % (test code 0.6 % = 706-2) GRAN MAT 2.42 10*3/uL 1.99-6.95 x10^3(ANC) (test code = 0216597944) IMM GRAN x10^3 <0.03 0.00-0.06 (test code = 5873557736) LYMPH x10^3 (test 2.28 10*3/uL 1.09-3.23 code = 731-0) MONO x10^3 (test 0.43 10*3/uL 0.36-1.02 code = 742-7) EOS x10^3 (test 0.21 10*3/uL 0.06-0.53 code = 711-2) BASO x10^3 (test 0.03 10*3/uL 0.01-0.09 code = 704-7) [facility]
[2023-01-23 10:03] LABS: Absolute Lymphocytes (CBC) 1.9 K/uL (0.7-4.9); Hematocrit 34.8 % (39.6-49.0); Lymphocytes % 31.7 % (15.3-44.8); MCV 93.9 fL (80-100); MPV 8.2 fL (7.6-11.3); Platelets 207 thou/uL (152-406); RBC Red Blood Cell Count 3.71 M/uL (4.33-5.43)
[2023-01-23 10:10] LABS: Protime INR 1.46
[2023-01-23 10:23] LABS: Potassium 4.2 mEq/L (3.5-5.1)
--- NOTE | 2023-01-23 11:51 | RAD REPORT ---
EXAM DESCRIPTION: Anup Single View01/23/2023 11:38 am CLINICAL HISTORY: Chest pain COMPARISON: September 2022 FINDINGS: The lungs appear clear of acute infiltrate. The heart is moderately enlarged IMPRESSION: No acute abnormalities displayed
--- NOTE | 2023-01-23 12:04 | RAD REPORT ---
EXAM DESCRIPTION: US - UPPER EXTREMITY VENOUS UNILATE - 01/23/2023 10:50 am CLINICAL HISTORY: Right upper extremity pain COMPARISON: None. FINDINGS: The right internal jugular, subclavian, brachial, axillary, cephalic, basilic, radial and ulnar veins demonstrate phasic signal. The veins are generally compressible. Doppler demonstrates good flow 5.7 centimeter heterogeneous mass right axilla compressing the right axillary vein. Blood flow not se en Grayscale, color and spectral analysis performed on all vessels IMPRESSION: No evidence of thrombus involving the right upper extremity 5.7 centimeter heterogeneous mass right axilla. Given the clinical history of bruising and lack of vi sualized blood flow this probably represents a hematoma. A lymph node or a neoplastic mass is another consideration but probably less likely. Follow up ultrasound in a couple of weeks is recommended to assess stability/resolution.
--- NOTE | 2023-01-23 12:25 | ER ---
Nurse's Notes [facility] Name: Lev Miller Jr Age: 72 yrs Sex: Male : 1950 Arrival Date: 01/23/2023 Time: 09:33 Bed 13 Private MD: Diagnosis: Spontaneous ecchymoses Presentation: 01/23 09:38 Chief complaint: Patient states: Sent by Dr. Nunes - woke up with bruising to right arm. ld1 Reports taking two blood thinners. C/O pain to right arm - knot under skin. Coronavirus screen: At this time, the client does not indicate any symptoms associated with coronavirus-19. Ebola Screen: No symptoms or risks identified at this time. Initial Sepsis Screen: Does the patient meet any 2 criteria? No. Patient's initial sepsis screen is negative. Does the patient have a suspected source of infection? No. Patient's initial sepsis screen is negative. Risk Assessment: Do you want to hurt yourself or someone else? Patient reports no desire to harm self or others. Onset of symptoms was January 23, 2023. 09:38 Method Of Arrival: Ambulatory ld1 09:38 Acuity: CRISTINA 3 ld1 Triage Assessment: 09:40 General: Appears in no apparent distress. comfortable, Behavior is calm, cooperative, ld1 appropriate for age. Pain: Complains of pain in right arm Pain does not radiate. Pain currently is 6 out of 10 on a pain scale. Quality of pain is described as throbbing, Pain began 3 hours ago. Is continuous. EENT: No signs and/or symptoms were reported regarding the EENT system. Neuro: Level of Consciousness is awake, alert, obeys commands, Oriented to person, place, time, situation. Cardiovascular: Capillary refill < 3 seconds Patient's skin is warm and dry. Respiratory: Airway is patent Respiratory effort is even, unlabored. GI: Abdomen is round non-distended. : No signs and/or symptoms were reported regarding the genitourinary system. Derm: Bruising that is dark purple, on right arm. Musculoskeletal: No signs and/or symptoms reported regarding the musculoskeletal system. Historical: - Allergies: 09:40 Codeine; ld1 09:40 PENICILLINS; ld1 - Home Meds: 09:40 clopidogrel 75 mg oral tablet 1 tab once [Active]; Eliquis 5 mg oral tablet 1 tab 2 ld1 times per day [Active]; - PMHx: 09:40 Atrial Fib; CVA; Gout; Hypertension; BPH; ld1 - PSHx: 09:40 Appendectomy; Cholecystectomy; heart cath; ld1 - Immunization history:: Adult Immunizations up to date. - Social history:: Smoking status: Patient denies any tobacco usage or history of. Patient/guardian denies using alcohol. Screenin:11 [facility] ED Fall Risk Assessment (Adult) Score/Fall Risk Level 0 - 2 = Low Risk nj1 Oriented to surroundings, Maintained a safe environment, Hourly rounding (assess needs \T\ fall precautionary measures) done. Abuse screen: Denies threats or abuse. Denies injuries from another. Nutritional screening: No deficits noted. Tuberculosis screening: No symptoms or risk factors identified. Assessment: 10:09 General: Appears in no apparent distress. comfortable, Behavior is calm, cooperative, nj1 appropriate for age. Pain: Complains of pain in right arm Pain currently is 5 out of 10 on a pain scale. Neuro: Level of Consciousness is awake, alert, obeys commands, Oriented to person, place, time, situation. Cardiovascular: Patient's skin is warm and dry. Respiratory: Airway is patent Respiratory effort is even, unlabored. Derm: Bruising that is dark purple, on right arm. Musculoskeletal: Reports pain in right arm. 11:10 Reassessment: Patient appears in no apparent distress at this time. No changes from pr1 previously documented assessment. Patient and/or family updated on plan of care and expected duration. Pain level reassessed. Patient is alert, oriented x 3, equal unlabored respirations, skin warm/dry/pink. 12:45 Reassessment: Patient appears in no apparent distress at this time. No changes from nj1 previously documented assessment. Patient and/or family updated on plan of care and expected duration. Pain level reassessed. Patient is alert, oriented x 3, equal unlabored respirations, skin warm/dry/pink. Vital Signs: 09:38 BP 126 / 79; Pulse 85; Resp 18; Temp 98.9(TE); Pulse Ox 99% on R/A; Weight 92.99 kg; ld1 Height 5 ft. 8 in. ; Pain 6/10; 11:10 Pulse 87; Resp 18; Pulse Ox 100% ; nj1 12:45 BP 130 / 82; Pulse 85; Resp 18; Pulse Ox 99% ; nj1 09:38 Body Mass Index 31.17 (92.99 kg, 172.72 cm) ld1 09:38 Pain Scale: Adult ld1 ED Course: 09:37 Patient arrived in ED. mg5 09:40 Triage completed. ld1 09:40 Arm band placed on right wrist. EKG completed in triage. Results shown to MD. ld1 09:45 Beulah Bucio MD is Attending Physician. sp3 09:53 Inserted saline lock: 20 gauge in left forearm, using aseptic technique. Blood ld1 collected. 09:59 Carol Sánchez, RN is Primary Nurse. nj1 10:12 Patient has correct armband on for positive identification. Bed in low position. Call nj1 light in reach. Provided Education on: call light, fall precautions. 10:42 UPPER EXTREMITY VENOUS UNILATE In Process Unspecified. EDMS 11:40 XRAY Chest (1 view) In Process Unspecified. EDMS 12:45 No provider procedures requiring assistance completed. IV discontinued, intact, nj1 bleeding controlled. Administered Medications: No medications were administered Medication: 12:46 VIS not applicable for this client. nj1 Outcome: 12:24 Discharge ordered by . sp3 12:45 Discharged to home ambulatory, nj1 12:45 Condition: stable 12:45 Discharge instructions given to patient, Instructed on discharge instructions, follow up and referral plans. safety practices, Demonstrated understanding of instructions, follow-up care, 12:46 Patient left the ED. nj1 Signatures: Dispatcher [employer] EDMS Fara Joy, RN RN ld1 Beulah Bucio MD MD sp3 Carol Sánchez, RN [facility] [place] [address]
--- NOTE | 2023-01-23 12:25 | EDPHYS ---
Physician Documentation [facility] Name: Lev Miller Jr Age: 72 yrs Sex: Male : 1950 Arrival Date: 01/23/2023 Time: 09:33 Bed 13 Private MD: ED Physician Beulah Bucio HPI: 01/23 10:17 This 72 yrs old Male presents to ER via Ambulatory with complaints of Sent By Dr Manju palomo for RUE ecchymosis and swelling. 10:17 72-year-old male with a history of atrial fibrillation, CVA, hypertension currently on sp3 Eliquis and Plavix presents to the ED with chief complaint right upper extremity ecchymoses and mild swelling with pain in the medial aspect of the upper arm. Patient was initially seen at Dr. Nunes's office who then referred him to the ED for further evaluation and diagnostic work-up. Patient reports no change in dosage of his antiplatelet or anticoagulant agents. He also reports no bleeding in other aspects including his gums, gross hematuria, stool or other bruising on his body. He also denies injury. Review of systems negative for headache, fever, URI symptoms, chest pain, shortness of breath, abdominal pain, back pain, vomiting or diarrhea, skin rash, known sick contacts, travel history, or any other signs or symptoms at this time.. Historical: - Allergies: 09:40 Codeine; ld1 09:40 PENICILLINS; ld1 - Home Meds: 09:40 clopidogrel 75 mg oral tablet 1 tab once [Active]; Eliquis 5 mg oral tablet 1 tab 2 ld1 times per day [Active]; - PMHx: 09:40 Atrial Fib; CVA; Gout; Hypertension; BPH; ld1 - PSHx: 09:40 Appendectomy; Cholecystectomy; heart cath; ld1 - Immunization history:: Adult Immunizations up to date. - Social history:: Smoking status: Patient denies any tobacco usage or history of. Patient/guardian denies using alcohol. ROS: 10:18 Constitutional: Negative for fever, chills, and weight loss, Eyes: Negative for injury, sp3 pain, redness, and discharge, ENT: Negative for injury, pain, and discharge, Neck: Negative for injury, pain, and swelling, Cardiovascular: Negative for chest pain, palpitations, and edema, Respiratory: Negative for shortness of breath, cough, wheezing, and pleuritic chest pain, Abdomen/GI: Negative for abdominal pain, nausea, vomiting, diarrhea, and constipation, Back: Negative for injury and pain, Neuro: Negative for headache, weakness, numbness, tingling, and seizure, Psych: Negative for depression, anxiety, suicide ideation, homicidal ideation, and hallucinations, Allergy/Immunology: Negative for hives, rash, and allergies, Endocrine: Negative for neck swelling, polydipsia, polyuria, polyphagia, and marked weight changes, Hematologic/Lymphatic: Negative for swollen nodes, abnormal bleeding, and unusual bruising, 10:18 All other systems are negative, Exam: 10:18 Constitutional: This is a well developed, well nourished patient who is awake, alert, sp3 and in no acute distress. Head/Face: Normocephalic, atraumatic. Eyes: Pupils equal round and reactive to light, extra-ocular motions intact. Lids and lashes normal. Conjunctiva and sclera are non-icteric and not injected. Cornea within normal limits. Periorbital areas with no swelling, redness, or edema. ENT: Nares patent. No nasal discharge, no septal abnormalities noted. External auditory canals are clear. Oropharynx with no redness, swelling, or masses, exudates, or evidence of obstruction, uvula midline. Mucous membranes moist. Neck: Trachea midline, no thyromegaly or masses palpated, and no cervical lymphadenopathy. Supple, full range of motion without nuchal rigidity, or vertebral point tenderness. No Meningismus. Chest/axilla: Normal chest wall appearance and motion. Nontender with no deformity. No lesions are appreciated. Respiratory: Lungs have equal breath sounds bilaterally, clear to auscultation and percussion. No rales, rhonchi or wheezes noted. No increased work of breathing, no retractions or nasal flaring. Abdomen/GI: Soft, non-tender, with normal bowel sounds. No distension or tympany. No guarding or rebound. No evidence of tenderness throughout. Neuro: Awake and alert, GCS 15, oriented to person, place, time, and situation. Cranial nerves II-XII grossly intact. Motor strength 5/5 in all extremities. Sensory grossly intact. Cerebellar exam normal. Normal gait. Psych: Awake, alert, with orientation to person, place and time. Behavior, mood, and affect are within normal limits. 10:18 Cardiovascular: Patient has irregularly irregular heart rhythm., 10:18 ECG was reviewed by the Attending Physician. EKG demonstrates atrial fibrillation at 89 bpm with occasional PVC, normal axis, nonspecific diffuse ST/T changes without evidence of acute ischemia. Vital Signs: 09:38 BP 126 / 79; Pulse 85; Resp 18; Temp 98.9(TE); Pulse Ox 99% on R/A; Weight 92.99 kg; ld1 Height 5 ft. 8 in. ; Pain 6/10; 11:10 Pulse 87; Resp 18; Pulse Ox 100% ; nj1 12:45 BP 130 / 82; Pulse 85; Resp 18; Pulse Ox 99% ; nj1 09:38 Body Mass Index 31.17 (92.99 kg, 172.72 cm) ld1 09:38 Pain Scale: Adult ld1 MDM: 10:07 Patient medically screened. sp3 10:19 Data reviewed: vital signs, nurses notes, lab test result(s), radiologic studies. ED sp3 course: 72-year-old male with new spontaneous ecchymoses and right upper quadrant swelling with a "knot" on the medial aspect of the upper extremity. Differential diagnosis includes thrombocytopenia, coagulopathy, upper extremity DVT, trauma unknown, among others. Will obtain laboratory values including CBC to assess platelets and coagulopathy profile. Right upper quadrant ultrasound also pending. If work-up is negative and patient has no active bleeding, we will safely discharge patient home back to Dr. Nunes for follow-up.. 12:24 ED course: Laboratory values are within normal limits and ultrasound demonstrates no sp3 intra venous clot with possible hematoma. I have given a copy of the ultrasound to patient who will follow back up with Dr. Nunes. No further intervention required in the emergency department.. 01/23 09:43 Order name: Basic Metabolic Panel; Complete Time: 10: ld1 01/23 09:43 Order name: CBC with Diff; Complete Time: 10: ld1 01/23 09:43 Order name: PT-INR; Complete Time: 10: ld1 01/23 09:43 Order name: Troponin HS; Complete Time: 10: ld1 01/23 09:43 Order name: XRAY Chest (1 view); Complete Time: 11:52 ld1 01/23 10:15 Order name: UPPER EXTREMITY VENOUS UNILATE; Complete Time: 12:16 EDMS 01/23 09:43 Order name: EKG; Complete Time: 09:44 ld1 01/23 09:43 Order name: Cardiac monitoring; Complete Time: 09:57 ld1 01/23 09:43 Order name: EKG - Nurse/Tech; Complete Time: 09:43 ld1 01/23 09:43 Order name: IV Saline Lock; Complete Time: 09:53 ld1 01/23 09:43 Order name: Labs collected and sent; Complete Time: 09:53 ld1 01/23 09:43 Order name: O2 Per Protocol; Complete Time: 09:43 ld1 01/23 09:43 Order name: O2 Sat Monitoring; Complete Time: 09:43 ld1 Administered Medications: No medications were administered Disposition Summary: 01/23/23 12:24 Discharge Ordered Notes: Location: Home sp3 Condition: Stable sp3 Diagnosis - Spontaneous ecchymoses sp3 Followup: sp3 - With: Private Physician - When: Upon discharge from the Emergency Department - Reason: Continuance of care Discharge Instructions: - Discharge Summary Sheet sp3 - Contusion sp3 Forms: - Medication Reconciliation Form sp3 - Thank You Letter sp3 - Antibiotic Education sp3 - Prescription Opioid Use sp3 - Patient Portal Instructions sp3 - Leadership Thank You Letter sp3 Signatures: Dispatcher [employer] Fara Correa, RN RN ld1 Beulah Bucio MD MD sp3 Corrections: (The following items were deleted from the chart) 10:15 10:11 Extremity Venous Uni Ltd+[email or web address].RAD.BRZ ordered. EDMI EDMI
[2023-01-23 13:09] VITALS: TEMP 98.9
[2023-01-23 13:11] VITALS: BP 130/82; O2SAT 99
--- NOTE | 2023-01-27 14:26 | EKG ---
Test Date: 2023-01-23 Test Time: 10:46:26 Channel Specialist: VANNA MEASUREMENT RESULTS: Intervals: Rate: 89 [place]: QRSD: 86 QT: 358 QTc: 435 [place]: P: IL: QRS: -3 T: 19 INTERPRETIVE STATEMENTS: Atrial fibrillation with premature ventricular or aberrantly conducted complexes Abnormal ECG Compared to ECG 09/17/2022 21:49:49 Ventricular premature complex(es) now present Electronically Signed On 01-27-23 14:15:06 PLUMBING INSTRUCTOR by Sonido Ibrahim
== END 2023-01-23 12:46 | disposition home or self-care (01) ==
LOC: ER 09:33
DX: R23.3 Spontaneous ecchymoses (principal); I10 Essential (primary) hypertension; I63.89 Other cerebral infarction; I48.91 Unspecified atrial fibrillation; Z79.01 Long term (current) use of anticoagulants; Z88.0 Allergy status to penicillin; Z88.5 Allergy status to narcotic agent
CPT/HCPCS: 36415; 71045; 80048; 84484; 85025; 85610; 93005; 93971; 99284

== ENCOUNTER 2023-01-26 16:33 | Inpatient (IN) | payer OTHER ==
--- OUTSIDE RECORDS SUMMARY | 2023-01-26 16:39 | XMS REPORT | Continuity of Care Document ---
:1950 Author Organization [facility] t Address [address] [place] [address] [address] [place] [address] Care Team Providers Name Role Phone OMAR POPE Primary Care Physician Unavailable Omar Pope Attending Clinician Unavailable Cuauhtemoc Dailey Attending Clinician Unavailable Deshazo_T Attending Clinician Unavailable BLAINE ROSALES Attending Clinician Unavailable Juani MEYER, John Owens Attending Clinician [phone] Ashley MEYER, Jarrod Mark Attending Clinician Ivania MEYER, Gustavo Attending Clinician Relily MEYER, Brianna Bucio Attending Clinician Missy Morrow MD Attending Clinician [phone] Blaine Rosales MD Attending Clinician BRIANNA MORA Attending Clinician Unavailable JOHN GLORIA Attending Clinician Unavailable Kira Lopes Attending Clinician Cuauhtemoc Dailey MD Attending Clinician Tigre -Alice Andres Attending Clinician Sera TRAN-C, Della Chaves Attending Clinician [phone] Doctor Unassigned, [place] Attending Clinician Unavailable Johana MEYER, Sendkeri K.H. Attending Clinician Nelly Layne Attending Clinician OWENS_T Attending Clinician Unavailable Baum_L Attending Clinician Unavailable DEMETRIA GORDON Attending Clinician Unavailable DEMETRIA GORDON Attending Clinician Unavailable KENDALL ALEXANDRE Attending Clinician Unavailable Kendall Medina Attending Clinician JOHANA, SENDIL K.H. Attending Clinician Unavailable Demetria Gordon DO Attending Clinician Cassie-Mbayo_A_AH Attending Clinician Unavailable Cuauhtemoc Dailey Admitting Clinician Unavailable Zuleima_Nikos Admitting Clinician Unavailable BLAINE ROSALES Admitting Clinician Unavailable GUSTAVO AREVALO Admitting Clinician Unavailable Physician, No Primary or Family Admitting Clinician Unavailolivia burrows OWENS_T Admitting Clinician Unavailable Baum_L Admitting Clinician Unavailable KENDALL ALEXANDRE Admitting Clinician Unavailable JOHANA, SENDIL K.H. Admitting Clinician Unavailable Cassie-Mbayo_A_AH Admitting Clinician Unavailable Payers Payer Name Policy Type Policy Number Effective Date Expiration Date S [facility] [id number] 2021 (MEDICARE 00:00:00 REPLACEMENT HMO) [employer] MED[employer]ARE [id number] 2022 00:00:00 [place]ID [place] [id number] 2022 00:00:00 [place] [id number] [place] [facility] - [id number] [place] (MEDICARE REPLACEMENT/ADVANTA GE - HMO) Problems Condition Condition Condition Status Onset Resolution Last Treating Co mments Source Name Details Category Date Date Treatment Clinician Date Hematuria, Hematuria, Disease Active [facility] gross gross [facility]03 [facility] Persistent Persistent Disease Active U nivers atrial atrial 6-20 ity [place] Obesity Obesity Disease Active Univers 6-20 ity of 00:00: [place] 00 Medical Branch Essential Essential Disease Active Uni vers hypertensi hypertensi 6-20 it y of on 00:00: [place] 00 Medical Branch Stroke Stroke Disease Active Univers 6-20 ity of 00:00: [place] 00 Medical Branch Allergies, Adverse Reactions, Alerts Allergy Allergy Status Severity Reaction(s) Onset Inactive Treating Comm ents Source Name Type Date Date Clinician Penicill DA Active [facility] 00[facility]00: [facility] 00 are [facility] codeine DA Active [facility] 4-18 Busy 00:00: [facility] 00 are [facility] Penicill DA Active [facility] ins 4-12 Busy 00:00: [facility] 00 are [facility] codeine DA Active SV RASH [facility] 4-12 Busy 00:00: [facility] 00 are [facility] Codeine Propensi Active GI 2021-03 Methodi ty [...] [place] reaction 00 Medical s Branch Codeine Drug Active Nausea And [facility]ergy [facility]omiting [facility]20 [facility] 00:00: Medical 00 [facility] Penicill Drug Active Rash [facility] Allergy 6-20 [facility] 00:00: Medical 00 [place] CODEINE Allergy Active High N\\T\\V [facility] 6[facility] 00[facility] Medical 00 Center PENICILL Allergy Active High Rash [facility] INS 6-20 [facility] 00:[facility]: Medical 00 Center Social History Social Habit Start Date Stop Date Quantity Comments Source History of tobacco Cigarette Smoker [facility] use [facility] Center Gender identity [facility] Exposure to Not sure University of SARS-CoV-2 (event) [facility] Sexual orientation [facility] History [facility] Transport Non-Med Medical Center Tobacco use and 2022-09-18 2022-09-[address] [facility] exposure 00:00:00 00:00:00 tobacco non-user Medical Center Cigarette 2022-09-18 2022-09-[address] [facility] pack-years 00:00:00 00:00:00 Medical Center Alcohol intake 2022-09-18 2022-09-[address] [facility] 00:00:00 00:00:00 non-drinker Medical Cente r (finding) History [facility] 2022-09-18 2022-09-[address] [facility] Transport Med 00:00:00 00:00:[address] [facility] 2022-09-18 2022-09-[address] [facility] Housing Unable to 00:00:00 00:00:00 Medical Center Pay History [facility] 2022-09-18 2022-09-[address] [facility] Housing Places 00:00:00 00:00:00 Medical Ce nter Lived History [facility] 2022-09-18 2022-09-[address] [facility] Housing Homeless 00:00:00 00:00:00 Medical Center Last Year Cigarettes smoked 2022-09-18 2022-09-[address] [facility] current (pack per 00:00:00 00:00:00 Medical Center day) - Reported Sex Ass[birth year] At [birth year] JO ANN Guzmans 00:00:00 00:00:00 Medical Center Smoking Status Start Date Stop Date Source Ex-smoker 2022-09-18 00:00:00 2022-09-18 [facility] Tobacco smoking [facility] consumption unknown Occasional tobacco smoker 2015-09-06 00:00:00 [facility] Medications Ordered Filled Start Stop Current Ordering Indication Dosage Frequency Signature Comments Components Source Medication Medication Date Date Medication? Clinician (SIG) Name Name aspirin 81 Yes 81mg QD Take 1 [facility] EC 7-06 tablet (81 [facility] tablet 15:55: mg total) Medica l 01 by mouth Center daily. aspirin 81 Yes 81mg QD Take 1 [facility] MG EC 7-06 tablet (81 [facility] tablet 15:55: mg total) Medica l 01 by mouth Center daily. levoFLOXaci 2022- No 500mg QD Take [address] [facility] 09-20 tablet [facility] (LEVAQUIN) 00:00: 23:59 (500 mg Med ical 500 MG 00 :00 total) by Center tablet mouth daily for 3 days. levoFLOXaci 2022- No 500mg QD Take [address] n 09-20-08 tablet [facility] (LEVAQUIN) 00:00: 23:59 (500 mg Med ical 500 MG 00 :00 total) by Center tablet mouth daily for 3 days. enoxaparin Yes 60mg Q.5D Inject 0.[address] (LOVENOX) 7-02 mLs (60 mg Luke s 60 mg/0.6 00:00: total) Medica l mL [facility] (two) times daily. enoxaparin Yes 60mg Q.5D Inject 0.[address] (LOVENOX) 7-02 mLs (60 mg Luke s 60 mg/0.6 00:00: total) Medica l mL Syrg 00 [facility] usly 2 (two) times daily. Eliquis 5 2022- No 5mg Q.5D Take 1 [facility] MG tablet 09-11-05 tablet (5 Luke s 00:00: 00:00 mg total) Medical 00 :00 by mouth 2 Center (two) times daily. Eliquis 5 2023-0 2023- No 5mg Q.5D Take 1 [facility] t MG tablet 09-11-05 tablet (5 Luke s 00:00: 00:00 mg total) Medical 00 :00 by mouth 2 Center (two) times daily. folic acid 2023-0 Yes 1000ug QD Take [address] (FOLVITE) 1 6-24 tablet [facility] MG tablet 00:00: (1,000 mcg Me dical 00 total) by Center mouth daily. folic acid 2023-0 Yes 1000ug QD Take [address] (FOLVITE) 1 6-24 tablet [facility] MG tablet 00:00: (1,000 mcg Me dical 00 total) by Center mouth daily. traMADoL 2023-0 2023- No 50mg Take [address] (ULTRAM) 50 -28 09-05 tablet (50 L ukes mg tablet 00:00: 00:00 mg total) Me dical 00 :00 by mouth Center every 8 (eight) hours as needed. traMADoL 2023-0 2023- No 50mg Take [address] (ULTRAM) 50 -28 09-05 tablet (50 L ukes mg tablet 00:00: 00:00 mg total) Me dical 00 :00 by mouth Center every 8 (eight) hours as needed. tamsulosin 2023-0 Yes .4mg Q.5D Take 1 [facility] t (FLOMAX) 6-08 capsule [facility] 0.4 mg Cap 00:00: (0.4 mg Medi waqar 24 hr 00 total) by Center capsule mouth 2 (two) times daily. tamsulosin 2023-0 Yes .4mg Q.5D Take 1 [facility] t (FLOMAX) 6-08 capsule [facility] 0.4 mg Cap 00:00: (0.4 mg Medi waqar 24 hr 00 total) by Center capsule mouth 2 (two) times daily. metoprolol 2023-0 Yes 100mg QD Take [address] succinate 6-07 tablet [facility] (TOPROL-XL) 00:00: (100 mg Med ical 100 MG 24 00 total) by [facility] tablet mouth daily. metoprolol 2023-0 Yes 100mg QD Take [address] succinate 6-07 tablet [facility] (TOPROL-XL) 00:00: (100 mg Med ical 100 MG 24 00 total) by Cente r hr tablet mouth daily. amLODIPine 3-0 2022- No 2.5mg QD Take [address] (NORVASC) 6-05 07-05 tablet [facility] 2.5 MG 00:00: 00:00 (2.5 mg Medical tablet 00 :00 total) by Center mouth daily. amLODIPine 3-0 2022- No 2.5mg QD Take [address] (NORVASC) 6-07 23-05 tablet [facility] 2.5 MG 00:00: 00:00 (2.5 mg Medical tablet 00 :00 total) by Center mouth daily. atorvastati 3-0 Yes 40mg QD Take [address] [facility] (LIPITOR) 5-19 tablet (40 Bev kes 40 MG 00:00: mg total) Medical tablet 00 by mouth Center daily. atorvastati 3-0 Yes 40mg QD Take [address] n (LIPITOR) 5-19 tablet (40 Bev kes 40 MG 00:00: mg total) Medical tablet 00 by mouth Center daily. allopurinoL 2023-0 Yes 100mg QD Take [address] (ZYLOPRIM) 4-27 tablet [facility] 100 MG 00:00: (100 mg Medical tablet 00 total) by Center mouth daily. allopurinoL 2023-0 Yes 100mg QD Take [address] (ZYLOPRIM) 4-27 tablet [facility] 100 MG 00:00: (100 mg Medical tablet 00 total) by Center mouth daily. clopidogreL 3-0 2022- No 75mg QD Take [address] (PLAVIX) 75 4-12 10-05 tablet (75 L ukes mg tablet 00:00: 00:00 mg total) Me dical 00 :00 by mouth Center daily. clopidogreL 2023-0 3- No 75mg QD Take [address] (PLAVIX) 75 4-27 07-05 tablet (75 L ukes mg tablet 00:00: 00:00 mg total) Me dical 00 :00 by mouth Center daily. lisinopriL 3-0 2022- No 20mg QD Take [address] (PRINIVIL,Z 07-10-05 tablet (20 L ukes ESTRIL) 20 00:00: 00:00 mg total) M edical MG tablet 00 :00 by mouth Center daily. lisinopriL 2023-0 2023- No 20mg QD Take [address] (PRINIVIL,Z 4-24 07-05 tablet (20 L ukes ESTRIL) 20 00:00: 00:00 mg total) M edical MG tablet 00 :00 by mouth Center daily. traZODone 2023-0 Yes 50mg QD Take 1 [...] of succ 18:30: 17:33 s, ONCE, 1 [place] (SOLU-MEDRO 00 :00 dose, On Medi waqar L) Wed Branch injection 06/01/21 at 125 mg 1330, STAT ipratropium 2021- No 3mL 3 mL, Univ ers -albuteroL 06-01 Inhalation it y of (DUONEB) 16:45: 15:41 , ONCE, 1 Akbar as 0.5 mg-3 00 :00 dose, On Medical mg(2.5 mg Wed Branch base)/3 mL 06/01/21 at nebulizer 1145, solution 3 Routine mL predniSONE 2021- No [id number] 60mg Take 3 Univers 20 mg 06-01 tablets by ity of tablet 00:00: 04:59 mouth [place] 00 :00 every Medical morning Branch for 5 days. tc 2021- No [id number] 41.5mCi 41.5 Unive rs 99m-tetrofo 05-19 millicurie i ty of [facility] 16:30: 16:27 , [place] ([facility]) 00 :00 Intravenou Medi waqar injection s, ONCE, 1 Bran ch 41.5 dose, On [facility] 05/19/21 at 1030, Routine regadenoson 2021- No [id number] .4mg 0.4 mg, IV Univers (LEXISCAN) 05-19 Push, ity of injection 16:00: 16:27 ONCE, 1 [place] 0.4 mg 00 :00 dose, On [facility] 05/19/21 Branch at 1000, Routine
research staff member approving Restricted medication : FERDINAND VAUGHN tc 2021- No [id number] 15.1mCi 15.1 Unive rs 99m-tetrofo 05-19 millicurie i ty of [facility] 15:00: 14:51 , [place] ([facility]) 00 :00 Intravenou Medi waqar injection s, ONCE, 1 Bran ch 15.1 dose, On [facility] 05/19/21 at 0900, Routine allopurinoL Yes [...] mouth [place] 39 daily. Medical Branch albuterol 2021-0 Yes 2{puff} Inhale 2 U nivers 90 2-10 Puffs ity of mcg/actuati 10:10: every 6 Akbar as on inhaler 39 (six) Medical hours as Branch needed for Wheezing or Shortness of Breath. lisinopriL 2020-03 Yes 20mg Take 20 mg U nivers 20 mg 2-13 by mouth ity of tablet 11:48: daily. [address] Branch sotalol 2020-03 Yes 80mg Take 80 mg Univ ers (BETAPACE) 2-13 by mouth 2 ity of 80 mg 11:48: (two) [place] tablet 25 times Medical daily. Branch lisinopriL 2020-03 Yes 20mg Take 20 mg U nivers 20 mg 2-13 by mouth ity of tablet 11:48: daily. [address] Branch sotalol 2020-03 Yes 80mg Take 80 mg Univ ers (BETAPACE) 2-13 by mouth 2 ity of 80 mg 11:48: (two) [place] tablet 25 times Medical daily. Branch lisinopriL 2020-03 Yes 20mg Take 20 mg U nivers 20 mg 2-13 by mouth ity of tablet 11:48: daily. [address] Branch sotalol 2020-03 Yes 80mg Take 80 mg Univ ers (BETAPACE) 2-13 by mouth 2 ity of 80 mg 11:48: (two) [place] tablet 25 times Medical daily. Branch lisinopriL 2020-03 Yes 20mg Take 20 mg U nivers 20 mg 2-13 by mouth ity of tablet 11:48: daily. [address] Branch sotalol 2020-03 Yes 80mg Take 80 mg Univ ers (BETAPACE) 2-13 by mouth 2 ity of 80 mg 11:48: (two) [place] tablet 25 times Medical daily. Branch lisinopriL 2020-03 Yes 20mg Take 20 mg U nivers 20 mg 2-13 by mouth ity of tablet 11:48: daily. [address] Branch sotalol 2020-03 Yes 80mg Take 80 mg Univ ers (BETAPACE) 2-13 by mouth 2 ity of 80 mg 11:48: (two) [place] tablet 25 times Medical daily. Branch lisinopriL 2020-03 Yes 20mg Take 20 mg U nivers 20 mg 2-13 by mouth ity of tablet 11:48: daily. [address] Branch sotalol 2020-03 Yes 80mg Take 80 mg Univ ers (BETAPACE) 2-13 by mouth 2 ity of 80 mg 11:48: (two) [place] tablet 25 times Medical daily. Branch lisinopriL 2020-03 Yes 20mg Take 20 mg U nivers 20 mg 2-13 by mouth ity of tablet 11:48: daily. [address] sotalol 2020-03 Yes 80mg Take 80 mg Univ ers (BETAPACE) 2-13 by mouth 2 ity of 80 mg 11:48: (two) [place] tablet 25 times Medical daily. Branch lisinopriL 2020-03 Yes 20mg Take 20 mg U nivers 20 mg 2-13 by mouth ity of tablet 11:48: daily. [address] sotalol 2020-03 Yes 80mg Take 80 mg Univ ers (BETAPACE) 2-13 by mouth 2 ity of 80 mg 11:48: (two) [place] tablet 25 times Medical daily. Branch lisinopriL 2020-03 Yes 20mg Take 20 mg U nivers 20 mg 2-13 by mouth ity of tablet 11:48: daily. [address] sotalol 2020-03 Yes 80mg Take 80 mg Univ ers (BETAPACE) 2-13 by mouth 2 ity of 80 mg 11:48: (two) [place] tablet 25 times Medical daily. Branch lisinopriL 2020-03 Yes 20mg Take 20 mg U nivers 20 mg 2-13 by mouth ity of tablet 11:48: daily. [address] sotalol 2020-03 Yes 80mg Take 80 mg Univ ers (BETAPACE) 2-13 by mouth 2 ity of 80 mg 11:48: (two) [place] tablet 25 times Medical daily. Branch lisinopriL 2020-03 Yes 20mg Take 20 mg U nivers 20 mg 2-13 by mouth ity of tablet 11:48: daily. [address] sotalol 2020-03 Yes 80mg Take 80 mg Univ ers (BETAPACE) 2-13 by mouth 2 ity of 80 mg 11:48: (two) [place] tablet 25 times Medical daily. Branch lisinopriL 2020-03 Yes 20mg Take 20 mg U nivers 20 mg 2-13 by mouth ity of tablet 11:48: daily. [address] sotalol 2021-1 Yes 80mg Take 80 mg Univ ers [...] it y of mg tablet 11:47: (two) [place] 35 times Medical daily. Branch apixaban 2020-03 Yes 5mg Take 5 mg Univ ers (ELIQUIS) 5 2-13 by mouth 2 it y of mg tablet 11:47: (two) [place] 35 times Medical daily. Branch lisinopriL 2015-03 Yes DAILY Method i (PRINIVIL) 2-21 st 10 mg 00:00: Hospita tablet 00 [...] 17:00:00 142 mm[Hg] Univer sity of pressure [facility] Diastolic blood 2021-06-01 17:00:00 92 mm[Hg] Unive rsity of pressure [facility] Heart rate 2021-06-01 17:00:00 88 /min [facility] [place] [facility] Respiratory rate 2021-06-01 17:00:00 17 /min [facility] Oxygen saturation in 2021-06-01 17:00:00 97 /min [facility] Arterial blood by [facility] Pulse oximetry Branch Body temperature 2021-06-01 15:16:00 36.28 Millie [facility] Body weight 2021-06-01 15:16:00 99.882 kg Universi ty [facility] BMI 2021-06-01 15:16:00 33.48 kg/m2 Universi ty [facility] Systolic blood 2021-04-28 16:14:00 152 mm[Hg] [facility]iver [facility] Diastolic blood 2021-04-28 16:14:00 83 mm[Hg] [facility]ive [facility] Heart rate 2021-04-28 16:09:00 92 /min Universi ty [facility] Body height 2021-04-28 16:09:00 172.7 cm Universi [facility] [place] [facility] Body weight 2021-04-28 16:09:00 103.108 kg Universi [facility] [place] [facility] BMI 2021-04-28 16:09:00 34.56 kg/m2 Universi [facility] [place] [facility] Oxygen saturation in 2021-04-28 16:09:00 97 /min [facility] Arterial blood by [facility] Pulse oximetry Branch Systolic blood 2022-09-20 11:53:00 126 mm[Hg] [facility] Diastolic blood 2022-09-20 11:53:00 82 mm[Hg] [facility] Heart rate 2022-09-20 11:53:00 83 /min [facility] Body temperature 2022-09-20 11:53:00 36.5 Millie [facility] Respiratory rate 2022-09-20 11:53:00 18 /min [facility] Oxygen saturation in 2022-09-20 11:53:00 98 /min [facility] Arterial blood by Medical nter Pulse oximetry Body height 2022-09-18 04:00:00 172.7 cm [facility] Body weight 2022-09-18 04:00:00 89.359 kg [facility] BMI 2022-09-18 04:00:00 29.95 kg/m2 [facility] Systolic blood 2022-06-26 13:57:00 139 mm[Hg] Method ist [facility] pressure Diastolic blood 2022-06-26 13:57:00 78 mm[Hg] [facility] pressure Heart rate 2022-06-26 13:57:00 75 /min [facility] Respiratory rate 2022-06-26 13:57:00 16 /min [facility] Oxygen saturation in 2022-06-26 13:57:00 100 /min [facility] Arterial blood by Pulse oximetry Body height 2022-06-26 12:57:00 172.7 cm [facility] Body weight 2022-06-26 12:57:00 97.07 kg [facility] BMI 2022-06-26 12:57:00 32.54 kg/m2 [facility] Procedures Procedure Date / Time Performing Clinician Source Performed URINE CULTURE 2022-09-20 09:24:00 Nandini Mcgill [facility] URINALYSIS W/ REFLEX 2022-09-20 09:24:00 Nandini Mcgill I [facility] URINE CULTURE Center BASIC METABOLIC PANEL 2022-09-19 04:53:00 Brianna Mora [facility] MAGNESIUM 2022-09-19 04:53:00 Brianna Mora [facility] CBC W/PLT COUNT & AUTO 2022-09-19 04:53:00 Brianna Mora [facility] DIFFERENTIAL Center PSA 2022-09-19 04:53:00 Elena Sheffield [facility] CBC W/PLT COUNT & AUTO 2022-09-19 04:53:00 Brianna Mora [facility] DIFFERENTIAL Center ABORH, MANUAL 2022-09-18 16:35:00 Kimi Nguyen [facility] HEMOGLOBIN AND 2022-09-18 15:58:[address] [facility] HEMATOCRIT Center TYPE AND SCREEN, 2022-09-18 15:58:00 Brianna Mora [facility] AUTOMATED Center CT ABDOMEN/PELVIS WITH & 2022-09-18 08:13:00 Brianna Mora [facility] WITHOUT IV CONTRAST Center CBC W/PLT COUNT & AUTO 2022-09-18 05:35:00 John Gloria [facility] DIFFERENTIAL Nandkumar Center BASIC METABOLIC PANEL 2022-09-18 05:35:[address] [facility] PT/APTT 2022-09-18 05:35:00 [facility] 2022-09-18 05:35:00 [facility] CBC W/PLT COUNT & AUTO 2022-09-18 05:35:[address] [facility] DIFFERENTIAL [facility] EKG-SCANNED 2022-09-18 00:00:[address] [facility] Scanning Center [id number] 2022-07-04 00:00:00 HAAER [facility] [id number] 2022-07-04 00:00:00 HAAER [facility] [id number] 2022-07-04 00:00:00 HAAER [facility] [id number] 2022-07-04 00:00:00 HAAER [facility] [id number] 2022-07-04 00:00:00 HAAER [facility] MRI PELVIS W WO CONTRAST 2022-06-26 14:50:00 eSra [facility] CHEST W CONTRAST 2022-06-26 13:46:26 [facility] ABDOMEN W CONTRAST [facility] PELVIS W CONTRAST POC CREATININE 2022-06-26 13:07:00 Cuauhtemoc Dailey [facility] ESTIMATED GFR 2022-06-26 13:07:00 Cuauhtemoc Dailey [facility] AUTHORIZATION FOR 2022-02-03 06:01:00 Doctor Unassigned, No [facility] RELEASE OF [facility] Medical Branch MRI PELVIS W WO CONTRAST 2022-01-31 22:00:00 Sera [facility] CT CHEST W CONTRAST 2022-01-31 20:26:00 [facility] POC CREATININE 2022-01-31 20:08:00 DaileyCuauhtemoc quigley [facility] ESTIMATED GFR 2022-01-31 20:08:00 Cuauhtemoc Dailey [facility] 2021-11-07 05:01:00 Doctor Unassigned, No [facility] RELEASE/CLEARANCE FORMS Name Medical Branch XR CHEST 1 VW 2021-06-01 15:57:37 Kendall [facility] TROPONIN I 2021-06-01 15:34:00 Kendall [facility] COMP. METABOLIC PANEL 2021-06-01 15:34:00 Kendall Alexandre [facility] ([id number]) Medical Branch CBC WITH DIFF 2021-06-01 15:34:00 [facility]all [facility] N-TERMINAL PRO-BNP 2021-06-01 15:34:00 Kendall Alexandre [facility] COVID-19 (ID NOW RAPID 2021-06-01 15:34:00 Kendall Alexandre [facility] TESTING) Medical Branch CONSENT/REFUSAL FOR 2021-06-01 15:12:41 Doctor Unassigned, No [facility] DIAGNOSIS AND TREATMENT Name Medical Branch NOTICE OF PRIVACY 2021-06-01 15:10:06 Doctor Unassigned, No [facility] PRACTICES Name Medical [place] NUCLEAR STRESS TEST 2021-05-19 17:33:00 Vaughn, Sendil [facility] CARDIOLOGY (DO NOT Medical Branc h SCHED) NM MYOCARDIUM PERFUSION 2021-05-19 17:33:00 Vaughn, Sendil [facility] STRESS AND REST Medical Branch NM MYOCARDIUM PERFUSION 2021-05-19 17:33:00 Vaughn, Sendil [facility] STRESS AND REST Medical Branch NUCLEAR STRESS TEST 2021-05-19 17:33:00 Vaughn, Sendil [facility] CARDIOLOGY (DO NOT Medical Branc h SCHED) NM MYOCARDIUM PERFUSION 2021-05-19 17:33:00 Vaughn, Sendil [facility] STRESS AND REST [facility] Branch NUCLEAR STRESS TEST 2021-05-19 17:33:00 Vaughn, Sendil [facility] CARDIOLOGY (DO NOT Medical Branc h SCHED) NM MYOCARDIUM PERFUSION 2021-05-19 17:33:00 Vaughn, Sendil [facility] STRESS AND REST [facility] Branch NUCLEAR STRESS TEST 2021-05-19 17:33:00 Ferdinand Vaughn [facility] CARDIOLOGY (DO NOT Medical [facility] h SCHED) EXTERNAL PROVIDER - ADC 2021-04-29 06:01:00 Doctor Unassigned, N o [facility] REFERRAL Name Medical Branch Plan of Care Planned Activity Planned Date Details Comments Source Future Scheduled 2023-09-[address] [facility] Test 00:00:00 [facility] Medical Cent[facility] r Screening (12+) [code = Tobacco Cessation Counseling and Screening (12+)] Future Scheduled 2023-09-[address] [facility] Test 00:00:00 [facility]ing [facility] Medical Cente r Screening (12+) [code = Tobacco Cessation Counseling and Screening (12+)] Future Scheduled 2023-01-10 SHINGLES VACCINES (1 [facility] Test 20:53:54 of 2) [code = [...] [code = INFLUENZA VACCINE (#1)] Future Scheduled 2023-01-10 [facility] 20:53:54 (procedure) [code = 356157660] Future Scheduled 2023-01-10 [facility] Test 20:53:54 (procedure) [code = 867000666] Future Scheduled 2023-01-10 SHINGLES VACCINES (1 Met [...] [code = INFLUENZA VACCINE (#1)] Future Scheduled 2022-11-17 Influenza Vaccine (#1) [facility]00 [code = Influenza Medical Ce nter Vaccine (#1)] Future Scheduled 2022-11-17 Influenza Vaccine (#1) [facility] 00:[facility]00 [code = Influenza Medical Ce nter Vaccine (#1)] Future Scheduled 2022-09-16 Medicare IPPE (WELCOME [facility] 00:[facility]00 TO MEDICARE) [code = Medical Center Medicare IPPE (WELCOME TO MEDICARE)] Future Scheduled 2022-09-16 Medicare IPPE (WELCOME [facility] 00:00:00 TO MEDICARE) [code = Medical Center Medicare IPPE (WELCOME TO MEDICARE)] Future Scheduled 2022-09-05 [facility]atitis C [facility] 22:55:06 (procedure) [code = 500644442] Future Scheduled 2022-09-05 SHINGLES VACCINES (1 [facility] Test 22:55:06 of 2) [code = [...] Future Scheduled 2022-07-04 [facility] C [facility] 00:13:01 (procedure) [code = 882613249] Future Scheduled 2022-07-04 [facility]CREENING [facility] 00:13:01 [code = COLONOSCOPY SCREENING] Future Scheduled 2022-07-04 SHINGLES VACCINES (1 [facility] Test 00:13:01 of 2) [code = SHINGLES VACCINES (1 of 2)] Future Scheduled 2022-07-04 65+ PNEUMOCOCCAL [facility] Test 00:13:01 VACCINE (1 - PCV) [code = 65+ PNEUMOCOCCAL VACCINE (1 - PCV)] Future Scheduled 2022-07-04 COVID-19 VACCINE (3 - [facility] Test 00:13:01 Booster for Pfizer series) [code = COVID-19 VACCINE (3 - Booster for Pfizer series)] Future Scheduled 2022-07-04 INFLUENZA VACCINE [facility] Test 00:13:01 [code = INFLUENZA VACCINE] Future Scheduled 2022-07-04 Hepatitis C screening [facility] Test 00:13:01 (procedure) [code = 829136807] Future Scheduled 2022-07-04 COLONOSCOPY SCREENING [facility] Test 00:13:01 [code = COLONOSCOPY SCREENING] Future Scheduled 2022-07-04 SHINGLES VACCINES (1 [facility] Test 00:13:01 of 2) [code = SHINGLES VACCINES (1 of 2)] Future Scheduled 2022-07-04 65+ PNEUMOCOCCAL [facility] 00:13:01 VACCINE (1 - PCV) [code = 65+ PNEUMOCOCCAL VACCINE (1 - PCV)] Future Scheduled 2022-07-04 COVID-19 VACCINE (3 - [facility] Test 00:13:01 Booster for Pfizer series) [code = COVID-19 VACCINE (3 - Booster for Pfizer series)] Future Scheduled 2022-07-04 [facility]FLUENZA VACCINE [facility] 00:13:01 [code = INFLUENZA VACCINE] Future Scheduled 2022-03-[address] [facility] 00:00:00 (12+) [code = Medical Center DEPRESSION SCREENING (12+)] Future Scheduled 2022-03-19 FALLS RISK SCREENING [facility] 00:00:00 [code = FALLS RISK Medical C enter SCREENING] Future Scheduled 2022-03-[address] [facility] 00:00:00 (12+) [code = Medical Center DEPRESSION SCREENING (12+)] Future Scheduled 2022-03-19 FALLS RISK SCREENING [facility] 00:00:00 [code = FALLS RISK Medical C enter SCREENING] Future Scheduled 2002 SHINGLES VACCINES ([address] [facility] 00:00:00 of 2) [code = SHINGLES Medic al Center VACCINES (1 of 2)] Future Scheduled 2002 SHINGLES VACCINES ([address] [facility] 00:00:00 of 2) [code = SHINGLES Medic al Center VACCINES (1 of 2)] Future Scheduled 1971 DTAP/TDAP/TD [facility]ACCINES [facility] 00:00:00 (1 - Tdap) [code = Medical C enter DTAP/TDAP/TD VACCINES (1 - Tdap)] Future Scheduled 1971 DTAP/TDAP/TD [facility]ACCINES [facility] 00:00:00 (1 - Tdap) [code = Medical C enter DTAP/TDAP/TD VACCINES (1 - Tdap)] Future Scheduled 1970 HEPATITIS C [facility]CRE[facility] 00:00:00 [code = HEPATITIS C Medical Center SCREENING] Future Scheduled 1970 HEPATITIS C [facility] 00:00:00 [code = HEPATITIS C Medical Center SCREENING] Future Scheduled 1958 PNEUMOCOCCAL 65+ [facility] 00:00:00 (1 - PCV) [code = Medical Ce nter PNEUMOCOCCAL 65+ YRS (1 - PCV)] Future Scheduled 1958 PNEUMOCOCCAL 65+ Y[facility] 00:00:00 (1 - PCV) [code = Medical Ce nter PNEUMOCOCCAL 65+ YRS (1 - PCV)] Future Scheduled 1952 COVID-19 VACCINE (#1) [facility] 00:00:00 [code = COVID-[address] VACCINE (#1)] Future Scheduled 1952 COVID-19 VACCINE (#1) [facility]:00[facility]00 [code = COVID-[address] VACCINE (#1)] Future Scheduled [address] [facility] 00:00:00 (combo) [code = CT Medical C enter Colonography (combo)] Future Scheduled [address] [facility] [facility] 00[facility]:00 malignant neoplasm of Medica l Center colon (procedure) [code = 396053936] Future Scheduled [address] [facility] 00:00:00 malignant neoplasm of Medica l Center colon (procedure) [code = 559319216] Future Scheduled [address] [facility] 00:00:00 malignant neoplasm of Medica l Center colon (procedure) [code = 756992405] Future Scheduled [address] [facility] 00:00:00 malignant neoplasm of Medica l Center colon (procedure) [code = 972239669] Future Scheduled 1952 Sigmoidoscopy [code [facility]oscopy] Medical Cente r Future Scheduled [address] [facility] 00:00:00 (combo) [code = CT Medical C enter Colonography (combo)] Future Scheduled [address] [facility] 00:00:00 malignant neoplasm of Medica l Center colon (procedure) [code = 924493736] Future Scheduled [address] [facility] 00:00:00 malignant neoplasm of Medica l Center colon (procedure) [code = 674814341] Future Scheduled [address] [facility] 00:00:00 malignant neoplasm of Medica l Center colon (procedure) [code = 167230502] Future Scheduled [address] [facility] 00:00:00 malignant neoplasm of Medica l Center colon (procedure) [code = 054032356] Future Scheduled 1952 Sigmoidoscopy [facility]code [facility] S[facility]oidoscopy] Medical Cente r Encounters Start End Encounter Admission Attending Care Care Encounter Source Date/Time Date/Time Type Type Clinicians Facility Department ID 2022-11-06 [facility] [id number] Common 16:26:00 Omar [id number] [facility] 2022-10-18 Outpatient Pope, STLMLC STLC [id number] Common 14:19:00 Omar [id number] [facility] 2022-09-27 Outpatient Pope, STLMLC STLC [id number] Common 09:46:00 Omar Willoughby [facility] 2022-09-21 Outpatient Pope, [facility] [id number] Common 11:04:00 Omar [id number] [facility] 2022-08-09 Outpatient Pope, STLMLC [facility] [id number] Common 09:46:01 Omar [id number] [facility] 2022-07-19 Outpatient Pope, STLMLC [facility] [id number] Common 15:09:01 Omar [id number] [facility] 2022-03-07 Inpatient Cuauhtemoc Meyer [facility] DAYS [id number] [facility] 07:30:00 62 [facility] 2023-01-05 2023-01-05 Outpatient Deshazo_T DMG [facility] [id number] 00:00:00 00:00:00 [id number] Medica l Group 2022-09-18 2022-09-20 Inpatient ER [facility] [id number] [facility] 04:28:00 15:55:00 LIGNITE 2022-09-18 2022-09-20 [facility] [id number] 04:28:00 15:55:00 Encounter Jarrod Ramirez [facility] [place] 2022-09-18 2022-09-20 [facility] [id number] 04:28:00 15:55:00 Encounter Ashley Jarrod [facility] [place] 2022-09-18 2022-09-18 Outpatient ER [facility] [id number] SLE[facility] 07:56:40 07:56:40 2022-09-18 2022-09-18 Outpatient [facility] [id number] SLE 07:15:12 07:15:12 [facility] 2022-09-18 2022-09-18 Outpatient JUANI, SLE [facility] [id number] [facility] 00:00:00 00:00:00 JOHN 2022-09-18 2022-09-18 Travel [facility] [id number] [facility] 00:[facility]00 00:[facility]:00 [facility] 2022-09-18 2022-09-18 Travel [facility] [id number] [facility] St 00:00:00 00:00:00 [facility] 2022-07-19 2022-07-19 ANDRÉS Visit Kira Lopes 2.16.840. 2.16.840.1 . [id number] Devoted 18:00:00 19:00:00 [id number]. 017673.4.6. [address] [place] [id number] 2022-07-04 2022-07-09 Inpatient Cuauhtemoc Meyer [facility] MEDI.01 [id number] [facility] 00:12:00 13:30:00 19 [facility] 2022-07-04 2022-07-04 Outpatient Cuauhtemoc Dailey [facility] REF BN02 [id number] [facility] 15:04:00 15:04:00 82 [facility] 2022-06-28 2022-06-28 Outpatient Cuauhtemoc Meyer [facility] 3DAY [id number] [facility] 08:00:00 09:00:00 91 [facility] are [facility] 2022-06-26 2022-06-26 [facility] 1.2.840.1 [id number] Methodi 08:35:27 23:59:00 Encounter Russell 03606.1.1 200 s t 3.430.2.7 Hospit a .3.022404 l .8 2022-06-26 2022-06-26 [facility] 1.2.840.1 [id number] 21 [id number] Methodi 08:35:27 23:59:00 Encounter Russell 51677.1.1 200 s t 3.430.2.7 Hospit a .3.763629 l .8 2022-06-26 2022-06-26 [facility] Cu[facility]htemoc 1.2.840.1 [id number] 21 [id number] Methodi 07:35:42 08:34:00 Encounter Russell 44363.1.1 201 s t 3.430.2.7 Hospit a .3.185475 l .8 2022-06-26 2022-06-26 [facility] 1.2.840.1 [id number] 21 [id number] Methodi 07:35:42 08:34:00 Encounter Russell 97272.1.1 201 s t 3.430.2.7 Hospit a .3.607028 l .8 2022-06-26 2022-06-26 Travel 1.2.840.1 1.2.129.998 [id number] Methodi 00:00:00 00:00:[address] 3.430.2.7 0.2.7.3.698 Ho spita .3.540838 084.8 l .8 2022-06-26 2022-06-26 Travel 1.2.840.1 1.2.969.692 1753 [id number] Methodi 00:00:00 00:00:[address] 3.430.2.7 0.2.7.3.698 Ho spita .3.328853 084.8 l .8 2022-05-25 2022-05-25 CAV Alice 2.16.840. 2.16.840.1. CLAC [id number] [facility]oted 14:30:00 15:30:00 Landeros 1.333838. 890827.4.6. [address] 4.6.14357 [id number] 2022-05-19 2022-05-19 Orders [place] 1.2.840.1 [id number] 21 [id number] Methodi 00:00:00 00:00:00 Only my, [address]38.1.[address] [place] 3.430.2.7 [facility] .[facility].943735 l .8 2022-05-19 2022-05-19 Orders [place] 1.2.840.1 [id number] 21 [id number] Methodi 00:00:00 00:00:00 Only pamela, [address]551.1.[address] [place] 3.430.2.7 Hospi ta Chaves .3.671323 l .8 2022-02-21 2022-02-21 Orders [place] 1.2.840.1 [id number] 21 [id number] Methodi 00:00:00 00:00:00 Only pamela, [address]42.1.[address] [place] 3.430.2.7 Hospi ta Chaves .3.532426 l .8 2022-02-21 2022-02-21 Orders [place] 1.2.840.1 [id number] 21 [id number] Methodi 00:00:00 00:00:00 Only pamela, [address]703.1.[address] [place] 3.430.2.7 Hospi ta Chaves .3.140539 l .8 2022-02-03 2022-02-03 Orders Doctor CISNEROS 1.2.840.114 [id number] [facility] 00:00:00 00:00:00 Only Unassigned, JOAN 350.1.13.10 ity of [place] [facility] 4.2.7.2.686 Akbar as [phone] [address] 2022-01-31 2022-01-31 [facility] 1.2.840.1 [id number] 21 [id number] Methodi 14:24:40 23:59:00 Encounter Russell 24349.1.1 128 s t 3.430.2.7 Hospit a .3.418434 l .8 2022-01-31 2022-01-31 [facility] 1.2.840.1 [id number] 21 [id number] Methodi 14:24:40 23:59:00 Encounter Russell 95783.1.1 128 s t 3.430.2.7 Hospit a .3.487295 l .8 2022-01-31 2022-01-31 [facility] 1.2.840.1 [id number] Methodi 13:53:59 14:23:00 Encounter Russell 68755.1.1 129 s t 3.430.2.7 Hospit a .3.832675 l .8 2022-01-31 2022-01-31 [facility] Cuauhtemoc Dailey 1.2.840.1 [id number] 21 [id number] Methodi 13:53:59 14:23:00 Brooklynn Wells 49166.1.1 129 s t 3.430.2.7 Hospit a .3.639868 l .8 2022-01-31 2022-01-31 Outpatient Deshazo_T [facility] [id number] [facility] 00:00:00 00:00:00 22717 Medica l Group 2022-01-31 2022-01-31 Outpatient Deshazo_T [facility] [id number] Devoted 00:00:00 00:00:00 71809 Medica l Group 2022-01-31 2022-01-31 Outpatient Deshazo_T [facility] [id number] 0- Devoted 00:00:00 00:00:00 00258 Medica l Group 2022-01-31 2022-01-31 Travel 1.2.840.1 1.2.113.394 [id number] [id number] Methodi 00:00:00 00:00:[address] 3.430.2.7 0.2.7.3.698 Ho spita .3.148257 084.8 l .8 2022-01-31 2022-01-31 Travel 1.2.840.1 1.2.798.035 4800 [id number] Methodi 00:00:00 00:00:[address] 3.430.2.7 0.2.7.3.698 Ho spita .3.336426 084.8 l .8 2022-01-13 2022-01-13 Orders [place] 1.2.840.1 [id number] 21 [id number] Methodi 00:00:00 00:00:00 Only my, 99105.1.[address] [place] 3.430.2.7 Hospi Chaves .3.262177 l .8 2021-11-07 2021-11-07 Telephone Johana, [facility] 1.2.099.946 [id number] 0578 Univers 00:00:00 00:00:00 Ferdinand GOOD 350.1.13.10 ity of [place] [phone] Wi dical [facility] 059 [facility] 2021-11-07 2021-11-07 Orders Doctor BLAYNE 1.2.840.114 [id number] Univers 00:00:00 00:00:00 Only Unassigned, JOAN 350.1.13.10 ity of [place] [facility] 4.2.7.2.686 Akbar as [phone] [address] 2021-09-30 2021-09-30 Outpatient Deshazo_T [facility] [id number] [facility]oted 07:30:00 07:30:00 Medica l Group 2021-09-27 2021-09-27 VIKTORIA Villegas 2.16.840. 2.16.840.1. [facility] [id number] [facility]oted 19:00:00 20:00:00 Zuleima 1.170652. 528099.4.6. 29G Medical 4.6.91109 [id number] 2021-09-23 2021-09-23 Outpatient Deshazo_T [facility] [id number] Devoted 11:39:00 11:39:00 Medica l Group 2021-09-15 2021-09-15 Outpatient OWENS_T [facility] [id number] Devoted 04:05:00 04:05:00 Medica l Group 2021-09-07 2021-09-07 Outpatient OWENS_T [facility] [id number] Devoted 03:53:00 03:53:00 Medica l Group 2021-09-06 2021-09-06 [id number] Busy 10:19:00 10:19:00 43831 [facility] 2021-09-02 2021-09-02 Outpatient [facility] [id number] Devoted 10:00:00 10:00:00 11135 Medica l Group 2021-09-01 2021-09-01 Outpatient R DEMETRIA GORDON [facility] 10 [id number] Univers 10:00:00 10:00:00 EVAN DEMETRIA i ty of [facility] 2021-09-01 2021-09-01 Outpatient R TIM GORDONCAGillian [facility] 10 [id number] Univers 10:00:00 10:00:00 EVAN DEMETRIA i ty of [facility] 2021-06-15 2021-06-15 Outpatient DMG DM [id number] [facility] 04:01:00 04:01:00 [id number] Medica l Group 2021-06-08 2021-06-08 [facility] 1.2.855.147 [id number] Univers 00:00:00 00:00:00 Ferdinand GOOD 350.1.13.10 ity of [place] [facility] [phone] Wi dic[address] 2021-06-01 2021-06-01 Emergency X [facility] ERT [id number] Univers 10:17:00 12:42:00 KENDALL ity of [facility] 2021-06-01 2021-06-01 Emergency [facility] 1.2.430.813 [id number] [id number] Univers 10:17:00 12:42:00 Kendall S LATISHA 350.1.13.10 i ty of [place] [phone] [facility] [address] 2021-06-01 2021-06-01 Orders Doctor BLAYNE 1.2.840.114 [id number] Univers 00:00:00 00:00:00 Only Unassigned, JOAN 350.1.13.10 ity of [place] [facility] 4.2.7.2.686 Akbar as [phone] [facility] [address] 2021-05-19 2021-05-19 [facility] 1.2.840.114 [id number] Univers 08:13:08 23:59:00 Encounter Ferdinand GOOD 350.1.13.10 ity of [place] 4.2.7.2.686 [facility] [phone] [facility] [address] 2021-05-19 2021-05-19 [facility] 1.2.840.114 [id number] Univers 08:12:41 08:12:41 Encounter Sendil Rosalind GOOD 350.1.13.10 ity of [place] 4.2.7.2.686 [facility] [id number] [facility] [address] [place] 2021-05-19 2021-05-19 [facility] 1.2.840.114 [id number] Univers 08:12:12 08:12:12 Encounter Sendil Rosalind GOOD 350.1.13.10 ity of [place] 4.[address] [place] [phone] 2021-05-19 2021-05-19 Outpatient [facility] [id number] Univers 08:11:48 08:11:48 SENDIL ity of [facility] 2021-05-19 2021-05-19 [facility] 1.2.840.114 [id number] Univers 08:11:48 08:11:48 Encounter Sendil Rosalind GOOD 350.1.13.10 ity of [place] 4.2.7.[address] [place] [id number] 2021-05-19 2021-05-19 [facility] [id number] Univers 00:00:00 00:00:00 SENDIL ity of [facility] 2021-04-29 2021-04-29 Orders Doctor BLAYNE 1.2.840.114 [id number] Univers 00:00:00 00:00:00 Only Unassigned, JOAN 350.1.13.10 ity of [place] [facility] 4.2.7.2.686 [facility] [phone] [place] [address] [address] 2021-04-28 2021-04-28 Outpatient R DEMETRIA GORDON [facility] 10 [id number] Univers 10:00:00 10:44:28 DEMETRIA GORDON i ty of [facility] 2021-04-28 2021-04-28 [facility] 1.2.840.114 [id number] Univers 10:00:00 10:44:28 Visit Demetria GOOD 350.1.13.10 i ty [place] [phone] Wi dical NAL 085 [facility] 2021-04-28 2021-04-28 Outpatient R DEMETRIA GORDON [facility] 10 [id number] Univers 10:00:00 10:44:28 DEMETRIA GORDON i ty of [facility] 2021-04-11 2021-04-11 Outpatient [facility] [id number] Univers 13:30:00 13:30:00 SENDIL ity [facility] 2021-04-11 2021-04-11 Outpatient [facility] [id number] Univers 13:30:00 13:30:00 SENDIL ity [facility] 2021-03-23 2021-03-23 [place] [facility] 1.2.586.416 [id number] Univers 00:00:00 00:00:00 Sendil Rosalind GOOD 350.1.13.10 ity [facility] [place] [phone] [facility] 059 [facility] 2021-03-07 2021-03-07 Out[facility] [id number] Univers 08:30:00 23:59:00 SENDIL ity [facility] 2021-03-07 2021-03-07 Outpatient [facility] [id number] Univers 08:30:00 23:59:00 SENDIL ity [facility] 2021-03-07 2021-03-07 [facility] 1.2.840.114 [id number] Univers 08:30:00 23:59:00 Encounter Sendkeri GOOD 350.1.13.10 ity of [place] [phone] Wi dical NAL 846 [facility] 2021-03-07 2021-03-07 Outpatient Dania VAUGHN [facility] [id number] Univers 08:30:00 08:30:00 SENDIL ity [facility] 2021-02-28 2021-02-28 Outpatient Dania VAUGHN [facility] [id number] Univers 11:00:00 12:17:50 SENDIL ity [facility] 2021-02-28 2021-02-28 Outpatient Dania VAUGHN [facility] [id number] Univers 11:00:00 12:17:50 SENDIL ity [facility] 2021-02-28 2021-02-28 [facility] 1.2.840.114 [id number] Univers 11:00:00 12:17:50 Visit Sendil Rosalind GOOD 350.1.13.10 ity [facility] [place] [phone] Wi dical NAL 059 [facility] 2021-02-28 2021-02-28 Outpatient Dania VAUGHN [facility] [id number] Univers 11:00:00 12:17:50 SENDIL ity [facility] 2021-02-28 2021-02-28 Outpatient Dania [facility] [id number] Univers 11:00:00 12:17:50 SENDIL ity [facility] 2021-02-28 2021-02-28 Orders Doctor BLAYNE 1.2.840.114 [id number] Univers 00:00:00 00:00:00 Only Unassigned, JOAN 350.1.13.10 ity of [facility] 4.2.7.2.686 Akbar as [phone] [facility] [address] [place] 2019-05-07 2019-05-07 Outpatient [facility] [id number] [id number] [facility] 07:23:00 07:23:00 _A_AH 66154 Family Practic e Results Test Description Test Time Test Comments Results Result Comments Source Urine Culture 2022-09-22 10:50:54 Test Item Value Reference Range Interpretation Comme nts Result (test code = 6463-4) 30-39,000 col/mL Yeast A Most closely resembles - Saprochaete cap itata TRISTA (test code = TRISTA) If your patient does not have signs or symptoms of UTI, it is recommended NOT to treat, with the exception of and prior to urologic procedures. Lab Interpretation (test code Abnormal = 27773-2) [id number] 10:50:54 Test Item Value Reference Range Interpretation Comments Result (test code = 30-39,000 col/mL A Most closely 6463-4) Yeast resembles - Saprochaete capitata TRISTA (test code = TRISTA) If your patient does not have signs or symptoms of UTI, it is recommended NOT to treat, with the exception of and prior to urologic procedures. Lab Interpretation Abnormal (test code = 66254-9) [facility]/Micro[facility]opic + Reflex to Culture 2022-09-20 09:39:17 Test Item Value Reference Range Interpretation Comments Color, UA (test code Light Yellow = 5778-6) Clarity, UA (test Hazy code = 5767-9) Specific Docena, UA 1.011 1.001-1.035 (test code = 5811-5) pH, UA (test code = 7.0 5.0-8.0 5803-2) Protein, UA (test 30 mg/dL Negative A code = 27305-6) Glucose, UA (test Negative Negative code = 365) Ketones, UA (test Negative Negative code = 2514-8) Bilirubin, UA (test Negative Negative code = 81300-8) Blood, UA (test code Large Negative A = 92813-6) Nitrite, UA (test Negative Negative code = 5802-4) Leukocytes, UA (test Large Negative A code = 5799-2) Urobilinogen, UA 0.2 0.2-1.0 (test code = 77194-7) RBC, UA (test code = 75 See_Comment [Autom ated 14277-0) message] The system which generated this result transmit cecil reference range : /HPF. The reference range was not used to interpret this result as normal/abnormal . WBC, UA (test code = 26 See_Comment [Autom ated 5821-4) message] The system which generated this result transmit cecil reference range : /HPF. The reference range was not used to interpret this result as normal/abnormal . Bacteria, UA (test Many code = 65379-1) Mucus (test code = Rare 8247-9) Specimen Source (test code = 2795) TRISTA (test code = TRISTA) [employer] Spraying Machine Operator ID - [auto]Oil Spraying Machine Operator ID - tech Lab Interpretation Abnormal (test code = 18799-3) [facility] Culture 2022-09-20 09:39:17 Test Item Value Reference Range Interpretation Comments Color, UA (test code Light Yellow = 5778-6) Clarity, UA (test Hazy code = 5767-9) Specific Docena, UA 1.011 1.001-1.035 (test code = 5811-5) pH, UA (test code = 7.0 5.0-8.0 5803-2) Protein, UA (test 30 mg/dL Negative A code = 23287-3) Glucose, UA (test Negative Negative code = 365) Ketones, UA (test Negative Negative code = 2514-8) Bilirubin, UA (test Negative Negative code = 47985-1) Blood, UA (test code Large Negative A = 98067-1) Nitrite, UA (test Negative Negative code = 5802-4) Leukocytes, UA (test Large Negative A code = 5799-2) Urobilinogen, UA 0.2 0.2-1.0 (test code = 79234-2) RBC, UA (test code = 75 See_Comment [Autom ated 64345-6) message] The system which generated this result transmit cecil reference range : /HPF. The reference range was not used to interpret this result as normal/abnormal . WBC, UA (test code = 26 See_Comment [Autom ated 5821-4) message] The system which generated this result transmit cecil reference range : /HPF. The reference range was not used to interpret this result as normal/abnormal . Bacteria, UA (test Many code = 38159-3) Mucus (test code = Rare 8247-9) Specimen Source (test code = 2795) TRISTA (test code = TRISTA) Oil Spraying Machine Operator ID - [auto]Oil Spraying Machine Operator ID - tech Lab Interpretation Abnormal (test code = 40008-3) [facility] [id number] 09:39:17 Test Item Value Reference Range Interpretation Comments COLOR (BEAKER) (test code = 470) Light Yellow CLARITY (BEAKER) (test code = Hazy 469) SPECIFIC GRAVITY UA (BEAKER) 1.011 1.001-1.035 (test code = 468) PH UA (BEAKER) (test code = 467) 7.0 5.0-8.0 PROTEIN UA (BEAKER) (test code = 30 mg/dL Negative A 464) GLUCOSE UA (BEAKER) (test code = Negative Negative 365) KETONES UA (BEAKER) (test code = Negative Negative 371) BILIRUBIN UA (BEAKER) (test code Negative Negative = 462) BLOOD UA (BEAKER) (test code = Large Negative A 461) NITRITE UA (BEAKER) (test code = Negative Negative 465) LEUKOCYTE ESTERASE UA (BEAKER) Large Negative A (test code = 466) UROBILINOGEN UA (BEAKER) (test 0.2 0.2-1.0 code = 463) RBC UA (BEAKER) (test code = 75 /HPF 519) WBC UA (BEAKER) (test code = 26 /HPF 520) BACTERIA (BEAKER) (test code = Many 517) MUCUS (BEAKER) (test code = Rare 1574) SOURCE(BEAKER) (test code = 9477) Oil Spraying Machine Operator ID - [auto]Oil Spraying Machine Operator ID - [id number] 06:18:49 Test Item Value Reference Range Interpretation Comments PROSTATE SPECIFIC ANTIGEN (BEAKER) 1.2 ng/mL 0.0-4.0 (test code = 844) Oil Spraying Machine Operator ID - ADMINBASIC METABOLIC [id number] 05:47:17 Test Item Value Reference Range Interpretation [...] (test code = 697) EGFR (BEAKER) 97 Interpretatio n of eGFR (test code = mL/min/1.73 values Stage D escription 1092) sq m Result G1 Carol l or high >=90 G2 Mildly decreased 60-89 G3a Mildl y to moderately 45-5 9 G3b Moderately to s everely 30-44 G4 Severl y decreased 15-29 G5 Kidney failure <15Reported eGF R is based on the CKD-EPI 202 equation that d oes not use a race coefficientEsti mated GFR is not as accur ate as Creatinine Beba hiren in predicting glom erular filtration rate . Estimated GFR is not appl icable for dialysis patien ts Oil Spraying Machine Operator ID - [id number] 05:47:17 Test Item Value Reference Range Interpretation Comments MAGNESIUM (BEAKER) (test code = 2.2 mg/dL 1.6-2.6 627) Oil Spraying Machine Operator ID - ADMINCBC W/PLT COUNT & AUTO [id number] 05:38:21 Test Item Value Reference Range Interpretation [...] (BEAKER) (test code = 2801) HEMOGLOBIN AND [id number] 16:14:00 Test Item Value Reference Range Interpretation Comments HEMOGLOBIN (BEAKER) (test code = 8.7 GM/DL 13.7-17.5 L 410) HEMATOCRIT (BEAKER) (test code = 27.3 % 40.1-51.0 L 411) Oil Spraying Machine Operator ID - [id number] ABDOMEN/PELVIS WITH & WITHOUT IV [id number] 09:56:41[facility] : 1950 Sex: MCTABDOMEN/PELVIS WITH & WITHOUT IV CONTRASTCLINICAL HISTORY: Unlisted [...] suggestive ofold granulomatous disease. Coronary artery calcifications.Liver: Unremarkable.Gallbladderand bile ducts: Surgically absent gallbladder. No biliarydilatation.Spleen: Unremarkable.Pancreas: Un remarkable.Adrenals: UnremarkableBowel: Predominantly left sided colonic diverticulosis withoutassociated colonic wall thickening or surrounding stranding. 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 No evidence for bowel [...] node, two rightexternal iliac chain nodes both a10 mm short axis, 8 mm short axis leftcommon iliac chain lymph node, and an 8 mm short axis presacral node onseries 3 image 105 and a 6 mm short axis RENEE node on series 3 image 71.Peritoneum: Unremarkable.Vessels: Extensive atherosclerotic calcifications.Abdominal wall: Parastomal hernia in the left lo wer quadrant andsequelae of subcutaneous medication administration in the right lowerquadrant.Bones:Exaggerated lumbar lordosis and multilevel degenerative changesthroughout the [...] parastomal hernia. Noevidence for bowel obstruction or strangulatio n.5. 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 ID - [id number] 05:57:20 Test Item Value Reference Range Interpretation [...] mechanical heart valves.CBC W/PLT COUNT & AUTO [id number] 05:57:19 Test Item Value Reference Range Interpretation [...] (BEAKER) (test code = 2801) CBC W/AUTO [id number] 12:22:00 Test Item Value Reference Range Interpretation [...] x10 3/uL 0.0-0.20 N - US RETRO [id number] 10:20:00 [facility] : 1950 Sex: MPatient Name: MIKEY MORILLO Unit No: [id number] EXAMS: CPT CODE: [id number] US RETRO LTD 56453 RENAL ULTRASOUND LOCATION: H 30 History: Urinary [...] and signed by: Earl Veronica Jr, MD CC:Cuauhtemoc Dailey MD; Ethan Lang MD Technologist: QUAN BOOKER RDMS (AB) Probe: Trscr Dt/Tm: 07/09/2022 (1020) by:Jose Printed Date/Time: 07/09/2022 (1024) Name: MIKEY MORILLO JR [facility] Phys: Ethan Garcia MD [address] : 1950 Age: 72 [place]: [place] [address] [facility] [id number] Loc: P.0906 1 Exam Date: 07/09/2022 Status: ADM IN PH: FAX: PAGE 1 Signed ReportPROSTATE SPECIFIC [id number] 04:04:00 Test Item Value Reference Range Interpretation Comments PROSTATE SPECIFIC ANTIGEN (test 4.15 ng/mL 0.0-4.0 H code = PSA SCREEN) HGB [id number] 05:12:00 Test Item Value Reference Range Interpretation Comments HEMOGLOBIN (test code = HGB) 11.0 g/dL 14.0-18.0 L HEMATOCRIT (test code = HCT) 32.9 % 42.0-52.0 L CBC W/MANUAL [id number] 08:09:00 Test Item Value Reference Range Interpretation [...] MORPHOLOGY (test NORMAL NORMAL code = PLTMORPH) [id number] 06:11:00 Test Item Value Reference Range Interpretation Comments MAGNESIUM (test code = MAG) 1.9 mg/dL 1.6-2.6 N BASIC METABOLIC [id number] 06:07:00 Test Item Value Reference Range Interpretation [...] code 8.0 mg/dL 8.7-10.4 L = CA) [id number] 17:13:00 Test Item Value Reference Range Interpretation Comments SURGICAL (test code = SR) RUN DATE: 07/11/22 [facility] - LAB PAGE 1 RUN TIME: 0856 Specimen Inquiry RUN USER: INTERFACE ELIZA ENT: MIKEY MORILLO LOC: P.9S POD A U #: [id number] AGE/SX: 72/M ROOM: [facility] RE07/04/22REG DR: Cuauhtemoc Dailey MD : 54 BED: 1 DIS: 07/09/22 STATUS: DIS IN TLOC: SPEC #: [id number] RECD: 07/04/22 STATUS: NARDA REQ #: [id number] CHAPARRO: 07/04/22-[address]: Cuauhtemoc Dailey MD ENTERED: 07/04/22 SP TYPE: SURGICAL OTHR DR: Myra Primary or Family PhysicianORDERED: 45535, 63194/3, 39813, ANATOMIC SPEC, [id number] HISTOLOGY: TISSUE ID [id number] [...] CLASSIFICATION (pTNM, AJCC 8th Edition) Pathologic Stage: yS2Kpmvpasw Lymph Nodes: pR5Vznhmrx Metastasis: Not applicable SPECIMEN Procedure: Low anterior resection CONTINUED ON NEXT PAGE RUN DATE: 07/11/22 [facility] - LAB PAGE 2 RUN TIME: 08 Specimen Inquiry RUN USER: INTERFACE SPEC #: [id number] PATIENT: MIKEY MORILLO JR #[id number] (Continued) ------- CAP CANCER SUMMARY (Continued) Macroscopic [...] CONTINUED ON NEXT PAGE RUN DATE: 07/11/22 [facility] - LAB PAGE 3 RUN TIME: 855 Specimen Inquiry RUN USER: INTERFACE SPEC #: [id number] PATIENT: MIKEY MORILLO #[id number] (Continued) ------- FINAL DIAGNOSIS (Continued) - Twenty-four [...] 0.6 x 0.5 x 0.3 cmin greatest dimension.Carpet Tile Layer sections are submitted in cassettes labeled as follows: A1 - proximalmargin; A2 - distal margin; A3-A6 - lesion, serially sectioned perpendicular to the margin(margin inked green); A7 - uninvolved mucosa; A8-A9 - 12 lymph nodes (2 bisected and inkeddifferently); A10-A17 - lymph nodes candidates. XZ/ph Technical component performed at [facility] [facility], [facility], [address] Immunohistochemistry: This test was developed and its [...] Garrido Henry 07/06/22 1713 END OF REPORT [id number] 05:20:00 Test Item Value Reference Range Interpretation Comments MAGNESIUM (test code = MAG) 2.0 mg/dL 1.6-2.6 N BASIC METABOLIC [id number] 05:20:00 Test Item Value Reference Range Interpretation [...] mg/dL 8.7-10.4 L = CA) CBC W/AUTO [id number] 05:01:00 Test Item Value Reference Range Interpretation [...] 0.02 x10 3/uL 0.0-0.20 N BASIC METABOLIC [id number] 05:19:00 Test Item Value Reference Range Interpretation [...] code 8.1 mg/dL 8.7-10.4 L = CA) [id number] 05:13:00 Test Item Value Reference Range Interpretation Comments MAGNESIUM (test code = MAG) 1.8 mg/dL 1.6-2.6 N CBC W/AUTO [id number] 04:53:00 Test Item Value Reference Range Interpretation [...] 0.03 x10 3/uL 0.0-0.20 N COMPREHENSIVE METABOLIC [id number] 12:03:00 Test Item Value Reference Range Interpretation [...] PHOSPHATASE (test code = ALKP) THROMBOPLASTIN TIME [id number] 12:00:00 Test Item Value Reference Range Interpretation Comments THROMBOPLASTIN TIME 40.7 SECONDS 23.8-34.8 H INTERPRE TATIVE PARTIAL (test code = DATA:Th erapeutic PTT) range: Unfractionated heparin:55 - 80 seconds Argatroban:1.5 to 3 times the basel ine PTT PROTHROMBIN [id number] 12:00:00 Test Item Value Reference Range Interpretation [...] valves; 2.5-3.5recurren t systemic emboli sm. URINALYSIS [id number] 11:49:00 Test Item Value Reference Range Interpretation [...] DIPSTICK (test code = LEUU) CBC W/AUTO [id number] 11:47:00 Test Item Value Reference Range Interpretation [...] = BA#) 0.03 x10 3/uL 0.0-0.20 N Estimated [id number] 13:12:00 Test Item Value Reference Range Interpretation Comments Estimated GFR (test 86 mL/min/1.73 m2 [facility] or Units code = 72029-6) Interpretati onG1 >=90 Normal or highG 2 60-89 Mildly decrease dG3a 45-59 Mildly to moder ately ssjouawxmR6s 30 -44 Moderately to s everely decreasedG4 15- 29 Severely decreasedG5 <15 Kidney failureThe eGFR was calculated usin g the Chronic Kidney Disease Epidemiology Co llaboration (CKD-EPI) equat ion. Interpretation is based on recommendations of the National Kidney Foundation-Kid ey Disease Outcomes Qualit y Initiative (NKF-KDOQI) pub lished in 2013. [facility] [id number] 13:12:00 Test Item Value Reference Range Interpretation Comments POC creatinine (test 0.9 mg/dl 0.7-1.2 Operato r Name: code = 31995-5) Nicho Rosadoe ID : [id number] [facility] [id number] 13:12:00 Test Item Value Reference Range Interpretation Comments Estimated GFR (test 86 mL/min/1.73 m2 Caterg ory Units code = 64344-2) Interpretati onG1 >=90 Normal or highG 2 60-89 Mildly decrease dG3a 45-59 Mildly to moder ately duifnerrcI3t 3 0-44 Moderately to s everely decreasedG4 15- 29 Severely decreasedG5 <15 Kidney failureThe eGFR was calculated usin g the Chronic Kidney Disease Epidemiology Co llaboration (CKD-EPI) equat ion. Interpretation is based on recommendations of the National Kidney Foundation-[facility] ey Disease Outcomes Qualit y Initiative (NKF-KDOQI) pub lished in 2013. [facility] [id number] 13:12:00 Test Item Value Reference Range Interpretation Comments POC creatinine (test 0.9 mg/dl 0.7-1.2 Operato r Name: code = 69154-5) Nicho AdamDevice ID : [id number] [facility] HospitalEstimated [id number] 13:12:00 Test Item Value Reference Range Interpretation Comments Estimated GFR (test 86 mL/min/1.73 m2 Caterg ory Units code = 24019-5) Interpretati onG1 >=90 Normal or highG 2 60-89 Mildly decrease dG3a 45-59 Mildly to moder ately ylvnscxbfU2q 30 -44 Moderately to s everely decreasedG4 15- 29 Severely decreasedG5 <15 Kidney failureThe eGFR was calculated usin g the Chronic Kidney Disease Epidemiology Co llaboration (CKD-EPI) equat ion. Interpretation is based on recommendations of the National Kidney Foundation-Kidn ey Disease Outcomes Qualit y Initiative (NKF-KDOQI) pub lished in 2014. [facility] [id number] 13:12:00 Test Item Value Reference Range Interpretation Comments POC creatinine (test 0.9 mg/dl 0.7-1.2 Operato r Name: code = 25236-2) Gatosophia AdamPrincess ID : [id number] [facility] HospitalEstim[facility] [id number] 13:12:00 Test Item Value Reference Range Interpretation Comments Estimated GFR (test 86 mL/min/1.73 m2 Caterg ory Units code = 84552-7) Interpretati onG1 >=90 Normal or highG 2 60-89 Mildly decrease dG3a 45-59 Mildly to moder ately rkdjenbkdW6l 30 -44 Moderately to s everely decreasedG4 15- 29 Severely decreasedG5 <15 Kidney failureThe eGFR was calculated usin g the Chronic Kidney Disease Epidemiology Co llaboration (CKD-EPI) equat ion. Interpretation is based on recommendations of the National Kidney Foundation-Kidn ey Disease Outcomes Qualit y Initiative (NKF-KDOQI) pub lished in 2013. [facility] [id number] 13:12:00 Test Item Value Reference Range Interpretation Comments POC creatinine (test 0.9 mg/dl 0.7-1.2 Operato r Name: code = 54544-9) Gatosophia Ashleee ID : [id number] [facility] HospitalEstim[facility] [id number] 13:12:00 Test Item Value Reference Range Interpretation Comments Estimated GFR (test 86 mL/min/1.73 m2 Caterg ory Units code = 19957-3) Interpretati onG1 >=90 Normal or highG 2 60-89 Mildly decrease dG3a 45-59 Mildly to moder ately oclpqrhzuS3f 30 -44 Moderately to s everely decreasedG4 15- 29 Severely decreasedG5 <15 Kidney failureThe eGFR was calculated usin g the Chronic Kidney Disease Epidemiology Co llaboration (CKD-EPI) equat ion. Interpretation is based on recommendations of the National Kidney Foundation-Kidn ey Disease Outcomes Qualit y Initiative (NKF-KDOQI) pub lished in 2014. [facility] [id number] 13:12:00 Test Item Value Reference Range Interpretation Comments POC creatinine (test 0.9 mg/dl 0.7-1.2 Operato r Name: code = 12059-0) Nicho Zacarias ID : [id number] [facility]MER[facility] [id number] 16:03:24 Test Item Value Reference Interpretation Comments Range TROPONIN I (test 0.005 ng/mL See_Comment [Automated code = 8417588292) message] The system which generated this result [...] biotin. Lab Interpretation Normal (test code = 11204-5) [facility] [id number] 16:00:22 Test Item Value Reference Range Interpretation Comments NT-proBNP (test code 411 pg/mL See_Comment H [Autom ated = 1446115862) message] The system which generated this result transmitted reference range : <=125. The reference range was not used to interpret this result as normal/abnormal . TRISTA (test code = TRISTA) Biotin has been reported to cause a negative bias, interpret results relative to patient's use of biotin. Lab Interpretation Abnormal (test code = 25496-8) [facility]. METABOLIC PANEL ([id number] 15:51:22 Test Item Value Reference Range Interpretation Comments NA (test code = 132 mmol/L 135-145 L 9182593609) K (test code = 4.9 mmol/L 3.5-5.0 1220051733) CL (test code = 97 mmol/L 98-108 L 6199552329) CO2 TOTAL (test code = 26 mmol/L 23-31 4372584336) AGAP (test code = 2-16 1475276517) BUN (test code = 11 mg/dL 7-23 5580365094) GLUCOSE (test code = 91 mg/dL 70-110 8293368781) CREATININE (test code = 0.65 mg/dL 0.60-1.25 5342863643) TOTAL BILI (test code = 1.0 mg/dL 0.1-1.8 7328877241) CALCIUM (test code = 8.5 mg/dL 8.6-10.6 L 6434946804) T PROTEIN (test code = 7.0 g/dL 6.3-8.2 6417938461) ALBUMIN (test code = 4.4 g/dL 3.5-5.0 8348900508) ALK PHOS (test code = 46 U/L 34-122 2491213703) ALTv (test code = 21 U/L 5-50 1742-6) AST(SGOT) (test code = 36 U/L 13-40 1158211472) eGFR (test code = mL/min/1.73m2 4429273401) TRISTA (test code = TRISTA) Association of [...] tests). Lab Interpretation Abnormal (test code = 33234-7) [facility] WITH [id number] 15:41:19 Test Item Value Reference Range Interpretation Comments WBC (test code = See_Comment [Automated message] 0090-2) The system [employer] generated this result transmitted ref erence range: 4.20 - 1 0.70 10*3/?L. The re ference range was not u sed to interpret this result as normal/abnor mal. RBC (test code = See_Comment [Automated message] 939-8) The system [employer] generated this result transmitted ref erence range: [...] RDW-SD (test code 41.6 fL 38.5-51.6 = 46517-6) RDW-CV (test code 12.4 % 12.1-15.4 = 788-0) PLT (test code = See_Comment [Automated message] 777-3) The system [employer] generated this result transmitted ref erence range: 150 - 32 8 10*3/?L. The re ference range was not u sed to interpret this result as normal/abnor mal. MPV (test code = 10.4 fL 9.8-13.0 77671-9) NRBC/100 WBC (test See_Comment [Automat ed message] code = 8552924030) The syste m which generated this result transmitted ref erence range: 0.0 - 10 .0 /100 WBCs. The refer ence range was not u sed to interpret this result as normal/abnor mal. NRBC x10^3 (test <0.01 See_Comment [Automated message] code = 2542926856) The syste m which generated this result transmitted ref erence range: 10*3/?L. The reference range was not used to interpr et this result as normal/abnormal . GRAN MAT (NEUT) % 44.8 % (test code = 770-8) IMM GRAN % (test 0.40 % code = 8561673618) LYMPH % (test code 42.3 % = 736-9) MONO % (test code 8.0 % = 5905-5) EOS % (test code = 3.9 % 713-8) BASO % (test code 0.6 % = 706-2) GRAN MAT 2.42 10*3/uL 1.99-6.95 x10^3(ANC) (test code = 8250955368) IMM GRAN x10^3 <0.03 0.00-0.06 (test code = 4441939195) LYMPH x10^3 (test 2.28 10*3/uL 1.09-3.23 code = 731-0) MONO x10^3 (test 0.43 10*3/uL 0.36-1.02 code = 742-7) EOS x10^3 (test 0.21 10*3/uL 0.06-0.53 code = 711-2) BASO x10^3 (test 0.03 10*3/uL 0.01-0.09 code = 704-7) [facility]
--- NOTE | 2023-01-26 17:00 | RAD REPORT ---
EXAM DESCRIPTION: CT - Ct Stroke Brain Wo Cont - 01/26/2023 4:42 pm CLINICAL HISTORY: STROKE ALERT COMPARISON: Ct Stroke Brain Wo Cont dated 04/16/2016; Ct Stroke Brain Wo Cont dated 03/07/2016 TECHNIQUE: Noncontrast head CT images were obtained without IV contrast. Multiplanar reformats were generated and reviewed. All CT scans are performed using dose optimization technique as appropriate and may include automated exposure control or mA/KV adjustment according to patient size. FINDINGS: No intracranial hemorrhage, mass, or edema. Midline structures are unremarkable. Stable ventricular caliber with mild diffuse parenchymal volume loss. Patchy areas of hypoattenuation of the white matter bilaterally are stable in extent, most suggestive chronic small vessel ischemic changes. Dolichoectasia of the vertebrobasilar system again. Marvin-white matter differentiation is preserved, without evidence of acute infarct. No abnormal extra- axial fluid collections. Mastoid air are well aerated. Mucous retention cysts in the maxillary sinuses. No acute bony findings. IMPRESSION: No evidence of an acute intracranial process. Stable chronic findings as above. The findings were communicated to Ashwin Correa on 01/26/2023 at 16:56 hours.
[2023-01-26 17:11] LABS: Absolute Lymphocytes (CBC) 1.5 K/uL (0.7-4.9); Hematocrit 38.4 % (39.6-49.0); Lymphocytes % 26.8 % (15.3-44.8); MCV 95.3 fL (80-100); MPV 8.4 fL (7.6-11.3); Platelets 216 thou/uL (152-406); RBC Red Blood Cell Count 4.03 M/uL (4.33-5.43)
[2023-01-26 17:14] LABS: Protime INR 1.22
[2023-01-26 17:38] LABS: Albumin 3.5 g/dL (3.4-5.0); Bilirubin Direct 0.4 mg/dL (0-0.2); Bilirubin Indirect, Calculated 0.8 mg/dL (0.2-0.8); Bilirubin Total 1.2 mg/dL (0.2-1.0); Potassium 3.7 mEq/L (3.5-5.1); Protein, Total 6.9 g/dL (6.4-8.2); Troponin High Sensitivity 7.1 pg/mL (<58.9)
--- NOTE | 2023-01-26 17:41 | RAD REPORT ---
EXAM DESCRIPTION: CT - Head angio - 01/26/2023 5:05 pm CLINICAL HISTORY: 1. STROKE ALER COMPARISON: Ct Stroke Brain Wo Cont dated 01/26/2023; Ct Stroke Brain Wo Cont dated 04/16/2016 TECHNIQUE: Axial CT angiography images of the head was performed with multiplanar and maximum intens ity projection reconstructions. Images performed following intravenous administration of 100 mLmL Iso jason 370. All CT scans are performed using dose optimization technique as appropriate and may include automated exposure control or mA/KV adjustment according to patient size. FINDINGS: No evidence of large vessel occlusion. Moderate atherosclerotic calcifications along the c arotid siphons leading to sciu-qi-zwjarfxx focal luminal narrowing along the distal left cavernous se gment. No evidence of aneurysm or dissection flap is detected. No other flow-limiting stenosis or vas cular malformation identified. Antegrade flow is seen in the vertebral arteries. The vertebral arteries are codominant. Dolichoecta tova of the vertebrobasilar system, with moderate atherosclerotic calcifications along the mid vertebr al arteries bilaterally leading to moderate right and mild left luminal narrowing. The visualized dural venous sinuses are grossly patent. IMPRESSION: Up to moderate atherosclerotic narrowing along the right vertebral and left cavernous ca rotid arteries. Dolichoectasia of the vertebrobasilar system. No evidence of large vessel occlusion or other flow-limiting stenosis.
--- NOTE | 2023-01-26 18:01 | RAD REPORT ---
EXAM DESCRIPTION: CT - Neck Angio - 01/26/2023 5:09 pm CLINICAL HISTORY: code stroke COMPARISON: No comparisons TECHNIQUE: Axial CT angiography images of the head was performed with multiplanar and maximum intens ity projection reconstructions. Images performed following intravenous administration of 100mL Isovue 370. All CT scans are performed using dose optimization technique as appropriate and may include automated exposure control or mA/KV adjustment according to patient size. Quantification of carotid stenosis, if any, is performed according to NASCET criteria. FINDINGS: A left aortic arch is identified with normal three vessel configuration of the great vesse ls. No significant flow abnormality is seen of the common carotid bilaterally. Mild atherosclerotic calci fications at the carotid bulbs. No significant stenosis is identified involving the cervical segments of both internal carotid arteri es. Normal flow is seen within both vertebral arteries. IMPRESSION: No significant flow abnormality of the neck vessels is identified. CAROTID STENOSIS REFERENCE USING NASCET CRITERIA: % ICA stenosis = (1 - narrowest ICA diameter/diameter of distal cervical ICA) x 100. Mild - <50% stenosis. Moderate - 50-69% stenosis. Severe - 70-94% stenosis. Near occlusion - 95-99% stenosis. Occluded - 100% stenosis.
--- NOTE | 2023-01-26 18:10 | RAD REPORT ---
EXAM DESCRIPTION: RADChest Single View01/26/2023 5:26 pm CLINICAL HISTORY: code stroke COMPARISON: Chest Single View dated 01/23/2023; Chest Single View dated 09/17/2022; Chest Pa And Lat (2 Views) dated 08/16/2022; Chest Single View dated 12/18/2021 TECHNIQUE: Portable AP view of the chest. FINDINGS: The lungs are clear. No pneumothorax or effusion. The cardiomediastinal contours are unre markable. IMPRESSION: No acute cardiopulmonary process.
--- NOTE | 2023-01-26 18:33 | EDPHYS ---
Physician Documentation [facility] Name: Lev Miller Jr Age: 72 yrs Sex: Male : 1950 Arrival Date: 01/26/2023 Time: 16:33 Bed 3 Private MD: ED Physician Beulah Bucio HPI: 01/26 17:16 This 72 yrs old Male presents to ER via EMS with complaints of S/S of Possible Stroke. sp3 17:16 72-year-old male with history of atrial fibrillation, prior CVA, hypertension currently sp3 on Eliquis and Plavix now presents to the ED with chief complaint syncope versus CVA versus partial seizure as witnessed by family member. Patient was seen 3 days ago by me for spontaneous bruising. Work-up was negative and patient was discharged home to see Dr. Nunes again who was the one who sent him in. Today the episode occurred as he was eating just prior to arrival and EMS was activated. EMS states that he may have had a right-sided facial droop that was subsequently resolved by the time he came to the ED. Patient has no symptoms currently and denies headache, chest pain, shortness of breath, back pain, abdominal pain, palpitations, rash, fever, URI symptoms, trauma, or any other signs or symptoms on ROS at this time.. Historical: - Allergies: 16:35 Codeine; ld1 16:35 PENICILLINS; ld1 - Home Meds: 16:38 tamsulosin 0.4 mg oral capsule 1 cap twice a day [Active]; allopurinol 100 mg Oral ld1 tablet daily [Active]; amlodipine 5 mg tablet 1 tab daily [Active]; lisinopril 20 mg Oral tablet daily [Active]; metoprolol tartrate 100 mg Oral tablet 1 tab daily [Active]; amlodipine 2.5 mg tablet 1 tab daily [Active]; aspirin 81 mg Oral capsule 1 cap daily [Active]; Eliquis 5 mg oral tablet 1 tab 2 times per day [Active]; clopidogrel 75 mg oral tablet 1 tab daily [Active]; atorvastatin 40 mg oral tablet 1 tab daily [Active]; - PMHx: 16:35 Atrial Fib; BPH; CVA; Gout; Hypertension; ld1 - PSHx: 16:35 Appendectomy; heart cath; Cholecystectomy; ld1 - Immunization history:: Adult Immunizations up to date. - Social history:: Smoking status: Patient denies any tobacco usage or history of. ROS: 17:18 Constitutional: Negative for fever, chills, and weight loss, Eyes: Negative for injury, sp3 pain, redness, and discharge, ENT: Negative for injury, pain, and discharge, Neck: Negative for injury, pain, and swelling, Respiratory: Negative for shortness of breath, cough, wheezing, and pleuritic chest pain, Abdomen/GI: Negative for abdominal pain, nausea, vomiting, diarrhea, and constipation, Back: Negative for injury and pain, MS/Extremity: Negative for injury and deformity, Psych: Negative for depression, anxiety, suicide ideation, homicidal ideation, and hallucinations, Allergy/Immunology: Negative for hives, rash, and allergies, Endocrine: Negative for neck swelling, polydipsia, polyuria, polyphagia, and marked weight changes, 17:18 All other systems are negative, Exam: 17:18 Radiologist reports: Negative noncontrast CT. sp3 17:18 Constitutional: This is a well developed, well nourished patient who is awake, alert, and in no acute distress. Head/Face: Normocephalic, atraumatic. Eyes: Pupils equal round and reactive to light, extra-ocular motions intact. Lids and lashes normal. Conjunctiva and sclera are non-icteric and not injected. Cornea within normal limits. Periorbital areas with no swelling, redness, or edema. ENT: Nares patent. No nasal discharge, no septal abnormalities noted. External auditory canals are clear. Oropharynx with no redness, swelling, or masses, exudates, or evidence of obstruction, uvula midline. Mucous membranes moist. Neck: Trachea midline, no thyromegaly or masses palpated, and no cervical lymphadenopathy. Supple, full range of motion without nuchal rigidity, or vertebral point tenderness. No Meningismus. Chest/axilla: Normal chest wall appearance and motion. Nontender with no deformity. No lesions are appreciated. Respiratory: Lungs have equal breath sounds bilaterally, clear to auscultation and percussion. No rales, rhonchi or wheezes noted. No increased work of breathing, no retractions or nasal flaring. Abdomen/GI: Soft, non-tender, with normal bowel sounds. No distension or tympany. No guarding or rebound. No evidence of tenderness throughout. Back: No spinal tenderness. No costovertebral tenderness. Full range of motion. MS/ Extremity: Pulses equal, no cyanosis. Neurovascular intact. Full, normal range of motion. Neuro: Awake and alert, GCS 15, oriented to person, place, time, and situation. Cranial nerves II-XII grossly intact. Motor strength 5/5 in all extremities. Sensory grossly intact. Cerebellar exam normal. Normal gait. Psych: Awake, alert, with orientation to person, place and time. Behavior, mood, and affect are within normal limits. 17:18 Cardiovascular: Patient in atrial fibrillation with a rate of 80., 17:18 ECG was reviewed by the Attending Physician. EKG demonstrates atrial fibrillation at 80 bpm with normal axis, normal QRS, nonspecific diffuse ST/T changes without evidence of acute ischemia. This is not materially different from EKG dated 01/23/2023. 17:19 Skin: Ecchymoses noted in the right upper extremity similar to 3 days ago when he was sp3 seen by me.. Vital Signs: 16:38 BP 94 / 57; Pulse 89; Resp 18; Pulse Ox 100% on R/A; ld1 16:45 Weight 79 kg; Height 5 ft. 10 in. ; Pain 0/10; ld1 16:45 Temp 97.3(TE); ld1 17:21 BP 95 / 61; Pulse 80; Resp 22; Pulse Ox 100% on R/A; ld1 20:30 BP 93 / 61; Pulse 73; Resp 16; Pulse Ox 100% on R/A; jb4 21:21 BP 103 / 66; Pulse 81; Resp 16; Pulse Ox 100% on R/A; jb4 16:45 Body Mass Index 24.99 (79.00 kg, 177.8 cm) ld1 16:45 Pain Scale: Adult ld1 NIH Stroke Scale Scores: 16:50 NIHSS Score: 0 hb MDM: 16:44 Patient medically screened. sp3 17:20 Data reviewed: vital signs, nurses notes, EMS record, old medical records, lab test sp3 result(s), EKG, radiologic studies. ED course: 72-year-old male with second visit in 3 days this time for neurological episode consistent with syncope versus TIA versus seizure. No prior history of seizure. Will place in observation for neurological consultation and serial neurological exams. Currently patient has a normal neurological exam. CT angiograms are pending. Patient is already anticoagulated from an atrial fibrillation standpoint.. 01/26 16:43 Order name: Basic Metabolic Panel; Complete Time: 18:00 3 01/26 16:43 Order name: CBC with Diff; Complete Time: 18:00 3 01/26 16:43 Order name: Hepatic Function; Complete Time: 18:00 3 01/26 16:43 Order name: High Sensitivity Troponin; Complete Time: 18:00 3 01/26 16:43 Order name: Protime (+inr); Complete Time: 18:00 3 01/26 16:43 Order name: Ptt, Activated; Complete Time: 18:00 [facility] 01/26 16:56 Order name: Glucose, Ancillary Testing; Complete Time: 18:00 [facility] 01/26 20:44 Order name: Creatine Phosphokinase [facility] 01/26 20:44 Order name: Creatine Phosphokinase [facility] 01/26 20:44 Order name: Lipid Profile [facility] 01/26 20:44 Order name: Lipid Profile [facility] 01/26 20:44 Order name: Troponin High Sensitivity [facility] 01/26 20:44 Order name: Troponin High Sensitivity [facility] 01/26 20:44 Order name: Troponin High Sensitivity [facility] 01/26 21:31 Order name: CREATININE WHOLE BLOOD [facility] 01/26 16:36 Order name: CT Stroke Brain w/o Contrast; Complete Time: 18:00 7 01/26 16:43 Order name: CT Head Angio; Complete Time: 18:00 3 01/26 16:43 Order name: CT Neck Angio; Complete Time: 18:32 3 01/26 16:43 Order name: CT Stroke Brain w/o Contrast [facility] 01/26 16:43 Order name: Stroke CXR 1 View; Complete Time: 18:32 3 01/26 20:44 Order name: Echo with Doppler [facility] 01/26 20:44 Order name: Stroke Protocol [facility] 01/26 20:44 Order name: Carotid Artery Bilateral [facility] 01/26 16:43 Order name: EKG; Complete Time: 16:44 3 01/26 20:44 Order name: IRF Screen [facility] 01/26 16:43 Order name: Cardiac monitoring; Complete Time: 16:46 3 01/26 16:43 Order name: EKG - Nurse/Tech; Complete Time: 16:46 sp3 01/26 16:43 Order name: IV Saline Lock; Complete Time: 16:46 sp3 01/26 16:43 Order name: Labs collected and sent; Complete Time: 16:46 sp3 01/26 16:43 Order name: NPO; Complete Time: 16:46 sp3 01/26 16:43 Order name: O2 Per Protocol; Complete Time: 16:46 sp3 01/26 16:43 Order name: O2 Sat Monitoring; Complete Time: 16:46 sp3 01/26 16:43 Order name: Stroke Swallow Screen; Complete Time: 16:46 sp3 Administered Medications: No medications were administered Point of Care Testing: Blood Glucose: 16:43 Blood Glucose: 112 mg/dL; ld1 Ranges: Critical Glucose Levels:Adult <50 mg/dl or >400 mg/dl <40 mg/dl or >180 mg/dl Disposition Summary: 01/26/23 18:33 Hospitalization Ordered Notes: Hospitalization Status: Observation sp3 Provider: Minh Correa sp3 Location: Telemetry/MedSurg (observation) sp3 Condition: Stable sp3 Problem: an acute exacerbation sp3 Symptoms: have worsened sp3 Bed/Room Type: Standard sp3 Room Assignment: 231(01/26/23 21:16) cg Diagnosis - Syncope, TIA sp3 Forms: - Medication Reconciliation Form sp3 - SBAR form sp3 - Leadership Thank You Letter sp3 NIH Stroke Scale - NIH Stroke Score Date: 01/26/2023 Time: 16:50 Total Score = 0 10. Dysarthria (speech clarity - read or repeat words) - 0(Normal) 11. Extinction and Inattention (visual/tactile/auditory/spatial/personal) - 0(No abnormality) 1a. Level of Consciousness (LOC) - 0(Alert) 1b. Level of Consciousness (LOC) (Month \T\ Age) - 0(Both) 1c. LOC Commands (Open \T\ Closes Eyes/Postmaster) - 0(Both) 2. Best Gaze (Lateral Gaze Paresis) - 0(Normal) 3. Visual Field Loss - 0(No visual loss) 4. Facial Palsy - 0(Normal) 5a. Left Arm: Motor (10-second hold) - 0(No drift) 5b. Right Arm: Motor (10-second hold) - 0(No drift) 6a. Left Leg: Motor (5-second hold - always test supine) - 0(No drift) 6b. Right Leg: Motor (5-second hold - always test supine) - 0(No drift) 7. Limb Ataxia (finger/nose \T\ heel/lopez - test with eyes open) - 0(Absent) 8. Sensory Loss (pinprick arms/legs/face) - 0(Normal) 9. Best Language: Aphasia (description/naming/reading) - 0(No aphasia) Initials: hb Signatures: Dispatcher [employer] EDMS Eulalio Wilkins, SUPERVISOR INCISING-C SUPERVISOR INCISING-Cla1 Maria G Villafana RN RN Fara Thomas RN RN ld1 Beulah Bucio MD MD sp3 Corrections: (The following items were deleted from the chart) 21:16 18:33 sp3 cg
--- NOTE | 2023-01-26 18:33 | ER ---
Nurse's Notes [facility] Name: Lev Miller Jr Age: 72 yrs Sex: Male : 1950 Arrival Date: 01/26/2023 Time: 16:33 Bed 3 Private MD: Diagnosis: Syncope, TIA Presentation: 01/26 16:35 Chief complaint: EMS states: toned out to pt home. Sitting down to eat dinner, "went ld1 glossy eyed and unable to react to family fell over onto dinner table." EMS reports right sided droop on the way to ER. Coronavirus screen: At this time, the client does not indicate any symptoms associated with coronavirus-19. Ebola Screen: No symptoms or risks identified at this time. Risk Assessment: Do you want to hurt yourself or someone else? Patient reports no desire to harm self or others. Onset of symptoms was January 26, 2023 at 15:45. 16:35 Method Of Arrival: EMS: [facility] ld1 16:35 Acuity: CRISTINA 2 ld1 19:00 No acute neurological deficit is noted. The patients blood glucose was checked before rv arriving to the hospital and was found to be normal. Initial Sepsis Screen: Does the patient meet any 2 criteria? RR > 20 per min. Does the patient have a suspected source of infection? No. Patient's initial sepsis screen is negative. Triage Assessment: 16:38 The onset of the patients symptoms was January 26, 2023 at 15:45. General: Appears in ld1 no apparent distress. uncomfortable, Behavior is cooperative. Pain: Denies pain. EENT: No signs and/or symptoms were reported regarding the EENT system. Neuro: Level of Consciousness is awake, obeys commands, Oriented to person, place, time, situation. Neuro: Reports weakness since 1545. Cardiovascular: Reports fatigue, Capillary refill < 3 seconds. Respiratory: Airway is patent Respiratory effort is even, unlabored. GI: Abdomen is flat, non-distended. : No signs and/or symptoms were reported regarding the genitourinary system. Derm: Skin is clammy, diaphoretic, Skin temperature is cold. Musculoskeletal: No signs and/or symptoms reported regarding the musculoskeletal system. Stroke Activation: Symptom onset < 3 hours Physician: Stroke Attending; Name: ; Notified At: ; Arrived At: Physician: Chief Stroke Resident; Name: ; Notified At: ; Arrived At: Physician: Stroke Resident; Name: ; Notified At: ; Arrived At: Physician: ED Attending; Name: ; Notified At: ; Arrived At: Physician: ED Resident; Name: ; Notified At: ; Arrived At: Stroke Activation: Symptom onset < 3 hours Physician: Stroke Attending; Name: ; Notified At: ; Arrived At: Physician: Chief Stroke Resident; Name: ; Notified At: ; Arrived At: Physician: Stroke Resident; Name: ; Notified At: ; Arrived At: Physician: ED Attending; Name: ; Notified At: ; Arrived At: Physician: ED Resident; Name: ; Notified At: 16:33; Arrived At: Historical: - Allergies: 16:35 Codeine; ld1 16:35 PENICILLINS; ld1 - Home Meds: 16:38 tamsulosin 0.4 mg oral capsule 1 cap twice a day [Active]; allopurinol 100 mg Oral ld1 tablet daily [Active]; amlodipine 5 mg tablet 1 tab daily [Active]; lisinopril 20 mg Oral tablet daily [Active]; metoprolol tartrate 100 mg Oral tablet 1 tab daily [Active]; amlodipine 2.5 mg tablet 1 tab daily [Active]; aspirin 81 mg Oral capsule 1 cap daily [Active]; Eliquis 5 mg oral tablet 1 tab 2 times per day [Active]; clopidogrel 75 mg oral tablet 1 tab daily [Active]; atorvastatin 40 mg oral tablet 1 tab daily [Active]; - PMHx: 16:35 Atrial Fib; BPH; CVA; Gout; Hypertension; ld1 - PSHx: 16:35 Appendectomy; heart cath; Cholecystectomy; ld1 - Immunization history:: Adult Immunizations up to date. - Social history:: Smoking status: Patient denies any tobacco usage or history of. Screenin:47 [place] Swallow Protocol Exclusion Criteria: Unable to remain alert for testing: No NPO hb for medical/surgical reason by provider order No Head-of-bed restricted <30 degrees Tracheostomy tube present No No thin liquids due to preexisting dysphagia/baseline modified diet thickened liquids No Exclusion Criteria Result: Proceed Brief Cognitive Screen What is your name? Normal, Where are you right now? Normal, What year is it? Normal. Oral Mechanism Examination Oral Mechanism Result: Normal. 3 oz Water Swallow Challenge: Pt able to drink all water without stopping, coughing, choking or throat clearing: Yes Result: SALENA MEYER Notified: Beulah Bucio MD. 19:00 [facility] ED Fall Risk Assessment (Adult) History of falling in the last 3 months, rv including since admission Yes- fall prone (multiple falls) (3 pts) Score/Fall Risk Level 3 or more points = High Risk Oriented to surroundings, Maintained a safe environment, Educated pt \\T\\ family on fall prevention, incl call for assistance when getting out of bed, Assessed \\T\\ reinforced patient's understanding of fall precautions, Provided non-skid footwear, Hourly rounding (assess needs \\T\\ fall precautionary measures) done, Used ambulatory aids as needed (educated on \\T\\ assisted with), Used gait belt as appropriate Implemented a Fall Risk Plan of Care, Apply high fall risk patient identification: yellow non skid footwear/ fall signage, Placed fall mat w/ non beveled edge next to bed, Activated bed/chair alarm, Remained w/in arm's length of patient and in sight while toileting, Offered frequent toileting (1:1 observation), Remained with patient while ambulating, Utilized family, sitter, or virtual operations manager station as indicated. Abuse screen: Denies threats or abuse. Denies injuries from another. 19:00 Nutritional screening: No deficits noted. Tuberculosis screening: No symptoms or risk rv factors identified. Assessment: 16:30 VAN Scoring: Arm Drift: Patients demonstrates NO arm weakness. Patient is VAN Negative. hb 16:31 Reassessment: CODE STROKE CALLED, PT TO CT FROM [facility]BUL[facility] WITH EMS AND GREGORY BORREGO. hb 16:44 Reassessment: See triage assessment. Pt back from CT. ld1 16:45 Cardiovascular: Rhythm is atrial fibrillation. ld1 16:45 [place] Swallow Protocol 3 oz Water Swallow Challenge: Pt able to drink all water without ld1 stopping, coughing, choking or throat clearing: Yes Result: SALENA MEYER Notified: Beulah Bucio MD. 16:46 TNKase (Tenecteplase) Screening: Contraindications: Is the patient on Aspirin, Heparin, ld1 or Warfarin: Yes. 19:00 Reassessment: Patient appears in no apparent distress at this time. Patient and/or jb4 family updated on plan of care and expected duration. Pain level reassessed. Patient is alert, oriented x 3, equal unlabored respirations, skin warm/dry/pink. 20:00 Reassessment: Patient appears in no apparent distress at this time. Patient and/or jb4 family updated on plan of care and expected duration. Pain level reassessed. Patient is alert, oriented x 3, equal unlabored respirations, skin warm/dry/pink. 21:00 Reassessment: Patient appears in no apparent distress at this time. Patient and/or jb4 family updated on plan of care and expected duration. Pain level reassessed. Patient is alert, oriented x 3, equal unlabored respirations, skin warm/dry/pink. Vital Signs: 16:38 BP 94 / 57; Pulse 89; Resp 18; Pulse Ox 100% on R/A; ld1 16:45 Weight 79 kg; Height 5 ft. 10 in. ; Pain 0/10; ld1 16:45 Temp 97.3(TE); ld1 17:21 BP 95 / 61; Pulse 80; Resp 22; Pulse Ox 100% on R/A; ld1 20:30 BP 93 / 61; Pulse 73; Resp 16; Pulse Ox 100% on R/A; jb4 21:21 BP 103 / 66; Pulse 81; Resp 16; Pulse Ox 100% on R/A; jb4 16:45 Body Mass Index 24.99 (79.00 kg, 177.8 cm) ld1 16:45 Pain Scale: Adult ld1 NIH Stroke Scale Scores: 16:50 NIHSS Score: 0 hb ED Course: 16:35 Patient arrived in ED. jl7 16:35 Gianna Krause, RN is Primary Nurse. tm6 16:38 Triage completed. ld1 16:38 Arm band placed on right wrist. EKG completed in triage. Results shown to MD. ld1 16:41 Beulah Bucio MD is Attending Physician. sp3 16:43 CT Stroke Brain w/o Contrast In Process Unspecified. EDMS 16:44 Inserted saline lock: 20 gauge in right antecubital area, using aseptic technique. ld1 Blood collected. 16:46 EKG done, by ED staff, reviewed by Beulah Bucio MD. jl7 16:49 CT Stroke Brain w/o Contrast In Process Unspecified. EDMS 17:07 CT Head Angio In Process Unspecified. EDMS 17:11 CT Neck Angio In Process Unspecified. EDMS 17:27 Stroke CXR 1 View In Process Unspecified. EDMS 18:32 Minh Correa MD is Hospitalizing Provider. sp3 20:55 Primary Nurse role handed off by Gianna Krause, RN wm 21:13 Luis Bauman, RN is Primary Nurse. jb4 21:28 Patient has correct armband on for positive identification. rv 21:37 No provider procedures requiring assistance completed. Patient admitted, IV remains in rv place. Administered Medications: No medications were administered Point of Care Testing: Blood Glucose: 16:43 Blood Glucose: 112 mg/dL; ld1 Ranges: Outcome: 18:33 Decision to Hospitalize by Provider. sp3 21:37 Admitted to Med/surg accompanied by nurse, via wheelchair, room 231, with chart, Report rv called to DANIEL BORREGO 21:37 Condition: good 21:37 Instructed on the need for admit, 21:38 Patient left the ED. rv NIH Stroke Scale - NIH Stroke Score Date: 01/26/2023 Time: 16:50 Total Score = 0 10. Dysarthria (speech clarity - read or repeat words) - 0(Normal) 11. Extinction and Inattention (visual/tactile/auditory/spatial/personal) - 0(No abnormality) 1a. Level of Consciousness (LOC) - 0(Alert) 1b. Level of Consciousness (LOC) (Month \\T\\ Age) - 0(Both) 1c. LOC Commands (Open \\T\\ Closes Eyes/Grant Officer) - 0(Both) 2. Best Gaze (Lateral Gaze Paresis) - 0(Normal) 3. Visual Field Loss - 0(No visual loss) 4. Facial Palsy - 0(Normal) 5a. Left Arm: Motor (10-second hold) - 0(No drift) 5b. Right Arm: Motor (10-second hold) - 0(No drift) 6a. Left Leg: Motor (5-second hold - always test supine) - 0(No drift) 6b. Right Leg: Motor (5-second hold - always test supine) - 0(No drift) 7. Limb Ataxia (finger/nose \\T\\ heel/lopez - test with eyes open) - 0(Absent) 8. Sensory Loss (pinprick arms/legs/face) - 0(Normal) 9. Best Language: Aphasia (description/naming/reading) - 0(No aphasia) Initials: hb Signatures: Dispatcher [employer] Klaudia Quevedo, RN RN Luis Bauman, RN RN jb4 Gregory Hancock RN RN jl7 Prasanth Fisher, RN RN rv Fara Joy RN RN ld1 Leatha To Setul, MD MD sp3 Gianna Krause RN RN tm6
[2023-01-26] MEDS: INSULIN REGULAR (HUMAN) 100 UNIT/ML SQ SCH (21:00)
[2023-01-26 22:07] VITALS: BMI 30.9
[2023-01-26] MEDS: NA CHLORIDE 0.9% 1,000 ML IV SCH (22:51)
[2023-01-26] MEDS: APIXABAN 5 MG TABLET PO SCH (22:51)
--- NOTE | 2023-01-27 00:35 | P.HP ---
Certification for Inpatient With expected LOS: >2 Midnights Patient will require the following post-hospital care: None Practitioner: I am a practitioner with admitting privileges, knowledge of patient current condition, hospital course, and medical plan of care. Services: Services provided to patient in accordance with Admission requirements found in Title 42 Section 412.3 of the Code of Federal Regulations Patient History Date of Service: 01/27/23 Primary Care Provider: Dr. 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 Pt has been on plavix since that time. Pt states he has not followed up with Neuro in a long time but sees Dr. Alegria for his a. fib. He recently added Eliquis to his medications. Mr. Miller sees Dr. Nunes regularly as he has a history of colon cancer with radiation and surgical treatment, no chemotherapy. Pt has also seen Dr. Disla for a TURP. Three days ago pt noted a knot to the right axilla and then had a large amount of ecchymosis form that drained down to his elbow. He was seen in the ED and the area was evaluated by US +5.7cm heterogeneous mass felt to be a hematoma was noted. Pt was discharged to follow up with Dr. Nunes. Today as pt was sitting at the table he became confused, his significant other called EMS. Mr Miller has a poor recollection of the next 30 minutes. EMS felt he had some right facial droop and transported pt to the ED. On arrival to the ED Mr. Miller was feeling better, was more alert, but did not feel back to normal. A stroke protocol workup was done in the ED with negative results. Pt sent for admission for MRI stroke protocol and Neurology consultation. Pt voices understanding of the treatment plan. Allergies Penicillins Allergy (Severe, Verified 01/26/23 22:07) Rash codeine [Codeine] Adverse Reaction (Severe, Verified 01/26/23 22:07) NAUSEA VOMITTING Home Medications: Allopurinol 100 mg PO DAILY 01/26/23 Amlodipine [Norvasc*] 5 mg PO DAILY 01/26/23 Apixaban [Eliquis] 5 mg PO BID 01/26/23 Atorvastatin Calcium [Lipitor] 40 mg PO BEDTIME 01/26/23 Clopidogrel Bisulfate [Plavix*] 75 mg PO DAILY 01/26/23 Metoprolol Tartrate 100 mg PO DAILY 01/26/23 Tamsulosin [Flomax*] 0.4 mg PO BID 01/26/23 lisinopriL [Lisinopril] 20 mg PO DAILY 01/26/23 - Past Medical/Surgical History Has patient received pneumonia vaccine in the past: No Diabetic: No -: CVA -: HTN -: TIA -: Afib -: gout -: CHF -: appendectomy -: Cholecystectomy -: Cardiac cath x 2 Psychosocial/ Personal History: Patient lives at home with a friend, is retired. - Family History Father -: Heart disease Mother -: Heart disease, Hypertension, Other (see notes) Notes: alzheimers Brother -: Cancer - Social History Alcohol use: No CD- Drugs: No Caffeine use: No Review of Systems General: Weakness, Malaise Eyes: Vision Change ENT: Unremarkable Respiratory: Unremarkable Cardiovascular: Unremarkable Gastrointestinal: Unremarkable Genitourinary: Unremarkable Musculoskeletal: Unremarkable Integumentary: Bruising, As per HPI Neurological: Weakness, Numbness, Confusion Lymphatics: Other (continued right axilla tenderness/induration) Physical Examination - Vital Signs Temperature: 97.3 F Blood Pressure: 103/66 Pulse: 81 Respirations: 16 - Physical Exam General: Alert, In no apparent distress, Oriented x3 HEENT: Other (right visual deficit) Neck: Supple, 2+ carotid pulse no bruit Respiratory: Clear to auscultation bilaterally, Normal air movement Cardiovascular: No edema, Normal pulses Capillary refill: <2 Seconds Gastrointestinal: Normal bowel sounds Musculoskeletal: No clubbing, No swelling Integumentary: Tenderness/swelling, Other (ecchymosis from right axilla down to medial elbow and just slightly past joint) Neurological: Normal speech, Other (gait not tested, minimal right facial fold asymmetry to right), Abnormal sensation (to right cheek) Lymphatics: Other (as noted, continued "smaller" area of hematoma/induration) External genitalia: Deferred Rectal: Deferred - Studies Laboratory Data (last 24 hrs) 01/26/23 01/26/23 01/26/23 16:46 16:46 16:46 WBC 5.60 Hgb 12.9 L Hct 38.4 L Plt Count 216 PT 13.4 H INR 1.22 APTT 36.1 Sodium 137 Potassium 3.7 BUN 13 Creatinine 1.10 Glucose 115 H Total Bilirubin 1.2 H AST 18 ALT 22 Alkaline Phosphatase 75 Assessment and Plan - Problems (Diagnosis) (1) TIA (transient ischemic attack) Current Visit: Yes Status: Acute Plan: Serial neuro exams MRI stroke protocol in am Continue pt's home anticoagulants: clopidogrel and eliquis Continue metoprolol for rate control of a. fib Continue antihypertensives Trend labs Consult Dr. Guzmán (2) Near syncope Current Visit: Yes Status: Acute Plan: Consult Patrice trend troponin, observe for hypotension, trend blood pressures Discharge Plan: Home - Advance Directives Does patient have a Living Will: No Does patient have a Durable POA for Healthcare: No - Code Status/Comfort Care Code Status Assessed: Yes Code Status: Full Code Critical Care: No Time Spent Managing Pts Care (In Minutes): 60
[2023-01-27] MEDS: INSULIN REGULAR (HUMAN) 100 UNIT/ML SQ SCH ×2 (07:30→11:30)
[2023-01-27] MEDS: APIXABAN 5 MG TABLET PO SCH ×2 (08:07→20:25)
[2023-01-27] MEDS: CLOPIDOGREL 75 MG TABLET PO SCH (08:07)
[2023-01-27] MEDS: FOLIC ACID 1 MG TABLET PO SCH ×2 (08:07→20:26)
[2023-01-27 08:31] LABS: Absolute Lymphocytes (CBC) 1.5 K/uL (0.7-4.9); Hematocrit 33.9 % (39.6-49.0); Lymphocytes % 22.4 % (15.3-44.8); MCV 95.6 fL (80-100); MPV 8.2 fL (7.6-11.3); Platelets 195 thou/uL (152-406); RBC Red Blood Cell Count 3.55 M/uL (4.33-5.43)
[2023-01-27 08:36] LABS: Albumin 3.4 g/dL (3.4-5.0); Bilirubin Total 1.2 mg/dL (0.2-1.0); Magnesium 2.5 mg/dL (1.6-2.4); Potassium 4.2 mEq/L (3.5-5.1); Protein, Total 6.3 g/dL (6.4-8.2)
--- NOTE | 2023-01-27 08:38 | P.PN ---
Subjective Date of Service: 01/27/23 Primary Care Provider: Dr. Pope Chief Complaint: TIA, altered mental status Subjective: No C/O voiced, Improving Review of Systems 10-point ROS is otherwise unremarkable Physical Examination - Vital Signs Temperature: 97 F Blood Pressure: 118/72 Pulse: 81 Respirations: 16 Pulse Ox (%): 96 - Physical Exam General: Alert, In no apparent distress, Oriented x3 HEENT: Atraumatic, Normocephalic Neck: Supple, 2+ carotid pulse no bruit Respiratory: Clear to auscultation bilaterally, Normal air movement Cardiovascular: No edema, Normal pulses Capillary refill: <2 Seconds Gastrointestinal: Normal bowel sounds, Soft and benign Musculoskeletal: No clubbing, No swelling Integumentary: No rashes, No breakdown Neurological: Normal speech, Normal strength at 5/5 x4 extr - Studies Laboratory Data (last 24 hrs) 01/26/23 01/26/23 01/26/23 16:46 16:46 16:46 WBC 5.60 Hgb 12.9 L Hct 38.4 L Plt Count 216 PT 13.4 H INR 1.22 APTT 36.1 Sodium 137 Potassium 3.7 BUN 13 Creatinine 1.10 Glucose 115 H Total Bilirubin 1.2 H AST 18 ALT 22 Alkaline Phosphatase 75 Assessment And Plan - Plan Assessment/Plan TIA Neurology consult, MRI PT eval, speech cognition eval CTA of the head and neck brain CT no acute abnormality Carotid Doppler Chest x-ray no acute abnormality BPH recent TURP Dr Disla I&O 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
[2023-01-27 08:42] LABS: Troponin High Sensitivity 7.1 pg/mL (<58.9)
--- NOTE | 2023-01-27 09:16 | RAD REPORT ---
EXAM DESCRIPTION: US - CP - 01/27/2023 6:25 am CLINICAL HISTORY: TIA s/s with hx of CVA COMPARISON: Neck Angio dated 01/26/2023 TECHNIQUE: Real-time sonographic grayscale, color duplex, and spectral wave Doppler evaluation of katharine th carotid systems was performed. FINDINGS: Normal high resistance waveforms are noted in both external carotid arteries. The common c arotid arteries and internal carotid arteries show normal low resistance waveforms. Up to moderate bilateral calcified atherosclerotic plaque along the carotid bulb and proximal ICAs, m ore pronounced and irregular on the left. Peak systolic velocity less than 125 cm/ sec bilaterally. ICA/CCA peak systolic ratios less than 2.0 bilaterally. Antegrade flow seen in both vertebral arteries. IMPRESSION: Up to moderate bilateral ICA atherosclerotic changes noted. Less than 50% ICA stenosis bilaterally. Evaluation of carotid artery stenosis, if any, is reported based on consensus recommendations of the Society of Radiologists in Ultrasound (Isaac et al., Radiology, 2003)
[2023-01-27] MEDS: NA CHLORIDE 0.9% 1,000 ML IV SCH ×2 (10:20→23:40)
--- NOTE | 2023-01-27 14:08 | EKG ---
Test Date: 2023-01-26 Test Time: 16:43:29 Apartment Assistant Manager: MICKEY MEASUREMENT RESULTS: Intervals: Rate: 80 CA: QRSD: 98 QT: 390 QTc: 449 [place]: P: CA: QRS: 14 T: 9 INTERPRETIVE STATEMENTS: Atrial fibrillation Incomplete right bundle branch block Abnormal ECG Compared to ECG 01/23/2023 10:46:26 Incomplete right bundle-branch block now present Ventricular premature complex(es) no longer present Electronically Signed On 01-27-23 14:06:46 WIRE TECHNICIAN by Sonido Ibrahim
[2023-01-27] MEDS: ATORVASTATIN 80 MG TAB PO SCH (20:25)
[2023-01-28] MEDS: NA CHLORIDE 0.9% 1,000 ML IV SCH ×3 (02:05→16:18)
[2023-01-28] MEDS ORDERED: HOME MED 1 EA UNK (Metoprolol Tartrate [Metoprolol Tartrate] 100 MG Tablet) PO SCH (06:00)
--- NOTE | 2023-01-28 07:33 | P.PN ---
Subjective Date of Service: 01/28/23 Primary Care Provider: Dr. Pope Chief Complaint: TIA, altered mental status Subjective: No C/O voiced, Improving Review of Systems 10-point ROS is otherwise unremarkable Physical Examination - Vital Signs Temperature: 98.1 F Blood Pressure: 150/89 Pulse: 108 Respirations: 16 Pulse Ox (%): 97 - Physical Exam General: Alert, In no apparent distress, Oriented x3 HEENT: Atraumatic, Normocephalic Neck: Supple, 2+ carotid pulse no bruit Respiratory: Clear to auscultation bilaterally, Normal air movement Cardiovascular: No edema, Normal pulses Capillary refill: <2 Seconds Gastrointestinal: Normal bowel sounds, Soft and benign Musculoskeletal: No clubbing, No swelling Integumentary: No rashes, No breakdown Neurological: Normal speech, Normal strength at 5/5 x4 extr Assessment And Plan - Plan Assessment/Plan TIA Neurology consult, MRI (DC after MRI 01/29) PT eval, speech cognition eval CTA of the head and neck brain CT no acute abnormality Carotid Doppler Chest x-ray no acute abnormality BPH recent TURP Dr Disla 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
[2023-01-28] MEDS: METOPROLOL TAR 50 MG TAB PO SCH (09:34)
[2023-01-28] MEDS: TAMSULOSIN 0.4 MG SR CAP PO SCH ×2 (09:34→21:17)
[2023-01-28] MEDS: allopurinoL 100 MG TAB PO SCH (09:34)
[2023-01-28] MEDS: FOLIC ACID 1 MG TABLET PO SCH ×2 (09:35→21:17)
[2023-01-28] MEDS: CLOPIDOGREL 75 MG TABLET PO SCH (09:35)
[2023-01-28] MEDS: APIXABAN 5 MG TABLET PO SCH ×2 (09:35→21:18)
[2023-01-28] MEDS: ATORVASTATIN 80 MG TAB PO SCH (21:17)
[2023-01-29] MEDS: NA CHLORIDE 0.9% 1,000 ML IV SCH ×2 (02:20→04:28)
[2023-01-29] MEDS ORDERED: PNEUMOCOCCAL VACCINE 0.5 ML IMVAC ONE (08:00)
--- NOTE | 2023-01-29 08:29 | RAD REPORT ---
EXAM DESCRIPTION: MRI - Brain Wo Cont - 01/29/2023 7:53 am CLINICAL HISTORY: tia on anticoagulants COMPARISON: Head CT 01/26/2023. MRI brain 04/17/2016 TECHNIQUE: Multiplanar multisequence MRI of the brain performed without IV contrast. FINDINGS: No evidence of acute infarct or other diffusion signal abnormality. No evidence of acute intracranial hemorrhage or abnormal extra-axial fluid collections. Mild diffuse parenchymal volume loss. Ventricular caliber otherwise within normal for age. Midline st ructures are unremarkable. Confluent periventricular and deep white matter T2/FLAIR hyperintensities, nonspecific, but suggestiv e of chronic small vessel ischemic changes. The pattern is somewhat progressive compared to the prior MRI. No mass effect or midline shift. Major vascular flow voids are preserved. Dolichoectasia of the vertebral artery. Mastoid air cells are well aerated. Small mucous retention cysts in the maxillary sinuses. IMPRESSION: No acute intracranial process. No evidence of ventriculomegaly or mass effect. Progressive pattern of nonspecific central deep white matter T2/FLAIR hyperintensities, most suggesti ve of chronic small vessel ischemic changes.
[2023-01-29] MEDS: TAMSULOSIN 0.4 MG SR CAP PO SCH (10:24)
[2023-01-29] MEDS: allopurinoL 100 MG TAB PO SCH (10:25)
[2023-01-29] MEDS: FOLIC ACID 1 MG TABLET PO SCH (10:25)
[2023-01-29] MEDS: APIXABAN 5 MG TABLET PO SCH (10:25)
[2023-01-29] MEDS: METOPROLOL TAR 50 MG TAB PO SCH (10:27)
[2023-01-29] MEDS: CLOPIDOGREL 75 MG TABLET PO SCH (10:27)
[2023-01-29 10:30] VITALS: BP 114/72
--- NOTE | 2023-01-29 11:02 | P.DS ---
Admission Date: 01/26/23 Discharge Date: 01/29/23 Primary Care Provider: Dr. Pope Disposition: ROUTINE DISCHARGE Discharge Condition: GOOD Reason for Admission: TIA, altered mental status Brief History of Present Illness: Patient History Date of admission: 01/27/23 Primary Care Provider: Dr. Pope Reason for admission: TIA, altered mental status History of Present Illness: Vahe is a 72 yo male with a history of CVA in his 50s. Pt has been on plavix since that time. Pt states he has not followed up with Neuro in a long time but sees Dr. Alegria for his a. fib. He recently added Eliquis to his medications. Mr. Miller sees Dr. Nunes regularly as he has a history of colon cancer with radiation and surgical treatment, no chemotherapy. Pt has also seen Dr. Disla for a TURP. Three days ago pt noted a knot to the right axilla and then had a large amount of ecchymosis form that drained down to his elbow. He was seen in the ED and the area was evaluated by US +5.7cm heterogeneous mass felt to be a hematoma was noted. Pt was discharged to follow up with Dr. Nunes. Today as pt was sitting at the table he became confused, his significant other called EMS. Mr Miller has a poor recollection of the next 30 minutes. EMS felt he had some right facial droop and transported pt to the ED. On arrival to the ED Mr. Miller was feeling better, was more alert, but did not feel back to normal. A stroke protocol workup was done in the ED with negative results. Pt sent for admission for MRI stroke protocol and Neurology consultation. Pt voices understanding of the treatment plan. Hospital Course: Mr. Miller is a pleasant 72-year-old male patient with a past medical history significant for CVA, colon cancer, Who was admitted to the [facility] on 01/28/2020 for TIA, altered mental status Pt is a 72 yo male with a history of CVA in his 50s. Pt has been on plavix since that time. Pt states he has not followed up with Neuro in a long time but sees Dr. Alegria for his a. fib. He recently added Eliquis to his medications. Mr. Miller sees Dr. Nunes regularly as he has a history of colon cancer with,, no chemotherapy. Pt has also seen Dr. Disla for a TURP. Three days ago pt noted a knot to the right axilla and then had a large amount of ecchymosis form that drained down to his elbow. He was seen in the ED and the area was evaluated by US +5.7cm heterogeneous mass felt to be a hematoma was noted. Pt was discharged to follow up with Dr. Nunes. Today as pt was sitting at the table he became confused, his significant other called EMS. Mr Miller has a poor recollection of the next 30 minutes. EMS felt he had some right facial droop and transported pt to the ED. On arrival to the ED Mr. Miller was feeling better, was more alert, but did not feel back to normal. A stroke protocol workup was done in the ED with negative results. Pt sent for admission for MRI stroke protocol and Neurology consultation. Pt voices understanding of the treatment plan. MRI of the brain 01/29/2023 came back negative. On 01/30/2020, patient was seen on morning rounds and deemed medically stable for discharge. Patient was discharged with instructions to schedule follow-up appointments with PCP. Neurologist was given the opportunity to ask questions and reported no further questions. Furthermore, all questions were answered to the best of my ability. New med Atorvastatin 80 mg p.o. at bedtime Eliquis 5mg po bid Folic acid 1 mg po daily Follow-up PCP [address] Guzmán Neurologist 4 weeks -Please call nursing station if you have any questions regarding your medications, or hospital stay -Please return to the emergency department if your symptoms worsen Follow-up with cardiology in 1 to 2 weeks after discharge. Vital Signs/Physical Exam: Temp Pulse Resp BP Pulse Ox 97.8 F 84 16 114/72 98 01/29/23 04:00 01/29/23 10:27 01/29/23 04:00 01/29/23 10:27 01/29/23 04:00 General: Alert, Oriented x3 HEENT: Atraumatic, Normocephalic Neck: Supple, 2+ carotid pulse no bruit Respiratory: Clear to auscultation bilaterally, Normal air movement Cardiovascular: Normal pulses, Regular rate/rhythm, Normal S1 S2 Capillary refill: <2 Seconds Gastrointestinal: Normal bowel sounds, Soft and benign Musculoskeletal: No clubbing, No swelling Integumentary: No rashes, No breakdown Neurological: Normal speech, Other (Left hemiparesis, from previous stroke), Abnormal sensation Laboratory Data at Discharge: WBC 6.50 thou/uL (4.3-10.9) 01/27/23 08:00 Hgb 11.5 g/dL (13.6-17.9) L D 01/27/23 08:00 Hct 33.9 % (39.6-49.0) L 01/27/23 08:00 Plt Count 195 thou/uL (152-406) 01/27/23 08:00 PT 13.4 SECONDS (9.5-12.5) H 01/26/23 16:46 INR 1.22 01/26/23 16:46 APTT 36.1 SECONDS (24.3-36.9) 01/26/23 16:46 Sodium 139 mEq/L (136-145) 01/27/23 08:00 Potassium 4.2 mEq/L (3.5-5.1) D 01/27/23 08:00 BUN 15 mg/dL (7-18) 01/27/23 08:00 Creatinine 0.83 mg/dL (0.70-1.30) 01/27/23 08:00 Glucose 94 mg/dL (74-106) 01/27/23 08:00 Magnesium 2.5 mg/dL (1.6-2.4) H 01/27/23 08:00 Total Bilirubin 1.2 mg/dL (0.2-1.0) H 01/27/23 08:00 AST 19 U/L (15-37) 01/27/23 08:00 ALT 21 U/L (16-61) 01/27/23 08:00 Alkaline Phosphatase 67 U/L (45-117) 01/27/23 08:00 Triglycerides 77 mg/dL (<150) 01/27/23 08:00 Cholesterol 102 mg/dL (<200) 01/27/23 08:00 HDL Cholesterol 47 mg/dL (40-60) 01/27/23 08:00 Cholesterol/HDL Ratio 2.17 01/27/23 08:00 Home Medications: Allopurinol 100 mg PO DAILY 01/26/23 Amlodipine [Norvasc*] 5 mg PO DAILY 01/26/23 Apixaban [Eliquis] 5 mg PO BID 01/26/23 Atorvastatin Calcium [Lipitor] 40 mg PO BEDTIME 01/26/23 Clopidogrel Bisulfate [Plavix*] 75 mg PO DAILY 01/26/23 Metoprolol Tartrate 100 mg PO DAILY 01/26/23 Tamsulosin [Flomax*] 0.4 mg PO BID 01/26/23 lisinopriL [Lisinopril] 20 mg PO DAILY 01/26/23 Atorvastatin Calcium [Lipitor] 80 mg PO BEDTIME tab 01/29/23 Atorvastatin Calcium [Lipitor] 80 mg PO DAILY 30 Days #30 tab 01/29/23 Clopidogrel Bisulfate [Plavix*] 75 mg PO DAILY 01/29/23 New Medications: Atorvastatin Calcium [Lipitor] 80 mg PO DAILY 30 Days #30 tab Physician Discharge Instructions: Mr. Miller is a pleasant 72-year-old male patient with a past medical history significant for CVA, colon cancer, Who was admitted to the [facility] on 01/28/2020 for TIA, altered mental status Pt is a 72 yo male with a history of CVA in his 50s. Pt has been on plavix since that time. Pt states he has not followed up with Neuro in a long time but sees Dr. Alegria for his a. fib. He recently added Eliquis to his medications. Mr. Miller sees Dr. Nunes regularly as he has a history of colon cancer with,, no chemotherapy. Pt has also seen Dr. Disla for a TURP. Three days ago pt noted a knot to the right axilla and then had a large amount of ecchymosis form that drained down to his elbow. He was seen in the ED and the area was evaluated by US +5.7cm heterogeneous mass felt to be a hematoma was noted. Pt was discharged to follow up with Dr. Nunes. Today as pt was sitting at the table he became confused, his significant other called EMS. Mr Miller has a poor recollection of the next 30 minutes. EMS felt he had some right facial droop and transported pt to the ED. On arrival to the ED Mr. Miller was feeling better, was more alert, but did not feel back to normal. A stroke protocol workup was done in the ED with negative results. Pt sent for admission for MRI stroke protocol and Neurology consultation. Pt voices understanding of the treatment plan. MRI of the brain 01/29/2023 came back negative. On 01/30/2020, patient was seen on morning rounds and deemed medically stable for discharge. Patient was discharged with instructions to schedule follow-up appointments with PCP. Neurologist was given the opportunity to ask questions and reported no further questions. Furthermore, all questions were answered to the best of my ability. New med Atorvastatin 80 mg p.o. at bedtime Eliquis 5mg po bid Folic acid 1mg po daily Follow-up PCP [address] Guzmán Neurologist 4 weeks -Please call nursing station if you have any questions regarding your m edications, or hospital stay -Please return to the emergency department if your symptoms worsen Follow-up with cardiology in 1 to 2 weeks after discharge. Diet: Low sodium Activity: Ad bob Followup: Omar Pope MD [Primary Care Provider] - Rudi Guzmán MD [ASSOCIATE-ACTIVE - CAN ADMIT] - Physician Review: Patient Assessed, Agree with Above Assessment and Plan Time spent managing pt's care (in minutes): 55 (minutes)
[2023-01-29 11:44] VITALS: TEMP 97.5
[2023-01-29 13:00] VITALS: O2SAT 98
--- NOTE | 2023-01-30 07:18 | ECHO ---
HEIGHT: 5 ft 8 in WEIGHT: 203 lb 8 oz DATE OF STUDY: 01/29/[address]: Gila Torres ART HANDLER-BC 2-DIMENSIONAL: YES M.MODE: YES DOPPLER: YES COLOR FLOW: YES TDS: PORTABLE: YES DEFINITY: BUBBLE STUDY: DIAGNOSIS: ATRIAL FIBRILLATION, TRANSIENT ISCHEMIC ATTACK CARDIAC HISTORY: CATHERIZATION: YES SURGERY: NO PROSTHETIC VALVE: NO PACEMAKER: NO MEASUREMENTS (cm) DIASTOLIC (NORMALS) SYSTOLIC (NORMALS) IVSd 1.3 (0.6-1.2) LA Diam 4.7 (1.9-4.0) LVEF 50% LVIDd 3.1 (3.5-5.7) LVIDs 2.3 (2.0-3.5) %FS 25% LVPWd 1.3 (0.6-1.2) Ao Diam 3.6 (2.0-3.7) 2 DIMENSIONAL ASSESSMENT: RIGHT ATRIUM: NORMAL LEFT ATRIUM: SEVERELY DILATED RIGHT VENTRICLE: NORMAL LEFT VENTRICLE: NORMAL, 50-55% TRICUSPID VALVE: NORMAL MITRAL VALVE: NORMAL PULMONIC VALVE: AORTIC VALVE: NORMAL PERICARDIAL EFFUSION: NONE AORTIC ROOT: NORMAL LEFT VENTRICULAR WALL MOTION: NORMAL DOPPLER/COLOR FLOW: COMMENTS: 1. SEVERELY DILATED LEFT ATRIUM 2. LEFT VENTRICULAR EJECTION FRACTION 50-55% TECHNOLOGIST: AGUSTINA BARRIOS
== END 2023-01-29 15:08 | disposition home or self-care (01) | DRG 69 ==
LOC: ER 16:33 → ERHOLD 20:31 → 2ND 22:01
PROVIDERS: ADMIT Hospitalist; ATTEND Hospitalist
DX: G45.9 Transient cerebral ischemic attack, unspecified (principal); I48.91 Unspecified atrial fibrillation; I10 Essential (primary) hypertension; N40.0 Benign prostatic hyperplasia without lower urinary tract symptoms; M10.9 Gout, unspecified; I25.10 Atherosclerotic heart disease of native coronary artery without angina pectoris; R29.700 NIHSS score 0; Z88.5 Allergy status to narcotic agent; Z88.0 Allergy status to penicillin; Z79.82 Long term (current) use of aspirin; Z86.73 Personal history of transient ischemic attack (TIA), and cerebral infarction without residual deficits; Z90.49 Acquired absence of other specified parts of digestive tract; Z79.01 Long term (current) use of anticoagulants; Z79.02 Long term (current) use of antithrombotics/antiplatelets; Z79.899 Other long term (current) drug therapy; Z85.038 Personal history of other malignant neoplasm of large intestine
CPT/HCPCS: 36415; 70450; 70496; 70498; 70551; 71045; 80048; 80053; 80061; 80076; 82550; 82565; 82947; 83735; 84484; 85025; 85610; 85730; 92523; 92610; 93005; 93306; 93880; 94760; 97161; 99285; J7030; Q9967